=== PATIENT | female | born 1950 | race Hispanic/Latino ===

== ENCOUNTER 2021-05-16 17:54 | Inpatient (IN) | payer MEDICARE ==
--- NOTE | 2021-05-17 08:05 | History and Physical Report ---
GP History & Physical - History of Present Illness Date of admission: 05/16/21 Date of Examination: 05/17/21 Reason for Admission: Danger to self, Failure of Outpatient Treatment History of Present Illness: The patient is a 70 year old female with history of bipolar, anxiety, dementia, schizophrenia and schizoaffective disorder who was admitted from [facility] for aggressive behaviors. The patient was seen this morning. She presents with constricted affect and tangential thought process. She reports that she was went to the ED because she was coughing too much. The patient lacks insight and does not recall having any behavioral issues. Per note " the patient was brought to the ED for being aggressive and combative towards staff and residents at the halfway." The patient denies any current suicidal/homicidal ideation and denies hallucinations. PAST PSYCHIATRIC HISTORY: Diagnoses: Bipolar,Anxiety, Dementia, Schizophrenia, Schizoaffective Disorder Suicide attempts or Self-harm behavior: Yes Prior psychiatric hospitalizations: Yes Substance Abuse history: Denies Previous psychiatric medications tried: could not recall Outpatient treatment: yes PAST MEDICAL HISTORY: unknown Family Psychiatric History: None reported or documented SOCIAL HISTORY Marital Status: Living Arrangements: retirement Employment Status: Disabled Access to guns/weapons: Denies Education:College History of Abuse:Denies Legal History: Denies REVIEW OF SYSTEMS Constitutional: Negative for weight loss ENT: Negative for stridor Respiratory: Negative for cough or hemoptysis All other systems reviewed and are negative MENTAL STATUS EXAMINATION General Appearance and Behavior: Age appropriate, good hygiene, wearing appropriate clothes. calm, cooperative Cooperation: Cooperative Psychomotor Behavior: Psychomotor normal Mood: calm Affect and affective range: Constricted Thought Process: Tangential Thought Content: Speech: Normal tone and pace Suicidal Ideation: Denies Homicidal Ideation: Denies Hallucinations: Denies Delusions: Denies Impulse Control: Limited Insight and Judgment: Limited insight and fair judgment Memory: Limited Attention: distracted Orientation: a/o x 3 Assessment (1) Schizophrenia Current Visit: Yes Status: Acute Treatment Plan Patient admitted for inpatient psychiatric evaluation, medication adjustment a nd close monitoring The patient's behavior, mood, sleep and appetite will be closely monitored. Patient enrolled in individual and group therapeutic sessions and encouraged to attend. Patient provided with a safe and structured environment. Patient's physical health needs will be addressed by the Hospitalist. Hospitalist Consulted Labs including CBC, CMP, Lipid profile and Hemoglobin A1C levels ordered for baseline reference Social Assessment will be completed and the Mat Making Machine Tender will work with patient and family to ensure a suitable and safe disposition Medication adjustment will be made as clinically indicated Restart home medications Usual Wellness Anglican/Preservation: - Start Trazodone 50 mg po QHS & 50 mg po QHS PRN between 10 PM & 2 AM for in somnia - Start Melatonin 5 mg po QHS to promote circadian rhythm The patient agreed on the treatment plan, understood the risk, benefit, alternative treatment, potential consequence of no treatment, and gave informed consent. Estimated days: 7 Post hospital care: primary care provider, psychiatric provider Case staffed with Dr. White Legal Status: Voluntary Reaction to Hospitalization: Accepting Medications and Allergies Allergies Allergy/AdvReac Type Severity Reaction Status Date / Time haloperidol [From Haldol] Allergy Unknown Verified 05/16/21 22:07 Latex, Natural Rubber Allergy Unknown Verified 05/16/21 22:07 Home Medications Medication Instructions Recorded Confirmed Last Taken Type ARIPiprazole [Abilify] 10 mg PO DAILY 05/16/21 05/16/21 Unknown History Divalproex ER [DepaKOTE ER] 1,000 mg PO QHS 05/16/21 05/16/21 Unknown History Ipratropium/Albuterol Sulfate 0.5 - 2.5 mg INHALATION Q4HR PRN 05/16/21 05/16/21 Unknown History [DUONEB *Not for PRN Use*] Metformin HCl [metFORMIN] 1,000 mg PO BID 05/16/21 05/16/21 Unknown History amLODIPine [Norvasc] 5 mg PO DAILY 05/16/21 05/16/21 Unknown History diphenhydrAMINE [Benadryl CAP] 25 mg PO QHS PRN MDD For upto 10 05/16/21 05/16/21 Unknown History days donepeziL [Aricept] 5 mg PO QHS 05/16/21 05/16/21 Unknown History guaiFENesin/DEXTROMETHORPHAN 5 ml PO Q12HR 05/16/21 05/16/21 Unknown History [Guaifenesin-Dm 100-10 mg/5 ml] Results - Results Labs/Vitals: Last Vital Signs Temp 97.7 F 05/16/21 21:35 Pulse 91 H 05/16/21 21:35 Resp 17 05/16/21 21:35 BP 129/73 05/16/21 21:35 Pulse Ox 94 05/16/21 21:35 Physical Examination - Constitutional Vitals: Vital Signs Temp Pulse Resp BP Pulse Ox 97.7 F 91 H 17 129/73 94 05/16/21 21:35 05/16/21 21:35 05/16/21 21:35 05/16/21 21:35 05/16/21 21:35 Temperature -Last 24 Hours Temperature 97.7 F Mental Status Exam - Vital signs Last Vital Signs Temp 97.7 F 05/16/21 21:35 Pulse 91 H 05/16/21 21:35 Resp 17 05/16/21 21:35 BP 129/73 05/16/21 21:35 Pulse Ox 94 05/16/21 21:35 Physician Certification - Certification Statement Physician Certification Statement: This is an acknowledgement statement that AGGIE STEVEN is a 70 year old F who requires inpatient psychiatric admission for treatment which could reasonably be expected to improve the patient's condition for Estimated period of time patient will need to remain in the hospital: [ ] Plan for post-hospital care: [ ]
[2021-05-17] MEDS ORDERED: GUAIFENESIN PO SCH (10:00)
[2021-05-17] MEDS ORDERED: [UNRECOGNIZED DRUG - OTHER] PO SCH (10:00)
[2021-05-17] MEDS ORDERED: DEXTROMETHORPHAN PO SCH (10:00)
[2021-05-17] MEDS: amLODIPine 5 MG TAB PO SCH (10:12)
[2021-05-17] MEDS: ARIPiprazole 10 MG TAB PO SCH (10:12)
[2021-05-17] MEDS: metFORMIN 500 MG TAB PO SCH ×2 (10:17→17:23)
[2021-05-17] MEDS: guaiFENesin DM 200/20 MG ORAL LIQD 10 ML PO SCH ×2 (10:17→21:32)
--- NOTE | 2021-05-17 13:37 | Consultation ---
History of Present Illness - Reason for Consult Consult date: 05/17/21 medical mx - History of Present Illness The patient is a 70 year old female with history of bipolar, anxiety, dementia, schizophrenia and schizoaffective disorder who was admitted from [facility] for aggressive behaviors. Hospitalist Service consulted for medical management. Patient denies any complaint and has no acute issue PAST PSYCHIATRIC HISTORY: Bipolar,Anxiety, Dementia, Schizophrenia, Schizoaffective Disorder PAST MEDICAL HISTORY: DM Family Psychiatric History: H/o HTN, DM SOCIAL HISTORY: REVIEW OF SYSTEMS Constitutional: Negative for weight loss ENT: Negative for stridor Respiratory: Negative for cough or hemoptysis All other systems reviewed and are negative Physical exam: GENERAL: well-developed and well-nourished elderly female HEENT: Normocephalic. Atraumatic. No conjunctival congestion or icterus. Patient has moist mucous membranes. NECK: Supple. Trachea midline. CHEST/LUNGS: Clear to auscultated bilaterally, breathing nonlabored. No wheezes crackles or rhonchi. HEART/CARDIOVASCULAR: Regular in rate and rhythm. S1 and S2 positive. ABDOMEN: Abdomen is soft, nontender. Patient has normal bowel sounds. SKIN: There is no rash. Warm and dry. NEURO: No focal motor deficit. Follows command. MUSCULOSKELETAL: No joint effusion or tenderness. EXTRIMITY: No edema, no cyanosis or clubbing. PSYCH: Cooperative. Assessment Schizophrenia -- Mx per primary DM type 2 on metformin --patient appears to be medically stable with stable BG Medications and Allergies Allergies Allergy/AdvReac Type Severity Reaction Status Date / Time haloperidol [From Haldol] Allergy Unknown Verified 05/16/21 22:07 Latex, Natural Rubber Allergy Unknown Verified 05/16/21 22:07 Home Medications Medication Instructions Recorded Confirmed Last Taken Type ARIPiprazole [Abilify] 10 mg PO DAILY 05/16/21 05/16/21 Unknown History Divalproex ER [DepaKOTE ER] 1,000 mg PO QHS 05/16/21 05/16/21 Unknown History Ipratropium/Albuterol Sulfate 0.5 - 2.5 mg INHALATION Q4HR PRN 05/16/21 05/16/21 Unknown History [DUONEB *Not for PRN Use*] Metformin HCl [metFORMIN] 1,000 mg PO BID 05/16/21 05/16/21 Unknown History amLODIPine [Norvasc] 5 mg PO DAILY 05/16/21 05/16/21 Unknown History diphenhydrAMINE [Benadryl CAP] 25 mg PO QHS PRN MDD For upto 10 05/16/21 05/16/21 Unknown History days donepeziL [Aricept] 5 mg PO QHS 05/16/21 05/16/21 Unknown History guaiFENesin/DEXTROMETHORPHAN 5 ml PO Q12HR 05/16/21 05/16/21 Unknown History [Guaifenesin-Dm 100-10 mg/5 ml] Active Meds: Active Medications Albuterol/Ipratropium (Ipratropium/Albuterol Sulfate 3 Ml Ampul.Neb) 1 ampul IH Q6HRT [facility] Amlodipine Besylate (Amlodipine 5 Mg Tab) 5 mg PO DAILY [facility] Last Admin: 05/17/21 10:12 Dose: 5 mg Aripiprazole (Aripiprazole 10 Mg Tab) 10 mg PO DAILY [facility] Last Admin: 05/17/21 10:12 Dose: 10 mg Clonazepam (Clonazepam 0.5 Mg Tab) 0.5 mg PO BID [facility] Diphenhydramine HCl (Diphenhydramine 25 Mg Cap) 25 mg PO QHS PRN PRN Reason: Insomnia Divalproex Sodium (Divalproex Er 500 Mg Tab) 1,000 mg PO QHS [facility] Donepezil HCl (Donepezil 5 Mg Tab) 5 mg PO QHS [facility] Guaifenesin (Guaifenesin Dm 200/20 Mg Oral Liqd 10 Ml) 5 ml PO Q12H [facility] Last Admin: 05/17/21 10:17 Dose: 5 ml Metformin HCl (Metformin 500 Mg Tab) 1,000 mg PO BIDDIAB [facility] Last Admin: 05/17/21 10:17 Dose: 1,000 mg Ziprasidone (Ziprasidone Mesylate 20 Mg Vial) 20 mg IM Q4H PRN PRN Reason: Agitation Exam - Constitutional Vitals: Temp Pulse Resp BP Pulse Ox 99.0 F 87 16 118/74 95 05/17/21 07:44 05/17/21 10:12 05/17/21 07:44 05/17/21 10:12 05/17/21 07:44 Results - Labs CBC & Chem 7: 05/17/21 19:37 05/17/21 19:37 Labs: Abnormal lab results 05/17/21 Range/Units 11:14 POC Glucose 245 H (70-105) mg/dL
[2021-05-17] MEDS: clonazePAM 0.5 MG TAB PO SCH ×2 (13:46→21:34)
[2021-05-17] MEDS ORDERED: WATER FOR INJ Sterile (PF) 10 ML ONE (18:30)
[2021-05-17] MEDS: ZIPRASIDONE MESYLATE 20 MG VIAL IM PRN (18:32)
[2021-05-17 20:00] LABS: Basophils % (Auto) 1.1 % (0.0-1.8); Eosinophils # (Auto) 0.1 K/mm3 (0.0-0.4); Eosinophils % (Auto) 2.2 % (0.0-4.3); Hematocrit 31.4 % (30.3-42.9); Hemoglobin 10.1 gm/dl (10.1-14.3); Lymphocytes # (Auto) 1.1 K/mm3 (1.2-5.4); Lymphocytes % (Auto) 26.4 % (13.4-35.0); Mean Corpuscular HGB Conc 32 % (30-34); Mean Corpuscular Volume 90 fl (79-97); Monocytes # (Auto) 0.5 K/mm3 (0.0-0.8); Monocytes % (Auto) 12.9 % (0.0-7.3); Platelet Count 106 K/mm3 (140-440); Red Blood Count 3.48 M/mm3 (3.65-5.03); Red Cell Distribution Width 13.7 % (13.2-15.2)
[2021-05-17 20:19] LABS: Alanine Aminotransferase 23 units/L (7-56); Albumin 3.6 g/dL (3.9-5); BUN/Creatinine Ratio 20; Blood Urea Nitrogen 18 mg/dL (7-17); Calcium 8.9 mg/dL (8.4-10.2); Chol/HDL Ratio 1.93 %; HDL Cholesterol 59 mg/dL (40-59); Hemolysis Index 13; LDL Cholesterol,Direct 43 mg/dL (50-130)
[2021-05-17] MEDS: DIVALPROEX ER 500 MG TAB PO SCH (21:33)
[2021-05-17] MEDS: DONEPEZIL 5 MG TAB PO SCH (21:34)
[2021-05-18] MEDS: metFORMIN 500 MG TAB PO SCH ×2 (08:46→16:47)
--- NOTE | 2021-05-18 08:53 | Progress Note ---
Subjective Date of service: 05/18/21 Subjective Comment: 05/18/21: The patient was seen in the activity room. She reports feeling better. She states she spoke with her son last night. She continues to present with constricted affect and circumstantial. She denies any current suicidal/homicidal ideation and denies hallucinations. REVIEW OF SYSTEMS Constitutional: Negative for weight loss ENT: Negative for stridor Respiratory: Negative for cough or hemoptysis All other systems reviewed and are negative MENTAL STATUS EXAMINATION General Appearance and Behavior: Age appropriate, good hygiene, wearing appropriate clothes. calm, cooperative Cooperation: Cooperative Psychomotor Behavior: Psychomotor normal Mood: calm Affect and affective range: Constricted Thought Process: circumstantial Thought Content: Speech: Normal tone and pace Suicidal Ideation: Denies Homicidal Ideation: Denies Hallucinations: Denies Delusions: Denies Impulse Control: Limited Insight and Judgment: Limited insight and fair judgment Memory: Limited Attention: distracted Orientation: a/o x 3 Assessment (1) Schizophrenia Current Visit: Yes Status: Acute Treatment Plan Patient admitted for inpatient psychiatric evaluation, medication adjustment and close monitoring The patient's behavior, mood, sleep and appetite will be closely monitored. Patient enrolled in individual and group therapeutic sessions and encouraged to attend. Patient provided with a safe and structured environment. Patient's physical health needs will be addressed by the Hospitalist. Hospitalist Consulted Labs including CBC, CMP, Lipid profile and Hemoglobin A1C levels ordered for baseline reference Social Assessment will be completed and the Hepatologist will work with patient and family to ensure a suitable and safe disposition Medication adjustment will be made as clinically indicated Restart home medications Usual Wellness Yazidism/Preservation: - Start Trazodone 50 mg po QHS & 50 mg po QHS PRN between 10 PM & 2 AM for insomnia - Start Melatonin 5 mg po QHS to promote circadian rhythm The patient agreed on the treatment plan, understood the risk, benefit, alternative treatment, potential consequence of no treatment, and gave informed consent. Estimated days: 6 Post hospital care: primary care provider, psychiatric provider Case staffed with Dr. White Legal Status: Voluntary Reaction to Hospitalization: Accepting Medications and Allergies Medications and Allergies Allergies Allergy/AdvReac Type Severity Reaction Status Date / Time haloperidol [From Haldol] Allergy Unknown Verified 05/16/21 22:07 Latex, Natural Rubber Allergy Unknown Verified 05/16/21 22:07 Home Medications Medication Instructions Recorded Confirmed Last Taken Type ARIPiprazole [Abilify] 10 mg PO DAILY 05/16/21 05/16/21 Unknown History Divalproex ER [DepaKOTE ER] 1,000 mg PO QHS 05/16/21 05/16/21 Unknown History Ipratropium/Albuterol Sulfate 0.5 - 2.5 mg INHALATION Q4HR PRN 05/16/21 05/16/21 Unknown History [DUONEB *Not for PRN Use*] Metformin HCl [metFORMIN] 1,000 mg PO BID 05/16/21 05/16/21 Unknown History amLODIPine [Norvasc] 5 mg PO DAILY 05/16/21 05/16/21 Unknown History diphenhydrAMINE [Benadryl CAP] 25 mg PO QHS PRN MDD For upto 10 05/16/21 05/16/21 Unknown History days donepeziL [Aricept] 5 mg PO QHS 05/16/21 05/16/21 Unknown History guaiFENesin/DEXTROMETHORPHAN 5 ml PO Q12HR 05/16/21 05/16/21 Unknown History [Guaifenesin-Dm 100-10 mg/5 ml] Active Meds: Active Medications Albuterol/Ipratropium (Ipratropium/Albuterol Sulfate 3 Ml Ampul.Neb) 1 ampul IH Q6HRT [facility] Amlodipine Besylate (Amlodipine 5 Mg Tab) 5 mg PO DAILY [facility] Last Admin: 05/17/21 10:12 Dose: 5 mg Aripiprazole (Aripiprazole 10 Mg Tab) 10 mg PO DAILY [facility] Last Admin: 05/17/21 10:12 Dose: 10 mg Clonazepam (Clonazepam 0.5 Mg Tab) 0.5 mg PO BID [facility] Last Admin: 05/17/21 21:34 Dose: 0.5 mg Diphenhydramine HCl (Diphenhydramine 25 Mg Cap) 25 mg PO QHS PRN PRN Reason: Insomnia Divalproex Sodium (Divalproex Er 500 Mg Tab) 1,000 mg PO QHS [facility] Last Admin: 05/17/21 21:33 Dose: 1,000 mg Donepezil HCl (Donepezil 5 Mg Tab) 5 mg PO QHS [facility] Last Admin: 05/17/21 21:34 Dose: 5 mg Guaifenesin (Guaifenesin Dm 200/20 Mg Oral Liqd 10 Ml) 5 ml PO Q12H [facility] Last Admin: 05/17/21 21:32 Dose: 5 ml Metformin HCl (Metformin 500 Mg Tab) 1,000 mg PO BIDDIAB [facility] Last Admin: 05/18/21 08:46 Dose: 1,000 mg Ziprasidone (Ziprasidone Mesylate 20 Mg Vial) 20 mg IM Q4H PRN PRN Reason: Agitation Last Admin: 05/17/21 18:32 Dose: 20 mg Results - Results Labs/Vitals: Laboratory Last Values WBC 4.2 K/mm3 (4.5-11.0) L 05/17/21 19:37 RBC 3.48 M/mm3 (3.65-5.03) L 05/17/21 19:37 Hgb 10.1 gm/dl (10.1-14.3) 05/17/21 19:37 Hct 31.4 % (30.3-42.9) 05/17/21 19:37 MCV 90 fl (79-97) 05/17/21 19:37 MCH 29 pg (28-32) 05/17/21 19:37 MCHC 32 % (30-34) 05/17/21 19:37 RDW 13.7 % (13.2-15.2) 05/17/21 19:37 Plt Count 106 K/mm3 (140-440) L 05/17/21 19:37 Lymph % (Auto) 26.4 % (13.4-35.0) 05/17/21 19:37 [place] % (Auto) 12.9 % (0.0-7.3) H 05/17/21 19:37 Eos % (Auto) 2.2 % (0.0-4.3) 05/17/21 19:37 Baso % (Auto) 1.1 % (0.0-1.8) 05/17/21 19:37 Lymph # (Auto) 1.1 K/mm3 (1.2-5.4) L 05/17/21 19:37 [place] # (Auto) 0.5 K/mm3 (0.0-0.8) 05/17/21 19:37 Eos # (Auto) 0.1 K/mm3 (0.0-0.4) 05/17/21 19:37 Baso # (Auto) 0.0 K/mm3 (0.0-0.1) 05/17/21 19:37 Seg Neutrophils % 57.4 % (40.0-70.0) 05/17/21 19:37 Seg Neutrophils # 2.4 K/mm3 (1.8-7.7) 05/17/21 19:37 Sodium 134 mmol/L (137-145) L 05/17/21 19:37 Potassium 4.2 mmol/L (3.6-5.0) 05/17/21 19:37 Chloride 100.4 mmol/L (98-107) 05/17/21 19:37 Carbon Dioxide 20 mmol/L (22-30) L 05/17/21 19:37 Anion Gap 18 mmol/L 05/17/21 19:37 BUN 18 mg/dL (7-17) H 05/17/21 19:37 Creatinine 0.9 mg/dL (0.6-1.2) 05/17/21 19:37 Estimated GFR > 60 ml/min 05/17/21 19:37 BUN/Creatinine Ratio 20 % 05/17/21 19:37 Glucose 295 mg/dL (65-100) H 05/17/21 19:37 POC Glucose 167 mg/dL (70-105) H 05/18/21 06:47 Hemoglobin A1c 7.4 % (4-6) H 05/17/21 19:37 Calcium 8.9 mg/dL (8.4-10.2) 05/17/21 19:37 Total Bilirubin 0.30 mg/dL (0.1-1.2) 05/17/21 19:37 AST 28 units/L (5-40) 05/17/21 19:37 ALT 23 units/L (7-56) 05/17/21 19:37 Alkaline Phosphatase 92 units/L (35-129) 05/17/21 19:37 Total Protein 6.0 g/dL (6.3-8.2) L 05/17/21 19:37 Albumin 3.6 g/dL (3.9-5) L 05/17/21 19:37 Albumin/Globulin Ratio 1.5 % 05/17/21 19:37 Triglycerides 110 mg/dL (2-149) 05/17/21 19:37 Cholesterol 114 mg/dL (50-199) 05/17/21 19:37 LDL Cholesterol Direct 43 mg/dL (50-130) L 05/17/21 19:37 HDL Cholesterol 59 mg/dL (40-59) 05/17/21 19:37 Cholesterol/HDL Ratio 1.93 % 05/17/21 19:37 TSH 1.850 mlU/mL (0.270-4.200) 05/17/21 19:37 Last Vital Signs Temp 98.8 F 05/18/21 07:56 Pulse 87 05/18/21 07:56 Resp 16 05/18/21 07:56 BP 109/69 05/18/21 07:56 Pulse Ox 94 05/18/21 07:56
[2021-05-18] MEDS: amLODIPine 5 MG TAB PO SCH (09:01)
[2021-05-18] MEDS: clonazePAM 0.5 MG TAB PO SCH ×2 (09:02→21:35)
[2021-05-18] MEDS: guaiFENesin DM 200/20 MG ORAL LIQD 10 ML PO SCH ×2 (09:02→21:39)
[2021-05-18] MEDS: ARIPiprazole 10 MG TAB PO SCH (09:02)
[2021-05-18] MEDS ORDERED: DEXTROSE 50% IN WATER (25GM) 50 ML SYRINGE IV PRN (11:42)
[2021-05-18] MEDS ORDERED: DEXTROSE 10% *Hypoglycemia IV PRN (12:02)
[2021-05-18] MEDS: INSULIN LISPRO 100 UNIT/ML SUB-Q SCH ×2 (16:39→21:30)
--- NOTE | 2021-05-18 21:15 | Progress Note ---
Assessment and Plan - Patient Problems (1) Vascular dementia with behavioral disturbance Current Visit: Yes Status: Acute Plan to address problem: Verbal prompting, verbal redirection, benzodiazepine therapy as clinically indicated. (2) Cerebral atherosclerosis Current Visit: Yes Status: Acute Plan to address problem: Risk factor reduction, antiplatelet therapy as clinically indicated. (3) Obesity (BMI 30.0-34.9) Current Visit: Yes Status: Acute Plan to address problem: Balanced diet, increase physical activity at discharge. (4) Schizophrenia Current Visit: Yes Status: Acute Qualifiers: Schizophrenia type: unspecified Qualified Code(s): F20.9 - Schizophrenia, unspecified Plan to address problem: Continue medical management, supportive care, (5) Generalized anxiety disorder Current Visit: Yes Status: Acute Plan to address problem: Benzodiazepine therapy as clinic indicated, supportive care. (6) Advance care planning Current Visit: Yes Status: Acute Plan to address problem: Disease education conducted, care plan discussed, diagnosis discussed, prognosis discussed, patient is full code. +30 minutes. History Interval history: 70 YO Female with Bipolar DO, Vascular Dementia, Cerebral Atherosclerosis, Schizophrenia admitted to [facility] for psychiatric stabilization. Patient seen and evaluated in the recreation room. No reported nursing events. Patient denies pain. Hospitalist Physical - Constitutional Vitals: Temp Pulse Resp BP Pulse Ox 98.8 F 87 16 109/69 94 05/18/21 07:56 05/18/21 09:01 05/18/21 07:56 05/18/21 09:01 05/18/21 07:56 - EENT Eyes: Present: PERRL, EOM intact ENT: hearing decreased - Neck Neck: Present: supple - Respiratory Respiratory effort: normal Respiratory: bilateral: CTA - Cardiovascular Rhythm: regular Heart Sounds: Present: S1 & S2 - Extremities Extremities: no ischemia Peripheral Pulses: within normal limits - Abdominal General gastrointestinal: soft, non-tender, non-distended - Integumentary Integumentary: Present: clear, dry - Psychiatric Psychiatric: cooperative - Neurologic Neurologic: CNII-XII intact Results - Labs CBC & Chem 7: 05/17/21 19:37 05/17/21 19:37 Labs: Laboratory Last Values WBC 4.2 K/mm3 (4.5-11.0) L 05/17/21 19:37 RBC 3.48 M/mm3 (3.65-5.03) L 05/17/21 19:37 Hgb 10.1 gm/dl (10.1-14.3) 05/17/21 19:37 Hct 31.4 % (30.3-42.9) 05/17/21 19:37 MCV 90 fl (79-97) 05/17/21 19:37 MCH 29 pg (28-32) 05/17/21 19:37 MCHC 32 % (30-34) 05/17/21 19:37 RDW 13.7 % (13.2-15.2) 05/17/21 19:37 Plt Count 106 K/mm3 (140-440) L 05/17/21 19:37 Lymph % (Auto) 26.4 % (13.4-35.0) 05/17/21 19:37 [place] % (Auto) 12.9 % (0.0-7.3) H 05/17/21 19:37 Eos % (Auto) 2.2 % (0.0-4.3) 05/17/21 19:37 Baso % (Auto) 1.1 % (0.0-1.8) 05/17/21 19:37 Lymph # (Auto) 1.1 K/mm3 (1.2-5.4) L 05/17/21 19:37 [place] # (Auto) 0.5 K/mm3 (0.0-0.8) 05/17/21 19:37 Eos # (Auto) 0.1 K/mm3 (0.0-0.4) 05/17/21 19:37 Baso # (Auto) 0.0 K/mm3 (0.0-0.1) 05/17/21 19:37 Seg Neutrophils % 57.4 % (40.0-70.0) 05/17/21 19:37 Seg Neutrophils # 2.4 K/mm3 (1.8-7.7) 05/17/21 19:37 Sodium 134 mmol/L (137-145) L 05/17/21 19:37 Potassium 4.2 mmol/L (3.6-5.0) 05/17/21 19:37 Chloride 100.4 mmol/L (98-107) 05/17/21 19:37 Carbon Dioxide 20 mmol/L (22-30) L 05/17/21 19:37 Anion Gap 18 mmol/L 05/17/21 19:37 BUN 18 mg/dL (7-17) H 05/17/21 19:37 Creatinine 0.9 mg/dL (0.6-1.2) 05/17/21 19:37 Estimated GFR > 60 ml/min 05/17/21 19:37 BUN/Creatinine Ratio 20 % 05/17/21 19:37 Glucose 295 mg/dL (65-100) H 05/17/21 19:37 POC Glucose 191 mg/dL (70-105) H 05/18/21 19:40 Hemoglobin A1c 7.4 % (4-6) H 05/17/21 19:37 Calcium 8.9 mg/dL (8.4-10.2) 05/17/21 19:37 Total Bilirubin 0.30 mg/dL (0.1-1.2) 05/17/21 19:37 AST 28 units/L (5-40) 05/17/21 19:37 ALT 23 units/L (7-56) 05/17/21 19:37 Alkaline Phosphatase 92 units/L (35-129) 05/17/21 19:37 Total Protein 6.0 g/dL (6.3-8.2) L 05/17/21 19:37 Albumin 3.6 g/dL (3.9-5) L 05/17/21 19:37 Albumin/Globulin Ratio 1.5 % 05/17/21 19:37 Triglycerides 110 mg/dL (2-149) 05/17/21 19:37 Cholesterol 114 mg/dL (50-199) 05/17/21 19:37 LDL Cholesterol Direct 43 mg/dL (50-130) L 05/17/21 19:37 HDL Cholesterol 59 mg/dL (40-59) 05/17/21 19:37 Cholesterol/HDL Ratio 1.93 % 05/17/21 19:37 TSH 1.850 mlU/mL (0.270-4.200) 05/17/21 19:37 Du/IV: Voiding Method Toilet Active Medications - Current Medications Current Medications: Generic Name Dose Route Start Last Admin Trade Name Freq PRN Reason Stop Dose Admin Albuterol/Ipratropium 1 ampul 05/17/21 14:00 Ipratropium/Albuterol Sulfate 3 Ml Ampul.Neb IH Q6HRT [facility] Amlodipine Besylate 5 mg 05/17/21 10:00 05/18/21 09:01 Amlodipine 5 Mg Tab PO 5 mg DAILY [facility] Administration Aripiprazole 10 mg 05/17/21 10:00 05/18/21 09:02 Aripiprazole 10 Mg Tab PO 10 mg DAILY [facility] Administration Clonazepam 0.5 mg 05/17/21 14:00 05/18/21 09:02 Clonazepam 0.5 Mg Tab PO 0.5 mg BID [facility] Administration Dextrose 50 ml 05/18/21 11:42 Dextrose 50% In Water (25gm) 50 Ml Syringe IV Q30MIN PRN Hypoglycemia Protocol Dextrose 0 ml 05/18/21 12:02 Dextrose 10% *Hypoglycemia IV PRN PRN Hypoglycemia Diphenhydramine HCl 25 mg 05/17/21 08:05 Diphenhydramine 25 Mg Cap PO QHS PRN Insomnia Divalproex Sodium 1,000 mg 05/17/21 22:00 05/17/21 21:33 Divalproex Er 500 Mg Tab PO 1,000 mg QHS [facility] Administration Donepezil HCl 5 mg 05/17/21 22:00 05/17/21 21:34 Donepezil 5 Mg Tab PO 5 mg QHS [facility] Administration Guaifenesin 5 ml 05/17/21 10:00 05/18/21 09:02 Guaifenesin Dm 200/20 Mg Oral Liqd 10 Ml PO 5 ml Q12H [facility] Administration Hydrophilic Ointment 1 applic 05/18/21 09:18 Lip Therapy Vaseline TP DIRECT PRN Dry Lips Insulin Human Lispro 0 unit 05/18/21 16:30 05/18/21 16:39 Insulin Lispro 100 Unit/Ml SUB-Q 1 unit ACHS [facility] Administration Protocol Metformin HCl 1,000 mg 05/17/21 10:00 05/18/21 16:47 Metformin 500 Mg Tab PO 1,000 mg BIDDIAB [facility] Administration Ziprasidone 20 mg 05/17/21 12:51 05/17/21 18:32 Ziprasidone Mesylate 20 Mg Vial IM 20 mg Q4H PRN Administration Agitation
[2021-05-18] MEDS: DIVALPROEX ER 500 MG TAB PO SCH (21:35)
[2021-05-18] MEDS: DONEPEZIL 5 MG TAB PO SCH (21:35)
[2021-05-19] MEDS: ZIPRASIDONE MESYLATE 20 MG VIAL IM PRN (03:05)
[2021-05-19] MEDS: INSULIN LISPRO 100 UNIT/ML SUB-Q SCH ×4 (07:51→21:59)
[2021-05-19] MEDS: IPRATROPIUM/ALBUTEROL SULFATE 3 ML AMPUL.NEB IH SCH ×5 (08:00→15:53)
[2021-05-19] MEDS: metFORMIN 500 MG TAB PO SCH ×2 (08:08→16:49)
[2021-05-19] MEDS: amLODIPine 5 MG TAB PO SCH (09:22)
[2021-05-19] MEDS: ARIPiprazole 10 MG TAB PO SCH (09:22)
[2021-05-19] MEDS: clonazePAM 0.5 MG TAB PO SCH ×2 (09:22→21:31)
[2021-05-19] MEDS: guaiFENesin DM 200/20 MG ORAL LIQD 10 ML PO SCH ×2 (09:23→21:31)
[2021-05-19] MEDS: LIP THERAPY VASELINE TP PRN (09:26)
--- NOTE | 2021-05-19 09:29 | Progress Note ---
Subjective Date of service: 05/19/21 Subjective Comment: 05/18/21: The patient was seen in the activity room. She reports feeling better. She states she spoke with her son last night. She continues to present with constricted affect and circumstantial. She denies any current suicidal/homicidal ideation and denies hallucinations. 05/19/21: The patient was seen today. She reports doing better. She reports eats and sleep as good. She denies any current suicidal/homicidal ideation and denies hallucinations. No aggressive behaviors reported. REVIEW OF SYSTEMS Constitutional: Negative for weight loss ENT: Negative for stridor Respiratory: Negative for cough or hemoptysis All other systems reviewed and are negative MENTAL STATUS EXAMINATION General Appearance and Behavior: Age appropriate, good hygiene, wearing appropriate clothes. calm, cooperative Cooperation: Cooperative Psychomotor Behavior: Psychomotor normal Mood: calm Affect and affective range: Congruent to stated mood Thought Process: circumstantial Thought Content:None Speech: Normal tone and pace Suicidal Ideation: Denies Homicidal Ideation: Denies Hallucinations: Denies Delusions: Denies Impulse Control: Limited Insight and Judgment: Limited insight and fair judgment Memory: Limited Attention: distracted Orientation: a/o x 3 Assessment (1) Schizophrenia Current Visit: Yes Status: Acute Treatment Plan Patient admitted for inpatient psychiatric evaluation, medication adjustment and close monitoring The patient's behavior, mood, sleep and appetite will be closely monitored. Patient enrolled in individual and group therapeutic sessions and encouraged to attend. Patient provided with a safe and structured environment. Patient's physical health needs will be addressed by the Hospitalist. Hospitalist Consulted Labs including CBC, CMP, Lipid profile and Hemoglobin A1C levels ordered for baseline reference Social Assessment will be completed and the Label Designer will work with patient and family to ensure a suitable and safe disposition Medication adjustment will be made as clinically indicated Restart home medications Usual Wellness Religious/Preservation: - Start Trazodone 50 mg po QHS & 50 mg po QHS PRN between 10 PM & 2 AM for insomnia - Start Melatonin 5 mg po QHS to promote circadian rhythm The patient agreed on the treatment plan, understood the risk, benefit, alternative treatment, potential consequence of no treatment, and gave informed consent. Estimated days: 5 Post hospital care: primary care provider, psychiatric provider Case staffed with Dr. White Legal Status: Voluntary Reaction to Hospitalization: Accepting Medications and Allergies Medications and Allergies Allergies Allergy/AdvReac Type Severity Reaction Status Date / Time haloperidol [From Haldol] Allergy Unknown Verified 05/16/21 22:07 Latex, Natural Rubber Allergy Unknown Verified 05/16/21 22:07 Home Medications Medication Instructions Recorded Confirmed Last Taken Type ARIPiprazole [Abilify] 10 mg PO DAILY 05/16/21 05/16/21 Unknown History Divalproex ER [DepaKOTE ER] 1,000 mg PO QHS 05/16/21 05/16/21 Unknown History Ipratropium/Albuterol Sulfate 0.5 - 2.5 mg INHALATION Q4HR PRN 05/16/21 05/16/21 Unknown History [DUONEB *Not for PRN Use*] Metformin HCl [metFORMIN] 1,000 mg PO BID 05/16/21 05/16/21 Unknown History amLODIPine [Norvasc] 5 mg PO DAILY 05/16/21 05/16/21 Unknown History diphenhydrAMINE [Benadryl CAP] 25 mg PO QHS PRN MDD For upto 10 05/16/21 05/16/21 Unknown History days donepeziL [Aricept] 5 mg PO QHS 05/16/21 05/16/21 Unknown History guaiFENesin/DEXTROMETHORPHAN 5 ml PO Q12HR 05/16/21 05/16/21 Unknown History [Guaifenesin-Dm 100-10 mg/5 ml] Active Meds: Active Medications Albuterol/Ipratropium (Ipratropium/Albuterol Sulfate 3 Ml Ampul.Neb) 1 ampul IH Q6HRT [facility] Amlodipine Besylate (Amlodipine 5 Mg Tab) 5 mg PO DAILY [facility] Last Admin: 05/19/21 09:22 Dose: 5 mg Aripiprazole (Aripiprazole 10 Mg Tab) 10 mg PO DAILY [facility] Last Admin: 05/19/21 09:22 Dose: 10 mg Clonazepam (Clonazepam 0.5 Mg Tab) 0.5 mg PO BID [facility] Last Admin: 05/19/21 09:22 Dose: 0.5 mg Dextrose (Dextrose 50% In Water (25gm) 50 Ml Syringe) 50 ml IV Q30MIN PRN; Protocol PRN Reason: Hypoglycemia Dextrose (Dextrose 10% *Hypoglycemia) 0 ml IV PRN PRN PRN Reason: Hypoglycemia Diphenhydramine HCl (Diphenhydramine 25 Mg Cap) 25 mg PO QHS PRN PRN Reason: Insomnia Divalproex Sodium (Divalproex Er 500 Mg Tab) 1,000 mg PO QHS [facility] Last Admin: 05/18/21 21:35 Dose: 1,000 mg Donepezil HCl (Donepezil 5 Mg Tab) 5 mg PO QHS [facility] Last Admin: 05/18/21 21:35 Dose: 5 mg Guaifenesin (Guaifenesin Dm 200/20 Mg Oral Liqd 10 Ml) 5 ml PO Q12H [facility] Last Admin: 05/19/21 09:23 Dose: 5 ml Hydrophilic Ointment (Lip Therapy Vaseline) 1 applic TP DIRECT PRN PRN Reason: Dry Lips Insulin Human Lispro (Insulin Lispro 100 Unit/Ml) 0 unit SUB-Q ACHS [facility]; Protocol Last Admin: 05/19/21 07:51 Dose: Not Given Metformin HCl (Metformin 500 Mg Tab) 1,000 mg PO BIDDIAB [facility] Last Admin: 05/19/21 08:08 Dose: 1,000 mg Results - Results Labs/Vitals: Laboratory Last Values WBC 4.2 K/mm3 (4.5-11.0) L 05/17/21 19:37 RBC 3.48 M/mm3 (3.65-5.03) L 05/17/21 19:37 Hgb 10.1 gm/dl (10.1-14.3) 05/17/21 19:37 Hct 31.4 % (30.3-42.9) 05/17/21 19:37 MCV 90 fl (79-97) 05/17/21 19:37 MCH 29 pg (28-32) 05/17/21 19:37 MCHC 32 % (30-34) 05/17/21 19:37 RDW 13.7 % (13.2-15.2) 05/17/21 19:37 Plt Count 106 K/mm3 (140-440) L 05/17/21 19:37 Lymph % (Auto) 26.4 % (13.4-35.0) 05/17/21 19:37 [place] % (Auto) 12.9 % (0.0-7.3) H 05/17/21 19:37 Eos % (Auto) 2.2 % (0.0-4.3) 05/17/21 19:37 Baso % (Auto) 1.1 % (0.0-1.8) 05/17/21 19:37 Lymph # (Auto) 1.1 K/mm3 (1.2-5.4) L 05/17/21 19:37 [place] # (Auto) 0.5 K/mm3 (0.0-0.8) 05/17/21 19:37 Eos # (Auto) 0.1 K/mm3 (0.0-0.4) 05/17/21 19:37 Baso # (Auto) 0.0 K/mm3 (0.0-0.1) 05/17/21 19:37 Seg Neutrophils % 57.4 % (40.0-70.0) 05/17/21 19:37 Seg Neutrophils # 2.4 K/mm3 (1.8-7.7) 05/17/21 19:37 Sodium 134 mmol/L (137-145) L 05/17/21 19:37 Potassium 4.2 mmol/L (3.6-5.0) 05/17/21 19:37 Chloride 100.4 mmol/L (98-107) 05/17/21 19:37 Carbon Dioxide 20 mmol/L (22-30) L 05/17/21 19:37 Anion Gap 18 mmol/L 05/17/21 19:37 BUN 18 mg/dL (7-17) H 05/17/21 19:37 Creatinine 0.9 mg/dL (0.6-1.2) 05/17/21 19:37 Estimated GFR > 60 ml/min 05/17/21 19:37 BUN/Creatinine Ratio 20 % 05/17/21 19:37 Glucose 295 mg/dL (65-100) H 05/17/21 19:37 POC Glucose 136 mg/dL (70-105) H 05/19/21 07:42 Hemoglobin A1c 7.4 % (4-6) H 05/17/21 19:37 Calcium 8.9 mg/dL (8.4-10.2) 05/17/21 19:37 Total Bilirubin 0.30 mg/dL (0.1-1.2) 05/17/21 19:37 AST 28 units/L (5-40) 05/17/21 19:37 ALT 23 units/L (7-56) 05/17/21 19:37 Alkaline Phosphatase 92 units/L (35-129) 05/17/21 19:37 Total Protein 6.0 g/dL (6.3-8.2) L 05/17/21 19:37 Albumin 3.6 g/dL (3.9-5) L 05/17/21 19:37 Albumin/Globulin Ratio 1.5 % 05/17/21 19:37 Triglycerides 110 mg/dL (2-149) 05/17/21 19:37 Cholesterol 114 mg/dL (50-199) 05/17/21 19:37 LDL Cholesterol Direct 43 mg/dL (50-130) L 05/17/21 19:37 HDL Cholesterol 59 mg/dL (40-59) 05/17/21 19:37 Cholesterol/HDL Ratio 1.93 % 05/17/21 19:37 TSH 1.850 mlU/mL (0.270-4.200) 05/17/21 19:37 Last Vital Signs Temp 98.1 F 05/19/21 08:48 Pulse 86 05/19/21 09:22 Resp 18 05/19/21 08:48 BP 110/62 05/19/21 09:22 Pulse Ox 95 05/19/21 08:48
[2021-05-19] MEDS ORDERED: ARIPiprazole 15 MG TAB PO SCH (10:30)
[2021-05-19] MEDS ORDERED: ZIPRASIDONE MESYLATE 20 MG VIAL IM PRN (10:30)
[2021-05-19] MEDS: diphenhydrAMINE 25 MG CAP PO PRN (20:43)
[2021-05-19] MEDS: DONEPEZIL 5 MG TAB PO SCH (21:31)
[2021-05-19] MEDS: DIVALPROEX ER 500 MG TAB PO SCH (21:31)
--- NOTE | 2021-05-20 08:39 | Progress Note ---
Subjective Date of service: 05/20/21 Subjective Comment: 05/18/21: The patient was seen in the activity room. She reports feeling better. She states she spoke with her son last night. She continues to present with constricted affect and circumstantial. She denies any current suicidal/homicidal ideation and denies hallucinations. 05/19/21: The patient was seen today. She reports doing better. She reports eats and sleep as good. She denies any current suicidal/homicidal ideation and denies hallucinations. No aggressive behaviors reported. 05/20/21: The patient was seen today. She reports doing well. She continues to be circumstantial sometimes; talks to herself. She denies any current suicidal/homicidal ideation and denies hallucinations. No aggressive behaviors reported. REVIEW OF SYSTEMS Constitutional: Negative for weight loss ENT: Negative for stridor Respiratory: Negative for cough or hemoptysis All other systems reviewed and are negative MENTAL STATUS EXAMINATION General Appearance and Behavior: Age appropriate, good hygiene, wearing appropriate clothes. calm, cooperative Cooperation: Cooperative Psychomotor Behavior: Psychomotor normal Mood: calm Affect and affective range: Congruent to stated mood Thought Process: circumstantial Thought Content:None Speech: Normal tone and pace Suicidal Ideation: Denies Homicidal Ideation: Denies Hallucinations: Denies Delusions: Denies Impulse Control: Limited Insight and Judgment: Limited insight and fair judgment Memory: Limited Attention: distracted Orientation: a/o x 3 Assessment (1) Schizophrenia Current Visit: Yes Status: Acute Treatment Plan Patient admitted for inpatient psychiatric evaluation, medication adjustment and close monitoring The patient's behavior, mood, sleep and appetite will be closely monitored. Patient enrolled in individual and group therapeutic sessions and encouraged to attend. Patient provided with a safe and structured environment. Patient's physical health needs will be addressed by the Hospitalist. Hospitalist Consulted Labs including CBC, CMP, Lipid profile and Hemoglobin A1C levels ordered for baseline reference Social Assessment will be completed and the Recreational Resort Manager will work with patient and family to ensure a suitable and safe disposition Medication adjustment will be made as clinically indicated Restart home medications Usual Wellness Jewish/Preservation: - Start Trazodone 50 mg po QHS & 50 mg po QHS PRN between 10 PM & 2 AM for insomnia - Start Melatonin 5 mg po QHS to promote circadian rhythm The patient agreed on the treatment plan, understood the risk, benefit, alternative treatment, potential consequence of no treatment, and gave informed consent. Estimated days: 5 Post hospital care: primary care provider, psychiatric provider Case staffed with Dr. White Legal Status: Voluntary Reaction to Hospitalization: Accepting Medications and Allergies Medications and Allergies Allergies Allergy/AdvReac Type Severity Reaction Status Date / Time haloperidol [From Haldol] Allergy Unknown Verified 05/16/21 22:07 Latex, Natural Rubber Allergy Unknown Verified 05/16/21 22:07 Home Medications Medication Instructions Recorded Confirmed Last Taken Type ARIPiprazole [Abilify] 10 mg PO DAILY 05/16/21 05/16/21 Unknown History Divalproex ER [DepaKOTE ER] 1,000 mg PO QHS 05/16/21 05/16/21 Unknown History Ipratropium/Albuterol Sulfate 0.5 - 2.5 mg INHALATION Q4HR PRN 05/16/21 05/16/21 Unknown History [DUONEB *Not for PRN Use*] Metformin HCl [metFORMIN] 1,000 mg PO BID 05/16/21 05/16/21 Unknown History amLODIPine [Norvasc] 5 mg PO DAILY 05/16/21 05/16/21 Unknown History diphenhydrAMINE [Benadryl CAP] 25 mg PO QHS PRN MDD For upto 10 05/16/21 05/16/21 Unknown History days donepeziL [Aricept] 5 mg PO QHS 05/16/21 05/16/21 Unknown History guaiFENesin/DEXTROMETHORPHAN 5 ml PO Q12HR 05/16/21 05/16/21 Unknown History [Guaifenesin-Dm 100-10 mg/5 ml] Active Meds: Active Medications Albuterol/Ipratropium (Ipratropium/Albuterol Sulfate 3 Ml Ampul.Neb) 1 ampul IH Q6HRT [facility] Last Admin: 05/19/21 15:53 Dose: Not Given Amlodipine Besylate (Amlodipine 5 Mg Tab) 5 mg PO DAILY [facility] Last Admin: 05/19/21 09:22 Dose: 5 mg Aripiprazole (Aripiprazole 15 Mg Tab) 15 mg PO QDAY [facility] Clonazepam (Clonazepam 0.5 Mg Tab) 0.5 mg PO BID [facility] Last Admin: 05/19/21 21:31 Dose: 0.5 mg Dextrose (Dextrose 50% In Water (25gm) 50 Ml Syringe) 50 ml IV Q30MIN PRN; Protocol PRN Reason: Hypoglycemia Dextrose (Dextrose 10% *Hypoglycemia) 0 ml IV PRN PRN PRN Reason: Hypoglycemia Diphenhydramine HCl (Diphenhydramine 25 Mg Cap) 25 mg PO QHS PRN PRN Reason: Insomnia Last Admin: 05/19/21 20:43 Dose: 25 mg Divalproex Sodium (Divalproex Er 500 Mg Tab) 1,000 mg PO QHS [facility] Last Admin: 05/19/21 21:31 Dose: 1,000 mg Donepezil HCl (Donepezil 5 Mg Tab) 5 mg PO QHS [facility] Last Admin: 05/19/21 21:31 Dose: 5 mg Guaifenesin (Guaifenesin Dm 200/20 Mg Oral Liqd 10 Ml) 5 ml PO Q12H [facility] Last Admin: 05/19/21 21:31 Dose: 5 ml Hydrophilic Ointment (Lip Therapy Vaseline) 1 applic TP DIRECT PRN PRN Reason: Dry Lips Last Admin: 05/19/21 09:26 Dose: 1 applic Insulin Human Lispro (Insulin Lispro 100 Unit/Ml) 0 unit SUB-Q ACHS [facility]; Protocol Last Admin: 05/19/21 21:59 Dose: 1 unit Metformin HCl (Metformin 500 Mg Tab) 1,000 mg PO BIDDIAB [facility] Last Admin: 05/19/21 16:49 Dose: 1,000 mg Ziprasidone (Ziprasidone Mesylate 20 Mg Vial) 20 mg IM Q4H PRN PRN Reason: Agitation Results - Results Labs/Vitals: Laboratory Last Values WBC 4.2 K/mm3 (4.5-11.0) L 05/17/21 19:37 RBC 3.48 M/mm3 (3.65-5.03) L 05/17/21 19:37 Hgb 10.1 gm/dl (10.1-14.3) 05/17/21 19:37 Hct 31.4 % (30.3-42.9) 05/17/21 19:37 MCV 90 fl (79-97) 05/17/21 19:37 MCH 29 pg (28-32) 05/17/21 19:37 MCHC 32 % (30-34) 05/17/21 19:37 RDW 13.7 % (13.2-15.2) 05/17/21 19:37 Plt Count 106 K/mm3 (140-440) L 05/17/21 19:37 Lymph % (Auto) 26.4 % (13.4-35.0) 05/17/21 19:37 [place] % (Auto) 12.9 % (0.0-7.3) H 05/17/21 19:37 Eos % (Auto) 2.2 % (0.0-4.3) 05/17/21 19:37 Baso % (Auto) 1.1 % (0.0-1.8) 05/17/21 19:37 Lymph # (Auto) 1.1 K/mm3 (1.2-5.4) L 05/17/21 19:37 [place] # (Auto) 0.5 K/mm3 (0.0-0.8) 05/17/21 19:37 Eos # (Auto) 0.1 K/mm3 (0.0-0.4) 05/17/21 19:37 Baso # (Auto) 0.0 K/mm3 (0.0-0.1) 05/17/21 19:37 Seg Neutrophils % 57.4 % (40.0-70.0) 05/17/21 19:37 Seg Neutrophils # 2.4 K/mm3 (1.8-7.7) 05/17/21 19:37 Sodium 134 mmol/L (137-145) L 05/17/21 19:37 Potassium 4.2 mmol/L (3.6-5.0) 05/17/21 19:37 Chloride 100.4 mmol/L (98-107) 05/17/21 19:37 Carbon Dioxide 20 mmol/L (22-30) L 05/17/21 19:37 Anion Gap 18 mmol/L 05/17/21 19:37 BUN 18 mg/dL (7-17) H 05/17/21 19:37 Creatinine 0.9 mg/dL (0.6-1.2) 05/17/21 19:37 Estimated GFR > 60 ml/min 05/17/21 19:37 BUN/Creatinine Ratio 20 % 05/17/21 19:37 Glucose 295 mg/dL (65-100) H 05/17/21 19:37 POC Glucose 156 mg/dL (70-105) H 05/20/21 06:08 Hemoglobin A1c 7.4 % (4-6) H 05/17/21 19:37 Calcium 8.9 mg/dL (8.4-10.2) 05/17/21 19:37 Total Bilirubin 0.30 mg/dL (0.1-1.2) 05/17/21 19:37 AST 28 units/L (5-40) 05/17/21 19:37 ALT 23 units/L (7-56) 05/17/21 19:37 Alkaline Phosphatase 92 units/L (35-129) 05/17/21 19:37 Total Protein 6.0 g/dL (6.3-8.2) L 05/17/21 19:37 Albumin 3.6 g/dL (3.9-5) L 05/17/21 19:37 Albumin/Globulin Ratio 1.5 % 05/17/21 19:37 Triglycerides 110 mg/dL (2-149) 05/17/21 19:37 Cholesterol 114 mg/dL (50-199) 05/17/21 19:37 LDL Cholesterol Direct 43 mg/dL (50-130) L 05/17/21 19:37 HDL Cholesterol 59 mg/dL (40-59) 05/17/21 19:37 Cholesterol/HDL Ratio 1.93 % 05/17/21 19:37 TSH 1.850 mlU/mL (0.270-4.200) 05/17/21 19:37 Last Vital Signs Temp 98.6 F 05/19/21 19:41 Pulse 96 H 05/19/21 19:41 Resp 18 05/19/21 19:41 BP 120/75 05/19/21 19:41 Pulse Ox 96 05/19/21 19:41
[2021-05-20] MEDS: metFORMIN 500 MG TAB PO SCH ×2 (09:44→16:24)
[2021-05-20] MEDS: INSULIN LISPRO 100 UNIT/ML SUB-Q SCH ×4 (09:45→21:27)
[2021-05-20] MEDS: amLODIPine 5 MG TAB PO SCH (09:46)
[2021-05-20] MEDS: clonazePAM 0.5 MG TAB PO SCH ×2 (09:46→21:28)
[2021-05-20] MEDS: ARIPiprazole 15 MG TAB PO SCH (09:46)
[2021-05-20] MEDS: guaiFENesin DM 200/20 MG ORAL LIQD 10 ML PO SCH ×2 (13:13→21:25)
[2021-05-20] MEDS: IPRATROPIUM/ALBUTEROL SULFATE 3 ML AMPUL.NEB IH SCH ×3 (13:13→16:42)
--- NOTE | 2021-05-20 18:16 | Progress Note ---
Assessment and Plan Assessment and plan: -- Vascular dementia with behavioral disturbance Current Visit: Yes Status: Acute Verbal prompting, verbal redirection, benzodiazepine therapy as clinically indicated. -- Cerebral atherosclerosis Current Visit: Yes Status: Acute Risk factor reduction, antiplatelet therapy as clinically indicated. -- Obesity (BMI 30.0-34.9) Current Visit: Yes Status: Acute Balanced diet, increase physical activity at discharge. --Schizophrenia Current Visit: Yes Status: Acute Continue medical management, supportive care, -- Generalized anxiety disorder Current Visit: Yes Status: Acute Benzodiazepine therapy as clinic indicated, supportive care. -- Advance care planning Current Visit: Yes Status: Acute Disease education conducted, care plan discussed, diagnosis discussed, prognosis discussed, patient is full code. +30 minutes. Closely monitor patient and adjust management as needed We will follow the patient along with you History Interval history: I have seen and examined the patient in the day room Patient feels better, no new complaints Very talkative and pleasant Hospitalist Physical - Constitutional Vitals: Temp Pulse Resp BP Pulse Ox 98.6 F 76 18 114/67 96 05/19/21 19:41 05/20/21 09:46 05/19/21 19:41 05/20/21 09:46 05/19/21 19:41 General appearance: Present: no acute distress, well-nourished, obese - EENT Eyes: Present: PERRL, EOM intact - Neck Neck: Present: supple, normal ROM - Respiratory Respiratory effort: normal Respiratory: bilateral: diminished, negative: rales, rhonchi, wheezing - Cardiovascular Rhythm: regular Heart Sounds: Present: S1 & S2 - Extremities Extremities: no ischemia, No edema - Abdominal General gastrointestinal: soft, non-tender, non-distended, normal bowel sounds - Integumentary Integumentary: Present: clear, warm - Psychiatric Psychiatric: appropriate mood/affect, cooperative - Neurologic Neurologic: moves all extremities Results - Labs CBC & Chem 7: 05/17/21 19:37 05/17/21 19:37 Labs: Laboratory Last Values WBC 4.2 K/mm3 (4.5-11.0) L 05/17/21 19:37 RBC 3.48 M/mm3 (3.65-5.03) L 05/17/21 19:37 Hgb 10.1 gm/dl (10.1-14.3) 05/17/21 19:37 Hct 31.4 % (30.3-42.9) 05/17/21 19:37 MCV 90 fl (79-97) 05/17/21 19:37 MCH 29 pg (28-32) 05/17/21 19:37 MCHC 32 % (30-34) 05/17/21 19:37 RDW 13.7 % (13.2-15.2) 05/17/21 19:37 Plt Count 106 K/mm3 (140-440) L 05/17/21 19:37 Lymph % (Auto) 26.4 % (13.4-35.0) 05/17/21 19:37 [place] % (Auto) 12.9 % (0.0-7.3) H 05/17/21 19:37 Eos % (Auto) 2.2 % (0.0-4.3) 05/17/21 19:37 Baso % (Auto) 1.1 % (0.0-1.8) 05/17/21 19:37 Lymph # (Auto) 1.1 K/mm3 (1.2-5.4) L 05/17/21 19:37 [place] # (Auto) 0.5 K/mm3 (0.0-0.8) 05/17/21 19:37 Eos # (Auto) 0.1 K/mm3 (0.0-0.4) 05/17/21 19:37 Baso # (Auto) 0.0 K/mm3 (0.0-0.1) 05/17/21 19:37 Seg Neutrophils % 57.4 % (40.0-70.0) 05/17/21 19:37 Seg Neutrophils # 2.4 K/mm3 (1.8-7.7) 05/17/21 19:37 Sodium 134 mmol/L (137-145) L 05/17/21 19:37 Potassium 4.2 mmol/L (3.6-5.0) 05/17/21 19:37 Chloride 100.4 mmol/L (98-107) 05/17/21 19:37 Carbon Dioxide 20 mmol/L (22-30) L 05/17/21 19:37 Anion Gap 18 mmol/L 05/17/21 19:37 BUN 18 mg/dL (7-17) H 05/17/21 19:37 Creatinine 0.9 mg/dL (0.6-1.2) 05/17/21 19:37 Estimated GFR > 60 ml/min 05/17/21 19:37 BUN/Creatinine Ratio 20 % 05/17/21 19:37 Glucose 295 mg/dL (65-100) H 05/17/21 19:37 POC Glucose 201 mg/dL (70-105) H 05/20/21 16:29 Hemoglobin A1c 7.4 % (4-6) H 05/17/21 19:37 Calcium 8.9 mg/dL (8.4-10.2) 05/17/21 19:37 Total Bilirubin 0.30 mg/dL (0.1-1.2) 05/17/21 19:37 AST 28 units/L (5-40) 05/17/21 19:37 ALT 23 units/L (7-56) 05/17/21 19:37 Alkaline Phosphatase 92 units/L (35-129) 05/17/21 19:37 Total Protein 6.0 g/dL (6.3-8.2) L 05/17/21 19:37 Albumin 3.6 g/dL (3.9-5) L 05/17/21 19:37 Albumin/Globulin Ratio 1.5 % 05/17/21 19:37 Triglycerides 110 mg/dL (2-149) 05/17/21 19:37 Cholesterol 114 mg/dL (50-199) 05/17/21 19:37 LDL Cholesterol Direct 43 mg/dL (50-130) L 05/17/21 19:37 HDL Cholesterol 59 mg/dL (40-59) 05/17/21 19:37 Cholesterol/HDL Ratio 1.93 % 05/17/21 19:37 TSH 1.850 mlU/mL (0.270-4.200) 05/17/21 19:37 Du/IV: Voiding Method Toilet Active Medications - Current Medications Current Medications: Generic Name Dose Route Start Last Admin Trade Name Freq PRN Reason Stop Dose Admin Albuterol/Ipratropium 1 ampul 05/17/21 14:00 05/20/21 16:42 Ipratropium/Albuterol Sulfate 3 Ml Ampul.Neb IH Not Given Q6HRT [facility] Amlodipine Besylate 5 mg 05/17/21 10:00 05/20/21 09:46 Amlodipine 5 Mg Tab PO 5 mg DAILY [facility] Administration Aripiprazole 15 mg 05/20/21 10:00 05/20/21 09:46 Aripiprazole 15 Mg Tab PO 15 mg QDAY [facility] Administration Clonazepam 0.5 mg 05/17/21 14:00 05/20/21 09:46 Clonazepam 0.5 Mg Tab PO 0.5 mg BID [facility] Administration Dextrose 50 ml 05/18/21 11:42 Dextrose 50% In Water (25gm) 50 Ml Syringe IV Q30MIN PRN Hypoglycemia Protocol Dextrose 0 ml 05/18/21 12:02 Dextrose 10% *Hypoglycemia IV PRN PRN Hypoglycemia Diphenhydramine HCl 25 mg 05/17/21 08:05 05/19/21 20:43 Diphenhydramine 25 Mg Cap PO 25 mg QHS PRN Administration Insomnia Divalproex Sodium 1,000 mg 05/17/21 22:00 05/19/21 21:31 Divalproex Er 500 Mg Tab PO 1,000 mg QHS [facility] Administration Donepezil HCl 5 mg 05/17/21 22:00 05/19/21 21:31 Donepezil 5 Mg Tab PO 5 mg QHS [facility] Administration Guaifenesin 5 ml 05/17/21 10:00 05/20/21 13:13 Guaifenesin Dm 200/20 Mg Oral Liqd 10 Ml PO Not Given Q12H [facility] Hydrophilic Ointment 1 applic 05/18/21 09:18 05/19/21 09:26 Lip Therapy Vaseline TP 1 applic DIRECT PRN Administration Dry Lips Insulin Human Lispro 0 unit 05/18/21 16:30 05/20/21 16:51 Insulin Lispro 100 Unit/Ml SUB-Q 2 unit ACHS [facility] Administration Protocol Metformin HCl 1,000 mg 05/17/21 10:00 05/20/21 16:24 Metformin 500 Mg Tab PO 1,000 mg BIDDIAB [facility] Administration Ziprasidone 20 mg 05/19/21 10:30 Ziprasidone Mesylate 20 Mg Vial IM Q4H PRN Agitation
[2021-05-20] MEDS: DIVALPROEX ER 500 MG TAB PO SCH (21:25)
[2021-05-20] MEDS: DONEPEZIL 5 MG TAB PO SCH (21:25)
[2021-05-21] MEDS: IPRATROPIUM/ALBUTEROL SULFATE 3 ML AMPUL.NEB IH SCH ×6 (02:52→20:12)
[2021-05-21] MEDS: INSULIN LISPRO 100 UNIT/ML SUB-Q SCH ×4 (08:38→21:13)
[2021-05-21] MEDS: metFORMIN 500 MG TAB PO SCH ×2 (08:38→16:28)
[2021-05-21] MEDS: clonazePAM 0.5 MG TAB PO SCH ×2 (09:00→21:12)
[2021-05-21] MEDS: amLODIPine 5 MG TAB PO SCH (09:00)
[2021-05-21] MEDS: guaiFENesin DM 200/20 MG ORAL LIQD 10 ML PO SCH ×2 (09:00→21:13)
[2021-05-21] MEDS: ARIPiprazole 15 MG TAB PO SCH (09:00)
--- NOTE | 2021-05-21 10:11 | Progress Note ---
Subjective Date of service: 05/21/21 Subjective Comment: 05/18/21: The patient was seen in the activity room. She reports feeling better. She states she spoke with her son last night. She continues to present with constricted affect and circumstantial. She denies any current suicidal/homicidal ideation and denies hallucinations. 05/19/21: The patient was seen today. She reports doing better. She reports eats and sleep as good. She denies any current suicidal/homicidal ideation and denies hallucinations. No aggressive behaviors reported. 05/20/21: The patient was seen today. She reports doing well. She continues to be circumstantial sometimes; talks to herself. She denies any current suicidal/homicidal ideation and denies hallucinations. No aggressive behaviors reported. 05/21/21: The patient was seen this morning. She states she is doing well. She continues to be talkative. She denies any current suicidal/homicidal ideation and denies hallucinations. No aggressive behaviors reported. REVIEW OF SYSTEMS Constitutional: Negative for weight loss ENT: Negative for stridor Respiratory: Negative for cough or hemoptysis All other systems reviewed and are negative MENTAL STATUS EXAMINATION General Appearance and Behavior: Age appropriate, good hygiene, wearing appropriate clothes. calm, cooperative Cooperation: Cooperative Psychomotor Behavior: Psychomotor normal Mood: " ok" Affect and affective range: Congruent to stated mood Thought Process: circumstantial Thought Content:None Speech: Normal tone and pace Suicidal Ideation: Denies Homicidal Ideation: Denies Hallucinations: Denies Delusions: Denies Impulse Control: Limited Insight and Judgment: Limited insight and fair judgment Memory: Limited Attention: distracted Orientation: a/o x 3 Assessment (1) Schizophrenia Current Visit: Yes Status: Acute Treatment Plan Patient admitted for inpatient psychiatric evaluation, medication adjustment and close monitoring The patient's behavior, mood, sleep and appetite will be closely monitored. Patient enrolled in individual and group therapeutic sessions and encouraged to attend. Patient provided with a safe and structured environment. Patient's physical health needs will be addressed by the Hospitalist. Hospitalist Consulted Labs including CBC, CMP, Lipid profile and Hemoglobin A1C levels ordered for baseline reference Social Assessment will be completed and the Devulcanizer Loader will work with patient and family to ensure a suitable and safe disposition Medication adjustment will be made as clinically indicated Restart home medications Usual Wellness Nondenominational/Preservation: - Start Trazodone 50 mg po QHS & 50 mg po QHS PRN between 10 PM & 2 AM for insomnia - Start Melatonin 5 mg po QHS to promote circadian rhythm The patient agreed on the treatment plan, understood the risk, benefit, alternative treatment, potential consequence of no treatment, and gave informed consent. Estimated days: 2 Post hospital care: primary care provider, psychiatric provider Case staffed with Dr. White Legal Status: Voluntary Reaction to Hospitalization: Accepting Medications and Allergies Allergies Allergy/AdvReac Type Severity Reaction Status Date / Time haloperidol [From Haldol] Allergy Unknown Verified 05/16/21 22:07 Latex, Natural Rubber Allergy Unknown Verified 05/16/21 22:07 Home Medications Medication Instructions Recorded Confirmed Last Taken Type ARIPiprazole [Abilify] 10 mg PO DAILY 05/16/21 05/16/21 Unknown History Divalproex ER [DepaKOTE ER] 1,000 mg PO QHS 05/16/21 05/16/21 Unknown History Ipratropium/Albuterol Sulfate 0.5 - 2.5 mg INHALATION Q4HR PRN 05/16/21 05/16/21 Unknown History [DUONEB *Not for PRN Use*] Metformin HCl [metFORMIN] 1,000 mg PO BID 05/16/21 05/16/21 Unknown History amLODIPine [Norvasc] 5 mg PO DAILY 05/16/21 05/16/21 Unknown History diphenhydrAMINE [Benadryl CAP] 25 mg PO QHS PRN MDD For upto 10 05/16/21 05/16/21 Unknown History days donepeziL [Aricept] 5 mg PO QHS 05/16/21 05/16/21 Unknown History guaiFENesin/DEXTROMETHORPHAN 5 ml PO Q12HR 05/16/21 05/16/21 Unknown History [Guaifenesin-Dm 100-10 mg/5 ml] Active Meds: Active Medications Albuterol/Ipratropium (Ipratropium/Albuterol Sulfate 3 Ml Ampul.Neb) 1 ampul IH Q6HRT [facility] Last Admin: 05/20/21 16:42 Dose: Not Given Amlodipine Besylate (Amlodipine 5 Mg Tab) 5 mg PO DAILY [facility] Last Admin: 05/21/21 09:00 Dose: 5 mg Aripiprazole (Aripiprazole 15 Mg Tab) 15 mg PO QDAY [facility] Last Admin: 05/21/21 09:00 Dose: 15 mg Clonazepam (Clonazepam 0.5 Mg Tab) 0.5 mg PO BID [facility] Last Admin: 05/21/21 09:00 Dose: 0.5 mg Dextrose (Dextrose 50% In Water (25gm) 50 Ml Syringe) 50 ml IV Q30MIN PRN; Protocol PRN Reason: Hypoglycemia Dextrose (Dextrose 10% *Hypoglycemia) 0 ml IV PRN PRN PRN Reason: Hypoglycemia Diphenhydramine HCl (Diphenhydramine 25 Mg Cap) 25 mg PO QHS PRN PRN Reason: Insomnia Last Admin: 05/19/21 20:43 Dose: 25 mg Divalproex Sodium (Divalproex Er 500 Mg Tab) 1,000 mg PO QHS [facility] Last Admin: 05/20/21 21:25 Dose: 1,000 mg Donepezil HCl (Donepezil 5 Mg Tab) 5 mg PO QHS [facility] Last Admin: 05/20/21 21:25 Dose: 5 mg Guaifenesin (Guaifenesin Dm 200/20 Mg Oral Liqd 10 Ml) 5 ml PO Q12H [facility] Last Admin: 05/21/21 09:00 Dose: 5 ml Hydrophilic Ointment (Lip Therapy Vaseline) 1 applic TP DIRECT PRN PRN Reason: Dry Lips Last Admin: 05/19/21 09:26 Dose: 1 applic Insulin Human Lispro (Insulin Lispro 100 Unit/Ml) 0 unit SUB-Q ACHS [facility]; Protocol Last Admin: 05/21/21 08:38 Dose: Not Given Metformin HCl (Metformin 500 Mg Tab) 1,000 mg PO BIDDIAB [facility] Last Admin: 05/21/21 08:38 Dose: 1,000 mg Ziprasidone (Ziprasidone Mesylate 20 Mg Vial) 20 mg IM Q4H PRN PRN Reason: Agitation Results - Results Labs/Vitals: Laboratory Last Values WBC 4.2 K/mm3 (4.5-11.0) L 05/17/21 19:37 RBC 3.48 M/mm3 (3.65-5.03) L 05/17/21 19:37 Hgb 10.1 gm/dl (10.1-14.3) 05/17/21 19:37 Hct 31.4 % (30.3-42.9) 05/17/21 19:37 MCV 90 fl (79-97) 05/17/21 19:37 MCH 29 pg (28-32) 05/17/21 19:37 MCHC 32 % (30-34) 05/17/21 19:37 RDW 13.7 % (13.2-15.2) 05/17/21 19:37 Plt Count 106 K/mm3 (140-440) L 05/17/21 19:37 Lymph % (Auto) 26.4 % (13.4-35.0) 05/17/21 19:37 [place] % (Auto) 12.9 % (0.0-7.3) H 05/17/21 19:37 Eos % (Auto) 2.2 % (0.0-4.3) 05/17/21 19:37 Baso % (Auto) 1.1 % (0.0-1.8) 05/17/21 19:37 Lymph # (Auto) 1.1 K/mm3 (1.2-5.4) L 05/17/21 19:37 [place] # (Auto) 0.5 K/mm3 (0.0-0.8) 05/17/21 19:37 Eos # (Auto) 0.1 K/mm3 (0.0-0.4) 05/17/21 19:37 Baso # (Auto) 0.0 K/mm3 (0.0-0.1) 05/17/21 19:37 Seg Neutrophils % 57.4 % (40.0-70.0) 05/17/21 19:37 Seg Neutrophils # 2.4 K/mm3 (1.8-7.7) 05/17/21 19:37 Sodium 134 mmol/L (137-145) L 05/17/21 19:37 Potassium 4.2 mmol/L (3.6-5.0) 05/17/21 19:37 Chloride 100.4 mmol/L (98-107) 05/17/21 19:37 Carbon Dioxide 20 mmol/L (22-30) L 05/17/21 19:37 Anion Gap 18 mmol/L 05/17/21 19:37 BUN 18 mg/dL (7-17) H 05/17/21 19:37 Creatinine 0.9 mg/dL (0.6-1.2) 05/17/21 19:37 Estimated GFR > 60 ml/min 05/17/21 19:37 BUN/Creatinine Ratio 20 % 05/17/21 19:37 Glucose 295 mg/dL (65-100) H 05/17/21 19:37 POC Glucose 118 mg/dL (70-105) H 05/21/21 06:33 Hemoglobin A1c 7.4 % (4-6) H 05/17/21 19:37 Calcium 8.9 mg/dL (8.4-10.2) 05/17/21 19:37 Total Bilirubin 0.30 mg/dL (0.1-1.2) 05/17/21 19:37 AST 28 units/L (5-40) 05/17/21 19:37 ALT 23 units/L (7-56) 05/17/21 19:37 Alkaline Phosphatase 92 units/L (35-129) 05/17/21 19:37 Total Protein 6.0 g/dL (6.3-8.2) L 05/17/21 19:37 Albumin 3.6 g/dL (3.9-5) L 05/17/21 19:37 Albumin/Globulin Ratio 1.5 % 05/17/21 19:37 Triglycerides 110 mg/dL (2-149) 05/17/21 19:37 Cholesterol 114 mg/dL (50-199) 05/17/21 19:37 LDL Cholesterol Direct 43 mg/dL (50-130) L 05/17/21 19:37 HDL Cholesterol 59 mg/dL (40-59) 05/17/21 19:37 Cholesterol/HDL Ratio 1.93 % 05/17/21 19:37 TSH 1.850 mlU/mL (0.270-4.200) 05/17/21 19:37 Last Vital Signs Temp 98.4 F 05/21/21 06:33 Pulse 84 05/21/21 09:00 Resp 18 05/21/21 06:33 BP 114/67 05/21/21 09:00 Pulse Ox 96 05/21/21 06:33
[2021-05-21] MEDS: DIVALPROEX ER 500 MG TAB PO SCH (21:12)
[2021-05-21] MEDS: DONEPEZIL 5 MG TAB PO SCH (21:13)
[2021-05-21] MEDS: diphenhydrAMINE 25 MG CAP PO PRN (21:13)
[2021-05-22] MEDS: IPRATROPIUM/ALBUTEROL SULFATE 3 ML AMPUL.NEB IH SCH ×4 (02:52→21:35)
[2021-05-22] MEDS: INSULIN LISPRO 100 UNIT/ML SUB-Q SCH ×4 (08:26→21:40)
[2021-05-22] MEDS: clonazePAM 0.5 MG TAB PO SCH ×2 (09:20→21:11)
[2021-05-22] MEDS: metFORMIN 500 MG TAB PO SCH ×2 (09:20→16:32)
[2021-05-22] MEDS: amLODIPine 5 MG TAB PO SCH (09:21)
[2021-05-22] MEDS: guaiFENesin DM 200/20 MG ORAL LIQD 10 ML PO SCH ×2 (09:22→21:10)
[2021-05-22] MEDS: ARIPiprazole 15 MG TAB PO SCH (09:22)
--- NOTE | 2021-05-22 10:07 | Progress Note ---
Subjective Date of service: 05/22/21 Subjective Comment: 05/18/21: The patient was seen in the activity room. She reports feeling better. She states she spoke with her son last night. She continues to present with constricted affect and circumstantial. She denies any current suicidal/homicidal ideation and denies hallucinations. 05/19/21: The patient was seen today. She reports doing better. She reports eats and sleep as good. She denies any current suicidal/homicidal ideation and denies hallucinations. No aggressive behaviors reported. 05/20/21: The patient was seen today. She reports doing well. She continues to be circumstantial sometimes; talks to herself. She denies any current suicidal/homicidal ideation and denies hallucinations. No aggressive behaviors reported. 05/21/21: The patient was seen this morning. She states she is doing well. She continues to be talkative. She denies any current suicidal/homicidal ideation and denies hallucinations. No aggressive behaviors reported. 05/22/21:The patient was seen this morning. When asked how she was doing she states " the same old sh." She continues to be talkative. She denies any current suicidal/homicidal ideation and denies hallucinations. Per nurse, " pt is labile, last evening she yelled intermittently in her room, she was redirected, observed talking to herself; initially, she refused medication, but later took her medication after talking to her son on the phone, appetite is good; slept for approximately 8hrs, no distress noted. " REVIEW OF SYSTEMS Constitutional: Negative for weight loss ENT: Negative for stridor Respiratory: Negative for cough or hemoptysis All other systems reviewed and are negative MENTAL STATUS EXAMINATION General Appearance and Behavior: Age appropriate, good hygiene, wearing appropriate clothes. calm, cooperative Cooperation: Cooperative Psychomotor Behavior: Psychomotor normal Mood: " ok" Affect and affective range: Congruent to stated mood Thought Process: circumstantial Thought Content:None Speech: Normal tone and pace Suicidal Ideation: Denies Homicidal Ideation: Denies Hallucinations: Denies Delusions: Denies Impulse Control: Limited Insight and Judgment: Limited insight and fair judgment Memory: Limited Attention: distracted Orientation: a/o x 3 Assessment (1) Schizophrenia Current Visit: Yes Status: Acute Treatment Plan Patient admitted for inpatient psychiatric evaluation, medication adjustment and close monitoring The patient's behavior, mood, sleep and appetite will be closely monitored. Patient enrolled in individual and group therapeutic sessions and encouraged to attend. Patient provided with a safe and structured environment. Patient's physical health needs will be addressed by the Hospitalist. H ospitalist Consulted Labs including CBC, CMP, Lipid profile and Hemoglobin A1C levels ordered for baseline reference Social Assessment will be completed and the Service Attendant Cafeteria will work with patient and family to ensure a suitable and safe disposition Medication adjustment will be made as clinically indicated Restart home medications Usual Wellness Bahai/Preservation: - Start Trazodone 50 mg po QHS & 50 mg po QHS PRN between 10 PM & 2 AM for insomnia - Start Melatonin 5 mg po QHS to promote circadian rhythm The patient agreed on the treatment plan, understood the risk, benefit, alternative treatment, potential consequence of no treatment, and gave informed consent. Estimated days: 2 Post hospital care: primary care provider, psychiatric provider Case staffed with Dr. White Legal Status: Voluntary Reaction to Hospitalization: Accepting Medications and Allergies Medications and Allergies Allergies Allergy/AdvReac Type Severity Reaction Status Date / Time haloperidol [From Haldol] Allergy Unknown Verified 05/16/21 22:07 Latex, Natural Rubber Allergy Unknown Verified 05/16/21 22:07 Home Medications Medication Instructions Recorded Confirmed Last Taken Type ARIPiprazole [Abilify] 10 mg PO DAILY 05/16/21 05/16/21 Unknown History Divalproex ER [DepaKOTE ER] 1,000 mg PO QHS 05/16/21 05/16/21 Unknown History Ipratropium/Albuterol Sulfate 0.5 - 2.5 mg INHALATION Q4HR PRN 05/16/21 05/16/21 Unknown History [DUONEB *Not for PRN Use*] Metformin HCl [metFORMIN] 1,000 mg PO BID 05/16/21 05/16/21 Unknown History amLODIPine [Norvasc] 5 mg PO DAILY 05/16/21 05/16/21 Unknown History diphenhydrAMINE [Benadryl CAP] 25 mg PO QHS PRN MDD For upto 10 05/16/21 05/16/21 Unknown History days donepeziL [Aricept] 5 mg PO QHS 05/16/21 05/16/21 Unknown History guaiFENesin/DEXTROMETHORPHAN 5 ml PO Q12HR 05/16/21 05/16/21 Unknown History [Guaifenesin-Dm 100-10 mg/5 ml] Active Meds: Active Medications Albuterol/Ipratropium (Ipratropium/Albuterol Sulfate 3 Ml Ampul.Neb) 1 ampul IH Q6HRT [facility] Last Admin: 05/22/21 09:27 Dose: Not Given Amlodipine Besylate (Amlodipine 5 Mg Tab) 5 mg PO DAILY [facility] Last Admin: 05/22/21 09:21 Dose: 5 mg Aripiprazole (Aripiprazole 15 Mg Tab) 15 mg PO QDAY [facility] Last Admin: 05/22/21 09:22 Dose: 15 mg Clonazepam (Clonazepam 0.5 Mg Tab) 0.5 mg PO BID [facility] Last Admin: 05/22/21 09:20 Dose: 0.5 mg Dextrose (Dextrose 50% In Water (25gm) 50 Ml Syringe) 50 ml IV Q30MIN PRN; Protocol PRN Reason: Hypoglycemia Dextrose (Dextrose 10% *Hypoglycemia) 0 ml IV PRN PRN PRN Reason: Hypoglycemia Diphenhydramine HCl (Diphenhydramine 25 Mg Cap) 25 mg PO QHS PRN PRN Reason: Insomnia Last Admin: 05/21/21 21:13 Dose: 25 mg Divalproex Sodium (Divalproex Er 500 Mg Tab) 1,000 mg PO QHS [facility] Last Admin: 05/21/21 21:12 Dose: 1,000 mg Donepezil HCl (Donepezil 5 Mg Tab) 5 mg PO QHS [facility] Last Admin: 05/21/21 21:13 Dose: 5 mg Guaifenesin (Guaifenesin Dm 200/20 Mg Oral Liqd 10 Ml) 5 ml PO Q12H [facility] Last Admin: 05/22/21 09:22 Dose: 5 ml Hydrophilic Ointment (Lip Therapy Vaseline) 1 applic TP DIRECT PRN PRN Reason: Dry Lips Last Admin: 05/19/21 09:26 Dose: 1 applic Insulin Human Lispro (Insulin Lispro 100 Unit/Ml) 0 unit SUB-Q ACHS [facility]; Protocol Last Admin: 05/22/21 08:26 Dose: Not Given Metformin HCl (Metformin 500 Mg Tab) 1,000 mg PO BIDDIAB [facility] Last Admin: 05/22/21 09:20 Dose: 1,000 mg Ziprasidone (Ziprasidone Mesylate 20 Mg Vial) 20 mg IM Q4H PRN PRN Reason: Agitation Results - Results Labs/Vitals: Laboratory Last Values WBC 4.2 K/mm3 (4.5-11.0) L 05/17/21 19:37 RBC 3.48 M/mm3 (3.65-5.03) L 05/17/21 19:37 Hgb 10.1 gm/dl (10.1-14.3) 05/17/21 19:37 Hct 31.4 % (30.3-42.9) 05/17/21 19:37 MCV 90 fl (79-97) 05/17/21 19:37 MCH 29 pg (28-32) 05/17/21 19:37 MCHC 32 % (30-34) 05/17/21 19:37 RDW 13.7 % (13.2-15.2) 05/17/21 19:37 Plt Count 106 K/mm3 (140-440) L 05/17/21 19:37 Lymph % (Auto) 26.4 % (13.4-35.0) 05/17/21 19:37 [place] % (Auto) 12.9 % (0.0-7.3) H 05/17/21 19:37 Eos % (Auto) 2.2 % (0.0-4.3) 05/17/21 19:37 Baso % (Auto) 1.1 % (0.0-1.8) 05/17/21 19:37 Lymph # (Auto) 1.1 K/mm3 (1.2-5.4) L 05/17/21 19:37 [place] # (Auto) 0.5 K/mm3 (0.0-0.8) 05/17/21 19:37 Eos # (Auto) 0.1 K/mm3 (0.0-0.4) 05/17/21 19:37 Baso # (Auto) 0.0 K/mm3 (0.0-0.1) 05/17/21 19:37 Seg Neutrophils % 57.4 % (40.0-70.0) 05/17/21 19:37 Seg Neutrophils # 2.4 K/mm3 (1.8-7.7) 05/17/21 19:37 Sodium 134 mmol/L (137-145) L 05/17/21 19:37 Potassium 4.2 mmol/L (3.6-5.0) 05/17/21 19:37 Chloride 100.4 mmol/L (98-107) 05/17/21 19:37 Carbon Dioxide 20 mmol/L (22-30) L 05/17/21 19:37 Anion Gap 18 mmol/L 05/17/21 19:37 BUN 18 mg/dL (7-17) H 05/17/21 19:37 Creatinine 0.9 mg/dL (0.6-1.2) 05/17/21 19:37 Estimated GFR > 60 ml/min 05/17/21 19:37 BUN/Creatinine Ratio 20 % 05/17/21 19:37 Glucose 295 mg/dL (65-100) H 05/17/21 19:37 POC Glucose 122 mg/dL (70-105) H 05/22/21 06:05 Hemoglobin A1c 7.4 % (4-6) H 05/17/21 19:37 Calcium 8.9 mg/dL (8.4-10.2) 05/17/21 19:37 Total Bilirubin 0.30 mg/dL (0.1-1.2) 05/17/21 19:37 AST 28 units/L (5-40) 05/17/21 19:37 ALT 23 units/L (7-56) 05/17/21 19:37 Alkaline Phosphatase 92 units/L (35-129) 05/17/21 19:37 Total Protein 6.0 g/dL (6.3-8.2) L 05/17/21 19:37 Albumin 3.6 g/dL (3.9-5) L 05/17/21 19:37 Albumin/Globulin Ratio 1.5 % 05/17/21 19:37 Triglycerides 110 mg/dL (2-149) 05/17/21 19:37 Cholesterol 114 mg/dL (50-199) 05/17/21 19:37 LDL Cholesterol Direct 43 mg/dL (50-130) L 05/17/21 19:37 HDL Cholesterol 59 mg/dL (40-59) 05/17/21 19:37 Cholesterol/HDL Ratio 1.93 % 05/17/21 19:37 TSH 1.850 mlU/mL (0.270-4.200) 05/17/21 19:37 Last Vital Signs Temp 98.4 F 05/21/21 19:47 Pulse 95 H 05/21/21 19:47 Resp 17 05/21/21 19:47 BP 135/68 05/21/21 19:47 Pulse Ox 97 05/21/21 19:47
--- NOTE | 2021-05-22 18:46 | Progress Note ---
Assessment and Plan Assessment and plan: -- Vascular dementia with behavioral disturbance Current Visit: Yes Status: Acute Verbal prompting, verbal redirection, benzodiazepine therapy as clinically indicated. -- Cerebral atherosclerosis Current Visit: Yes Status: Acute Risk factor reduction, antiplatelet therapy as clinically indicated. -- Obesity (BMI 30.0-34.9) Current Visit: Yes Status: Acute Balanced diet, increase physical activity at discharge. --Schizophrenia Current Visit: Yes Status: Acute Continue medical management, supportive care, -- Generalized anxiety disorder Current Visit: Yes Status: Acute Benzodiazepine therapy as clinic indicated, supportive care. -- Advance care planning Current Visit: Yes Status: Acute Disease education conducted, care plan discussed, diagnosis discussed, prognosis discussed, patient is full code. +30 minutes. Continue current management We will follow the patient along with you Call us with questions History Interval history: I have seen and examined the patient in activities room this morning Patient's chart and medications reviewed Patient feels better no new complaints Anxious to go home No new events reported by the nursing staff Vital signs reviewed Hospitalist Physical - Constitutional Vitals: Temp Pulse Resp BP Pulse Ox 98.3 F 87 18 118/63 94 05/22/21 15:40 05/22/21 15:40 05/22/21 15:40 05/22/21 15:40 05/22/21 15:40 General appearance: Present: no acute distress, well-nourished, obese - EENT Eyes: Present: PERRL, EOM intact - Neck Neck: Present: supple, normal ROM - Respiratory Respiratory effort: normal Respiratory: bilateral: diminished, negative: rales, rhonchi, wheezing - Cardiovascular Rhythm: regular Heart Sounds: Present: S1 & S2 - Extremities Extremities: no ischemia, No edema - Abdominal General gastrointestinal: soft, non-tender, non-distended, normal bowel sounds - Integumentary Integumentary: Present: clear, warm - Psychiatric Psychiatric: appropriate mood/affect, cooperative - Neurologic Neurologic: CNII-XII intact, moves all extremities Results - Labs CBC & Chem 7: 05/17/21 19:37 05/17/21 19:37 Labs: Laboratory Last Values WBC 4.2 K/mm3 (4.5-11.0) L 05/17/21 19:37 RBC 3.48 M/mm3 (3.65-5.03) L 05/17/21 19:37 Hgb 10.1 gm/dl (10.1-14.3) 05/17/21 19:37 Hct 31.4 % (30.3-42.9) 05/17/21 19:37 MCV 90 fl (79-97) 05/17/21 19:37 MCH 29 pg (28-32) 05/17/21 19:37 MCHC 32 % (30-34) 05/17/21 19:37 RDW 13.7 % (13.2-15.2) 05/17/21 19:37 Plt Count 106 K/mm3 (140-440) L 05/17/21 19:37 Lymph % (Auto) 26.4 % (13.4-35.0) 05/17/21 19:37 [place] % (Auto) 12.9 % (0.0-7.3) H 05/17/21 19:37 Eos % (Auto) 2.2 % (0.0-4.3) 05/17/21 19:37 Baso % (Auto) 1.1 % (0.0-1.8) 05/17/21 19:37 Lymph # (Auto) 1.1 K/mm3 (1.2-5.4) L 05/17/21 19:37 [place] # (Auto) 0.5 K/mm3 (0.0-0.8) 05/17/21 19:37 Eos # (Auto) 0.1 K/mm3 (0.0-0.4) 05/17/21 19:37 Baso # (Auto) 0.0 K/mm3 (0.0-0.1) 05/17/21 19:37 Seg Neutrophils % 57.4 % (40.0-70.0) 05/17/21 19:37 Seg Neutrophils # 2.4 K/mm3 (1.8-7.7) 05/17/21 19:37 Sodium 134 mmol/L (137-145) L 05/17/21 19:37 Potassium 4.2 mmol/L (3.6-5.0) 05/17/21 19:37 Chloride 100.4 mmol/L (98-107) 05/17/21 19:37 Carbon Dioxide 20 mmol/L (22-30) L 05/17/21 19:37 Anion Gap 18 mmol/L 05/17/21 19:37 BUN 18 mg/dL (7-17) H 05/17/21 19:37 Creatinine 0.9 mg/dL (0.6-1.2) 05/17/21 19:37 Estimated GFR > 60 ml/min 05/17/21 19:37 BUN/Creatinine Ratio 20 % 05/17/21 19:37 Glucose 295 mg/dL (65-100) H 05/17/21 19:37 POC Glucose 145 mg/dL (70-105) H 05/22/21 16:03 Hemoglobin A1c 7.4 % (4-6) H 05/17/21 19:37 Calcium 8.9 mg/dL (8.4-10.2) 05/17/21 19:37 Total Bilirubin 0.30 mg/dL (0.1-1.2) 05/17/21 19:37 AST 28 units/L (5-40) 05/17/21 19:37 ALT 23 units/L (7-56) 05/17/21 19:37 Alkaline Phosphatase 92 units/L (35-129) 05/17/21 19:37 Total Protein 6.0 g/dL (6.3-8.2) L 05/17/21 19:37 Albumin 3.6 g/dL (3.9-5) L 05/17/21 19:37 Albumin/Globulin Ratio 1.5 % 05/17/21 19:37 Triglycerides 110 mg/dL (2-149) 05/17/21 19:37 Cholesterol 114 mg/dL (50-199) 05/17/21 19:37 LDL Cholesterol Direct 43 mg/dL (50-130) L 05/17/21 19:37 HDL Cholesterol 59 mg/dL (40-59) 05/17/21 19:37 Cholesterol/HDL Ratio 1.93 % 05/17/21 19:37 TSH 1.850 mlU/mL (0.270-4.200) 05/17/21 19:37 Du/IV: Voiding Method Toilet Active Medications - Current Medications Current Medications: Generic Name Dose Route Start Last Admin Trade Name Freq PRN Reason Stop Dose Admin Albuterol/Ipratropium 1 ampul 05/17/21 14:00 05/22/21 15:25 Ipratropium/Albuterol Sulfate 3 Ml Ampul.Neb IH Not Given Q6HRT [facility] Amlodipine Besylate 5 mg 05/17/21 10:00 05/22/21 09:21 Amlodipine 5 Mg Tab PO 5 mg DAILY JULIO Administration Aripiprazole 15 mg 05/20/21 10:00 05/22/21 09:22 Aripiprazole 15 Mg Tab PO 15 mg QDAY JULIO Administration Clonazepam 0.5 mg 05/17/21 14:00 05/22/21 09:20 Clonazepam 0.5 Mg Tab PO 0.5 mg BID JULIO Administration Dextrose 50 ml 05/18/21 11:42 Dextrose 50% In Water (25gm) 50 Ml Syringe IV Q30MIN PRN Hypoglycemia Protocol Dextrose 0 ml 05/18/21 12:02 Dextrose 10% *Hypoglycemia IV PRN PRN Hypoglycemia Diphenhydramine HCl 25 mg 05/17/21 08:05 05/21/21 21:13 Diphenhydramine 25 Mg Cap PO 25 mg QHS PRN Administration Insomnia Divalproex Sodium 1,000 mg 05/17/21 22:00 05/21/21 21:12 Divalproex Er 500 Mg Tab PO 1,000 mg QHS JULIO Administration Donepezil HCl 5 mg 05/17/21 22:00 05/21/21 21:13 Donepezil 5 Mg Tab PO 5 mg QHS JULIO Administration Guaifenesin 5 ml 05/17/21 10:00 05/22/21 09:22 Guaifenesin Dm 200/20 Mg Oral Liqd 10 Ml PO 5 ml Q12H JULIO Administration Hydrophilic Ointment 1 applic 05/18/21 09:18 05/19/21 09:26 Lip Therapy Vaseline TP 1 applic DIRECT PRN Administration Dry Lips Insulin Human Lispro 0 unit 05/18/21 16:30 05/22/21 16:34 Insulin Lispro 100 Unit/Ml SUB-Q Not Given ACHS [facility] Protocol Metformin HCl 1,000 mg 05/17/21 10:00 05/22/21 16:32 Metformin 500 Mg Tab PO 1,000 mg BIDDIAB JULIO Administration Ziprasidone 20 mg 05/19/21 10:30 Ziprasidone Mesylate 20 Mg Vial IM Q4H PRN Agitation
[2021-05-22] MEDS: DIVALPROEX ER 500 MG TAB PO SCH (21:10)
[2021-05-22] MEDS: DONEPEZIL 5 MG TAB PO SCH (21:10)
[2021-05-23] MEDS: IPRATROPIUM/ALBUTEROL SULFATE 3 ML AMPUL.NEB IH SCH ×4 (06:03→22:28)
[2021-05-23] MEDS: INSULIN LISPRO 100 UNIT/ML SUB-Q SCH ×4 (08:13→22:23)
--- NOTE | 2021-05-23 08:14 | Progress Note ---
Subjective Date of service: 05/23/21 Principal diagnosis: Schizoaffective Disorder Subjective Comment: The patient was seen today. She is pleasant. She says she feels better. She denies SI/HI or hallucinations of any kind. Nursing staff states the patient's affect is bizarre, and that last evening the patient presents with bizarre behavior. She spent most of her time in her room brushing her hair. She walked down the hallway and denies needs when asked. She states her name is someone else - not her name. Patient was reoriented but she just stares. She denies si/hi/ah/vh. Her appetite is REVIEW OF SYSTEMS Constitutional: Negative for weight loss ENT: Negative for stridor Respiratory: Negative for cough or hemoptysis All other systems reviewed and are negative MENTAL STATUS EXAMINATION General Appearance and Behavior: Age appropriate, good hygiene, wearing appropriate clothes. calm, cooperative Cooperation: Cooperative Psychomotor Behavior: Psychomotor normal Mood: "ok" Affect and affective range: Congruent to stated mood Thought Process: circumstantial Thought Content:None Speech: Normal tone and pace Suicidal Ideation: Denies Homicidal Ideation: Denies Hallucinations: Denies Delusions: Denies Impulse Control: Limited Insight and Judgment: Limited insight and fair judgment Memory: Limited Attention: distracted Orientation: a/o x 3 Assessment (1) Schizophrenia Current Visit: Yes Status: Acute Treatment Plan Patient admitted for inpatient psychiatric evaluation, medication adjustment and close monitoring The patient's behavior, mood, sleep and appetite will be closely monitored. Patient enrolled in individual and group therapeutic sessions and encouraged to attend. Patient provided with a safe and structured environment. Patient's physical health needs will be addressed by the Hospitalist. Hospitalist Consulted Labs including CBC, CMP, Lipid profile and Hemoglobin A1C levels ordered for baseline reference Social Assessment will be completed and the Driller [employer] will work with patient and family to ensure a suitable and safe disposition Medication adjustment will be made as clinically indicated Increase Abilify 20mg po daily Usual Wellness Gnosticist/Preservation: - Start Trazodone 50 mg po QHS & 50 mg po QHS PRN between 10 PM & 2 AM for insomnia - Start Melatonin 5 mg po QHS to promote circadian rhythm The patient agreed on the treatment plan, understood the risk, benefit, alternative treatment, potential consequence of no treatment, and gave informed consent. Estimated days: 2 Post hospital care: primary care provider, psychiatric provider Case staffed with Dr. White Medications and Allergies Allergies Allergy/AdvReac Type Severity Reaction Status Date / Time haloperidol [From Haldol] Allergy Unknown Verified 05/16/21 22:07 Latex, Natural Rubber Allergy Unknown Verified 05/16/21 22:07 Home Medications Medication Instructions Recorded Confirmed Last Taken Type ARIPiprazole [Abilify] 10 mg PO DAILY 05/16/21 05/16/21 Unknown History Divalproex ER [DepaKOTE ER] 1,000 mg PO QHS 05/16/21 05/16/21 Unknown History Ipratropium/Albuterol Sulfate 0.5 - 2.5 mg INHALATION Q4HR PRN 05/16/21 05/16/21 Unknown History [DUONEB *Not for PRN Use*] Metformin HCl [metFORMIN] 1,000 mg PO BID 05/16/21 05/16/21 Unknown History amLODIPine [Norvasc] 5 mg PO DAILY 05/16/21 05/16/21 Unknown History diphenhydrAMINE [Benadryl CAP] 25 mg PO QHS PRN MDD For upto 10 05/16/21 05/16/21 Unknown History days donepeziL [Aricept] 5 mg PO QHS 05/16/21 05/16/21 Unknown History guaiFENesin/DEXTROMETHORPHAN 5 ml PO Q12HR 05/16/21 05/16/21 Unknown History [Guaifenesin-Dm 100-10 mg/5 ml] Active Meds: Active Medications Albuterol/Ipratropium (Ipratropium/Albuterol Sulfate 3 Ml Ampul.Neb) 1 ampul IH Q6HRT [facility] Last Admin: 05/23/21 06:03 Dose: Not Given Amlodipine Besylate (Amlodipine 5 Mg Tab) 5 mg PO DAILY [facility] Last Admin: 05/22/21 09:21 Dose: 5 mg Aripiprazole (Aripiprazole 15 Mg Tab) 15 mg PO QDAY [facility] Last Admin: 05/22/21 09:22 Dose: 15 mg Clonazepam (Clonazepam 0.5 Mg Tab) 0.5 mg PO BID [facility] Last Admin: 05/22/21 21:11 Dose: 0.5 mg Dextrose (Dextrose 50% In Water (25gm) 50 Ml Syringe) 50 ml IV Q30MIN PRN; Protocol PRN Reason: Hypoglycemia Dextrose (Dextrose 10% *Hypoglycemia) 0 ml IV PRN PRN PRN Reason: Hypoglycemia Diphenhydramine HCl (Diphenhydramine 25 Mg Cap) 25 mg PO QHS PRN PRN Reason: Insomnia Last Admin: 05/21/21 21:13 Dose: 25 mg Divalproex Sodium (Divalproex Er 500 Mg Tab) 1,000 mg PO QHS [facility]UL[facility] Last Admin: 05/22/21 21:10 Dose: 1,000 mg Donepezil HCl (Donepezil 5 Mg Tab) 5 mg PO QHS [facility] Last Admin: 05/22/21 21:10 Dose: 5 mg Guaifenesin (Guaifenesin Dm 200/20 Mg Oral Liqd 10 Ml) 5 ml PO Q12H [facility] Last Admin: 05/22/21 21:10 Dose: 5 ml Hydrophilic Ointment (Lip Therapy Vaseline) 1 applic TP DIRECT PRN PRN Reason: Dry Lips Last Admin: 05/19/21 09:26 Dose: 1 applic Insulin Human Lispro (Insulin Lispro 100 Unit/Ml) 0 unit SUB-Q ACHS [facility]; Protocol Last Admin: 05/23/21 08:13 Dose: Not Given Metformin HCl (Metformin 500 Mg Tab) 1,000 mg PO BIDDIAB [facility] Last Admin: 05/22/21 16:32 Dose: 1,000 mg Ziprasidone (Ziprasidone Mesylate 20 Mg Vial) 20 mg IM Q4H PRN PRN Reason: Agitation Results - Results Labs/Vitals: Laboratory Last Values WBC 4.2 K/mm3 (4.5-11.0) L 05/17/21 19:37 RBC 3.48 M/mm3 (3.65-5.03) L 05/17/21 19:37 Hgb 10.1 gm/dl (10.1-14.3) 05/17/21 19:37 Hct 31.4 % (30.3-42.9) 05/17/21 19:37 MCV 90 fl (79-97) 05/17/21 19:37 MCH 29 pg (28-32) 05/17/21 19:37 MCHC 32 % (30-34) 05/17/21 19:37 RDW 13.7 % (13.2-15.2) 05/17/21 19:37 Plt Count 106 K/mm3 (140-440) L 05/17/21 19:37 Lymph % (Auto) 26.4 % (13.4-35.0) 05/17/21 19:37 [place] % (Auto) 12.9 % (0.0-7.3) H 05/17/21 19:37 Eos % (Auto) 2.2 % (0.0-4.3) 05/17/21 19:37 Baso % (Auto) 1.1 % (0.0-1.8) 05/17/21 19:37 Lymph # (Auto) 1.1 K/mm3 (1.2-5.4) L 05/17/21 19:37 [place] # (Auto) 0.5 K/mm3 (0.0-0.8) 05/17/21 19:37 Eos # (Auto) 0.1 K/mm3 (0.0-0.4) 05/17/21 19:37 Baso # (Auto) 0.0 K/mm3 (0.0-0.1) 05/17/21 19:37 Seg Neutrophils % 57.4 % (40.0-70.0) 05/17/21 19:37 Seg Neutrophils # 2.4 K/mm3 (1.8-7.7) 05/17/21 19:37 Sodium 134 mmol/L (137-145) L 05/17/21 19:37 Potassium 4.2 mmol/L (3.6-5.0) 05/17/21 19:37 Chloride 100.4 mmol/L (98-107) 05/17/21 19:37 Carbon Dioxide 20 mmol/L (22-30) L 05/17/21 19:37 Anion Gap 18 mmol/L 05/17/21 19:37 BUN 18 mg/dL (7-17) H 05/17/21 19:37 Creatinine 0.9 mg/dL (0.6-1.2) 05/17/21 19:37 Estimated GFR > 60 ml/min 05/17/21 19:37 BUN/Creatinine Ratio 20 % 05/17/21 19:37 Glucose 295 mg/dL (65-100) H 05/17/21 19:37 POC Glucose 135 mg/dL (70-105) H 05/23/21 06:40 Hemoglobin A1c 7.4 % (4-6) H 05/17/21 19:37 Calcium 8.9 mg/dL (8.4-10.2) 05/17/21 19:37 Total Bilirubin 0.30 mg/dL (0.1-1.2) 05/17/21 19:37 AST 28 units/L (5-40) 05/17/21 19:37 ALT 23 units/L (7-56) 05/17/21 19:37 Alkaline Phosphatase 92 units/L (35-129) 05/17/21 19:37 Total Protein 6.0 g/dL (6.3-8.2) L 05/17/21 19:37 Albumin 3.6 g/dL (3.9-5) L 05/17/21 19:37 Albumin/Globulin Ratio 1.5 % 05/17/21 19:37 Triglycerides 110 mg/dL (2-149) 05/17/21 19:37 Cholesterol 114 mg/dL (50-199) 05/17/21 19:37 LDL Cholesterol Direct 43 mg/dL (50-130) L 05/17/21 19:37 HDL Cholesterol 59 mg/dL (40-59) 05/17/21 19:37 Cholesterol/HDL Ratio 1.93 % 05/17/21 19:37 TSH 1.850 mlU/mL (0.270-4.200) 05/17/21 19:37 Last Vital Signs Temp 98.6 F 05/22/21 19:41 Pulse 80 05/22/21 21:37 Resp 16 05/22/21 21:37 BP 134/73 05/22/21 19:41 Pulse Ox 95 05/22/21 19:41
[2021-05-23] MEDS: ARIPiprazole 10 MG TAB PO SCH (10:17)
[2021-05-23] MEDS: clonazePAM 0.5 MG TAB PO SCH ×2 (10:17→22:20)
[2021-05-23] MEDS: amLODIPine 5 MG TAB PO SCH (10:17)
[2021-05-23] MEDS: metFORMIN 500 MG TAB PO SCH ×2 (10:17→17:01)
[2021-05-23] MEDS: guaiFENesin DM 200/20 MG ORAL LIQD 10 ML PO SCH ×2 (10:17→22:28)
--- NOTE | 2021-05-23 15:17 | Progress Note ---
Assessment and Plan Assessment and plan: -- Vascular dementia with behavioral disturbance Current Visit: Yes Status: Acute Verbal prompting, verbal redirection, benzodiazepine therapy as clinically indicated. -- Cerebral atherosclerosis Current Visit: Yes Status: Acute Risk factor reduction, antiplatelet therapy as clinically indicated. -- Obesity (BMI 30.0-34.9) Current Visit: Yes Status: Acute Balanced diet, increase physical activity at discharge. --Schizophrenia Current Visit: Yes Status: Acute Continue medical management, supportive care, -- Generalized anxiety disorder Current Visit: Yes Status: Acute Benzodiazepine therapy as clinic indicated, supportive care. -- Advance care planning Current Visit: Yes Status: Acute Disease education conducted, care plan discussed, diagnosis discussed, prognosis discussed, patient is full code. +30 minutes. Continue current management We will follow the patient along with you Call us with questions History Interval history: I have seen and examined the patient in activities room Patient has no new complaints wants to go home No new events reported by the nursing staff Vital signs stable Hospitalist Physical - Constitutional Vitals: Temp Pulse Resp BP Pulse Ox 97.5 F L 88 18 120/55 99 05/23/21 09:05 05/23/21 14:06 05/23/21 14:06 05/23/21 09:05 05/23/21 09:05 General appearance: Present: no acute distress, well-nourished, obese - EENT Eyes: Present: PERRL, EOM intact - Neck Neck: Present: supple, normal ROM - Respiratory Respiratory effort: normal Respiratory: bilateral: diminished, rhonchi, negative: rales, wheezing - Cardiovascular Rhythm: regular Heart Sounds: Present: S1 & S2 - Extremities Extremities: no ischemia, pulses intact - Abdominal General gastrointestinal: soft, non-tender, non-distended, normal bowel sounds - Psychiatric Psychiatric: appropriate mood/affect, cooperative - Neurologic Neurologic: moves all extremities Results - Labs CBC & Chem 7: 05/17/21 19:37 05/17/21 19:37 Labs: Laboratory Last Values WBC 4.2 K/mm3 (4.5-11.0) L 05/17/21 19:37 RBC 3.48 M/mm3 (3.65-5.03) L 05/17/21 19:37 Hgb 10.1 gm/dl (10.1-14.3) 05/17/21 19:37 Hct 31.4 % (30.3-42.9) 05/17/21 19:37 MCV 90 fl (79-97) 05/17/21 19:37 MCH 29 pg (28-32) 05/17/21 19:37 MCHC 32 % (30-34) 05/17/21 19:37 RDW 13.7 % (13.2-15.2) 05/17/21 19:37 Plt Count 106 K/mm3 (140-440) L 05/17/21 19:37 Lymph % (Auto) 26.4 % (13.4-35.0) 05/17/21 19:37 [place] % (Auto) 12.9 % (0.0-7.3) H 05/17/21 19:37 Eos % (Auto) 2.2 % (0.0-4.3) 05/17/21 19:37 Baso % (Auto) 1.1 % (0.0-1.8) 05/17/21 19:37 Lymph # (Auto) 1.1 K/mm3 (1.2-5.4) L 05/17/21 19:37 [place] # (Auto) 0.5 K/mm3 (0.0-0.8) 05/17/21 19:37 Eos # (Auto) 0.1 K/mm3 (0.0-0.4) 05/17/21 19:37 Baso # (Auto) 0.0 K/mm3 (0.0-0.1) 05/17/21 19:37 Seg Neutrophils % 57.4 % (40.0-70.0) 05/17/21 19:37 Seg Neutrophils # 2.4 K/mm3 (1.8-7.7) 05/17/21 19:37 Sodium 134 mmol/L (137-145) L 05/17/21 19:37 Potassium 4.2 mmol/L (3.6-5.0) 05/17/21 19:37 Chloride 100.4 mmol/L (98-107) 05/17/21 19:37 Carbon Dioxide 20 mmol/L (22-30) L 05/17/21 19:37 Anion Gap 18 mmol/L 05/17/21 19:37 BUN 18 mg/dL (7-17) H 05/17/21 19:37 Creatinine 0.9 mg/dL (0.6-1.2) 05/17/21 19:37 Estimated GFR > 60 ml/min 05/17/21 19:37 BUN/Creatinine Ratio 20 % 05/17/21 19:37 Glucose 295 mg/dL (65-100) H 05/17/21 19:37 POC Glucose 164 mg/dL (70-105) H 05/23/21 11:30 Hemoglobin A1c 7.4 % (4-6) H 05/17/21 19:37 Calcium 8.9 mg/dL (8.4-10.2) 05/17/21 19:37 Total Bilirubin 0.30 mg/dL (0.1-1.2) 05/17/21 19:37 AST 28 units/L (5-40) 05/17/21 19:37 ALT 23 units/L (7-56) 05/17/21 19:37 Alkaline Phosphatase 92 units/L (35-129) 05/17/21 19:37 Total Protein 6.0 g/dL (6.3-8.2) L 05/17/21 19:37 Albumin 3.6 g/dL (3.9-5) L 05/17/21 19:37 Albumin/Globulin Ratio 1.5 % 05/17/21 19:37 Triglycerides 110 mg/dL (2-149) 05/17/21 19:37 Cholesterol 114 mg/dL (50-199) 05/17/21 19:37 LDL Cholesterol Direct 43 mg/dL (50-130) L 05/17/21 19:37 HDL Cholesterol 59 mg/dL (40-59) 05/17/21 19:37 Cholesterol/HDL Ratio 1.93 % 05/17/21 19:37 TSH 1.850 mlU/mL (0.270-4.200) 05/17/21 19:37 Du/IV: Voiding Method Toilet Active Medications - Current Medications Current Medications: Generic Name Dose Route Start Last Admin Trade Name Freq PRN Reason Stop Dose Admin Albuterol/Ipratropium 1 ampul 05/17/21 14:00 05/23/21 14:06 Ipratropium/Albuterol Sulfate 3 Ml Ampul.Neb IH 1 ampul Q6HRT JULIO Administration Amlodipine Besylate 5 mg 05/17/21 10:00 05/23/21 10:17 Amlodipine 5 Mg Tab PO 5 mg DAILY [facility]ULIO Administration Aripiprazole 20 mg 05/23/21 10:00 05/23/21 10:17 Aripiprazole 10 Mg Tab PO 20 mg QDAY JULIO Administration Clonazepam 0.5 mg 05/17/21 14:00 05/23/21 10:17 Clonazepam 0.5 Mg Tab PO 0.5 mg BID JULIO Administration Dextrose 50 ml 05/18/21 11:42 Dextrose 50% In Water (25gm) 50 Ml Syringe IV Q30MIN PRN Hypoglycemia Protocol Dextrose 0 ml 05/18/21 12:02 Dextrose 10% *Hypoglycemia IV PRN PRN Hypoglycemia Diphenhydramine HCl 25 mg 05/17/21 08:05 05/21/21 21:13 Diphenhydramine 25 Mg Cap PO 25 mg QHS PRN Administration Insomnia Divalproex Sodium 1,000 mg 05/17/21 22:00 05/22/21 21:10 Divalproex Er 500 Mg Tab PO 1,000 mg QHS JULIO Administration Donepezil HCl 5 mg 05/17/21 22:00 05/22/21 21:10 Donepezil 5 Mg Tab PO 5 mg QHS [facility]UL[facility] Administration Guaifenesin 5 ml 05/17/21 10:00 05/23/21 10:17 Guaifenesin Dm 200/20 Mg Oral Liqd 10 Ml PO 5 ml Q12H [facility] Administration Hydrophilic Ointment 1 applic 05/18/21 09:18 05/19/21 09:26 Lip Therapy Vaseline TP 1 applic DIRECT PRN Administration Dry Lips Insulin Human Lispro 0 unit 05/18/21 16:30 05/23/21 13:14 Insulin Lispro 100 Unit/Ml SUB-Q Not Given ACHS [facility] Protocol Metformin HCl 1,000 mg 05/17/21 10:00 05/23/21 10:17 Metformin 500 Mg Tab PO 1,000 mg BIDDIAB JULIO Administration Ziprasidone 20 mg 05/19/21 10:30 Ziprasidone Mesylate 20 Mg Vial IM Q4H PRN Agitation Nutrition/Malnutrition Assess - Dietary Evaluation Nutrition/Malnutrition Findings: Nutrition Notes Start: 05/23/21 10:17 Freq: Status: Active Protocol: Document 05/23/21 10:17 PARISA (Rec: 05/23/21 10:18 NHALL [id number]) Nutrition Notes Need for Assessment generated from: LOS Initial or Follow up Brief Note Current Diet Cardiac/Consistent CHO Subjective/Other Information Pt screened for LOS. She has consumed 100% of meals since admission. Burn Absent Trauma Absent Minimum of two criteria No Nutrition Intervention Revisit per MD consult or patient Sign Off request:
--- NOTE | 2021-05-23 18:40 | XRay Report ---
CHEST 1 VIEW 05/23/2021 6:07 PM INDICATION / CLINICAL INFORMATION: r/o TB. COMPARISON: None available. FINDINGS: SUPPORT DEVICES: None. HEART / MEDIASTINUM: There is mild venous congestion. LUNGS / PLEURA: No significant pulmonary or pleural abnormality. No pneumothorax. ADDITIONAL FINDINGS: No significant additional findings. IMPRESSION: 1. There is mild venous congestion. No focal infiltrate is seen. No pulmonary nodules or masses are s een. There is no definitive radiographic evidence for tuberculosis. Signer Name: Christopher Rodriguez MD Signed: 05/23/2021 6:36 PM Workstation Name: [id number]
[2021-05-23] MEDS: DONEPEZIL 5 MG TAB PO SCH (22:20)
[2021-05-23] MEDS: DIVALPROEX ER 500 MG TAB PO SCH (22:20)
[2021-05-24] MEDS ORDERED: WATER FOR INJ Sterile (PF) 10 ML ONE (00:56)
[2021-05-24] MEDS: IPRATROPIUM/ALBUTEROL SULFATE 3 ML AMPUL.NEB IH SCH ×4 (02:29→21:00)
[2021-05-24] MEDS: INSULIN LISPRO 100 UNIT/ML SUB-Q SCH ×4 (08:43→21:44)
[2021-05-24] MEDS: metFORMIN 500 MG TAB PO SCH ×2 (08:44→17:14)
--- NOTE | 2021-05-24 08:57 | Progress Note ---
Subjective Date of service: 05/24/21 Principal diagnosis: Schizoaffective Disorder Subjective Comment: The patient was seen today. She is doing much better, she says. She says she slept well. She denies SI/HI or hallucinations of any kind. Nursing staff states the patient was banging on door, yelling and attempting to exit last night. Spoke with the patient's son and gave him update on the patient's progress, med management and discharge plan. REVIEW OF SYSTEMS Constitutional: Negative for weight loss ENT: Negative for stridor Respiratory: Negative for cough or hemoptysis All other systems reviewed and are negative MENTAL STATUS EXAMINATION General Appearance and Behavior: Age appropriate, good hygiene, wearing appropriate clothes. calm, cooperative Cooperation: Cooperative Psychomotor Behavior: Psychomotor normal Mood: "ok" Affect and affective range: Congruent to stated mood Thought Process: circumstantial Thought Content:None Speech: Normal tone and pace Suicidal Ideation: Denies Homicidal Ideation: Denies Hallucinations: Denies Delusions: Denies Impulse Control: Limited Insight and Judgment: Limited insight and fair judgment Memory: Limited Attention: distracted Orientation: a/o x 3 Assessment (1) Schizophrenia Current Visit: Yes Status: Acute Treatment Plan Patient admitted for inpatient psychiatric evaluation, medication adjustment and close monitoring The patient's behavior, mood, sleep and appetite will be closely monitored. Patient enrolled in individual and group therapeutic sessions and encouraged to attend. Patient provided with a safe and structured environment. Patient's physical health needs will be addressed by the Hospitalist. Hospitalist Consulted Labs including CBC, CMP, Lipid profile and Hemoglobin A1C levels ordered for baseline reference Social Assessment will be completed and the Housing Development Specialist will work with patient and family to ensure a suitable and safe disposition Medication adjustment will be made as clinically indicated Increase Abilify 20mg po daily yesterday Increase klonopin 1mg po BID Usual Wellness Hoahaoism/Preservation: - Start Trazodone 50 mg po QHS & 50 mg po QHS PRN between 10 PM & 2 AM for insomnia - Start Melatonin 5 mg po QHS to promote circadian rhythm The patient agreed on the treatment plan, understood the risk, benefit, alternative treatment, potential consequence of no treatment, and gave informed consent. Estimated days: 2 Post hospital care: primary care provider, psychiatric provider Case staffed with Dr. White Medications and Allergies Allergies Allergy/AdvReac Type Severity Reaction Status Date / Time haloperidol [From Haldol] Allergy Unknown Verified 05/16/21 22:07 Latex, Natural Rubber Allergy Unknown Verified 05/16/21 22:07 Home Medications Medication Instructions Recorded Confirmed Last Taken Type ARIPiprazole [Abilify] 10 mg PO DAILY 05/16/21 05/16/21 Unknown History Divalproex ER [DepaKOTE ER] 1,000 mg PO QHS 05/16/21 05/16/21 Unknown History Ipratropium/Albuterol Sulfate 0.5 - 2.5 mg INHALATION Q4HR PRN 05/16/21 05/16/21 Unknown History [DUONEB *Not for PRN Use*] Metformin HCl [metFORMIN] 1,000 mg PO BID 05/16/21 05/16/21 Unknown History amLODIPine [Norvasc] 5 mg PO DAILY 05/16/21 05/16/21 Unknown History diphenhydrAMINE [Benadryl CAP] 25 mg PO QHS PRN MDD For upto 10 05/16/21 05/16/21 Unknown History days donepeziL [Aricept] 5 mg PO QHS 05/16/21 05/16/21 Unknown History guaiFENesin/DEXTROMETHORPHAN 5 ml PO Q12HR 05/16/21 05/16/21 Unknown History [Guaifenesin-Dm 100-10 mg/5 ml] Active Meds: Active Medications Albuterol/Ipratropium (Ipratropium/Albuterol Sulfate 3 Ml Ampul.Neb) 1 ampul IH Q6HRT [facility] Last Admin: 05/24/21 08:44 Dose: Not Given Amlodipine Besylate (Amlodipine 5 Mg Tab) 5 mg PO DAILY [facility] Last Admin: 05/23/21 10:17 Dose: 5 mg Aripiprazole (Aripiprazole 10 Mg Tab) 20 mg PO QDAY [facility] Last Admin: 05/23/21 10:17 Dose: 20 mg Clonazepam (Clonazepam 0.5 Mg Tab) 0.5 mg PO BID [facility] Last Admin: 05/23/21 22:20 Dose: 0.5 mg Dextrose (Dextrose 50% In Water (25gm) 50 Ml Syringe) 50 ml IV Q30MIN PRN; Protocol PRN Reason: Hypoglycemia Dextrose (Dextrose 10% *Hypoglycemia) 0 ml IV PRN PRN PRN Reason: Hypoglycemia Diphenhydramine HCl (Diphenhydramine 25 Mg Cap) 25 mg PO QHS PRN PRN Reason: Insomnia Last Admin: 05/21/21 21:13 Dose: 25 mg Divalproex Sodium (Divalproex Er 500 Mg Tab) 1,000 mg PO QHS [facility] Last Admin: 05/23/21 22:20 Dose: 1,000 mg Donepezil HCl (Donepezil 5 Mg Tab) 5 mg PO QHS [facility] Last Admin: 05/23/21 22:20 Dose: 5 mg Guaifenesin (Guaifenesin Dm 200/20 Mg Oral Liqd 10 Ml) 5 ml PO Q12H [facility] Last Admin: 05/23/21 22:28 Dose: 5 ml Hydrophilic Ointment (Lip Therapy Vaseline) 1 applic TP DIRECT PRN PRN Reason: Dry Lips Last Admin: 05/19/21 09:26 Dose: 1 applic Insulin Human Lispro (Insulin Lispro 100 Unit/Ml) 0 unit SUB-Q ACHS [facility]; Protocol Last Admin: 05/24/21 08:43 Dose: Not Given Metformin HCl (Metformin 500 Mg Tab) 1,000 mg PO BIDDIAB [facility] Last Admin: 05/24/21 08:44 Dose: 1,000 mg Ziprasidone (Ziprasidone Mesylate 20 Mg Vial) 20 mg IM Q4H PRN PRN Reason: Agitation Last Admin: 05/24/21 01:06 Dose: 20 mg Results - Results Labs/Vitals: Laboratory Last Values WBC 4.2 K/mm3 (4.5-11.0) L 05/17/21 19:37 RBC 3.48 M/mm3 (3.65-5.03) L 05/17/21 19:37 Hgb 10.1 gm/dl (10.1-14.3) 05/17/21 19:37 Hct 31.4 % (30.3-42.9) 05/17/21 19:37 MCV 90 fl (79-97) 05/17/21 19:37 MCH 29 pg (28-32) 05/17/21 19:37 MCHC 32 % (30-34) 05/17/21 19:37 RDW 13.7 % (13.2-15.2) 05/17/21 19:37 Plt Count 106 K/mm3 (140-440) L 05/17/21 19:37 Lymph % (Auto) 26.4 % (13.4-35.0) 05/17/21 19:37 [place] % (Auto) 12.9 % (0.0-7.3) H 05/17/21 19:37 Eos % (Auto) 2.2 % (0.0-4.3) 05/17/21 19:37 Baso % (Auto) 1.1 % (0.0-1.8) 05/17/21 19:37 Lymph # (Auto) 1.1 K/mm3 (1.2-5.4) L 05/17/21 19:37 [place] # (Auto) 0.5 K/mm3 (0.0-0.8) 05/17/21 19:37 Eos # (Auto) 0.1 K/mm3 (0.0-0.4) 05/17/21 19:37 Baso # (Auto) 0.0 K/mm3 (0.0-0.1) 05/17/21 19:37 Seg Neutrophils % 57.4 % (40.0-70.0) 05/17/21 19:37 Seg Neutrophils # 2.4 K/mm3 (1.8-7.7) 05/17/21 19:37 Sodium 134 mmol/L (137-145) L 05/17/21 19:37 Potassium 4.2 mmol/L (3.6-5.0) 05/17/21 19:37 Chloride 100.4 mmol/L (98-107) 05/17/21 19:37 Carbon Dioxide 20 mmol/L (22-30) L 05/17/21 19:37 Anion Gap 18 mmol/L 05/17/21 19:37 BUN 18 mg/dL (7-17) H 05/17/21 19:37 Creatinine 0.9 mg/dL (0.6-1.2) 05/17/21 19:37 Estimated GFR > 60 ml/min 05/17/21 19:37 BUN/Creatinine Ratio 20 % 05/17/21 19:37 Glucose 295 mg/dL (65-100) H 05/17/21 19:37 POC Glucose 126 mg/dL (70-105) H 05/24/21 07:59 Hemoglobin A1c 7.4 % (4-6) H 05/17/21 19:37 Calcium 8.9 mg/dL (8.4-10.2) 05/17/21 19:37 Total Bilirubin 0.30 mg/dL (0.1-1.2) 05/17/21 19:37 AST 28 units/L (5-40) 05/17/21 19:37 ALT 23 units/L (7-56) 05/17/21 19:37 Alkaline Phosphatase 92 units/L (35-129) 05/17/21 19:37 Total Protein 6.0 g/dL (6.3-8.2) L 05/17/21 19:37 Albumin 3.6 g/dL (3.9-5) L 05/17/21 19:37 Albumin/Globulin Ratio 1.5 % 05/17/21 19:37 Triglycerides 110 mg/dL (2-149) 05/17/21 19:37 Cholesterol 114 mg/dL (50-199) 05/17/21 19:37 LDL Cholesterol Direct 43 mg/dL (50-130) L 05/17/21 19:37 HDL Cholesterol 59 mg/dL (40-59) 05/17/21 19:37 Cholesterol/HDL Ratio 1.93 % 05/17/21 19:37 TSH 1.850 mlU/mL (0.270-4.200) 05/17/21 19:37 Last Vital Signs Temp 97.8 F 05/23/21 19:59 Pulse 82 05/23/21 21:00 Resp 18 05/23/21 21:00 BP 126/67 05/23/21 19:59 Pulse Ox 96 05/23/21 19:59
[2021-05-24] MEDS: amLODIPine 5 MG TAB PO SCH (09:28)
[2021-05-24] MEDS: clonazePAM 0.5 MG TAB PO SCH ×2 (09:29→21:43)
[2021-05-24] MEDS: guaiFENesin DM 200/20 MG ORAL LIQD 10 ML PO SCH ×2 (09:29→21:44)
[2021-05-24] MEDS: ARIPiprazole 10 MG TAB PO SCH (09:29)
[2021-05-24] MEDS: LIP THERAPY VASELINE TP PRN (20:37)
[2021-05-24] MEDS: diphenhydrAMINE 25 MG CAP PO PRN (20:40)
[2021-05-24] MEDS: DONEPEZIL 5 MG TAB PO SCH (21:43)
[2021-05-24] MEDS: DIVALPROEX ER 500 MG TAB PO SCH (21:43)
[2021-05-24] MEDS ORDERED: ALBUTEROL 2.5 MG/3 ML NEBU IH PRN (22:35)
--- NOTE | 2021-05-25 08:53 | Progress Note ---
Subjective Date of service: 05/25/21 Principal diagnosis: Schizoaffective Disorder Subjective Comment: The patient was seen today. She says "same ole same ole" when asking her how she was feeling. She appears irritable. She says she hasn't been given any salt because of her blood pressure. She denies any SI/HI or hallucinations. She says she slept well. Staff says the patient has been laughing and talking to herself. REVIEW OF SYSTEMS Constitutional: Negative for weight loss ENT: Negative for stridor Respiratory: Negative for cough or hemoptysis All other systems reviewed and are negative MENTAL STATUS EXAMINATION General Appearance and Behavior: Age appropriate, good hygiene, wearing appropriate clothes. calm, cooperative Cooperation: Cooperative Psychomotor Behavior: Psychomotor normal Mood: "ok" Affect and affective range: Congruent to stated mood Thought Process: circumstantial Thought Content:None Speech: Normal tone and pace Suicidal Ideation: Denies Homicidal Ideation: Denies Hallucinations: Denies Delusions: Denies Impulse Control: Limited Insight and Judgment: Limited insight and fair judgment Memory: Limited Attention: distracted Orientation: a/o x 3 Assessment (1) Schizophrenia Current Visit: Yes Status: Acute Treatment Plan Patient admitted for inpatient psychiatric evaluation, medication adjustment and close monitoring The patient's behavior, mood, sleep and appetite will be closely monitored. Patient enrolled in individual and group therapeutic sessions and encouraged to attend. Patient provided with a safe and structured environment. Patient's physical health needs will be addressed by the Hospitalist. Hospitalist Consulted Labs including CBC, CMP, Lipid profile and Hemoglobin A1C levels ordered for baseline reference Social Assessment will be completed and the Car Repairer Helper will work with patient and family to ensure a suitable and safe disposition Medication adjustment will be made as clinically indicated Increase Abilify 25mg po daily Increase klonopin 1mg po BID yesterday Usual Wellness Taoism/Preservation: - Start Trazodone 50 mg po QHS & 50 mg po QHS PRN between 10 PM & 2 AM for insomnia - Start Melatonin 5 mg po QHS to promote circadian rhythm The patient agreed on the treatment plan, understood the risk, benefit, alternative treatment, potential consequence of no treatment, and gave informed consent. Estimated days: 2 Post hospital care: primary care provider, psychiatric provider Case staffed with Dr. White Medications and Allergies Allergies Allergy/AdvReac Type Severity Reaction Status Date / Time haloperidol [From Haldol] Allergy Unknown Verified 05/16/21 22:07 Latex, Natural Rubber Allergy Unknown Verified 05/16/21 22:07 Home Medications Medication Instructions Recorded Confirmed Last Taken Type ARIPiprazole [Abilify] 10 mg PO DAILY 05/16/21 05/16/21 Unknown History Divalproex ER [DepaKOTE ER] 1,000 mg PO QHS 05/16/21 05/16/21 Unknown History Ipratropium/Albuterol Sulfate 0.5 - 2.5 mg INHALATION Q4HR PRN 05/16/21 05/16/21 Unknown History [DUONEB *Not for PRN Use*] Metformin HCl [metFORMIN] 1,000 mg PO BID 05/16/21 05/16/21 Unknown History amLODIPine [Norvasc] 5 mg PO DAILY 05/16/21 05/16/21 Unknown History diphenhydrAMINE [Benadryl CAP] 25 mg PO QHS PRN MDD For upto 10 05/16/21 05/16/21 Unknown History days donepeziL [Aricept] 5 mg PO QHS 05/16/21 05/16/21 Unknown History guaiFENesin/DEXTROMETHORPHAN 5 ml PO Q12HR 05/16/21 05/16/21 Unknown History [Guaifenesin-Dm 100-10 mg/5 ml] Active Meds: Active Medications Albuterol (Albuterol 2.5 Mg/3 Ml Nebu) 2.5 mg IH Q4HRT PRN PRN Reason: Shortness Of Breath Amlodipine Besylate (Amlodipine 5 Mg Tab) 5 mg PO DAILY [facility] Last Admin: 05/24/21 09:28 Dose: 5 mg Aripiprazole (Aripiprazole 10 Mg Tab) 20 mg PO QDAY [facility] Last Admin: 05/24/21 09:29 Dose: 20 mg Clonazepam (Clonazepam 0.5 Mg Tab) 1 mg PO BID [facility] Last Admin: 05/24/21 21:43 Dose: 1 mg Dextrose (Dextrose 50% In Water (25gm) 50 Ml Syringe) 50 ml IV Q30MIN PRN; Protocol PRN Reason: Hypoglycemia Dextrose (Dextrose 10% *Hypoglycemia) 0 ml IV PRN PRN PRN Reason: Hypoglycemia Diphenhydramine HCl (Diphenhydramine 25 Mg Cap) 25 mg PO QHS PRN PRN Reason: Insomnia Last Admin: 05/24/21 20:40 Dose: 25 mg Divalproex Sodium (Divalproex Er 500 Mg Tab) 1,000 mg PO QHS [facility] Last Admin: 05/24/21 21:43 Dose: 1,000 mg Donepezil HCl (Donepezil 5 Mg Tab) 5 mg PO QHS [facility] Last Admin: 05/24/21 21:43 Dose: 5 mg Guaifenesin (Guaifenesin Dm 200/20 Mg Oral Liqd 10 Ml) 5 ml PO Q12H [facility] Last Admin: 05/24/21 21:44 Dose: 5 ml Hydrophilic Ointment (Lip Therapy Vaseline) 1 applic TP DIRECT PRN PRN Reason: Dry Lips Last Admin: 05/24/21 20:37 Dose: 1 applic Insulin Human Lispro (Insulin Lispro 100 Unit/Ml) 0 unit SUB-Q ACHS [facility]; Protocol Last Admin: 05/24/21 21:44 Dose: 1 unit Metformin HCl (Metformin 500 Mg Tab) 1,000 mg PO BIDDIAB [facility] Last Admin: 05/24/21 17:14 Dose: 1,000 mg Ziprasidone (Ziprasidone Mesylate 20 Mg Vial) 20 mg IM Q4H PRN PRN Reason: Agitation Last Admin: 05/24/21 01:06 Dose: 20 mg Results - Results Labs/Vitals: Laboratory Last Values WBC 4.2 K/mm3 (4.5-11.0) L 05/17/21 19:37 RBC 3.48 M/mm3 (3.65-5.03) L 05/17/21 19:37 Hgb 10.1 gm/dl (10.1-14.3) 05/17/21 19:37 Hct 31.4 % (30.3-42.9) 05/17/21 19:37 MCV 90 fl (79-97) 05/17/21 19:37 MCH 29 pg (28-32) 05/17/21 19:37 MCHC 32 % (30-34) 05/17/21 19:37 RDW 13.7 % (13.2-15.2) 05/17/21 19:37 Plt Count 106 K/mm3 (140-440) L 05/17/21 19:37 Lymph % (Auto) 26.4 % (13.4-35.0) 05/17/21 19:37 [place] % (Auto) 12.9 % (0.0-7.3) H 05/17/21 19:37 Eos % (Auto) 2.2 % (0.0-4.3) 05/17/21 19:37 Baso % (Auto) 1.1 % (0.0-1.8) 05/17/21 19:37 Lymph # (Auto) 1.1 K/mm3 (1.2-5.4) L 05/17/21 19:37 [place] # (Auto) 0.5 K/mm3 (0.0-0.8) 05/17/21 19:37 Eos # (Auto) 0.1 K/mm3 (0.0-0.4) 05/17/21 19:37 Baso # (Auto) 0.0 K/mm3 (0.0-0.1) 05/17/21 19:37 Seg Neutrophils % 57.4 % (40.0-70.0) 05/17/21 19:37 Seg Neutrophils # 2.4 K/mm3 (1.8-7.7) 05/17/21 19:37 Sodium 134 mmol/L (137-145) L 05/17/21 19:37 Potassium 4.2 mmol/L (3.6-5.0) 05/17/21 19:37 Chloride 100.4 mmol/L (98-107) 05/17/21 19:37 Carbon Dioxide 20 mmol/L (22-30) L 05/17/21 19:37 Anion Gap 18 mmol/L 05/17/21 19:37 BUN 18 mg/dL (7-17) H 05/17/21 19:37 Creatinine 0.9 mg/dL (0.6-1.2) 05/17/21 19:37 Estimated GFR > 60 ml/min 05/17/21 19:37 BUN/Creatinine Ratio 20 % 05/17/21 19:37 Glucose 295 mg/dL (65-100) H 05/17/21 19:37 POC Glucose 173 mg/dL (70-105) H 05/25/21 08:26 Hemoglobin A1c 7.4 % (4-6) H 05/17/21 19:37 Calcium 8.9 mg/dL (8.4-10.2) 05/17/21 19:37 Total Bilirubin 0.30 mg/dL (0.1-1.2) 05/17/21 19:37 AST 28 units/L (5-40) 05/17/21 19:37 ALT 23 units/L (7-56) 05/17/21 19:37 Alkaline Phosphatase 92 units/L (35-129) 05/17/21 19:37 Total Protein 6.0 g/dL (6.3-8.2) L 05/17/21 19:37 Albumin 3.6 g/dL (3.9-5) L 05/17/21 19:37 Albumin/Globulin Ratio 1.5 % 05/17/21 19:37 Triglycerides 110 mg/dL (2-149) 05/17/21 19:37 Cholesterol 114 mg/dL (50-199) 05/17/21 19:37 LDL Cholesterol Direct 43 mg/dL (50-130) L 05/17/21 19:37 HDL Cholesterol 59 mg/dL (40-59) 05/17/21 19:37 Cholesterol/HDL Ratio 1.93 % 05/17/21 19:37 TSH 1.850 mlU/mL (0.270-4.200) 05/17/21 19:37 Syphilis IgG Antibody Nonreactive (NonReactive) 05/24/21 07:44 Coronavirus (PCR) Negative (Negative) 05/24/21 Unknown Last Vital Signs Temp 97.9 F 05/24/21 19:24 Pulse 86 05/24/21 21:05 Resp 18 05/24/21 21:05 BP 135/69 05/24/21 19:24 Pulse Ox 96 05/24/21 22:32
[2021-05-25] MEDS: INSULIN LISPRO 100 UNIT/ML SUB-Q SCH ×4 (09:55→21:55)
[2021-05-25] MEDS: metFORMIN 500 MG TAB PO SCH ×2 (09:56→18:24)
[2021-05-25] MEDS: clonazePAM 0.5 MG TAB PO SCH ×2 (09:56→21:00)
[2021-05-25] MEDS: DIVALPROEX ER 250 MG TAB PO SCH (09:57)
[2021-05-25] MEDS: guaiFENesin DM 200/20 MG ORAL LIQD 10 ML PO SCH ×2 (10:03→21:00)
[2021-05-25] MEDS: amLODIPine 5 MG TAB PO SCH (10:04)
[2021-05-25] MEDS: ARIPiprazole 10 MG TAB PO SCH (10:08)
[2021-05-25] MEDS: diphenhydrAMINE 25 MG CAP PO PRN (20:55)
[2021-05-25] MEDS: DONEPEZIL 5 MG TAB PO SCH (20:59)
[2021-05-25] MEDS: DIVALPROEX ER 500 MG TAB PO SCH (20:59)
--- NOTE | 2021-05-25 21:05 | Progress Note ---
Assessment and Plan Assessment and plan: -- Vascular dementia with behavioral disturbance Current Visit: Yes Status: Acute Verbal prompting, verbal redirection, benzodiazepine therapy as clinically indicated. -- Cerebral atherosclerosis Current Visit: Yes Status: Acute Risk factor reduction, antiplatelet therapy as clinically indicated. -- Obesity (BMI 30.0-34.9) Current Visit: Yes Status: Acute Balanced diet, increase physical activity at discharge. --Schizophrenia Current Visit: Yes Status: Acute Continue medical management, supportive care, -- Generalized anxiety disorder Current Visit: Yes Status: Acute Benzodiazepine therapy as clinic indicated, supportive care. -- Advance care planning Current Visit: Yes Status: Acute Disease education conducted, care plan discussed, diagnosis discussed, prognosis discussed, patient is full code. +30 minutes. Continue current management We will follow the patient along with you Call us with questions History Interval history: I have seen and examined the patient in activity room this morning patient has no new complaints Hospitalist Physical - Constitutional Vitals: Temp Pulse Resp BP Pulse Ox 97.8 F 90 17 138/66 93 05/25/21 08:33 05/25/21 10:04 05/25/21 08:33 05/25/21 10:04 05/25/21 08:33 General appearance: Present: no acute distress, well-nourished, obese - EENT Eyes: Present: PERRL, EOM intact - Neck Neck: Present: supple, normal ROM - Respiratory Respiratory effort: normal Respiratory: bilateral: diminished, negative: rales, rhonchi, wheezing - Cardiovascular Rhythm: regular Heart Sounds: Present: S1 & S2 - Extremities Extremities: No edema, Full ROM - Abdominal General gastrointestinal: soft, non-tender, non-distended - Integumentary Integumentary: Present: clear, warm - Psychiatric Psychiatric: appropriate mood/affect, cooperative - Neurologic Neurologic: moves all extremities Results - Labs CBC & Chem 7: 05/17/21 19:37 05/17/21 19:37 Labs: Laboratory Last Values WBC 4.2 K/mm3 (4.5-11.0) L 05/17/21 19:37 RBC 3.48 M/mm3 (3.65-5.03) L 05/17/21 19:37 Hgb 10.1 gm/dl (10.1-14.3) 05/17/21 19:37 Hct 31.4 % (30.3-42.9) 05/17/21 19:37 MCV 90 fl (79-97) 05/17/21 19:37 MCH 29 pg (28-32) 05/17/21 19:37 MCHC 32 % (30-34) 05/17/21 19:37 RDW 13.7 % (13.2-15.2) 05/17/21 19:37 Plt Count 106 K/mm3 (140-440) L 05/17/21 19:37 Lymph % (Auto) 26.4 % (13.4-35.0) 05/17/21 19:37 [place] % (Auto) 12.9 % (0.0-7.3) H 05/17/21 19:37 Eos % (Auto) 2.2 % (0.0-4.3) 05/17/21 19:37 Baso % (Auto) 1.1 % (0.0-1.8) 05/17/21 19:37 Lymph # (Auto) 1.1 K/mm3 (1.2-5.4) L 05/17/21 19:37 [place] # (Auto) 0.5 K/mm3 (0.0-0.8) 05/17/21 19:37 Eos # (Auto) 0.1 K/mm3 (0.0-0.4) 05/17/21 19:37 Baso # (Auto) 0.0 K/mm3 (0.0-0.1) 05/17/21 19:37 Seg Neutrophils % 57.4 % (40.0-70.0) 05/17/21 19:37 Seg Neutrophils # 2.4 K/mm3 (1.8-7.7) 05/17/21 19:37 Sodium 134 mmol/L (137-145) L 05/17/21 19:37 Potassium 4.2 mmol/L (3.6-5.0) 05/17/21 19:37 Chloride 100.4 mmol/L (98-107) 05/17/21 19:37 Carbon Dioxide 20 mmol/L (22-30) L 05/17/21 19:37 Anion Gap 18 mmol/L 05/17/21 19:37 BUN 18 mg/dL (7-17) H 05/17/21 19:37 Creatinine 0.9 mg/dL (0.6-1.2) 05/17/21 19:37 Estimated GFR > 60 ml/min 05/17/21 19:37 BUN/Creatinine Ratio 20 % 05/17/21 19:37 Glucose 295 mg/dL (65-100) H 05/17/21 19:37 POC Glucose 155 mg/dL (70-105) H 05/25/21 20:04 Hemoglobin A1c 7.4 % (4-6) H 05/17/21 19:37 Calcium 8.9 mg/dL (8.4-10.2) 05/17/21 19:37 Total Bilirubin 0.30 mg/dL (0.1-1.2) 05/17/21 19:37 AST 28 units/L (5-40) 05/17/21 19:37 ALT 23 units/L (7-56) 05/17/21 19:37 Alkaline Phosphatase 92 units/L (35-129) 05/17/21 19:37 Total Protein 6.0 g/dL (6.3-8.2) L 05/17/21 19:37 Albumin 3.6 g/dL (3.9-5) L 05/17/21 19:37 Albumin/Globulin Ratio 1.5 % 05/17/21 19:37 Triglycerides 110 mg/dL (2-149) 05/17/21 19:37 Cholesterol 114 mg/dL (50-199) 05/17/21 19:37 LDL Cholesterol Direct 43 mg/dL (50-130) L 05/17/21 19:37 HDL Cholesterol 59 mg/dL (40-59) 05/17/21 19:37 Cholesterol/HDL Ratio 1.93 % 05/17/21 19:37 TSH 1.850 mlU/mL (0.270-4.200) 05/17/21 19:37 Syphilis IgG Antibody Nonreactive (NonReactive) 05/24/21 07:44 Coronavirus (PCR) Negative (Negative) 05/24/21 Unknown Du/IV: Voiding Method Toilet Active Medications - Current Medications Current Medications: Generic Name Dose Route Start Last Admin Trade Name Freq PRN Reason Stop Dose Admin Albuterol 2.5 mg 05/24/21 22:35 Albuterol 2.5 Mg/3 Ml Nebu IH Q4HRT PRN Shortness Of Breath Amlodipine Besylate 5 mg 05/17/21 10:00 05/25/21 10:04 Amlodipine 5 Mg Tab PO 5 mg DAILY JULIO Administration Aripiprazole 25 mg 05/25/21 08:54 05/25/21 10:08 Aripiprazole 10 Mg Tab PO 25 mg QDAY JULIO Administration Clonazepam 1 mg 05/24/21 10:00 05/25/21 21:00 Clonazepam 0.5 Mg Tab PO 1 mg BID JULIO Administration Dextrose 50 ml 05/18/21 11:42 Dextrose 50% In Water (25gm) 50 Ml Syringe IV Q30MIN PRN Hypoglycemia Protocol Dextrose 0 ml 05/18/21 12:02 Dextrose 10% *Hypoglycemia IV PRN PRN Hypoglycemia Diphenhydramine HCl 25 mg 05/17/21 08:05 05/25/21 20:55 Diphenhydramine 25 Mg Cap PO 25 mg QHS PRN Administration Insomnia Divalproex Sodium 1,000 mg 05/17/21 22:00 05/25/21 20:59 Divalproex Er 500 Mg Tab PO 1,000 mg QHS JULIO Administration Divalproex Sodium 250 mg 05/25/21 10:00 05/25/21 09:57 Divalproex Er 250 Mg Tab PO 250 mg QAM JULIO Administration Donepezil HCl 5 mg 05/17/21 22:00 05/25/21 20:59 Donepezil 5 Mg Tab PO 5 mg QHS JULIO Administration Guaifenesin 5 ml 05/17/21 10:00 05/25/21 21:00 Guaifenesin Dm 200/20 Mg Oral Liqd 10 Ml PO 5 ml Q12H JULIO Administration Hydrophilic Ointment 1 applic 05/18/21 09:18 05/24/21 20:37 Lip Therapy Vaseline TP 1 applic DIRECT PRN Administration Dry Lips Insulin Human Lispro 0 unit 05/18/21 16:30 05/25/21 20:37 Insulin Lispro 100 Unit/Ml SUB-Q Not Given ACHS [facility] Protocol Metformin HCl 1,000 mg 05/17/21 10:00 05/25/21 18:24 Metformin 500 Mg Tab PO 1,000 mg BIDDIAB JULIO Administration Ziprasidone 20 mg 05/19/21 10:30 05/24/21 01:06 Ziprasidone Mesylate 20 Mg Vial IM 20 mg Q4H PRN Administration Agitation Nutrition/Malnutrition Assess - Dietary Evaluation Nutrition/Malnutrition Findings: Nutrition Notes Start: 05/23/21 10:17 Freq: Status: Active Protocol: Document 05/23/21 10:17 PARISA (Rec: 05/23/21 10:18 PARISA [id number]) Nutrition Notes Need for Assessment generated from: LOS Initial or Follow up Brief Note Current Diet Cardiac/Consistent CHO Subjective/Other Information Pt screened for LOS. She has consumed 100% of meals since admission. Burn Absent Trauma Absent Minimum of two criteria No Nutrition Intervention Revisit per MD consult or patient Sign Off request:
[2021-05-26] MEDS: INSULIN LISPRO 100 UNIT/ML SUB-Q SCH ×4 (07:59→21:02)
[2021-05-26] MEDS: metFORMIN 500 MG TAB PO SCH ×2 (08:12→16:56)
[2021-05-26] MEDS: clonazePAM 0.5 MG TAB PO SCH ×2 (09:32→21:34)
[2021-05-26] MEDS: guaiFENesin DM 200/20 MG ORAL LIQD 10 ML PO SCH ×2 (09:32→21:34)
[2021-05-26] MEDS: DIVALPROEX ER 250 MG TAB PO SCH (09:32)
[2021-05-26] MEDS: amLODIPine 5 MG TAB PO SCH (09:32)
[2021-05-26] MEDS: ARIPiprazole 10 MG TAB PO SCH (09:32)
--- NOTE | 2021-05-26 10:51 | Progress Note ---
Subjective Date of service: 05/26/21 Principal diagnosis: Schizoaffective Disorder Subjective Comment: The patient was seen today. She says she's doing very well. She denies hallucinations of any kind. She also denies SI/HI. Although the patient denies hallucinations, she is often observed by staff talking to herself. REVIEW OF SYSTEMS Constitutional: Negative for weight loss ENT: Negative for stridor Respiratory: Negative for cough or hemoptysis All other systems reviewed and are negative MENTAL STATUS EXAMINATION General Appearance and Behavior: Age appropriate, good hygiene, wearing appropriate clothes. calm, cooperative Cooperation: Cooperative Psychomotor Behavior: Psychomotor normal Mood: very well Affect and affective range: Congruent to stated mood Thought Process: circumstantial Thought Content:None Speech: Normal tone and pace Suicidal Ideation: Denies Homicidal Ideation: Denies Hallucinations: Denies Delusions: Denies Impulse Control: Limited Insight and Judgment: Limited insight and fair judgment Memory: Limited Attention: distracted Orientation: a/o x 3 Assessment (1) Schizophrenia Current Visit: Yes Status: Acute Treatment Plan Patient admitted for inpatient psychiatric evaluation, medication adjustment and close monitoring The patient's behavior, mood, sleep and appetite will be closely monitored. Patient enrolled in individual and group therapeutic sessions and encouraged to attend. Patient provided with a safe and structured environment. Patient's physical health needs will be addressed by the Hospitalist. Hospitalist Consulted Labs including CBC, CMP, Lipid profile and Hemoglobin A1C levels ordered for baseline reference Social Assessment will be completed and the House Builder will work with patient and family to ensure a suitable and safe disposition Medication adjustment will be made as clinically indicated Increase Abilify 25mg po daily yesterday No changes made today Usual Wellness Sikh/Preservation: - Start Trazodone 50 mg po QHS & 50 mg po QHS PRN between 10 PM & 2 AM for insomnia - Start Melatonin 5 mg po QHS to promote circadian rhythm The patient agreed on the treatment plan, understood the risk, benefit, alternative treatment, potential consequence of no treatment, and gave informed consent. Estimated days: 2 Post hospital care: primary care provider, psychiatric provider Case staffed with Dr. White Medications and Allergies Allergies Allergy/AdvReac Type Severity Reaction Status Date / Time haloperidol [From Haldol] Allergy Unknown Verified 05/16/21 22:07 Latex, Natural Rubber Allergy Unknown Verified 05/16/21 22:07 Home Medications Medication Instructions Recorded Confirmed Last Taken Type ARIPiprazole [Abilify] 10 mg PO DAILY 05/16/21 05/16/21 Unknown History Divalproex ER [DepaKOTE ER] 1,000 mg PO QHS 05/16/21 05/16/21 Unknown History Ipratropium/Albuterol Sulfate 0.5 - 2.5 mg INHALATION Q4HR PRN 05/16/21 05/16/21 Unknown History [DUONEB *Not for PRN Use*] Metformin HCl [metFORMIN] 1,000 mg PO BID 05/16/21 05/16/21 Unknown History amLODIPine [Norvasc] 5 mg PO DAILY 05/16/21 05/16/21 Unknown History diphenhydrAMINE [Benadryl CAP] 25 mg PO QHS PRN MDD For upto 10 05/16/21 05/16/21 Unknown History days donepeziL [Aricept] 5 mg PO QHS 05/16/21 05/16/21 Unknown History guaiFENesin/DEXTROMETHORPHAN 5 ml PO Q12HR 05/16/21 05/16/21 Unknown History [Guaifenesin-Dm 100-10 mg/5 ml] Active Meds: Active Medications Albuterol (Albuterol 2.5 Mg/3 Ml Nebu) 2.5 mg IH Q4HRT PRN PRN Reason: Shortness Of Breath Amlodipine Besylate (Amlodipine 5 Mg Tab) 5 mg PO DAILY [facility] Last Admin: 05/26/21 09:32 Dose: 5 mg Aripiprazole (Aripiprazole 10 Mg Tab) 25 mg PO QDAY [facility] Last Admin: 05/26/21 09:32 Dose: 25 mg Clonazepam (Clonazepam 0.5 Mg Tab) 1 mg PO BID [facility] Last Admin: 05/26/21 09:32 Dose: 1 mg Dextrose (Dextrose 50% In Water (25gm) 50 Ml Syringe) 50 ml IV Q30MIN PRN; Protocol PRN Reason: Hypoglycemia Dextrose (Dextrose 10% *Hypoglycemia) 0 ml IV PRN PRN PRN Reason: Hypoglycemia Diphenhydramine HCl (Diphenhydramine 25 Mg Cap) 25 mg PO QHS PRN PRN Reason: Insomnia Last Admin: 05/25/21 20:55 Dose: 25 mg Divalproex Sodium (Divalproex Er 500 Mg Tab) 1,000 mg PO QHS [facility] Last Admin: 05/25/21 20:59 Dose: 1,000 mg Divalproex Sodium (Divalproex Er 250 Mg Tab) 250 mg PO QAM [facility] Last Admin: 05/26/21 09:32 Dose: 250 mg Donepezil HCl (Donepezil 5 Mg Tab) 5 mg PO QHS [facility] Last Admin: 05/25/21 20:59 Dose: 5 mg Guaifenesin (Guaifenesin Dm 200/20 Mg Oral Liqd 10 Ml) 5 ml PO Q12H [facility] Last Admin: 05/26/21 09:32 Dose: 5 ml Hydrophilic Ointment (Lip Therapy Vaseline) 1 applic TP DIRECT PRN PRN Reason: Dry Lips Last Admin: 05/24/21 20:37 Dose: 1 applic Insulin Human Lispro (Insulin Lispro 100 Unit/Ml) 0 unit SUB-Q ACHS [facility]; Protocol Last Admin: 05/26/21 07:59 Dose: Not Given Metformin HCl (Metformin 500 Mg Tab) 1,000 mg PO BIDDIAB [facility] Last Admin: 05/26/21 08:12 Dose: 1,000 mg Ziprasidone (Ziprasidone Mesylate 20 Mg Vial) 20 mg IM Q4H PRN PRN Reason: Agitation Last Admin: 05/24/21 01:06 Dose: 20 mg Results - Results Labs/Vitals: Laboratory Last Values WBC 4.2 K/mm3 (4.5-11.0) L 05/17/21 19:37 RBC 3.48 M/mm3 (3.65-5.03) L 05/17/21 19:37 Hgb 10.1 gm/dl (10.1-14.3) 05/17/21 19:37 Hct 31.4 % (30.3-42.9) 05/17/21 19:37 MCV 90 fl (79-97) 05/17/21 19:37 MCH 29 pg (28-32) 05/17/21 19:37 MCHC 32 % (30-34) 05/17/21 19:37 RDW 13.7 % (13.2-15.2) 05/17/21 19:37 Plt Count 106 K/mm3 (140-440) L 05/17/21 19:37 Lymph % (Auto) 26.4 % (13.4-35.0) 05/17/21 19:37 [place] % (Auto) 12.9 % (0.0-7.3) H 05/17/21 19:37 Eos % (Auto) 2.2 % (0.0-4.3) 05/17/21 19:37 Baso % (Auto) 1.1 % (0.0-1.8) 05/17/21 19:37 Lymph # (Auto) 1.1 K/mm3 (1.2-5.4) L 05/17/21 19:37 [place] # (Auto) 0.5 K/mm3 (0.0-0.8) 05/17/21 19:37 Eos # (Auto) 0.1 K/mm3 (0.0-0.4) 05/17/21 19:37 Baso # (Auto) 0.0 K/mm3 (0.0-0.1) 05/17/21 19:37 Seg Neutrophils % 57.4 % (40.0-70.0) 05/17/21 19:37 Seg Neutrophils # 2.4 K/mm3 (1.8-7.7) 05/17/21 19:37 Sodium 134 mmol/L (137-145) L 05/17/21 19:37 Potassium 4.2 mmol/L (3.6-5.0) 05/17/21 19:37 Chloride 100.4 mmol/L (98-107) 05/17/21 19:37 Carbon Dioxide 20 mmol/L (22-30) L 05/17/21 19:37 Anion Gap 18 mmol/L 05/17/21 19:37 BUN 18 mg/dL (7-17) H 05/17/21 19:37 Creatinine 0.9 mg/dL (0.6-1.2) 05/17/21 19:37 Estimated GFR > 60 ml/min 05/17/21 19:37 BUN/Creatinine Ratio 20 % 05/17/21 19:37 Glucose 295 mg/dL (65-100) H 05/17/21 19:37 POC Glucose 122 mg/dL (70-105) H 05/26/21 06:16 Hemoglobin A1c 7.4 % (4-6) H 05/17/21 19:37 Calcium 8.9 mg/dL (8.4-10.2) 05/17/21 19:37 Total Bilirubin 0.30 mg/dL (0.1-1.2) 05/17/21 19:37 AST 28 units/L (5-40) 05/17/21 19:37 ALT 23 units/L (7-56) 05/17/21 19:37 Alkaline Phosphatase 92 units/L (35-129) 05/17/21 19:37 Total Protein 6.0 g/dL (6.3-8.2) L 05/17/21 19:37 Albumin 3.6 g/dL (3.9-5) L 05/17/21 19:37 Albumin/Globulin Ratio 1.5 % 05/17/21 19:37 Triglycerides 110 mg/dL (2-149) 05/17/21 19:37 Cholesterol 114 mg/dL (50-199) 05/17/21 19:37 LDL Cholesterol Direct 43 mg/dL (50-130) L 05/17/21 19:37 HDL Cholesterol 59 mg/dL (40-59) 05/17/21 19:37 Cholesterol/HDL Ratio 1.93 % 05/17/21 19:37 TSH 1.850 mlU/mL (0.270-4.200) 05/17/21 19:37 Syphilis IgG Antibody Nonreactive (NonReactive) 05/24/21 07:44 Coronavirus (PCR) Negative (Negative) 05/24/21 Unknown Last Vital Signs Temp 97.9 F 05/26/21 09:14 Pulse 88 05/26/21 09:14 Resp 18 05/26/21 09:14 BP 124/53 05/26/21 09:14 Pulse Ox 96 05/26/21 09:14
--- NOTE | 2021-05-26 20:53 | Progress Note ---
Assessment and Plan - Patient Problems (1) Vascular dementia with behavioral disturbance Current Visit: Yes Status: Acute Plan to address problem: Verbal prompting, verbal redirection, benzodiazepine therapy as clinically indicated. (2) Cerebral atherosclerosis Current Visit: Yes Status: Acute Plan to address problem: Risk factor reduction, antiplatelet therapy as clinically indicated. (3) Obesity (BMI 30.0-34.9) Current Visit: Yes Status: Acute Plan to address problem: Balanced diet, increase physical activity at discharge. (4) Schizophrenia Current Visit: Yes Status: Acute Qualifiers: Schizophrenia type: unspecified Qualified Code(s): F20.9 - Schizophrenia, unspecified Plan to address problem: Continue medical management, supportive care, (5) Generalized anxiety disorder Current Visit: Yes Status: Acute Plan to address problem: Benzodiazepine therapy as clinic indicated, supportive care. (6) Advance care planning Current Visit: Yes Status: Acute Plan to address problem: Disease education conducted, care plan discussed, diagnosis discussed, prognosis discussed, patient is full code. +30 minutes. History Interval history: 70 YO Female with Bipolar DO, Vascular Dementia, Cerebral Atherosclerosis, Schizophrenia admitted to [facility] for psychiatric stabilization. Patient seen and evaluated in the recreation room. No reported nursing events. Patient denies pain. Hospitalist Physical - Constitutional Vitals: Temp Pulse Resp BP Pulse Ox 97.9 F 88 18 124/53 96 05/26/21 09:14 05/26/21 09:14 05/26/21 09:14 05/26/21 09:14 05/26/21 09:14 General appearance: Present: no acute distress, well-nourished, obese - EENT Eyes: Present: PERRL ENT: hearing decreased - Neck Neck: Present: supple - Respiratory Respiratory effort: normal Respiratory: bilateral: CTA - Cardiovascular Rhythm: regular Heart Sounds: Present: S1 & S2 - Extremities Extremities: no ischemia Peripheral Pulses: within normal limits - Abdominal General gastrointestinal: soft, non-tender, non-distended - Integumentary Integumentary: Present: clear, dry - Psychiatric Psychiatric: cooperative - Neurologic Neurologic: CNII-XII intact Results - Labs CBC & Chem 7: 05/17/21 19:37 05/17/21 19:37 Labs: Laboratory Last Values WBC 4.2 K/mm3 (4.5-11.0) L 05/17/21 19:37 RBC 3.48 M/mm3 (3.65-5.03) L 05/17/21 19:37 Hgb 10.1 gm/dl (10.1-14.3) 05/17/21 19:37 Hct 31.4 % (30.3-42.9) 05/17/21 19:37 MCV 90 fl (79-97) 05/17/21 19:37 MCH 29 pg (28-32) 05/17/21 19:37 MCHC 32 % (30-34) 05/17/21 19:37 RDW 13.7 % (13.2-15.2) 05/17/21 19:37 Plt Count 106 K/mm3 (140-440) L 05/17/21 19:37 Lymph % (Auto) 26.4 % (13.4-35.0) 05/17/21 19:37 Carroll % (Auto) 12.9 % (0.0-7.3) H 05/17/21 19:37 Eos % (Auto) 2.2 % (0.0-4.3) 05/17/21 19:37 Baso % (Auto) 1.1 % (0.0-1.8) 05/17/21 19:37 Lymph # (Auto) 1.1 K/mm3 (1.2-5.4) L 05/17/21 19:37 Carroll # (Auto) 0.5 K/mm3 (0.0-0.8) 05/17/21 19:37 Eos # (Auto) 0.1 K/mm3 (0.0-0.4) 05/17/21 19:37 Baso # (Auto) 0.0 K/mm3 (0.0-0.1) 05/17/21 19:37 Seg Neutrophils % 57.4 % (40.0-70.0) 05/17/21 19:37 Seg Neutrophils # 2.4 K/mm3 (1.8-7.7) 05/17/21 19:37 Sodium 134 mmol/L (137-145) L 05/17/21 19:37 Potassium 4.2 mmol/L (3.6-5.0) 05/17/21 19:37 Chloride 100.4 mmol/L (98-107) 05/17/21 19:37 Carbon Dioxide 20 mmol/L (22-30) L 05/17/21 19:37 Anion Gap 18 mmol/L 05/17/21 19:37 BUN 18 mg/dL (7-17) H 05/17/21 19:37 Creatinine 0.9 mg/dL (0.6-1.2) 05/17/21 19:37 Estimated GFR > 60 ml/min 05/17/21 19:37 BUN/Creatinine Ratio 20 % 05/17/21 19:37 Glucose 295 mg/dL (65-100) H 05/17/21 19:37 POC Glucose 154 mg/dL (70-105) H 05/26/21 19:46 Hemoglobin A1c 7.4 % (4-6) H 05/17/21 19:37 Calcium 8.9 mg/dL (8.4-10.2) 05/17/21 19:37 Total Bilirubin 0.30 mg/dL (0.1-1.2) 05/17/21 19:37 AST 28 units/L (5-40) 05/17/21 19:37 ALT 23 units/L (7-56) 05/17/21 19:37 Alkaline Phosphatase 92 units/L (35-129) 05/17/21 19:37 Total Protein 6.0 g/dL (6.3-8.2) L 05/17/21 19:37 Albumin 3.6 g/dL (3.9-5) L 05/17/21 19:37 Albumin/Globulin Ratio 1.5 % 05/17/21 19:37 Triglycerides 110 mg/dL (2-149) 05/17/21 19:37 Cholesterol 114 mg/dL (50-199) 05/17/21 19:37 LDL Cholesterol Direct 43 mg/dL (50-130) L 05/17/21 19:37 HDL Cholesterol 59 mg/dL (40-59) 05/17/21 19:37 Cholesterol/HDL Ratio 1.93 % 05/17/21 19:37 TSH 1.850 mlU/mL (0.270-4.200) 05/17/21 19:37 Syphilis IgG Antibody Nonreactive (NonReactive) 05/24/21 07:44 Coronavirus (PCR) Negative (Negative) 05/24/21 Unknown Du/IV: Voiding Method Toilet Active Medications - Current Medications Current Medications: Generic Name Dose Route Start Last Admin Trade Name Freq PRN Reason Stop Dose Admin Albuterol 2.5 mg 05/24/21 22:35 Albuterol 2.5 Mg/3 Ml Nebu IH Q4HRT PRN Shortness Of Breath Amlodipine Besylate 5 mg 05/17/21 10:00 05/26/21 09:32 Amlodipine 5 Mg Tab PO 5 mg DAILY JULIO Administration Aripiprazole 25 mg 05/25/21 08:54 05/26/21 09:32 Aripiprazole 10 Mg Tab PO 25 mg QDAY JULIO Administration Clonazepam 1 mg 05/24/21 10:00 05/26/21 09:32 Clonazepam 0.5 Mg Tab PO 1 mg BID JULIO Administration Dextrose 50 ml 05/18/21 11:42 Dextrose 50% In Water (25gm) 50 Ml Syringe IV Q30MIN PRN Hypoglycemia Protocol Dextrose 0 ml 05/18/21 12:02 Dextrose 10% *Hypoglycemia IV PRN PRN Hypoglycemia Diphenhydramine HCl 25 mg 05/17/21 08:05 05/25/21 20:55 Diphenhydramine 25 Mg Cap PO 25 mg QHS PRN Administration Insomnia Divalproex Sodium 1,000 mg 05/17/21 22:00 05/25/21 20:59 Divalproex Er 500 Mg Tab PO 1,000 mg QHS JULIO Administration Divalproex Sodium 250 mg 05/25/21 10:00 05/26/21 09:32 Divalproex Er 250 Mg Tab PO 250 mg QAM JULIO Administration Donepezil HCl 5 mg 05/17/21 22:00 05/25/21 20:59 Donepezil 5 Mg Tab PO 5 mg QHS JULIO Administration Guaifenesin 5 ml 05/17/21 10:00 05/26/21 09:32 Guaifenesin Dm 200/20 Mg Oral Liqd 10 Ml PO 5 ml Q12H JULIO Administration Hydrophilic Ointment 1 applic 05/18/21 09:18 05/24/21 20:37 Lip Therapy Vaseline TP 1 applic DIRECT PRN Administration Dry Lips Insulin Human Lispro 0 unit 05/18/21 16:30 05/26/21 16:57 Insulin Lispro 100 Unit/Ml SUB-Q Not Given ACHS JULIO Protocol Metformin HCl 1,000 mg 05/17/21 10:00 05/26/21 16:56 Metformin 500 Mg Tab PO 1,000 mg BIDDIAB JULIO Administration Ziprasidone 20 mg 05/19/21 10:30 05/24/21 01:06 Ziprasidone Mesylate 20 Mg Vial IM 20 mg Q4H PRN Administration Agitation Nutrition/Malnutrition Assess - Dietary Evaluation Nutrition/Malnutrition Findings: Nutrition Notes Start: 05/23/21 10:17 Freq: Status: Active Protocol: Document 05/23/21 10:17 PARISA (Rec: 05/23/21 10:18 PARISA [id number]) Nutrition Notes Need for Assessment generated from: LOS Initial or Follow up Brief Note Current Diet Cardiac/Consistent CHO Subjective/Other Information Pt screened for LOS. She has consumed 100% of meals since admission. Burn Absent Trauma Absent Minimum of two criteria No Nutrition Intervention Revisit per MD consult or patient Sign Off request:
[2021-05-26] MEDS: DONEPEZIL 5 MG TAB PO SCH (21:34)
[2021-05-26] MEDS: DIVALPROEX ER 500 MG TAB PO SCH (21:34)
[2021-05-27] MEDS: INSULIN LISPRO 100 UNIT/ML SUB-Q SCH ×4 (07:47→21:14)
[2021-05-27] MEDS: metFORMIN 500 MG TAB PO SCH ×2 (07:47→17:17)
--- NOTE | 2021-05-27 09:06 | Progress Note ---
Subjective Date of service: 05/27/21 Principal diagnosis: Schizoaffective Disorder Subjective Comment: The patient was seen today. She says she is much better. She says her appetite is good. The patient also says she slept well, but the nurse today says the patient only slept about three hours. The patient denies SI/HI, or hallucinations. She says she's been compliant with her meds. REVIEW OF SYSTEMS Constitutional: Negative for weight loss ENT: Negative for stridor Respiratory: Negative for cough or hemoptysis All other systems reviewed and are negative MENTAL STATUS EXAMINATION General Appearance and Behavior: Age appropriate, good hygiene, wearing appropriate clothes. calm, cooperative Cooperation: Cooperative Psychomotor Behavior: Psychomotor normal Mood: very well Affect and affective range: Congruent to stated mood Thought Process: circumstantial Thought Content:None Speech: Normal tone and pace Suicidal Ideation: Denies Homicidal Ideation: Denies Hallucinations: Denies Delusions: Denies Impulse Control: Limited Insight and Judgment: Limited insight and fair judgment Memory: Limited Attention: distracted Orientation: a/o x 3 Assessment (1) Schizophrenia Current Visit: Yes Status: Acute Treatment Plan Patient admitted for inpatient psychiatric evaluation, medication adjustment an d close monitoring The patient's behavior, mood, sleep and appetite will be closely monitored. Patient enrolled in individual and group therapeutic sessions and encouraged to attend. Patient provided with a safe and structured environment. Patient's physical health needs will be addressed by the Hospitalist. Hospitalist Consulted Labs including CBC, CMP, Lipid profile and Hemoglobin A1C levels ordered for baseline reference Social Assessment will be completed and the Government Affairs Specialist will work with patient and family to ensure a suitable and safe disposition Medication adjustment will be made as clinically indicated Continue Abilify 25mg po daily Usual Wellness Gnosticist/Preservation: - Start Trazodone 50 mg po QHS & 50 mg po QHS PRN between 10 PM & 2 AM for insomnia - Start Melatonin 5 mg po QHS to promote circadian rhythm The patient agreed on the treatment plan, understood the risk, benefit, alternative treatment, potential consequence of no treatment, and gave informed consent. Estimated days: 2 Post hospital care: primary care provider, psychiatric provider Case staffed with Dr. White Medications and Allergies Allergies Allergy/AdvReac Type Severity Reaction Status Date / Time haloperidol [From Haldol] Allergy Unknown Verified 05/16/21 22:07 Latex, Natural Rubber Allergy Unknown Verified 05/16/21 22:07 Home Medications Medication Instructions Recorded Confirmed Last Taken Type ARIPiprazole [Abilify] 10 mg PO DAILY 05/16/21 05/16/21 Unknown History Divalproex ER [DepaKOTE ER] 1,000 mg PO QHS 05/16/21 05/16/21 Unknown History Ipratropium/Albuterol Sulfate 0.5 - 2.5 mg INHALATION Q4HR PRN 05/16/21 05/16/21 Unknown History [DUONEB *Not for PRN Use*] Metformin HCl [metFORMIN] 1,000 mg PO BID 05/16/21 05/16/21 Unknown History amLODIPine [Norvasc] 5 mg PO DAILY 05/16/21 05/16/21 Unknown History diphenhydrAMINE [Benadryl CAP] 25 mg PO QHS PRN MDD For upto 10 05/16/21 05/16/21 Unknown History days donepeziL [Aricept] 5 mg PO QHS 05/16/21 05/16/21 Unknown History guaiFENesin/DEXTROMETHORPHAN 5 ml PO Q12HR 05/16/21 05/16/21 Unknown History [Guaifenesin-Dm 100-10 mg/5 ml] Active Meds: Active Medications Albuterol (Albuterol 2.5 Mg/3 Ml Nebu) 2.5 mg IH Q4HRT PRN PRN Reason: Shortness Of Breath Amlodipine Besylate (Amlodipine 5 Mg Tab) 5 mg PO DAILY [facility] Last Admin: 05/26/21 09:32 Dose: 5 mg Aripiprazole (Aripiprazole 10 Mg Tab) 25 mg PO QDAY [facility] Last Admin: 05/26/21 09:32 Dose: 25 mg Clonazepam (Clonazepam 0.5 Mg Tab) 1 mg PO BID [facility] Last Admin: 05/26/21 21:34 Dose: 1 mg Dextrose (Dextrose 50% In Water (25gm) 50 Ml Syringe) 50 ml IV Q30MIN PRN; Protocol PRN Reason: Hypoglycemia Dextrose (Dextrose 10% *Hypoglycemia) 0 ml IV PRN PRN PRN Reason: Hypoglycemia Diphenhydramine HCl (Diphenhydramine 25 Mg Cap) 25 mg PO QHS PRN PRN Reason: Insomnia Last Admin: 05/25/21 20:55 Dose: 25 mg Divalproex Sodium (Divalproex Er 500 Mg Tab) 1,000 mg PO QHS [facility] Last Admin: 05/26/21 21:34 Dose: 1,000 mg Divalproex Sodium (Divalproex Er 250 Mg Tab) 250 mg PO QAM [facility] Last Admin: 05/26/21 09:32 Dose: 250 mg Donepezil HCl (Donepezil 5 Mg Tab) 5 mg PO QHS [facility] Last Admin: 05/26/21 21:34 Dose: 5 mg Guaifenesin (Guaifenesin Dm 200/20 Mg Oral Liqd 10 Ml) 5 ml PO Q12H [facility] Last Admin: 05/26/21 21:34 Dose: 5 ml Hydrophilic Ointment (Lip Therapy Vaseline) 1 applic TP DIRECT PRN PRN Reason: Dry Lips Last Admin: 05/24/21 20:37 Dose: 1 applic Insulin Human Lispro (Insulin Lispro 100 Unit/Ml) 0 unit SUB-Q ACHS [facility]; Protocol Last Admin: 05/27/21 07:47 Dose: Not Given Metformin HCl (Metformin 500 Mg Tab) 1,000 mg PO BIDDIAB [facility] Last Admin: 05/27/21 07:47 Dose: 1,000 mg Ziprasidone (Ziprasidone Mesylate 20 Mg Vial) 20 mg IM Q4H PRN PRN Reason: Agitation Last Admin: 05/24/21 01:06 Dose: 20 mg Results - Results Labs/Vitals: Laboratory Last Values WBC 4.2 K/mm3 (4.5-11.0) L 05/17/21 19:37 RBC 3.48 M/mm3 (3.65-5.03) L 05/17/21 19:37 Hgb 10.1 gm/dl (10.1-14.3) 05/17/21 19:37 Hct 31.4 % (30.3-42.9) 05/17/21 19:37 MCV 90 fl (79-97) 05/17/21 19:37 MCH 29 pg (28-32) 05/17/21 19:37 MCHC 32 % (30-34) 05/17/21 19:37 RDW 13.7 % (13.2-15.2) 05/17/21 19:37 Plt Count 106 K/mm3 (140-440) L 05/17/21 19:37 Lymph % (Auto) 26.4 % (13.4-35.0) 05/17/21 19:37 Waldo % (Auto) 12.9 % (0.0-7.3) H 05/17/21 19:37 Eos % (Auto) 2.2 % (0.0-4.3) 05/17/21 19:37 Baso % (Auto) 1.1 % (0.0-1.8) 05/17/21 19:37 Lymph # (Auto) 1.1 K/mm3 (1.2-5.4) L 05/17/21 19:37 [place]do # (Auto) 0.5 K/mm3 (0.0-0.8) 05/17/21 19:37 Eos # (Auto) 0.1 K/mm3 (0.0-0.4) 05/17/21 19:37 Baso # (Auto) 0.0 K/mm3 (0.0-0.1) 05/17/21 19:37 Seg Neutrophils % 57.4 % (40.0-70.0) 05/17/21 19:37 Seg Neutrophils # 2.4 K/mm3 (1.8-7.7) 05/17/21 19:37 Sodium 134 mmol/L (137-145) L 05/17/21 19:37 Potassium 4.2 mmol/L (3.6-5.0) 05/17/21 19:37 Chloride 100.4 mmol/L (98-107) 05/17/21 19:37 Carbon Dioxide 20 mmol/L (22-30) L 05/17/21 19:37 Anion Gap 18 mmol/L 05/17/21 19:37 BUN 18 mg/dL (7-17) H 05/17/21 19:37 Creatinine 0.9 mg/dL (0.6-1.2) 05/17/21 19:37 Estimated GFR > 60 ml/min 05/17/21 19:37 BUN/Creatinine Ratio 20 % 05/17/21 19:37 Glucose 295 mg/dL (65-100) H 05/17/21 19:37 POC Glucose 142 mg/dL (70-105) H 05/27/21 07:41 Hemoglobin A1c 7.4 % (4-6) H 05/17/21 19:37 Calcium 8.9 mg/dL (8.4-10.2) 05/17/21 19:37 Total Bilirubin 0.30 mg/dL (0.1-1.2) 05/17/21 19:37 AST 28 units/L (5-40) 05/17/21 19:37 ALT 23 units/L (7-56) 05/17/21 19:37 Alkaline Phosphatase 92 units/L (35-129) 05/17/21 19:37 Total Protein 6.0 g/dL (6.3-8.2) L 05/17/21 19:37 Albumin 3.6 g/dL (3.9-5) L 05/17/21 19:37 Albumin/Globulin Ratio 1.5 % 05/17/21 19:37 Triglycerides 110 mg/dL (2-149) 05/17/21 19:37 Cholesterol 114 mg/dL (50-199) 05/17/21 19:37 LDL Cholesterol Direct 43 mg/dL (50-130) L 05/17/21 19:37 HDL Cholesterol 59 mg/dL (40-59) 05/17/21 19:37 Cholesterol/HDL Ratio 1.93 % 05/17/21 19:37 TSH 1.850 mlU/mL (0.270-4.200) 05/17/21 19:37 Syphilis IgG Antibody Nonreactive (NonReactive) 05/24/21 07:44 Coronavirus (PCR) Negative (Negative) 05/24/21 Unknown Last Vital Signs Temp 97.5 F L 05/27/21 08:39 Pulse 83 05/27/21 08:39 Resp 18 05/27/21 08:39 BP 122/65 05/27/21 08:39 Pulse Ox 98 05/27/21 08:39
[2021-05-27] MEDS: guaiFENesin DM 200/20 MG ORAL LIQD 10 ML PO SCH ×2 (09:16→21:13)
[2021-05-27] MEDS: ARIPiprazole 10 MG TAB PO SCH (09:16)
[2021-05-27] MEDS: DIVALPROEX ER 250 MG TAB PO SCH (09:17)
[2021-05-27] MEDS: clonazePAM 0.5 MG TAB PO SCH ×2 (09:17→21:12)
[2021-05-27] MEDS: amLODIPine 5 MG TAB PO SCH (09:17)
[2021-05-27] MEDS: DONEPEZIL 5 MG TAB PO SCH (21:12)
[2021-05-27] MEDS: DIVALPROEX ER 500 MG TAB PO SCH (21:12)
[2021-05-28] MEDS: metFORMIN 500 MG TAB PO SCH ×2 (09:01→16:25)
[2021-05-28] MEDS: INSULIN LISPRO 100 UNIT/ML SUB-Q SCH ×4 (09:01→21:04)
[2021-05-28] MEDS: ARIPiprazole 10 MG TAB PO SCH (09:02)
[2021-05-28] MEDS: clonazePAM 0.5 MG TAB PO SCH ×2 (09:03→21:03)
[2021-05-28] MEDS: DIVALPROEX ER 250 MG TAB PO SCH (09:03)
[2021-05-28] MEDS: amLODIPine 5 MG TAB PO SCH (09:03)
[2021-05-28] MEDS: guaiFENesin DM 200/20 MG ORAL LIQD 10 ML PO SCH ×2 (09:40→21:02)
--- NOTE | 2021-05-28 10:17 | Progress Note ---
Subjective Date of service: 05/28/21 Principal diagnosis: Schizoaffective Disorder Subjective Comment: The patient was seen today. The patient says she's eating well. She also says she's sleeping well. She denies SI/HI or hallucinations of any kind. The patient is awaiting placement to ensue her safety and continuity of mental wellness. REVIEW OF SYSTEMS Constitutional: Negative for weight loss ENT: Negative for stridor Respiratory: Negative for cough or hemoptysis All other systems reviewed and are negative MENTAL STATUS EXAMINATION General Appearance and Behavior: Age appropriate, good hygiene, wearing appropriate clothes. calm, cooperative Cooperation: Cooperative Psychomotor Behavior: Psychomotor normal Mood: very well Affect and affective range: Congruent to stated mood Thought Process: circumstantial Thought Content:None Speech: Normal tone and pace Suicidal Ideation: Denies Homicidal Ideation: Denies Hallucinations: Denies Delusions: Denies Impulse Control: Limited Insight and Judgment: Limited insight and fair judgment Memory: Limited Attention: distracted Orientation: a/o x 3 Assessment (1) Schizophrenia Current Visit: Yes Status: Acute Treatment Plan Patient admitted for inpatient psychiatric evaluation, medication adjustment and close monitoring The patient's behavior, mood, sleep and appetite will be closely monitored. Patient enrolled in individual and group therapeutic sessions and encouraged to attend. Patient provided with a safe and structured environment. Patient's physical health needs will be addressed by the Hospitalist. Hospitalist Consulted Labs including CBC, CMP, Lipid profile and Hemoglobin A1C levels ordered for baseline reference Social Assessment will be completed and the Day Care Provider will work with patient and family to ensure a suitable and safe disposition Medication adjustment will be made as clinically indicated Continue Abilify 25mg po daily Usual Wellness Presybeterian/Preservation: - Start Trazodone 50 mg po QHS & 50 mg po QHS PRN between 10 PM & 2 AM for insomnia - Start Melatonin 5 mg po QHS to promote circadian rhythm The patient agreed on the treatment plan, understood the risk, benefit, alternative treatment, potential consequence of no treatment, and gave informed consent. Estimated days: 2 Post hospital care: primary care provider, psychiatric provider Case staffed with Dr. White Medications and Allergies Allergies Allergy/AdvReac Type Severity Reaction Status Date / Time haloperidol [From Haldol] Allergy Unknown Verified 05/16/21 22:07 Latex, Natural Rubber Allergy Unknown Verified 05/16/21 22:07 Home Medications Medication Instructions Recorded Confirmed Last Taken Type ARIPiprazole [Abilify] 10 mg PO DAILY 05/16/21 05/16/21 Unknown History Divalproex ER [DepaKOTE ER] 1,000 mg PO QHS 05/16/21 05/16/21 Unknown History Ipratropium/Albuterol Sulfate 0.5 - 2.5 mg INHALATION Q4HR PRN 05/16/21 05/16/21 Unknown History [DUONEB *Not for PRN Use*] Metformin HCl [metFORMIN] 1,000 mg PO BID 05/16/21 05/16/21 Unknown History amLODIPine [Norvasc] 5 mg PO DAILY 05/16/21 05/16/21 Unknown History diphenhydrAMINE [Benadryl CAP] 25 mg PO QHS PRN MDD For upto 10 05/16/21 Unknown History days donepeziL [Aricept] 5 mg PO QHS 05/16/21 05/16/21 Unknown History guaiFENesin/DEXTROMETHORPHAN 5 ml PO Q12HR 05/16/21 05/16/21 Unknown History [Guaifenesin-Dm 100-10 mg/5 ml] Active Meds: Active Medications Albuterol (Albuterol 2.5 Mg/3 Ml Nebu) 2.5 mg IH Q4HRT PRN PRN Reason: Shortness Of Breath Amlodipine Besylate (Amlodipine 5 Mg Tab) 5 mg PO DAILY [facility] Last Admin: 05/28/21 09:03 Dose: 5 mg Aripiprazole (Aripiprazole 10 Mg Tab) 25 mg PO QDAY [facility] Last Admin: 05/28/21 09:02 Dose: 25 mg Clonazepam (Clonazepam 0.5 Mg Tab) 1 mg PO BID [facility] Last Admin: 05/28/21 09:03 Dose: 1 mg Dextrose (Dextrose 50% In Water (25gm) 50 Ml Syringe) 50 ml IV Q30MIN PRN; Protocol PRN Reason: Hypoglycemia Dextrose (Dextrose 10% *Hypoglycemia) 0 ml IV PRN PRN PRN Reason: Hypoglycemia Diphenhydramine HCl (Diphenhydramine 25 Mg Cap) 25 mg PO QHS PRN PRN Reason: Insomnia Last Admin: 05/25/21 20:55 Dose: 25 mg Divalproex Sodium (Divalproex Er 500 Mg Tab) 1,000 mg PO QHS [facility] Last Admin: 05/27/21 21:12 Dose: 1,000 mg Divalproex Sodium (Divalproex Er 250 Mg Tab) 250 mg PO QAM [facility] Last Admin: 05/28/21 09:03 Dose: 250 mg Donepezil HCl (Donepezil 5 Mg Tab) 5 mg PO QHS [facility] Last Admin: 05/27/21 21:12 Dose: 5 mg Guaifenesin (Guaifenesin Dm 200/20 Mg Oral Liqd 10 Ml) 5 ml PO Q12H [facility] Last Admin: 05/28/21 09:40 Dose: 5 ml Hydrophilic Ointment (Lip Therapy Vaseline) 1 applic TP DIRECT PRN PRN Reason: Dry Lips Last Admin: 05/24/21 20:37 Dose: 1 applic Insulin Human Lispro (Insulin Lispro 100 Unit/Ml) 0 unit SUB-Q [facility]; Protocol Last Admin: 05/28/21 09:01 Dose: Not Given Metformin HCl (Metformin 500 Mg Tab) 1,000 mg PO BIDDIAB [facility] Last Admin: 05/28/21 09:01 Dose: 1,000 mg Ziprasidone (Ziprasidone Mesylate 20 Mg Vial) 20 mg IM Q4H PRN PRN Reason: Agitation Last Admin: 05/24/21 01:06 Dose: 20 mg Results - Results Labs/Vitals: Laboratory Last Values WBC 4.2 K/mm3 (4.5-11.0) L 05/17/21 19:37 RBC 3.48 M/mm3 (3.65-5.03) L 05/17/21 19:37 Hgb 10.1 gm/dl (10.1-14.3) 05/17/21 19:37 Hct 31.4 % (30.3-42.9) 05/17/21 19:37 MCV 90 fl (79-97) 05/17/21 19:37 MCH 29 pg (28-32) 05/17/21 19:37 MCHC 32 % (30-34) 05/17/21 19:37 RDW 13.7 % (13.2-15.2) 05/17/21 19:37 Plt Count 106 K/mm3 (140-440) L 05/17/21 19:37 Lymph % (Auto) 26.4 % (13.4-35.0) 05/17/21 19:37 Ross % (Auto) 12.9 % (0.0-7.3) H 05/17/21 19:37 Eos % (Auto) 2.2 % (0.0-4.3) 05/17/21 19:37 Baso % (Auto) 1.1 % (0.0-1.8) 05/17/21 19:37 Lymph # (Auto) 1.1 K/mm3 (1.2-5.4) L 05/17/21 19:37 Ross # (Auto) 0.5 K/mm3 (0.0-0.8) 05/17/21 19:37 Eos # (Auto) 0.1 K/mm3 (0.0-0.4) 05/17/21 19:37 Baso # (Auto) 0.0 K/mm3 (0.0-0.1) 05/17/21 19:37 Seg Neutrophils % 57.4 % (40.0-70.0) 05/17/21 19:37 Seg Neutrophils # 2.4 K/mm3 (1.8-7.7) 05/17/21 19:37 Sodium 134 mmol/L (137-145) L 05/17/21 19:37 Potassium 4.2 mmol/L (3.6-5.0) 05/17/21 19:37 Chloride 100.4 mmol/L (98-107) 05/17/21 19:37 Carbon Dioxide 20 mmol/L (22-30) L 05/17/21 19:37 Anion Gap 18 mmol/L 05/17/21 19:37 BUN 18 mg/dL (7-17) H 05/17/21 19:37 Creatinine 0.9 mg/dL (0.6-1.2) 05/17/21 19:37 Estimated GFR > 60 ml/min 05/17/21 19:37 BUN/Creatinine Ratio 20 % 05/17/21 19:37 Glucose 295 mg/dL (65-100) H 05/17/21 19:37 POC Glucose 121 mg/dL (70-105) H 05/28/21 07:26 Hemoglobin A1c 7.4 % (4-6) H 05/17/21 19:37 Calcium 8.9 mg/dL (8.4-10.2) 05/17/21 19:37 Total Bilirubin 0.30 mg/dL (0.1-1.2) 05/17/21 19:37 AST 28 units/L (5-40) 05/17/21 19:37 ALT 23 units/L (7-56) 05/17/21 19:37 Alkaline Phosphatase 92 units/L (35-129) 05/17/21 19:37 Total Protein 6.0 g/dL (6.3-8.2) L 05/17/21 19:37 Albumin 3.6 g/dL (3.9-5) L 05/17/21 19:37 Albumin/Globulin Ratio 1.5 % 05/17/21 19:37 Triglycerides 110 mg/dL (2-149) 05/17/21 19:37 Cholesterol 114 mg/dL (50-199) 05/17/21 19:37 LDL Cholesterol Direct 43 mg/dL (50-130) L 05/17/21 19:37 HDL Cholesterol 59 mg/dL (40-59) 05/17/21 19:37 Cholesterol/HDL Ratio 1.93 % 05/17/21 19:37 TSH 1.850 mlU/mL (0.270-4.200) 05/17/21 19:37 Syphilis IgG Antibody Nonreactive (NonReactive) 05/24/21 07:44 Coronavirus (PCR) Negative (Negative) 05/24/21 Unknown Last Vital Signs Temp 98.3 F 05/27/21 19:29 Pulse 85 05/28/21 09:03 Resp 16 05/27/21 19:29 BP 121/69 05/28/21 09:03 Pulse Ox 93 05/27/21 19:29
[2021-05-28] MEDS: DIVALPROEX ER 500 MG TAB PO SCH (21:03)
[2021-05-28] MEDS: DONEPEZIL 5 MG TAB PO SCH (21:03)
[2021-05-29] MEDS: diphenhydrAMINE 25 MG CAP PO PRN ×2 (02:47→21:12)
[2021-05-29] MEDS: INSULIN LISPRO 100 UNIT/ML SUB-Q SCH ×4 (07:30→21:55)
[2021-05-29] MEDS: metFORMIN 500 MG TAB PO SCH ×2 (09:00→17:00)
[2021-05-29] MEDS: guaiFENesin DM 200/20 MG ORAL LIQD 10 ML PO SCH ×2 (09:00→21:13)
[2021-05-29] MEDS: ARIPiprazole 10 MG TAB PO SCH (09:00)
[2021-05-29] MEDS: DIVALPROEX ER 250 MG TAB PO SCH (09:00)
[2021-05-29] MEDS: clonazePAM 0.5 MG TAB PO SCH ×2 (09:00→21:12)
[2021-05-29] MEDS: amLODIPine 5 MG TAB PO SCH (09:02)
[2021-05-29] MEDS: LIP THERAPY VASELINE TP PRN ×2 (09:03→21:11)
--- NOTE | 2021-05-29 09:04 | Progress Note ---
Subjective Date of service: 05/29/21 Principal diagnosis: Schizoaffective Disorder Subjective Comment: The patient was seen today. She is resting with her eyes closed in the dayroom. She says she's fine and doing much better. She denies SI/HI or hallucinations of any kind. The patient is awaiting placement and will discharge as soon as a safe place is secured in order to maintain continuity of mental health. REVIEW OF SYSTEMS Constitutional: Negative for weight loss ENT: Negative for stridor Respiratory: Negative for cough or hemoptysis All other systems reviewed and are negative MENTAL STATUS EXAMINATION General Appearance and Behavior: Age appropriate, good hygiene, wearing appropriate clothes. calm, cooperative Cooperation: Cooperative Psychomotor Behavior: Psychomotor normal Mood: very well Affect and affective range: Congruent to stated mood Thought Process: circumstantial Thought Content:None Speech: Normal tone and pace Suicidal Ideation: Denies Homicidal Ideation: Denies Hallucinations: Denies Delusions: Denies Impulse Control: Limited Insight and Judgment: Limited insight and fair judgment Memory: Limited Attention: distracted Orientation: a/o x 3 Assessment (1) Schizophrenia Current Visit: Yes Status: Acute Treatment Plan Patient admitted for inpatient psychiatric evaluation, medication adjustment and close monitoring The patient's behavior, mood, sleep and appetite will be closely monitored. Patient enrolled in individual and group therapeutic sessions and encouraged to attend. Patient provided with a safe and structured environment. Patient's physical health needs will be addressed by the Hospitalist. Hospitalist Consulted Labs including CBC, CMP, Lipid profile and Hemoglobin A1C levels ordered for baseline reference Social Assessment will be completed and the Refrigerator Glazier will work with patient and family to ensure a suitable and safe disposition Medication adjustment will be made as clinically indicated Continue Abilify 25mg po daily Usual Wellness [employer]/Preservation: - Start Trazodone 50 mg po QHS & 50 mg po QHS PRN between 10 PM & 2 AM for insomnia - Start Melatonin 5 mg po QHS to promote circadian rhythm The patient agreed on the treatment plan, understood the risk, benefit, alternative treatment, potential consequence of no treatment, and gave informed consent. Estimated days: 2 Post hospital care: primary care provider, psychiatric provider Case staffed with Dr. White Medications and Allergies Allergies Allergy/AdvReac Type Severity Reaction Status Date / Time haloperidol [From Haldol] Allergy Unknown Verified 05/16/21 22:07 Latex, Natural Rubber Allergy Unknown Verified 05/16/21 22:07 Home Medications Medication Instructions Recorded Confirmed Last Taken Type ARIPiprazole [Abilify] 10 mg PO DAILY 05/16/21 05/16/21 Unknown History Divalproex ER [DepaKOTE ER] 1,000 mg PO QHS 05/16/21 05/16/21 Unknown History Ipratropium/Albuterol Sulfate 0.5 - 2.5 mg INHALATION Q4HR PRN 05/16/21 05/16/21 Unknown History [DUONEB *Not for PRN Use*] Metformin HCl [metFORMIN] 1,000 mg PO BID 05/16/21 05/16/21 Unknown History amLODIPine [Norvasc] 5 mg PO DAILY 05/16/21 05/16/21 Unknown History diphenhydrAMINE [Benadryl CAP] 25 mg PO QHS PRN MDD For upto 10 05/16/21 05/16/21 Unknown History days donepeziL [Aricept] 5 mg PO QHS 05/16/21 05/16/21 Unknown History guaiFENesin/DEXTROMETHORPHAN 5 ml PO Q12HR 05/16/21 05/16/21 Unknown History [Guaifenesin-Dm 100-10 mg/5 ml] Active Meds: Active Medications Albuterol (Albuterol 2.5 Mg/3 Ml Nebu) 2.5 mg IH Q4HRT PRN PRN Reason: Shortness Of Breath Amlodipine Besylate (Amlodipine 5 Mg Tab) 5 mg PO DAILY [facility] Last Admin: 05/28/21 09:03 Dose: 5 mg Aripiprazole (Aripiprazole 10 Mg Tab) 25 mg PO QDAY [facility] Last Admin: 05/28/21 09:02 Dose: 25 mg Clonazepam (Clonazepam 0.5 Mg Tab) 1 mg PO BID [facility] Last Admin: 05/28/21 21:03 Dose: 1 mg Dextrose (Dextrose 50% In Water (25gm) 50 Ml Syringe) 50 ml IV Q30MIN PRN; Protocol PRN Reason: Hypoglycemia Dextrose (Dextrose 10% *Hypoglycemia) 0 ml IV PRN PRN PRN Reason: Hypoglycemia Diphenhydramine HCl (Diphenhydramine 25 Mg Cap) 25 mg PO QHS PRN PRN Reason: Insomnia Last Admin: 05/29/21 02:47 Dose: 25 mg Divalproex Sodium (Divalproex Er 500 Mg Tab) 1,000 mg PO QHS [facility] Last Admin: 05/28/21 21:03 Dose: 1,000 mg Divalproex Sodium (Divalproex Er 250 Mg Tab) 250 mg PO QAM [facility] Last Admin: 05/28/21 09:03 Dose: 250 mg Donepezil HCl (Donepezil 5 Mg Tab) 5 mg PO QHS [facility] Last Admin: 05/28/21 21:03 Dose: 5 mg Guaifenesin (Guaifenesin Dm 200/20 Mg Oral Liqd 10 Ml) 5 ml PO Q12H [facility] Last Admin: 05/28/21 21:02 Dose: 5 ml Hydrophilic Ointment (Lip Therapy Vaseline) 1 applic TP DIRECT PRN PRN Reason: Dry Lips Last Admin: 05/24/21 20:37 Dose: 1 applic Insulin Human Lispro (Insulin Lispro 100 Unit/Ml) 0 unit SUB-Q ACHS [facility]; Protocol Last Admin: 05/28/21 21:04 Dose: Not Given Metformin HCl (Metformin 500 Mg Tab) 1,000 mg PO BIDDIAB [facility] Last Admin: 05/28/21 16:25 Dose: 1,000 mg Ziprasidone (Ziprasidone Mesylate 20 Mg Vial) 20 mg IM Q4H PRN PRN Reason: Agitation Last Admin: 05/24/21 01:06 Dose: 20 mg Results - Results Labs/Vitals: Laboratory Last Values WBC 4.2 K/mm3 (4.5-11.0) L 05/17/21 19:37 RBC 3.48 M/mm3 (3.65-5.03) L 05/17/21 19:37 Hgb 10.1 gm/dl (10.1-14.3) 05/17/21 19:37 Hct 31.4 % (30.3-42.9) 05/17/21 19:37 MCV 90 fl (79-97) 05/17/21 19:37 MCH 29 pg (28-32) 05/17/21 19:37 MCHC 32 % (30-34) 05/17/21 19:37 RDW 13.7 % (13.2-15.2) 05/17/21 19:37 Plt Count 106 K/mm3 (140-440) L 05/17/21 19:37 Lymph % (Auto) 26.4 % (13.4-35.0) 05/17/21 19:37 [place] % (Auto) 12.9 % (0.0-7.3) H 05/17/21 19:37 Eos % (Auto) 2.2 % (0.0-4.3) 05/17/21 19:37 Baso % (Auto) 1.1 % (0.0-1.8) 05/17/21 19:37 Lymph # (Auto) 1.1 K/mm3 (1.2-5.4) L 05/17/21 19:37 [place] # (Auto) 0.5 K/mm3 (0.0-0.8) 05/17/21 19:37 Eos # (Auto) 0.1 K/mm3 (0.0-0.4) 05/17/21 19:37 Baso # (Auto) 0.0 K/mm3 (0.0-0.1) 05/17/21 19:37 Seg Neutrophils % 57.4 % (40.0-70.0) 05/17/21 19:37 Seg Neutrophils # 2.4 K/mm3 (1.8-7.7) 05/17/21 19:37 Sodium 134 mmol/L (137-145) L 05/17/21 19:37 Potassium 4.2 mmol/L (3.6-5.0) 05/17/21 19:37 Chloride 100.4 mmol/L (98-107) 05/17/21 19:37 Carbon Dioxide 20 mmol/L (22-30) L 05/17/21 19:37 Anion Gap 18 mmol/L 05/17/21 19:37 BUN 18 mg/dL (7-17) H 05/17/21 19:37 Creatinine 0.9 mg/dL (0.6-1.2) 05/17/21 19:37 Estimated GFR > 60 ml/min 05/17/21 19:37 BUN/Creatinine Ratio 20 % 05/17/21 19:37 Glucose 295 mg/dL (65-100) H 05/17/21 19:37 POC Glucose 117 mg/dL (70-105) H 05/29/21 06:15 Hemoglobin A1c 7.4 % (4-6) H 05/17/21 19:37 Calcium 8.9 mg/dL (8.4-10.2) 05/17/21 19:37 Total Bilirubin 0.30 mg/dL (0.1-1.2) 05/17/21 19:37 AST 28 units/L (5-40) 05/17/21 19:37 ALT 23 units/L (7-56) 05/17/21 19:37 Alkaline Phosphatase 92 units/L (35-129) 05/17/21 19:37 Total Protein 6.0 g/dL (6.3-8.2) L 05/17/21 19:37 Albumin 3.6 g/dL (3.9-5) L 05/17/21 19:37 Albumin/Globulin Ratio 1.5 % 05/17/21 19:37 Triglycerides 110 mg/dL (2-149) 05/17/21 19:37 Cholesterol 114 mg/dL (50-199) 05/17/21 19:37 LDL Cholesterol Direct 43 mg/dL (50-130) L 05/17/21 19:37 HDL Cholesterol 59 mg/dL (40-59) 05/17/21 19:37 Cholesterol/HDL Ratio 1.93 % 05/17/21 19:37 TSH 1.850 mlU/mL (0.270-4.200) 05/17/21 19:37 Syphilis IgG Antibody Nonreactive (NonReactive) 05/24/21 07:44 Coronavirus (PCR) Negative (Negative) 05/24/21 Unknown Last Vital Signs Temp 98.9 F 05/28/21 21:35 Pulse 81 05/28/21 21:35 Resp 18 05/28/21 21:35 BP 111/59 05/28/21 21:35 Pulse Ox 95 05/28/21 21:35
--- NOTE | 2021-05-29 10:33 | Progress Note ---
Assessment and Plan - Patient Problems (1) Vascular dementia with behavioral disturbance Current Visit: Yes Status: Acute Plan to address problem: Verbal prompting, verbal redirection, benzodiazepine therapy as clinically indicated. (2) Cerebral atherosclerosis Current Visit: Yes Status: Acute Plan to address problem: Risk factor reduction, antiplatelet therapy as clinically indicated. (3) Obesity (BMI 30.0-34.9) Current Visit: Yes Status: Acute Plan to address problem: Balanced diet, increase physical activity at discharge. (4) Schizophrenia Current Visit: Yes Status: Acute Qualifiers: Schizophrenia type: unspecified Qualified Code(s): F20.9 - Schizophrenia, unspecified Plan to address problem: Continue medical management, supportive care, (5) Generalized anxiety disorder Current Visit: Yes Status: Acute Plan to address problem: Benzodiazepine therapy as clinic indicated, supportive care. (6) Advance care planning Current Visit: Yes Status: Acute Plan to address problem: Disease education conducted, care plan discussed, diagnosis discussed, prognosis discussed, patient is full code. +30 minutes. History Interval history: 70 YO Female with Bipolar DO, Vascular Dementia, Cerebral Atherosclerosis, Schizophrenia admitted to [facility] for psychiatric stabilization. Patient seen and evaluated in the recreation room. No reported nursing events. Patient denies pain. Hospitalist Physical - Constitutional Vitals: Temp Pulse Resp BP Pulse Ox 98.9 F 83 18 122/59 95 05/28/21 21:35 05/29/21 09:02 05/28/21 21:35 05/29/21 09:02 05/28/21 21:35 General appearance: Present: no acute distress, well-nourished, obese - EENT Eyes: Present: PERRL ENT: hearing decreased - Neck Neck: Present: supple - Respiratory Respiratory effort: normal Respiratory: bilateral: diminished - Cardiovascular Rhythm: regular Heart Sounds: Present: S1 & S2 - Extremities Extremities: no ischemia Peripheral Pulses: within normal limits - Abdominal General gastrointestinal: soft, non-tender, non-distended - Integumentary Integumentary: Present: clear, dry - Psychiatric Psychiatric: cooperative - Neurologic Neurologic: CNII-XII intact Results - Labs CBC & Chem 7: 05/17/21 19:37 05/17/21 19:37 Labs: Laboratory Last Values WBC 4.2 K/mm3 (4.5-11.0) L 05/17/21 19:37 RBC 3.48 M/mm3 (3.65-5.03) L 05/17/21 19:37 Hgb 10.1 gm/dl (10.1-14.3) 05/17/21 19:37 Hct 31.4 % (30.3-42.9) 05/17/21 19:37 MCV 90 fl (79-97) 05/17/21 19:37 MCH 29 pg (28-32) 05/17/21 19:37 MCHC 32 % (30-34) 05/17/21 19:37 RDW 13.7 % (13.2-15.2) 05/17/21 19:37 Plt Count 106 K/mm3 (140-440) L 05/17/21 19:37 Lymph % (Auto) 26.4 % (13.4-35.0) 05/17/21 19:37 [place] % (Auto) 12.9 % (0.0-7.3) H 05/17/21 19:37 Eos % (Auto) 2.2 % (0.0-4.3) 05/17/21 19:37 Baso % (Auto) 1.1 % (0.0-1.8) 05/17/21 19:37 Lymph # (Auto) 1.1 K/mm3 (1.2-5.4) L 05/17/21 19:37 [place] # (Auto) 0.5 K/mm3 (0.0-0.8) 05/17/21 19:37 Eos # (Auto) 0.1 K/mm3 (0.0-0.4) 05/17/21 19:37 Baso # (Auto) 0.0 K/mm3 (0.0-0.1) 05/17/21 19:37 Seg Neutrophils % 57.4 % (40.0-70.0) 05/17/21 19:37 Seg Neutrophils # 2.4 K/mm3 (1.8-7.7) 05/17/21 19:37 Sodium 134 mmol/L (137-145) L 05/17/21 19:37 Potassium 4.2 mmol/L (3.6-5.0) 05/17/21 19:37 Chloride 100.4 mmol/L (98-107) 05/17/21 19:37 Carbon Dioxide 20 mmol/L (22-30) L 05/17/21 19:37 Anion Gap 18 mmol/L 05/17/21 19:37 BUN 18 mg/dL (7-17) H 05/17/21 19:37 Creatinine 0.9 mg/dL (0.6-1.2) 05/17/21 19:37 Estimated GFR > 60 ml/min 05/17/21 19:37 BUN/Creatinine Ratio 20 % 05/17/21 19:37 Glucose 295 mg/dL (65-100) H 05/17/21 19:37 POC Glucose 117 mg/dL (70-105) H 05/29/21 06:15 Hemoglobin A1c 7.4 % (4-6) H 05/17/21 19:37 Calcium 8.9 mg/dL (8.4-10.2) 05/17/21 19:37 Total Bilirubin 0.30 mg/dL (0.1-1.2) 05/17/21 19:37 AST 28 units/L (5-40) 05/17/21 19:37 ALT 23 units/L (7-56) 05/17/21 19:37 Alkaline Phosphatase 92 units/L (35-129) 05/17/21 19:37 Total Protein 6.0 g/dL (6.3-8.2) L 05/17/21 19:37 Albumin 3.6 g/dL (3.9-5) L 05/17/21 19:37 Albumin/Globulin Ratio 1.5 % 05/17/21 19:37 Triglycerides 110 mg/dL (2-149) 05/17/21 19:37 Cholesterol 114 mg/dL (50-199) 05/17/21 19:37 LDL Cholesterol Direct 43 mg/dL (50-130) L 05/17/21 19:37 HDL Cholesterol 59 mg/dL (40-59) 05/17/21 19:37 Cholesterol/HDL Ratio 1.93 % 05/17/21 19:37 TSH 1.850 mlU/mL (0.270-4.200) 05/17/21 19:37 Syphilis IgG Antibody Nonreactive (NonReactive) 05/24/21 07:44 Coronavirus (PCR) Negative (Negative) 05/24/21 Unknown Du/IV: Voiding Method Toilet Active Medications - Current Medications Current Medications: Generic Name Dose Route Start Last Admin Trade Name Freq PRN Reason Stop Dose Admin Albuterol 2.5 mg 05/24/21 22:35 Albuterol 2.5 Mg/3 Ml Nebu IH Q4HRT PRN Shortness Of Breath Amlodipine Besylate 5 mg 05/17/21 10:00 05/29/21 09:02 Amlodipine 5 Mg Tab PO Not Given DAILY JULIO Aripiprazole 25 mg 05/25/21 08:54 05/29/21 09:00 Aripiprazole 10 Mg Tab PO 25 mg QDAY JULIO Administration Clonazepam 1 mg 05/24/21 10:00 05/29/21 09:00 Clonazepam 0.5 Mg Tab PO 1 mg BID JULIO Administration Dextrose 50 ml 05/18/21 11:42 Dextrose 50% In Water (25gm) 50 Ml Syringe IV Q30MIN PRN Hypoglycemia Protocol Dextrose 0 ml 05/18/21 12:02 Dextrose 10% *Hypoglycemia IV PRN PRN Hypoglycemia Diphenhydramine HCl 25 mg 05/17/21 08:05 05/29/21 02:47 Diphenhydramine 25 Mg Cap PO 25 mg QHS PRN Administration Insomnia Divalproex Sodium 1,000 mg 05/17/21 22:00 05/28/21 21:03 Divalproex Er 500 Mg Tab PO 1,000 mg QHS JULIO Administration Divalproex Sodium 250 mg 05/25/21 10:00 05/29/21 09:00 Divalproex Er 250 Mg Tab PO 250 mg QAM J[facility]IO Administration Donepezil HCl 5 mg 05/17/21 22:00 05/28/21 21:03 Donepezil 5 Mg Tab PO 5 mg QHS JULIO Administration Guaifenesin 5 ml 05/17/21 10:00 05/28/21 21:02 Guaifenesin Dm 200/20 Mg Oral Liqd 10 Ml PO 5 ml Q12H [facility] Administration Hydrophilic Ointment 1 applic 05/18/21 09:18 05/29/21 09:03 Lip Therapy Vaseline TP 1 applic DIRECT PRN Administration Dry Lips Insulin Human Lispro 0 unit 05/18/21 16:30 05/29/21 07:30 Insulin Lispro 100 Unit/Ml SUB-Q Not Given ACHS JULIO Protocol Metformin HCl 1,000 mg 05/17/21 10:00 05/29/21 09:00 Metformin 500 Mg Tab PO 1,000 mg BIDDIAB J[facility]IO Administration Ziprasidone 20 mg 05/19/21 10:30 05/24/21 01:06 Ziprasidone Mesylate 20 Mg Vial IM 20 mg Q4H PRN Administration Agitation Nutrition/Malnutrition Assess - Dietary Evaluation Nutrition/Malnutrition Findings: Nutrition Notes Start: 05/23/21 10:17 Freq: Status: Active Protocol: Document 05/23/21 10:17 PARISA (Rec: 05/23/21 10:18 PARISA [id number]) Nutrition Notes Need for Assessment generated from: LOS Initial or Follow up Brief Note Current Diet Cardiac/Consistent CHO Subjective/Other Information Pt screened for LOS. She has consumed 100% of meals since admission. Burn Absent Trauma Absent Minimum of two criteria No Nutrition Intervention Revisit per MD consult or patient Sign Off request:
[2021-05-29] MEDS: DIVALPROEX ER 500 MG TAB PO SCH (21:12)
[2021-05-29] MEDS: DONEPEZIL 5 MG TAB PO SCH (21:12)
[2021-05-30] MEDS: INSULIN LISPRO 100 UNIT/ML SUB-Q SCH ×4 (08:00→22:28)
[2021-05-30] MEDS: LIP THERAPY VASELINE TP PRN (09:23)
[2021-05-30] MEDS: amLODIPine 5 MG TAB PO SCH (09:24)
[2021-05-30] MEDS: ARIPiprazole 10 MG TAB PO SCH (09:26)
[2021-05-30] MEDS: guaiFENesin DM 200/20 MG ORAL LIQD 10 ML PO SCH ×2 (09:26→21:12)
[2021-05-30] MEDS: clonazePAM 0.5 MG TAB PO SCH ×2 (09:26→21:13)
[2021-05-30] MEDS: DIVALPROEX ER 250 MG TAB PO SCH (09:26)
[2021-05-30] MEDS: metFORMIN 500 MG TAB PO SCH ×2 (09:28→17:05)
--- NOTE | 2021-05-30 10:25 | Progress Note ---
Subjective Date of service: 05/30/21 Principal diagnosis: Schizoaffective Disorder Subjective Comment: 05/30/21: The patient was seen today. She reports doing well. The patient states that she spoke with her son yesterday and he will sending her clothings. She denies SI/HI or hallucinations. The patient is awaiting placement and will discharge as soon as a safe place is secured in order to maintain continuity of mental health. REVIEW OF SYSTEMS Constitutional: Negative for weight loss ENT: Negative for stridor Respiratory: Negative for cough or hemoptysis All other systems reviewed and are negative MENTAL STATUS EXAMINATION General Appearance and Behavior: Age appropriate, good hygiene, wearing appropriate clothes. calm, cooperative Cooperation: Cooperative Psychomotor Behavior: Psychomotor normal Mood: Good Affect and affective range: Congruent to stated mood Thought Process: circumstantial Thought Content:reality oriented Speech: Normal tone and pace Suicidal Ideation: Denies Homicidal Ideation: Denies Hallucinations: Denies Delusions: Denies Impulse Control: Limited Insight and Judgment: Limited insight and fair judgment Memory: Limited Attention: distracted Orientation: a/o x 3 Assessment (1) Schizophrenia Current Visit: Yes Status: Acute Treatment Plan Patient admitted for inpatient psychiatric evaluation, medication adjustment and close monitoring The patient's behavior, mood, sleep and appetite will be closely monitored. Patient enrolled in individual and group therapeutic sessions and encouraged to attend. Patient provided with a safe and structured environment. Patient's physical health needs will be addressed by the Hospitalist. Hospital ist Consulted Labs including CBC, CMP, Lipid profile and Hemoglobin A1C levels ordered for baseline reference Social Assessment will be completed and the Dry Yard Worker will work with patient and family to ensure a suitable and safe disposition Medication adjustment will be made as clinically indicated Continue Abilify 25mg po daily Usual Wellness Syn[employer]/Preservation: - Start Trazodone 50 mg po QHS & 50 mg po QHS PRN between 10 PM & 2 AM for insomnia - Start Melatonin 5 mg po QHS to promote circadian rhythm The patient agreed on the treatment plan, understood the risk, benefit, alternative treatment, potential consequence of no treatment, and gave informed consent. Estimated days: 2 Post hospital care: primary care provider, psychiatric provider Case staffed with Dr. White Medications and Allergies Allergies Allergy/AdvReac Type Severity Reaction Status Date / Time haloperidol [From Haldol] Allergy Unknown Verified 05/16/21 22:07 Latex, Natural Rubber Allergy Unknown Verified 05/16/21 22:07 Home Medications Medication Instructions Recorded Confirmed Last Taken Type ARIPiprazole [Abilify] 10 mg PO DAILY 05/16/21 05/16/21 Unknown History Divalproex ER [DepaKOTE ER] 1,000 mg PO QHS 05/16/21 05/16/21 Unknown History Ipratropium/Albuterol Sulfate 0.5 - 2.5 mg INHALATION Q4HR PRN 05/16/21 05/16/21 Unknown History [DUONEB *Not for PRN Use*] Metformin HCl [metFORMIN] 1,000 mg PO BID 05/16/21 05/16/21 Unknown History amLODIPine [Norvasc] 5 mg PO DAILY 05/16/21 05/16/21 Unknown History diphenhydrAMINE [Benadryl CAP] 25 mg PO QHS PRN MDD For upto 10 05/16/21 05/16/21 Unknown History days donepeziL [Aricept] 5 mg PO QHS 05/16/21 05/16/21 Unknown History guaiFENesin/DEXTROMETHORPHAN 5 ml PO Q12HR 05/16/21 05/16/21 Unknown History [Guaifenesin-Dm 100-10 mg/5 ml] Active Meds: Active Medications Albuterol (Albuterol 2.5 Mg/3 Ml Nebu) 2.5 mg IH Q4HRT PRN PRN Reason: Shortness Of Breath Amlodipine Besylate (Amlodipine 5 Mg Tab) 5 mg PO DAILY [facility] Last Admin: 05/30/21 09:24 Dose: 5 mg Aripiprazole (Aripiprazole 10 Mg Tab) 25 mg PO QDAY [facility] Last Admin: 05/30/21 09:26 Dose: 25 mg Clonazepam (Clonazepam 0.5 Mg Tab) 1 mg PO BID [facility] Last Admin: 05/30/21 09:26 Dose: 1 mg Dextrose (Dextrose 50% In Water (25gm) 50 Ml Syringe) 50 ml IV Q30MIN PRN; Protocol PRN Reason: Hypoglycemia Dextrose (Dextrose 10% *Hypoglycemia) 0 ml IV PRN PRN PRN Reason: Hypoglycemia Diphenhydramine HCl (Diphenhydramine 25 Mg Cap) 25 mg PO QHS PRN PRN Reason: Insomnia Last Admin: 05/29/21 21:12 Dose: 25 mg Divalproex Sodium (Divalproex Er 500 Mg Tab) 1,000 mg PO QHS [facility] Last Admin: 05/29/21 21:12 Dose: 1,000 mg Divalproex Sodium (Divalproex Er 250 Mg Tab) 250 mg PO QAM [facility] Last Admin: 05/30/21 09:26 Dose: 250 mg Donepezil HCl (Donepezil 5 Mg Tab) 5 mg PO QHS [facility] Last Admin: 05/29/21 21:12 Dose: 5 mg Guaifenesin (Guaifenesin Dm 200/20 Mg Oral Liqd 10 Ml) 5 ml PO Q12H [facility] Last Admin: 05/30/21 09:26 Dose: 5 ml Hydrophilic Ointment (Lip Therapy Vaseline) 1 applic TP DIRECT PRN PRN Reason: Dry Lips Last Admin: 05/30/21 09:23 Dose: 1 applic Insulin Human Lispro (Insulin Lispro 100 Unit/Ml) 0 unit SUB-Q ACHS [facility]; Protocol Last Admin: 05/29/21 21:55 Dose: Not Given Metformin HCl (Metformin 500 Mg Tab) 1,000 mg PO BIDDIAB [facility] Last Admin: 05/30/21 09:28 Dose: 1,000 mg Ziprasidone (Ziprasidone Mesylate 20 Mg Vial) 20 mg IM Q4H PRN PRN Reason: Agitation Last Admin: 05/24/21 01:06 Dose: 20 mg Results - Results Labs/Vitals: Laboratory Last Values WBC 4.2 K/mm3 (4.5-11.0) L 05/17/21 19:37 RBC 3.48 M/mm3 (3.65-5.03) L 05/17/21 19:37 Hgb 10.1 gm/dl (10.1-14.3) 05/17/21 19:37 Hct 31.4 % (30.3-42.9) 05/17/21 19:37 MCV 90 fl (79-97) 05/17/21 19:37 MCH 29 pg (28-32) 05/17/21 19:37 MCHC 32 % (30-34) 05/17/21 19:37 RDW 13.7 % (13.2-15.2) 05/17/21 19:37 Plt Count 106 K/mm3 (140-440) L 05/17/21 19:37 Lymph % (Auto) 26.4 % (13.4-35.0) 05/17/21 19:37 [place] % (Auto) 12.9 % (0.0-7.3) H 05/17/21 19:37 Eos % (Auto) 2.2 % (0.0-4.3) 05/17/21 19:37 Baso % (Auto) 1.1 % (0.0-1.8) 05/17/21 19:37 Lymph # (Auto) 1.1 K/mm3 (1.2-5.4) L 05/17/21 19:37 [place] # (Auto) 0.5 K/mm3 (0.0-0.8) 05/17/21 19:37 Eos # (Auto) 0.1 K/mm3 (0.0-0.4) 05/17/21 19:37 Baso # (Auto) 0.0 K/mm3 (0.0-0.1) 05/17/21 19:37 Seg Neutrophils % 57.4 % (40.0-70.0) 05/17/21 19:37 Seg Neutrophils # 2.4 K/mm3 (1.8-7.7) 05/17/21 19:37 Sodium 134 mmol/L (137-145) L 05/17/21 19:37 Potassium 4.2 mmol/L (3.6-5.0) 05/17/21 19:37 Chloride 100.4 mmol/L (98-107) 05/17/21 19:37 Carbon Dioxide 20 mmol/L (22-30) L 05/17/21 19:37 Anion Gap 18 mmol/L 05/17/21 19:37 BUN 18 mg/dL (7-17) H 05/17/21 19:37 Creatinine 0.9 mg/dL (0.6-1.2) 05/17/21 19:37 Estimated GFR > 60 ml/min 05/17/21 19:37 BUN/Creatinine Ratio 20 % 05/17/21 19:37 Glucose 295 mg/dL (65-100) H 05/17/21 19:37 POC Glucose 132 mg/dL (70-105) H 05/30/21 08:09 Hemoglobin A1c 7.4 % (4-6) H 05/17/21 19:37 Calcium 8.9 mg/dL (8.4-10.2) 05/17/21 19:37 Total Bilirubin 0.30 mg/dL (0.1-1.2) 05/17/21 19:37 AST 28 units/L (5-40) 05/17/21 19:37 ALT 23 units/L (7-56) 05/17/21 19:37 Alkaline Phosphatase 92 units/L (35-129) 05/17/21 19:37 Total Protein 6.0 g/dL (6.3-8.2) L 05/17/21 19:37 Albumin 3.6 g/dL (3.9-5) L 05/17/21 19:37 Albumin/Globulin Ratio 1.5 % 05/17/21 19:37 Triglycerides 110 mg/dL (2-149) 05/17/21 19:37 Cholesterol 114 mg/dL (50-199) 05/17/21 19:37 LDL Cholesterol Direct 43 mg/dL (50-130) L 05/17/21 19:37 HDL Cholesterol 59 mg/dL (40-59) 05/17/21 19:37 Cholesterol/HDL Ratio 1.93 % 05/17/21 19:37 TSH 1.850 mlU/mL (0.270-4.200) 05/17/21 19:37 Syphilis IgG Antibody Nonreactive (NonReactive) 05/24/21 07:44 Coronavirus (PCR) Negative (Negative) 05/24/21 Unknown Last Vital Signs Temp 97.9 F 05/30/21 09:11 Pulse 79 05/30/21 09:24 Resp 18 05/30/21 09:11 BP 109/61 05/30/21 09:24 Pulse Ox 96 05/30/21 09:11
--- NOTE | 2021-05-30 20:35 | Progress Note ---
Assessment and Plan - Patient Problems (1) Vascular dementia with behavioral disturbance Current Visit: Yes Status: Acute Plan to address problem: Verbal prompting, verbal redirection, benzodiazepine therapy as clinically indicated. (2) Cerebral atherosclerosis Current Visit: Yes Status: Acute Plan to address problem: Risk factor reduction, antiplatelet therapy as clinically indicated. (3) Obesity (BMI 30.0-34.9) Current Visit: Yes Status: Acute Plan to address problem: Balanced diet, increase physical activity at discharge. (4) Schizophrenia Current Visit: Yes Status: Acute Qualifiers: Schizophrenia type: unspecified Qualified Code(s): F20.9 - Schizophrenia, unspecified Plan to address problem: Continue medical management, supportive care, (5) Generalized anxiety disorder Current Visit: Yes Status: Acute Plan to address problem: Benzodiazepine therapy as clinic indicated, supportive care. (6) Advance care planning Current Visit: Yes Status: Acute Plan to address problem: Disease education conducted, care plan discussed, diagnosis discussed, prognosis discussed, patient is full code. +30 minutes. History Interval history: 70 YO Female with Bipolar DO, Vascular Dementia, Cerebral Atherosclerosis, Schizophrenia admitted to [facility] for psychiatric stabilization. Patient seen and evaluated in the recreation room. No reported nursing events. Patient denies pain. Hospitalist Physical - Constitutional Vitals: Temp Pulse Resp BP Pulse Ox 97.9 F 79 18 109/61 96 05/30/21 09:11 05/30/21 09:24 05/30/21 09:11 05/30/21 09:24 05/30/21 09:11 General appearance: Present: no acute distress, well-nourished, obese - EENT Eyes: Present: PERRL ENT: hearing decreased - Neck Neck: Present: supple - Respiratory Respiratory effort: normal Respiratory: bilateral: CTA - Cardiovascular Rhythm: regular Heart Sounds: Present: S1 & S2 - Extremities Extremities: no ischemia Peripheral Pulses: within normal limits - Abdominal General gastrointestinal: soft, non-tender, non-distended - Integumentary Integumentary: Present: clear, dry - Psychiatric Psychiatric: cooperative - Neurologic Neurologic: CNII-XII intact Results - Labs CBC & Chem 7: 05/17/21 19:37 05/17/21 19:37 Labs: Laboratory Last Values WBC 4.2 K/mm3 (4.5-11.0) L 05/17/21 19:37 RBC 3.48 M/mm3 (3.65-5.03) L 05/17/21 19:37 Hgb 10.1 gm/dl (10.1-14.3) 05/17/21 19:37 Hct 31.4 % (30.3-42.9) 05/17/21 19:37 MCV 90 fl (79-97) 05/17/21 19:37 MCH 29 pg (28-32) 05/17/21 19:37 MCHC 32 % (30-34) 05/17/21 19:37 RDW 13.7 % (13.2-15.2) 05/17/21 19:37 Plt Count 106 K/mm3 (140-440) L 05/17/21 19:37 Lymph % (Auto) 26.4 % (13.4-35.0) 05/17/21 19:37 [place] % (Auto) 12.9 % (0.0-7.3) H 05/17/21 19:37 Eos % (Auto) 2.2 % (0.0-4.3) 05/17/21 19:37 Baso % (Auto) 1.1 % (0.0-1.8) 05/17/21 19:37 Lymph # (Auto) 1.1 K/mm3 (1.2-5.4) L 05/17/21 19:37 [place] # (Auto) 0.5 K/mm3 (0.0-0.8) 05/17/21 19:37 Eos # (Auto) 0.1 K/mm3 (0.0-0.4) 05/17/21 19:37 Baso # (Auto) 0.0 K/mm3 (0.0-0.1) 05/17/21 19:37 Seg Neutrophils % 57.4 % (40.0-70.0) 05/17/21 19:37 Seg Neutrophils # 2.4 K/mm3 (1.8-7.7) 05/17/21 19:37 Sodium 134 mmol/L (137-145) L 05/17/21 19:37 Potassium 4.2 mmol/L (3.6-5.0) 05/17/21 19:37 Chloride 100.4 mmol/L (98-107) 05/17/21 19:37 Carbon Dioxide 20 mmol/L (22-30) L 05/17/21 19:37 Anion Gap 18 mmol/L 05/17/21 19:37 BUN 18 mg/dL (7-17) H 05/17/21 19:37 Creatinine 0.9 mg/dL (0.6-1.2) 05/17/21 19:37 Estimated GFR > 60 ml/min 05/17/21 19:37 BUN/Creatinine Ratio 20 % 05/17/21 19:37 Glucose 295 mg/dL (65-100) H 05/17/21 19:37 POC Glucose 180 mg/dL (70-105) H 05/30/21 19:47 Hemoglobin A1c 7.4 % (4-6) H 05/17/21 19:37 Calcium 8.9 mg/dL (8.4-10.2) 05/17/21 19:37 Total Bilirubin 0.30 mg/dL (0.1-1.2) 05/17/21 19:37 AST 28 units/L (5-40) 05/17/21 19:37 ALT 23 units/L (7-56) 05/17/21 19:37 Alkaline Phosphatase 92 units/L (35-129) 05/17/21 19:37 Total Protein 6.0 g/dL (6.3-8.2) L 05/17/21 19:37 Albumin 3.6 g/dL (3.9-5) L 05/17/21 19:37 Albumin/Globulin Ratio 1.5 % 05/17/21 19:37 Triglycerides 110 mg/dL (2-149) 05/17/21 19:37 Cholesterol 114 mg/dL (50-199) 05/17/21 19:37 LDL Cholesterol Direct 43 mg/dL (50-130) L 05/17/21 19:37 HDL Cholesterol 59 mg/dL (40-59) 05/17/21 19:37 Cholesterol/HDL Ratio 1.93 % 05/17/21 19:37 TSH 1.850 mlU/mL (0.270-4.200) 05/17/21 19:37 Syphilis IgG Antibody Nonreactive (NonReactive) 05/24/21 07:44 Coronavirus (PCR) Negative (Negative) 05/24/21 Unknown Du/IV: Voiding Method Toilet Active Medications - Current Medications Current Medications: Generic Name Dose Route Start Last Admin Trade Name Freq PRN Reason Stop Dose Admin Albuterol 2.5 mg 05/24/21 22:35 Albuterol 2.5 Mg/3 Ml Nebu IH Q4HRT PRN Shortness Of Breath Amlodipine Besylate 5 mg 05/17/21 10:00 05/30/21 09:24 Amlodipine 5 Mg Tab PO 5 mg DAILY JULIO Administration Aripiprazole 25 mg 05/25/21 08:54 05/30/21 09:26 Aripiprazole 10 Mg Tab PO 25 mg QDAY JULIO Administration Clonazepam 1 mg 05/24/21 10:00 05/30/21 09:26 Clonazepam 0.5 Mg Tab PO 1 mg BID JULIO Administration Dextrose 50 ml 05/18/21 11:42 Dextrose 50% In Water (25gm) 50 Ml Syringe IV Q30MIN PRN Hypoglycemia Protocol Dextrose 0 ml 05/18/21 12:02 Dextrose 10% *Hypoglycemia IV PRN PRN Hypoglycemia Diphenhydramine HCl 25 mg 05/17/21 08:05 05/29/21 21:12 Diphenhydramine 25 Mg Cap PO 25 mg QHS PRN Administration Insomnia Divalproex Sodium 1,000 mg 05/17/21 22:00 05/29/21 21:12 Divalproex Er 500 Mg Tab PO 1,000 mg QHS JULIO Administration Divalproex Sodium 250 mg 05/25/21 10:00 05/30/21 09:26 Divalproex Er 250 Mg Tab PO 250 mg QAM JULIO Administration Donepezil HCl 5 mg 05/17/21 22:00 05/29/21 21:12 Donepezil 5 Mg Tab PO 5 mg QHS JULOI Administration Guaifenesin 5 ml 05/17/21 10:00 05/30/21 09:26 Guaifenesin Dm 200/20 Mg Oral Liqd 10 Ml PO 5 ml Q12H JULIO Administration Hydrophilic Ointment 1 applic 05/18/21 09:18 05/30/21 09:23 Lip Therapy Vaseline TP 1 applic DIRECT PRN Administration Dry Lips Insulin Human Lispro 0 unit 05/18/21 16:30 05/30/21 17:06 Insulin Lispro 100 Unit/Ml SUB-Q Not Given ACHS JULIO Protocol Metformin HCl 1,000 mg 05/17/21 10:00 05/30/21 17:05 Metformin 500 Mg Tab PO 1,000 mg BIDDIAB JULIO Administration Ziprasidone 20 mg 05/19/21 10:30 05/24/21 01:06 Ziprasidone Mesylate 20 Mg Vial IM 20 mg Q4H PRN Administration Agitation Nutrition/Malnutrition Assess - Dietary Evaluation Nutrition/Malnutrition Findings: Nutrition Notes Start: 05/23/21 10:17 Freq: Status: Active Protocol: Document 05/23/21 10:17 PARISA (Rec: 05/23/21 10:18 PARISA [id number]) Nutrition Notes Need for Assessment generated from: LOS Initial or Follow up Brief Note Current Diet Cardiac/Consistent CHO Subjective/Other Information Pt screened for LOS. She has consumed 100% of meals since admission. Burn Absent Trauma Absent Minimum of two criteria No Nutrition Intervention Revisit per MD consult or patient Sign Off request:
[2021-05-30] MEDS: DIVALPROEX ER 500 MG TAB PO SCH (21:12)
[2021-05-30] MEDS: DONEPEZIL 5 MG TAB PO SCH (21:13)
[2021-05-31] MEDS: INSULIN LISPRO 100 UNIT/ML SUB-Q SCH ×3 (07:33→16:32)
--- NOTE | 2021-05-31 08:28 | Discharge Summary ---
Providers - Providers Date of Admission: 05/16/21 22:51 Date of discharge: 05/31/21 Attending physician: NEYMAR ARANGO MD 05/16/21 21:24 Consult to Physician [CONS] Routine Comment: Consulting Provider: DAVE SANCHEZ Physician Instructions: Reason For Exam: H & P Primary care physician: BISCUIT PACKER Hospitalization Condition: Stable Hospital course: The patient was provided inpatient psychiatric treatment with safe and supportive environment, group/individual therapy, psychiatric medication, medication adjustment, adverse effect monitor, medical evaluation, medical treatment, social service assessment, social support meeting, placement assessment and psycho-education. The patients mood, cognition, behavior, motivation, compliance to treatment and appreciation on family/social support are improved and stabilized. At the time of discharge, the patient had no suicidal ideas, no homicidal ideas, no aggressive thoughts, no endangering behavior and no debilitating adverse effects. The patient agreed on the treatment plan, understood the risk, benefit, alternative treatment, potential consequence of no treatment, and gave informed consent. Progress Note: 05/18/21: The patient was seen in the activity room. She reports feeling better. She states she spoke with her son last night. She continues to present with constricted affect and circumstantial. She denies any current suicidal/homicidal ideation and denies hallucinations. 05/19/21: The patient was seen today. She reports doing better. She reports eats and sleep as good. She denies any current suicidal/homicidal ideation and denies hallucinations. No aggressive behaviors reported. 05/20/21: The patient was seen today. She reports doing well. She continues to be circumstantial sometimes; talks to herself. She denies any current suicidal/homicidal ideation and denies hallucinations. No aggressive behaviors reported. 05/21/21: The patient was seen this morning. She states she is doing well. She continues to be talkative. She denies any current suicidal/homicidal ideation and denies hallucinations. No aggressive behaviors reported. 05/22/21:The patient was seen this morning. When asked how she was doing she states " the same old sh." She continues to be talkative. She denies any current suicidal/homicidal ideation and denies hallucinations. Per nurse, " pt is labile, last evening she yelled intermittently in her room, she was redirected, observed talking to herself; initially, she refused medication, but later took her medication after talking to her son on the phone, appetite is good; slept for approximately 8hrs, no distress noted. " 05/23/21:The patient was seen today. She is pleasant. She says she feels better. She denies SI/HI or hallucinations of any kind. Nursing staff states the patient's affect is bizarre, and that last evening the patient presents with bizarre behavior. She spent most of her time in her room brushing her hair. She walked down the hallway and denies needs when asked. She states her name is someone else - not her name. Patient was reoriented but she just stares. She denies si/hi/ah/vh. 05/24/21: The patient was seen today. She is doing much better, she says. She says she slept well. She denies SI/HI or hallucinations of any kind. Nursing staff states the patient was banging on door, yelling and attempting to exit last night. Spoke with the patient's son and gave him update on the patient's progress, med management and discharge plan. 05/25/21:The patient was seen today. She says "same ole same ole" when asking her how she was feeling. She appears irritable. She says she hasn't been given any salt because of her blood pressure. She denies any SI/HI or hallucinations. She says she slept well. Staff says the patient has been laughing and talking to herself. 05/26/21:The patient was seen today. She says she's doing very well. She denies hallucinations of any kind. She also denies SI/HI. Although the patient denies hallucinations, she is often observed by staff talking to herself. 05/27/21:The patient was seen today. She says she is much better. She says her appetite is good. The patient also says she slept well, but the nurse today says the patient only slept about three hours. The patient denies SI/HI, or hallucinations. She says she's been compliant with her meds. 05/28/21:The patient was seen today. The patient says she's eating well. She a lso says she's sleeping well. She denies SI/HI or hallucinations of any kind. The patient is awaiting placement to ensue her safety and continuity of mental wellness. 05/29/21:The patient was seen today. She is resting with her eyes closed in the dayroom. She says she's fine and doing much better. She denies SI/HI or hallucinations of any kind. The patient is awaiting placement and will discharge as soon as a safe place is secured in order to maintain continuity of mental health. 05/30/21:The patient was seen today. She reports doing well. The patient states that she spoke with her son yesterday and he will sending her clothings. She denies SI/HI or hallucinations. The patient is awaiting placement and will discharge as soon as a safe place is secured in order to maintain continuity of mental health. Disposition: 30 STILL A PATIENT Allergies/Adverse Reactions: Allergies haloperidol [From Haldol] Allergy (Verified 05/16/21 22:07) Unknown Latex, Natural Rubber Allergy (Verified 05/16/21 22:07) Unknown Vital Signs: Last Vital Signs Temp 98.3 F 05/30/21 19:13 Pulse 83 05/30/21 19:13 Resp 17 05/30/21 19:13 BP 117/64 05/30/21 19:13 Pulse Ox 96 05/30/21 19:13 Last Lab: Laboratory Last Values WBC 4.2 K/mm3 (4.5-11.0) L 05/17/21 19:37 RBC 3.48 M/mm3 (3.65-5.03) L 05/17/21 19:37 Hgb 10.1 gm/dl (10.1-14.3) 05/17/21 19:37 Hct 31.4 % (30.3-42.9) 05/17/21 19:37 MCV 90 fl (79-97) 05/17/21 19:37 MCH 29 pg (28-32) 05/17/21 19:37 MCHC 32 % (30-34) 05/17/21 19:37 RDW 13.7 % (13.2-15.2) 05/17/21 19:37 Plt Count 106 K/mm3 (140-440) L 05/17/21 19:37 Lymph % (Auto) 26.4 % (13.4-35.0) 05/17/21 19:37 [place] % (Auto) 12.9 % (0.0-7.3) H 05/17/21 19:37 Eos % (Auto) 2.2 % (0.0-4.3) 05/17/21 19:37 Baso % (Auto) 1.1 % (0.0-1.8) 05/17/21 19:37 Lymph # (Auto) 1.1 K/mm3 (1.2-5.4) L 05/17/21 19:37 [place] # (Auto) 0.5 K/mm3 (0.0-0.8) 05/17/21 19:37 Eos # (Auto) 0.1 K/mm3 (0.0-0.4) 05/17/21 19:37 Baso # (Auto) 0.0 K/mm3 (0.0-0.1) 05/17/21 19:37 Seg Neutrophils % 57.4 % (40.0-70.0) 05/17/21 19:37 Seg Neutrophils # 2.4 K/mm3 (1.8-7.7) 05/17/21 19:37 Sodium 134 mmol/L (137-145) L 05/17/21 19:37 Potassium 4.2 mmol/L (3.6-5.0) 05/17/21 19:37 Chloride 100.4 mmol/L (98-107) 05/17/21 19:37 Carbon Dioxide 20 mmol/L (22-30) L 05/17/21 19:37 Anion Gap 18 mmol/L 05/17/21 19:37 BUN 18 mg/dL (7-17) H 05/17/21 19:37 Creatinine 0.9 mg/dL (0.6-1.2) 05/17/21 19:37 Estimated GFR > 60 ml/min 05/17/21 19:37 BUN/Creatinine Ratio 20 % 05/17/21 19:37 Glucose 295 mg/dL (65-100) H 05/17/21 19:37 POC Glucose 140 mg/dL (70-105) H 05/31/21 07:13 Hemoglobin A1c 7.4 % (4-6) H 05/17/21 19:37 Calcium 8.9 mg/dL (8.4-10.2) 05/17/21 19:37 Total Bilirubin 0.30 mg/dL (0.1-1.2) 05/17/21 19:37 AST 28 units/L (5-40) 05/17/21 19:37 ALT 23 units/L (7-56) 05/17/21 19:37 Alkaline Phosphatase 92 units/L (35-129) 05/17/21 19:37 Total Protein 6.0 g/dL (6.3-8.2) L 05/17/21 19:37 Albumin 3.6 g/dL (3.9-5) L 05/17/21 19:37 Albumin/Globulin Ratio 1.5 % 05/17/21 19:37 Triglycerides 110 mg/dL (2-149) 05/17/21 19:37 Cholesterol 114 mg/dL (50-199) 05/17/21 19:37 LDL Cholesterol Direct 43 mg/dL (50-130) L 05/17/21 19:37 HDL Cholesterol 59 mg/dL (40-59) 05/17/21 19:37 Cholesterol/HDL Ratio 1.93 % 05/17/21 19:37 TSH 1.850 mlU/mL (0.270-4.200) 05/17/21 19:37 Syphilis IgG Antibody Nonreactive (NonReactive) 05/24/21 07:44 Coronavirus (PCR) Negative (Negative) 05/24/21 Unknown Core Measure Documentation - Palliative Care Palliative Care/ Comfort Measures: Not Applicable - Core Measures Any of the following diagnoses?: none - VTE Discharge Requirements Deep Vein Thrombosis/Pulmonary Embolism Present on Admission: No Exam - Constitutional Vitals: Temp Pulse Resp BP Pulse Ox 98.3 F 83 17 117/64 96 05/30/21 19:13 05/30/21 19:13 05/30/21 19:13 05/30/21 19:13 05/30/21 19:13 Plan Activity: advance as tolerated Weight Bearing Status: Weight Bear as Tolerated Diet: regular Care Plan Goals: Maintain good and stable mental health. Plan of Treatment: The patient should be compliant with medications, not to use drugs and not to drink alcohol.The patient understands that if suicidal ideas, homicidal ideas, or any endangering thoughts/behavior arise, they should immediately seek for emergent assistance including but not limited to crisis hot line and emergency room. Follow up with outpatient Psychiatrist and PCP within 7 - 14 days of discharge. Follow up with: PRIMARY CARE,MD [Primary Care Provider] - 7 Days Prescriptions: Divalproex ER [Depakote ER] 1,000 mg PO QHS 30 Days #30 tablet ARIPiprazole [Abilify TAB] 25 mg PO QDAY 30 Days #30 tablet Divalproex ER [Depakote ER] 250 mg PO QAM 30 Days #30 tablet clonazePAM [KlonoPIN] 1 mg PO BID 30 Days #30 tablet
[2021-05-31] MEDS: metFORMIN 500 MG TAB PO SCH ×2 (09:24→16:38)
[2021-05-31] MEDS: ARIPiprazole 10 MG TAB PO SCH (09:24)
[2021-05-31] MEDS: clonazePAM 0.5 MG TAB PO SCH (09:24)
[2021-05-31] MEDS: amLODIPine 5 MG TAB PO SCH (09:24)
[2021-05-31] MEDS: DIVALPROEX ER 250 MG TAB PO SCH (09:24)
[2021-05-31] MEDS: guaiFENesin DM 200/20 MG ORAL LIQD 10 ML PO SCH (09:25)
[2021-05-31 09:28] VITALS: BP 128/59
== END 2021-05-31 16:45 | disposition home or self-care (01) | DRG 885 ==
LOC: UNDOADMIN 17:54 → 3A 17:54 → 5A 22:51
PROVIDERS: ADMIT Psychiatry & Neurology Psychiatry; ATTEND Psychiatry & Neurology Psychiatry
DX: F20.9 Schizophrenia, unspecified (principal); F01.51 Vascular dementia, unspecified severity, with behavioral disturbance; I67.2 Cerebral atherosclerosis; F41.1 Generalized anxiety disorder; Z20.822 Contact with and (suspected) exposure to COVID-19; E66.9 Obesity, unspecified; Z68.34 Body mass index [BMI] 34.0-34.9, adult
CPT/HCPCS: 36415; 71045; 80053; 80061; 82962; 83036; 84443; 85025; 86592; 94640; G0378; Q9967; J1815; J3486; U0003

== ENCOUNTER 2021-07-07 18:58 | Emergency (ER) | payer MEDICARE ==
[2021-07-07] MEDS ORDERED: SODIUM CHLORIDE 0.9% 1000 ML 1,000 ML ONE (19:43)
[2021-07-07] MEDS ORDERED: SODIUM CHLORIDE 0.9% 1000 ML 1,000 ML IV ONE ×2 (19:46→19:47)
[2021-07-07 20:56] LABS: Bilirubin,Urine NEG (Negative); Blood,Urine NEG (Negative); Color,Urine Colorless (Yellow); Protein,Urine <15 mg/dL mg/dL (Negative); Urobilinogen,Urine < 2.0 mg/dL (<2.0); WBC,Urine < 1.0 /HPF (0.0-6.0)
--- NOTE | 2021-07-07 20:58 | Emergency Department Report ---
ED General Adult HPI - General Chief complaint: Hyperglycemia Stated complaint: HIGH BLOOD SUGAR/MED REFILL Time Seen by Provider: 07/07/21 19:45 Source: patient, EMS Mode of arrival: Stretcher Limitations: No Limitations - History of Present Illness Initial comments: 70 year old female with history of bipolar, anxiety, dementia, schizophrenia, schizoaffective disorder, and diabetes presents to the hospital with symptoms of hyperglycemia. Patient was admitted to [facility] and subsequently discharged to her current assisted living facility on May 31. She states since being discharged she has not been taking any medication for diabetes and has not been checking her sugar. As per medical record it is listed that patient is supposed to be on Metformin 1000 twice daily (April 2021) and Humalog was prescribed at time of May discharge as per medical record. Patient states she did not receive any Metformin or insulin for her diabetes. For the last 3 days she has had increased thirst, increased urination, intermittent headaches, and sleeping a lot. Patient's glucose was in the high 400s upon ED arrival. She also reports symptoms of a yeast infection and has been using Monistat. Patient also reports that she took her last Depakote 2 days ago and is having problems with outpatient follow-up secondary to insurance Severity scale (0 -10): 8 - Related Data Home Medications Medication Instructions Recorded Confirmed Last Taken ARIPiprazole [Abilify] 10 mg PO DAILY 05/16/21 05/16/21 Unknown Ipratropium/Albuterol Sulfate 0.5 - 2.5 mg INHALATION Q4HR PRN 05/16/21 05/16/21 Unknown [DUONEB *Not for PRN Use*] amLODIPine 5 mg PO DAILY 05/16/21 05/16/21 Unknown diphenhydrAMINE [Benadryl CAP] 25 mg PO QHS PRN MDD For upto 10 05/16/21 05/16/21 Unknown days donepeziL [Aricept] 5 mg PO QHS 05/16/21 05/16/21 Unknown guaiFENesin/DEXTROMETHORPHAN 5 ml PO Q12HR 05/16/21 05/16/21 Unknown [Guaifenesin-Dm 100-10 mg/5 ml] Previous Rx's Medication Instructions Recorded Last Taken Type ALBUTEROL NEB's [Proventil 0.083% 2.5 mg IH Q4HRT PRN nebu 05/31/21 Unknown Rx NEBS] ARIPiprazole [Abilify TAB] 25 mg PO QDAY 30 Days #30 tablet 05/31/21 Unknown Rx Lispro Insulin [HumaLOG] 0 unit SUB-Q ACHS units 05/31/21 Unknown Rx clonazePAM [KlonoPIN] 1 mg PO BID 30 Days #30 tablet 05/31/21 Unknown Rx guaiFENesin DM [Guaifenesin Dm 5 ml PO Q12H oral.liqd 05/31/21 Unknown Rx Syrup] Divalproex ER [Depakote ER] 1,000 mg PO QHS 30 Days #30 tablet 07/08/21 Unknown Rx Divalproex ER [Depakote ER] 250 mg PO QAM 30 Days #30 tablet 07/08/21 Unknown Rx Fluconazole [Diflucan TAB] 150 mg PO ONCE #1 dose 07/08/21 Unknown Rx Metformin HCl [metFORMIN] 1,000 mg PO BID #60 07/08/21 Unknown Rx Allergies Allergy/AdvReac Type Severity Reaction Status Date / Time haloperidol [From Haldol] Allergy Unknown Verified 05/16/21 22:07 Latex, Natural Rubber Allergy Unknown Verified 05/16/21 22:07 ED Review of Systems ROS: Stated complaint: HIGH BLOOD SUGAR/MED REFILL Other details as noted in HPI Comment: All other systems reviewed and negative ED Past Medical Hx - Medications Home Medications: Home Medications Medication Instructions Recorded Confirmed Last Taken Type ARIPiprazole [Abilify] 10 mg PO DAILY 05/16/21 05/16/21 Unknown History Ipratropium/Albuterol Sulfate 0.5 - 2.5 mg INHALATION Q4HR PRN 05/16/21 05/16/21 Unknown History [DUONEB *Not for PRN Use*] amLODIPine 5 mg PO DAILY 05/16/21 05/16/21 Unknown History diphenhydrAMINE [Benadryl CAP] 25 mg PO QHS PRN MDD For upto 10 05/16/21 05/16/21 Unknown History days donepeziL [Aricept] 5 mg PO QHS 05/16/21 05/16/21 Unknown History guaiFENesin/DEXTROMETHORPHAN 5 ml PO Q12HR 05/16/21 05/16/21 Unknown History [Guaifenesin-Dm 100-10 mg/5 ml] ALBUTEROL NEB's [Proventil 0.083% 2.5 mg IH Q4HRT PRN nebu 05/31/21 Unknown Rx NEBS] ARIPiprazole [Abilify TAB] 25 mg PO QDAY 30 Days #30 tablet 05/31/21 Unknown Rx Lispro Insulin [HumaLOG] 0 unit SUB-Q ACHS units 05/31/21 Unknown Rx clonazePAM [KlonoPIN] 1 mg PO BID 30 Days #30 tablet 05/31/21 Unknown Rx guaiFENesin DM [Guaifenesin Dm 5 ml PO Q12H oral.liqd 05/31/21 Unknown Rx Syrup] Divalproex ER [Depakote ER] 1,000 mg PO QHS 30 Days #30 tablet 07/08/21 Unknown Rx Divalproex ER [Depakote ER] 250 mg PO QAM 30 Days #30 tablet 07/08/21 Unknown Rx Fluconazole [Diflucan TAB] 150 mg PO ONCE #1 dose 07/08/21 Unknown Rx Metformin HCl [metFORMIN] 1,000 mg PO BID #60 07/08/21 Unknown Rx ED Physical Exam - General Limitations: No Limitations - Other Other exam information: General: No acute distress Head: Atraumatic Eyes: normal appearance ENT: Dry mucous member Neck: Normal appearance, no midline tenderness Chest: Clear to auscultation bilaterally CV: Regular rate and rhythm Abdomen: Soft, normal bowel sounds, nontender, nondistended, no rebound or guarding Back: Normal inspection Extremity: Normal inspection, full range of motion Neuro: Alert O x 3, no facial asymmetry, speech clear, no gross motor sensory deficit Psych: Appropriate behavior Skin: No rash ED Course Vital Signs 07/07/21 07/07/21 19:27 23:03 Temperature 97.7 F Pulse Rate 89 77 Respiratory 16 16 Rate Blood Pressure 131/68 129/95 [Left] O2 Sat by Pulse 98 99 Oximetry ED Medical Decision Making - Lab Data Result diagrams: 07/07/21 20:52 07/07/21 20:52 Lab Results 07/07/21 07/07/21 07/07/21 Range/Units 19:48 20:37 20:52 WBC 4.5 (4.5-11.0) K/mm3 RBC 3.77 (3.65-5.03) M/mm3 Hgb 11.6 (10.1-14.3) gm/dl Hct 33.5 (30.3-42.9) % MCV 89 (79-97) fl MCH 31 (28-32) pg MCHC 35 H (30-34) % RDW 13.8 (13.2-15.2) % Plt Count 101 L (140-440) K/mm3 Lymph % (Auto) 28.3 (13.4-35.0) % Parmer % (Auto) 7.1 (0.0-7.3) % Eos % (Auto) 0.9 (0.0-4.3) % Baso % (Auto) 0.8 (0.0-1.8) % Lymph # (Auto) 1.3 (1.2-5.4) K/mm3 Parmer # (Auto) 0.3 (0.0-0.8) K/mm3 Eos # (Auto) 0.0 (0.0-0.4) K/mm3 Baso # (Auto) 0.0 (0.0-0.1) K/mm3 Seg Neutrophils % 62.9 (40.0-70.0) % Seg Neutrophils # 2.8 (1.8-7.7) K/mm3 VBG pH (7.320-7.420) Sodium (137-145) mmol/L Potassium (3.6-5.0) mmol/L Chloride (98-107) mmol/L Carbon Dioxide (22-30) mmol/L Anion Gap mmol/L BUN (7-17) mg/dL Creatinine (0.6-1.2) mg/dL Estimated GFR ml/min BUN/Creatinine Ratio % Glucose (65-100) mg/dL POC Glucose 484 H (70-105) mg/dL Calcium (8.4-10.2) mg/dL Urine Color Colorless (Yellow) Urine Turbidity Clear (Clear) Urine pH 6.0 (5.0-7.0) Ur Specific Marble 1.025 (1.003-1.030) Urine Protein <15 mg/dl (Negative) mg/dL Urine Glucose (UA) >=500 (Negative) mg/dL Urine Ketones Neg (Negative) mg/dL Urine Blood Neg (Negative) Urine Nitrite Neg (Negative) Urine Bilirubin Neg (Negative) Urine Urobilinogen < 2.0 (<2.0) mg/dL Ur Leukocyte Esterase Neg (Negative) Urine WBC (Auto) < 1.0 (0.0-6.0) /HPF Urine RBC (Auto) 2.0 (0.0-6.0) /HPF U Epithel Cells (Auto) < 1.0 (0-13.0) /HPF 07/07/21 07/07/21 07/07/21 Range/Units 20:52 20:52 22:36 WBC (4.5-11.0) K/mm3 RBC (3.65-5.03) M/mm3 Hgb (10.1-14.3) gm/dl Hct (30.3-42.9) % MCV (79-97) fl MCH (28-32) pg MCHC (30-34) % RDW (13.2-15.2) % Plt Count (140-440) K/mm3 Lymph % (Auto) (13.4-35.0) % Parmer % (Auto) (0.0-7.3) % Eos % (Auto) (0.0-4.3) % Baso % (Auto) (0.0-1.8) % Lymph # (Auto) (1.2-5.4) K/mm3 Parmer # (Auto) (0.0-0.8) K/mm3 Eos # (Auto) (0.0-0.4) K/mm3 Baso # (Auto) (0.0-0.1) K/mm3 Seg Neutrophils % (40.0-70.0) % Seg Neutrophils # (1.8-7.7) K/mm3 VBG pH 7.333 (7.320-7.420) Sodium 138 (137-145) mmol/L Potassium 4.6 (3.6-5.0) mmol/L Chloride 105.4 (98-107) mmol/L Carbon Dioxide 22 (22-30) mmol/L Anion Gap 15 mmol/L BUN 15 (7-17) mg/dL Creatinine 0.8 (0.6-1.2) mg/dL Estimated GFR > 60 ml/min BUN/Creatinine Ratio 19 % Glucose 476 H (65-100) mg/dL POC Glucose 386 H (70-105) mg/dL Calcium 8.2 L (8.4-10.2) mg/dL Urine Color (Yellow) Urine Turbidity (Clear) Urine pH (5.0-7.0) Ur Specific Marble (1.003-1.030) Urine Protein (Negative) mg/dL Urine Glucose (UA) (Negative) mg/dL Urine Ketones (Negative) mg/dL Urine Blood (Negative) Urine Nitrite (Negative) Urine Bilirubin (Negative) Urine Urobilinogen (<2.0) mg/dL Ur Leukocyte Esterase (Negative) Urine WBC (Auto) (0.0-6.0) /HPF Urine RBC (Auto) (0.0-6.0) /HPF U Epithel Cells (Auto) (0-13.0) /HPF 07/07/21 Range/Units 23:33 WBC (4.5-11.0) K/mm3 RBC (3.65-5.03) M/mm3 Hgb (10.1-14.3) gm/dl Hct (30.3-42.9) % MCV (79-97) fl MCH (28-32) pg MCHC (30-34) % RDW (13.2-15.2) % Plt Count (140-440) K/mm3 Lymph % (Auto) (13.4-35.0) % Parmer % (Auto) (0.0-7.3) % Eos % (Auto) (0.0-4.3) % Baso % (Auto) (0.0-1.8) % Lymph # (Auto) (1.2-5.4) K/mm3 Parmer # (Auto) (0.0-0.8) K/mm3 Eos # (Auto) (0.0-0.4) K/mm3 Baso # (Auto) (0.0-0.1) K/mm3 Seg Neutrophils % (40.0-70.0) % Seg Neutrophils # (1.8-7.7) K/mm3 VBG pH (7.320-7.420) Sodium (137-145) mmol/L Potassium (3.6-5.0) mmol/L Chloride (98-107) mmol/L Carbon Dioxide (22-30) mmol/L Anion Gap mmol/L BUN (7-17) mg/dL Creatinine (0.6-1.2) mg/dL Estimated GFR ml/min BUN/Creatinine Ratio % Glucose (65-100) mg/dL POC Glucose 212 H (70-105) mg/dL Calcium (8.4-10.2) mg/dL Urine Color (Yellow) Urine Turbidity (Clear) Urine pH (5.0-7.0) Ur Specific Marble (1.003-1.030) Urine Protein (Negative) mg/dL Urine Glucose (UA) (Negative) mg/dL Urine Ketones (Negative) mg/dL Urine Blood (Negative) Urine Nitrite (Negative) Urine Bilirubin (Negative) Urine Urobilinogen (<2.0) mg/dL Ur Leukocyte Esterase (Negative) Urine WBC (Auto) (0.0-6.0) /HPF Urine RBC (Auto) (0.0-6.0) /HPF U Epithel Cells (Auto) (0-13.0) /HPF - Medical Decision Making Patient presents to the hospital with hyperglycemia without signs of DKA secondary to medication noncompliance. Improved with ED treatment IV fluid hydration and insulin. Patient reports a yeast infection will be provided Diflucan. No signs of UTI. Patient will be provided snacks at discharge to take if case sugar continues to trend downward after discharge Critical Care Time: No Critical care attestation.: If time is entered above; I have spent that time in minutes in the direct care of this critically ill patient, excluding procedure time. ED Disposition Clinical Impression: Hyperglycemia due to diabetes mellitus, Yeast vaginitis, Noncompliance with medication regimen, Medication refill Disposition: 01 HOME / SELF CARE / HOMELESS Is pt being admited?: No Does the pt Need Aspirin: No Condition: Stable Instructions: Vaginitis, [id number], Hyperglycemia, Diabetes Mellitus Type 2 in Adults (ED) Additional Instructions: Take the medication as prescribed. Follow-up with your doctor or doctor/clinic provided. Return if symptoms worsen as indicated by your discharge instructions. Prescriptions: Divalproex ER [Depakote ER] 250 mg PO QAM 30 Days #30 tablet Divalproex ER [Depakote ER] 1,000 mg PO QHS 30 Days #30 tablet Fluconazole [Diflucan TAB] 150 mg PO ONCE #1 dose Metformin HCl [metFORMIN] 1,000 mg PO BID #60 Referrals: SANTOS VARELA MD [Other] - 3-5 Days [facility] [Provider Group] - 3-5 Days Time of Disposition: 00:59
[2021-07-07 21:18] LABS: Basophils % (Auto) 0.8 % (0.0-1.8); Eosinophils % (Auto) 0.9 % (0.0-4.3); Hematocrit 33.5 % (30.3-42.9); Hemoglobin 11.6 gm/dl (10.1-14.3); Lymphocytes # (Auto) 1.3 K/mm3 (1.2-5.4); Lymphocytes % (Auto) 28.3 % (13.4-35.0); Mean Corpuscular HGB Conc 35 % (30-34); Mean Corpuscular Volume 89 fl (79-97); Monocytes # (Auto) 0.3 K/mm3 (0.0-0.8); Monocytes % (Auto) 7.1 % (0.0-7.3); Platelet Count 101 K/mm3 (140-440); Red Blood Count 3.77 M/mm3 (3.65-5.03); Red Cell Distribution Width 13.8 % (13.2-15.2)
[2021-07-07 21:32] LABS: BUN/Creatinine Ratio 19; Blood Urea Nitrogen 15 mg/dL (7-17); Calcium 8.2 mg/dL (8.4-10.2); Hemolysis Index 16
[2021-07-07] MEDS ORDERED: INSULIN REGULAR, HUMAN 100 UNITS/1 ML IV ONE (21:44)
[2021-07-08 04:22] VITALS: BP 136/85
== END 2021-07-08 08:30 | disposition home or self-care (01) ==
LOC: ED 18:58
DX: E11.65 Type 2 diabetes mellitus with hyperglycemia (principal); B37.3 Candidiasis of vulva and vagina; Z91.14 Patient's other noncompliance with medication regimen; Z76.0 Encounter for issue of repeat prescription; Z91.040 Latex allergy status
CPT/HCPCS: 36415; 80048; 81001; 82805; 82962; 85025; 96374; 99284; J7030; Q0162; Q9967; J1815

== ENCOUNTER 2021-07-14 18:03 | Emergency (ER) | payer MEDICARE ==
[2021-07-14 18:22] VITALS: BP 155/85
[2021-07-14 23:29] LABS: Basophils % (Auto) 0.8 % (0.0-1.8); Eosinophils # (Auto) 0.1 K/mm3 (0.0-0.4); Eosinophils % (Auto) 1.7 % (0.0-4.3); Hematocrit 37.9 % (30.3-42.9); Hemoglobin 12.6 gm/dl (10.1-14.3); Lymphocytes # (Auto) 1.8 K/mm3 (1.2-5.4); Lymphocytes % (Auto) 34.7 % (13.4-35.0); Mean Corpuscular HGB Conc 33 % (30-34); Mean Corpuscular Volume 89 fl (79-97); Monocytes # (Auto) 0.4 K/mm3 (0.0-0.8); Monocytes % (Auto) 8.4 % (0.0-7.3); Platelet Count 128 K/mm3 (140-440); Red Blood Count 4.25 M/mm3 (3.65-5.03); Red Cell Distribution Width 13.9 % (13.2-15.2)
--- NOTE | 2021-07-14 23:29 | XRay Report ---
CHEST 2 VIEWS INDICATION / CLINICAL INFORMATION: Weakness. COMPARISON: 05/23/21. FINDINGS: SUPPORT DEVICES: None. HEART / MEDIASTINUM: The heart size and pulmonary vasculature are normal. LUNGS / PLEURA: No significant pulmonary or pleural abnormality. No pneumothorax. ADDITIONAL FINDINGS: No significant additional findings. IMPRESSION: No acute findings. Signer Name: Jesús Oconnor MD Signed: 07/14/2021 11:25 PM Workstation Name: [id number]
[2021-07-14 23:49] LABS: Alanine Aminotransferase 19 units/L (7-56); Albumin 4.1 g/dL (3.9-5); Blood Urea Nitrogen 12 mg/dL (7-17); Calcium 9.2 mg/dL (8.4-10.2); Hemolysis Index 11
--- NOTE | 2021-07-15 | Emergency Department Report ---
ED General Adult HPI - General Chief complaint: Weakness Stated complaint: UTI/SUGAR/BRUISE OVER RT SIDE Time Seen by Provider: 07/14/21 22:56 Source: patient Mode of arrival: Ambulatory Limitations: No Limitations - History of Present Illness Initial comments: Patient 70-year-old female who presents for generalized malaise UTI symptoms. States treated for UTI on 07/08/2021. She had 1 dose of antibiotics in the ED however not taking antibiotics at this time. Patient denies fevers or chills. Patient does endorse urinary frequency and urgency. With left flank pain. Pain is rated at 4/10. Patient states mild bruise to left hip denies fall injury or trauma. Does have history of diabetes, hypertension, seizures UTI. Patient denies nausea or vomiting. There has been no fevers or chills. - Related Data Home Medications Medication Instructions Recorded Confirmed Last Taken ARIPiprazole [Abilify] 10 mg PO DAILY 05/16/21 05/16/21 Unknown Ipratropium/Albuterol Sulfate 0.5 - 2.5 mg INHALATION Q4HR PRN 05/16/21 05/16/21 Unknown [DUONEB *Not for PRN Use*] amLODIPine 5 mg PO DAILY 05/16/21 05/16/21 Unknown diphenhydrAMINE [Benadryl CAP] 25 mg PO QHS PRN MDD For upto 10 05/16/21 05/16/21 Unknown days donepeziL [Aricept] 5 mg PO QHS 05/16/21 05/16/21 Unknown guaiFENesin/DEXTROMETHORPHAN 5 ml PO Q12HR 05/16/21 05/16/21 Unknown [Guaifenesin-Dm 100-10 mg/5 ml] Previous Rx's Medication Instructions Recorded Last Taken Type ALBUTEROL NEB's [Proventil 0.083% 2.5 mg IH Q4HRT PRN nebu 05/31/21 Unknown Rx NEBS] ARIPiprazole [Abilify TAB] 25 mg PO QDAY 30 Days #30 tablet 05/31/21 Unknown Rx Lispro Insulin [HumaLOG] 0 unit SUB-Q ACHS units 05/31/21 Unknown Rx clonazePAM [KlonoPIN] 1 mg PO BID 30 Days #30 tablet 05/31/21 Unknown Rx guaiFENesin DM [Guaifenesin Dm 5 ml PO Q12H oral.liqd 05/31/21 Unknown Rx Syrup] Divalproex ER [Depakote ER] 1,000 mg PO QHS 30 Days #30 tablet 07/08/21 Unknown Rx Divalproex ER [Depakote ER] 250 mg PO QAM 30 Days #30 tablet 07/08/21 Unknown Rx Fluconazole [Diflucan TAB] 150 mg PO ONCE #1 dose 07/08/21 Unknown Rx Metformin HCl [metFORMIN] 1,000 mg PO BID #60 07/08/21 Unknown Rx Allergies Allergy/AdvReac Type Severity Reaction Status Date / Time haloperidol [From Haldol] Allergy Unknown Verified 05/16/21 22:07 Latex, Natural Rubber Allergy Unknown Verified 05/16/21 22:07 ED Review of Systems ROS: Stated complaint: UTI/SUGAR/BRUISE OVER RT SIDE Other details as noted in HPI Constitutional: malaise. denies: chills, fever Eyes: denies: eye pain, eye discharge, vision change ENT: denies: ear pain, throat pain Respiratory: denies: cough, shortness of breath, wheezing Cardiovascular: denies: chest pain, palpitations Endocrine: no symptoms reported Gastrointestinal: as per HPI. denies: abdominal pain, nausea, vomiting Genitourinary: urgency, dysuria, frequency. denies: hematuria, discharge Musculoskeletal: back pain (Left flank). denies: joint swelling, arthralgia Skin: denies: rash, lesions Neurological: denies: headache, weakness, paresthesias Psychiatric: denies: anxiety, depression Hematological/Lymphatic: denies: easy bleeding, easy bruising ED Past Medical Hx - Medications Home Medications: Home Medications Medication Instructions Recorded Confirmed Last Taken Type ARIPiprazole [Abilify] 10 mg PO DAILY 05/16/21 05/16/21 Unknown History Ipratropium/Albuterol Sulfate 0.5 - 2.5 mg INHALATION Q4HR PRN 05/16/21 05/16/21 Unknown History [DUONEB *Not for PRN Use*] amLODIPine 5 mg PO DAILY 05/16/21 05/16/21 Unknown History diphenhydrAMINE [Benadryl CAP] 25 mg PO QHS PRN MDD For upto 10 05/16/21 05/16/21 Unknown History days donepeziL [Aricept] 5 mg PO QHS 05/16/21 05/16/21 Unknown History guaiFENesin/DEXTROMETHORPHAN 5 ml PO Q12HR 05/16/21 05/16/21 Unknown History [Guaifenesin-Dm 100-10 mg/5 ml] ALBUTEROL NEB's [Proventil 0.083% 2.5 mg IH Q4HRT PRN nebu 05/31/21 Unknown Rx NEBS] ARIPiprazole [Abilify TAB] 25 mg PO QDAY 30 Days #30 tablet 05/31/21 Unknown Rx Lispro Insulin [HumaLOG] 0 unit SUB-Q ACHS units 05/31/21 Unknown Rx clonazePAM [KlonoPIN] 1 mg PO BID 30 Days #30 tablet 05/31/21 Unknown Rx guaiFENesin DM [Guaifenesin Dm 5 ml PO Q12H oral.liqd 05/31/21 Unknown Rx Syrup] Divalproex ER [Depakote ER] 1,000 mg PO QHS 30 Days #30 tablet 07/08/21 Unknown Rx Divalproex ER [Depakote ER] 250 mg PO QAM 30 Days #30 tablet 07/08/21 Unknown Rx Fluconazole [Diflucan TAB] 150 mg PO ONCE #1 dose 07/08/21 Unknown Rx Metformin HCl [metFORMIN] 1,000 mg PO BID #60 07/08/21 Unknown Rx ED Physical Exam - General Limitations: No Limitations General appearance: alert, in no apparent distress - Head Head exam: Present: normocephalic, normal inspection - Eye Eye exam: Present: normal appearance, PERRL, EOMI Pupils: Present: normal accommodation - ENT ENT exam: Present: mucous membranes moist - Neck Neck exam: Present: normal inspection, full ROM. Absent: lymphadenopathy - Respiratory Respiratory exam: Present: normal lung sounds bilaterally. Absent: respiratory distress, wheezes, stridor - Cardiovascular Cardiovascular Exam: Present: regular rate, normal rhythm, normal heart sounds. Absent: systolic murmur, diastolic murmur, rubs, gallop - GI/Abdominal GI/Abdominal exam: Present: soft, normal bowel sounds. Absent: distended, tenderness, guarding, rebound, rigid, bruit, hernia - Rectal Rectal exam: Present: deferred - Extremities Exam Extremities exam: Present: normal inspection, full ROM, normal capillary refill - Back Exam Back exam: Present: normal inspection, full ROM. Absent: CVA tenderness (R), CVA tenderness (L) - Neurological Exam Neurological exam: Present: alert, oriented X3, CN II-XII intact, normal gait - Psychiatric Psychiatric exam: Present: normal affect, normal mood - Skin Skin exam: Present: warm, dry, intact, normal color. Absent: rash ED Course Vital Signs 07/14/21 18:20 Temperature 97.7 F Pulse Rate 91 H Respiratory 18 Rate Blood Pressure 155/85 O2 Sat by Pulse 98 Oximetry ED Medical Decision Making - Lab Data Result diagrams: 07/14/21 23:12 07/14/21 23:12 Labs 07/14/21 07/14/21 23:12 23:12 WBC 5.1 RBC 4.25 Hgb 12.6 Hct 37.9 MCV 89 MCH 30 MCHC 33 RDW 13.9 Plt Count 128 L Lymph % (Auto) 34.7 Clinch % (Auto) 8.4 H Eos % (Auto) 1.7 Baso % (Auto) 0.8 Lymph # (Auto) 1.8 Clinch # (Auto) 0.4 Eos # (Auto) 0.1 Baso # (Auto) 0.0 Seg Neutrophils % 54.4 Seg Neutrophils # 2.8 Sodium 139 Potassium 4.2 Chloride 103.1 Carbon Dioxide 24 Anion Gap 16 BUN 12 Creatinine 0.6 Estimated GFR > 60 BUN/Creatinine Ratio 20 Glucose 200 H Calcium 9.2 Total Bilirubin 0.40 AST 18 ALT 19 Alkaline Phosphatase 93 Troponin T < 0.010 Total Protein 6.8 Albumin 4.1 Albumin/Globulin Ratio 1.5 Labs 07/14/21 07/14/21 07/15/21 23:12 23:12 02:54 WBC 5.1 RBC 4.25 Hgb 12.6 Hct 37.9 MCV 89 MCH 30 MCHC 33 RDW 13.9 Plt Count 128 L Lymph % (Auto) 34.7 Clinch % (Auto) 8.4 H Eos % (Auto) 1.7 Baso % (Auto) 0.8 Lymph # (Auto) 1.8 Clinch # (Auto) 0.4 Eos # (Auto) 0.1 Baso # (Auto) 0.0 Seg Neutrophils % 54.4 Seg Neutrophils # 2.8 Sodium 139 Potassium 4.2 Chloride 103.1 Carbon Dioxide 24 Anion Gap 16 BUN 12 Creatinine 0.6 Estimated GFR > 60 BUN/Creatinine Ratio 20 Glucose 200 H Calcium 9.2 Total Bilirubin 0.40 AST 18 ALT 19 Alkaline Phosphatase 93 Troponin T < 0.010 < 0.010 Total Protein 6.8 Albumin 4.1 Albumin/Globulin Ratio 1.5 - EKG Data EKG shows normal: sinus rhythm, axis, intervals, QRS complexes, ST-T waves Rate: normal - EKG Data When compared to previous EKG there are: previous EKG unavailable Interpretation: normal EKG (NSR NSTEMI interp by ed attending, ) - Radiology Data Radiology results: report reviewed, image reviewed CHEST 2 VIEWS INDICATION / CLINICAL INFORMATION: Weakness. COMPARISON: 05/23/21. FINDINGS: SUPPORT DEVICES: None. HEART / MEDIASTINUM: The heart size and pulmonary vasculature are normal. LUNGS / PLEURA: No significant pulmonary or pleural abnormality. No pneumothorax. ADDITIONAL FINDINGS: No significant additional findings. IMPRESSION: No acute findings. Signer Name: Jesús Oconnor MD Signed: 07/14/2021 11:25 PM Workstation Name: [id number] Transcribed By: RT Dictated By: Jesús Oconnor MD Electronically Authenticated By: Jesús Oconnor MD Signed Date/Time: 07/14/212324 DD/ 23 TD/TT: - Medical Decision Making This x-ray is normal no infiltrates no opacities, UA noted, labs are noted no rmal. EKG normal sinus rhythm no ST elevated CO borderline ST segments, is no fevers no chills no nausea no vomiting no diarrhea. Patient advises symptoms are resolved at this time. There is no fevers no chills no CVA tenderness on exam. This time no abdominal pain. Initial troponin is less than 0.010. Will repeat same, if negative DC to home, and follow-up primary care doctor tomorrow. Patient verbalized agreement understanding with discharge plan patient will be DC'd to home after follow-up troponin. Patient is currently resting quietly with no acute distress. pt decline urine at this ,states her symptoms are relieved , and she is ready to go home. Critical care attestation.: If time is entered above; I have spent that time in minutes in the direct care of this critically ill patient, excluding procedure time. ED Disposition Clinical Impression: Flank pain Disposition: HOME / SELF CARE / HOMELESS Is pt being admited?: No Does the pt Need Aspirin: No Condition: Stable Instructions: Flank Pain, Adult, [id number] Additional Instructions: Follow-up with your doctor in 2 to 3 days. Return to emergency department should symptoms worsen. Referrals: INDY DREW MD [Primary Care Provider] - 3-5 Days Time of Disposition: 03:55
[2021-07-15 00:03] LABS: BUN/Creatinine Ratio 20
--- NOTE | 2021-07-15 10:56 | Electrocardiograph Report ---
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
== END 2021-07-15 04:21 | disposition home or self-care (01) ==
LOC: ED 18:03
DX: R10.9 Unspecified abdominal pain (principal); Z91.040 Latex allergy status
CPT/HCPCS: 36415; 71046; 80053; 84484; 85025; 93005; 99283

== ENCOUNTER 2021-09-23 08:40 | Emergency (ER) | payer MEDICARE ==
[2021-09-23 10:54] LABS: Basophils % (Auto) 0.7 % (0.0-1.8); Eosinophils # (Auto) 0.1 K/mm3 (0.0-0.4); Eosinophils % (Auto) 2.3 % (0.0-4.3); Hematocrit 35.7 % (30.3-42.9); Lymphocytes # (Auto) 1.3 K/mm3 (1.2-5.4); Lymphocytes % (Auto) 29.1 % (13.4-35.0); Mean Corpuscular HGB Conc 34 % (30-34); Mean Corpuscular Volume 88 fl (79-97); Monocytes # (Auto) 0.5 K/mm3 (0.0-0.8); Platelet Count 119 K/mm3 (140-440); Red Blood Count 4.06 M/mm3 (3.65-5.03); Red Cell Distribution Width 14.8 % (13.2-15.2)
[2021-09-23 11:24] LABS: BUN/Creatinine Ratio 8; Blood Urea Nitrogen 7 mg/dL (7-17); Calcium 9.4 mg/dL (8.4-10.2); Hemolysis Index 7
--- NOTE | 2021-09-23 13:01 | Emergency Department Report ---
ED General Adult HPI - General Chief complaint: Psych Stated complaint: PSYCH EVAL PUI?: No Time Seen by Provider: 09/23/21 09:21 Source: patient, EMS Mode of arrival: Ambulatory Limitations: Altered Mental Status - History of Present Illness Initial comments: Is 70-year-old female with a history of documented diabetes type 2, vascular dementia, sent in for evaluation after patient was found wandering in the streets, having left her living facility. Patient states "I ran out because they would not let me use the phone and I had to make a phone call!" She denies any chest pain shortness of breath difficulty breathing or palpitations. No nausea vomiting fevers or chills. Pain 0 out of 10. MD Complaint: Found Wandering -: unknown Severity scale (0 -10): 0 Associated Symptoms: other (unknown) Treatments Prior to Arrival: other (unknown) - Related Data Home Medications Medication Instructions Recorded Confirmed Last Taken ARIPiprazole [Abilify] 10 mg PO DAILY 05/16/21 05/16/21 Unknown Ipratropium/Albuterol Sulfate 0.5 - 2.5 mg INHALATION Q4HR PRN 05/16/21 05/16/21 Unknown [DUONEB *Not for PRN Use*] amLODIPine 5 mg PO DAILY 05/16/21 05/16/21 Unknown diphenhydrAMINE [Benadryl CAP] 25 mg PO QHS PRN MDD For upto 10 05/16/21 05/16/21 Unknown days donepeziL [Aricept] 5 mg PO QHS 05/16/21 05/16/21 Unknown guaiFENesin/DEXTROMETHORPHAN 5 ml PO Q12HR 05/16/21 05/16/21 Unknown [Guaifenesin-Dm 100-10 mg/5 ml] Previous Rx's Medication Instructions Recorded Last Taken Type ALBUTEROL NEB's [Proventil 0.083% 2.5 mg IH Q4HRT PRN nebu 05/31/21 Unknown Rx NEBS] ARIPiprazole [Abilify TAB] 25 mg PO QDAY 30 Days #30 tablet 05/31/21 Unknown Rx Lispro Insulin [HumaLOG] 0 unit SUB-Q ACHS units 05/31/21 Unknown Rx clonazePAM [KlonoPIN] 1 mg PO BID 30 Days #30 tablet 05/31/21 Unknown Rx guaiFENesin DM [Guaifenesin Dm 5 ml PO Q12H oral.liqd 05/31/21 Unknown Rx Syrup] Divalproex ER [Depakote ER] 1,000 mg PO QHS 30 Days #30 tablet 07/08/21 Unknown Rx Divalproex ER [Depakote ER] 250 mg PO QAM 30 Days #30 tablet 07/08/21 Unknown Rx Fluconazole [Diflucan TAB] 150 mg PO ONCE #1 dose 07/08/21 Unknown Rx Metformin HCl [metFORMIN] 1,000 mg PO BID #60 07/08/21 Unknown Rx Allergies Allergy/AdvReac Type Severity Reaction Status Date / Time haloperidol [From Haldol] Allergy Unknown Verified 05/16/21 22:07 Latex, Natural Rubber Allergy Unknown Verified 05/16/21 22:07 ED Review of Systems ROS: Stated complaint: PSYCH EVAL Other details as noted in HPI Comment: Unobtainable due to pts medical conditions ED Past Medical Hx - Past Medical History Hx Diabetes: Yes Additional medical history: vascular dementia - Medications Home Medications: Home Medications Medication Instructions Recorded Confirmed Last Taken Type ARIPiprazole [Abilify] 10 mg PO DAILY 05/16/21 05/16/21 Unknown History Ipratropium/Albuterol Sulfate 0.5 - 2.5 mg INHALATION Q4HR PRN 05/16/21 05/16/21 Unknown History [DUONEB *Not for PRN Use*] amLODIPine 5 mg PO DAILY 05/16/21 05/16/21 Unknown History diphenhydrAMINE [Benadryl CAP] 25 mg PO QHS PRN MDD For upto 10 05/16/21 05/16/21 Unknown History days donepeziL [Aricept] 5 mg PO QHS 05/16/21 05/16/21 Unknown History guaiFENesin/DEXTROMETHORPHAN 5 ml PO Q12HR 05/16/21 05/16/21 Unknown History [Guaifenesin-Dm 100-10 mg/5 ml] ALBUTEROL NEB's [Proventil 0.083% 2.5 mg IH Q4HRT PRN nebu 05/31/21 Unknown Rx NEBS] ARIPiprazole [Abilify TAB] 25 mg PO QDAY 30 Days #30 tablet 05/31/21 Unknown Rx Lispro Insulin [HumaLOG] 0 unit SUB-Q ACHS units 05/31/21 Unknown Rx clonazePAM [KlonoPIN] 1 mg PO BID 30 Days #30 tablet 05/31/21 Unknown Rx guaiFENesin DM [Guaifenesin Dm 5 ml PO Q12H oral.liqd 05/31/21 Unknown Rx Syrup] Divalproex ER [Depakote ER] 1,000 mg PO QHS 30 Days #30 tablet 07/08/21 Unknown Rx Divalproex ER [Depakote ER] 250 mg PO QAM 30 Days #30 tablet 07/08/21 Unknown Rx Fluconazole [Diflucan TAB] 150 mg PO ONCE #1 dose 07/08/21 Unknown Rx Metformin HCl [metFORMIN] 1,000 mg PO BID #60 07/08/21 Unknown Rx ED Physical Exam - General Limitations: Altered Mental Status General appearance: alert, other (loquacious) - Head Head exam: Present: atraumatic, normal inspection - Eye Eye exam: Present: normal appearance, PERRL, EOMI Pupils: Present: normal accommodation - ENT ENT exam: Present: normal exam, normal orophraynx, mucous membranes moist - Neck Neck exam: Present: normal inspection, full ROM. Absent: tenderness, meningismus, lymphadenopathy, thyromegaly - Respiratory Respiratory exam: Present: normal lung sounds bilaterally - Cardiovascular Cardiovascular Exam: Present: regular rate, normal rhythm - GI/Abdominal GI/Abdominal exam: Present: soft, normal bowel sounds. Absent: distended, tenderness, guarding, rebound, hyperactive bowel sounds, hypoactive bowel sounds, organomegaly, mass, bruit - Extremities Exam Extremities exam: Present: normal inspection, full ROM, normal capillary refill. Absent: tenderness, pedal edema, joint swelling, calf tenderness - Back Exam Back exam: Absent: normal inspection, full ROM, tenderness - Neurological Exam Neurological exam: Present: oriented X3, CN II-XII intact, normal gait, reflexes normal - Psychiatric Psychiatric exam: Present: normal affect, normal mood. Absent: depressed, agitated, anxious, flat affect, manic - Skin Skin exam: Present: warm, dry, intact, normal color ED Course Vital Signs 09/23/21 08:41 Temperature 98.5 F Pulse Rate 103 H Respiratory 18 Rate Blood Pressure 156/76 [Left] O2 Sat by Pulse 98 Oximetry - Reevaluation(s) Reevaluation #1: 09/23/21 14:06 pt calm, cooperative ; no acute distress ED Medical Decision Making - Lab Data Result diagrams: 09/23/21 10:00 09/23/21 10:00 - Medical Decision Making 70yo obese F w/hx of DMII, vascular dementia, brought in after the pt was found wandering from her living facility. VSS. Pt medically cleared by me. 1013 signed. Pt's care transferred to Dr. Perez due to change in provider shift time @ 15:00 Critical care attestation.: If time is entered above; I have spent that time in minutes in the direct care of this critically ill patient, excluding procedure time. ED Disposition Clinical Impression: Vascular dementia Disposition: [address] [place] [address] Is pt being admited?: No Condition: Stable Referrals: PRIMARY CARE, [Primary Care Provider] - 3-5 Days
--- NOTE | 2021-09-23 14:03 | Consultation ---
History of Present Illness - Reason for Consult Consult date: 09/23/21 Reason for consult: mental health evaluation - History of Present Psychiatric Illness ED Note: Is 70-year-old female with a history of documented diabetes type 2, vascular dementia, sent in for evaluation after patient was found wandering in the streets, having left her living facility. Patient states "I ran out because they would not let me use the phone and I had to make a phone call!" She denies any chest pain shortness of breath difficulty breathing or palpitations. The patient is a 69 year old female with history of bipolar,anxiety, dementia, and Schizophrenia. The patient was seen today. She was seen yelling with pressured speech, hyperverbal and disorganized thoughts. PAST PSYCHIATRIC HISTORY: PAST MEDICAL HISTORY: unknown Family Psychiatric History: None reported or documented SOCIAL HISTORY REVIEW OF SYSTEMS MENTAL STATUS EXAMINATION Assessment (1) Bipolar Current Visit: Yes Status: Acute Treatment Plan 1013 Continue home meds Zyprexa 2.5mg po BID Depakote 250mg po BD Trazodone 50mg po QHS PSYCHOTHERAPY: Supportive psychotherapy provided MEDICAL: Per primary team DELIRIUM PRECAUTIONS: Please re-orient patient frequently, keep lights on during the day, and minimize benzodiazepines and opiates as these medications could worsen patient's confusion. 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 Will follow. Thank you for the consult. Case staffed with Dr. White Medications and Allergies Allergies Allergy/AdvReac Type Severity Reaction Status Date / Time haloperidol [From Haldol] Allergy Unknown Verified 05/16/21 22:07 Latex, Natural Rubber Allergy Unknown Verified 05/16/21 22:07 Home Medications Medication Instructions Recorded Confirmed Last Taken Type ARIPiprazole [Abilify] 10 mg PO DAILY 05/16/21 05/16/21 Unknown History Ipratropium/Albuterol Sulfate 0.5 - 2.5 mg INHALATION Q4HR PRN 05/16/21 05/16/21 Unknown History [DUONEB *Not for PRN Use*] amLODIPine 5 mg PO DAILY 05/16/21 05/16/21 Unknown History diphenhydrAMINE [Benadryl CAP] 25 mg PO QHS PRN MDD For upto 10 05/16/21 05/16/21 Unknown History days donepeziL [Aricept] 5 mg PO QHS 05/16/21 05/16/21 Unknown History guaiFENesin/DEXTROMETHORPHAN 5 ml PO Q12HR 05/16/21 05/16/21 Unknown History [Guaifenesin-Dm 100-10 mg/5 ml] ALBUTEROL NEB's [Proventil 0.083% 2.5 mg IH Q4HRT PRN nebu 05/31/21 Unknown Rx NEBS] ARIPiprazole [Abilify TAB] 25 mg PO QDAY 30 Days #30 tablet 05/31/21 Unknown Rx Lispro Insulin [HumaLOG] 0 unit SUB-Q ACHS units 05/31/21 Unknown Rx clonazePAM [KlonoPIN] 1 mg PO BID 30 Days #30 tablet 05/31/21 Unknown Rx guaiFENesin DM [Guaifenesin Dm 5 ml PO Q12H oral.liqd 05/31/21 Unknown Rx Syrup] Divalproex ER [Depakote ER] 1,000 mg PO QHS 30 Days #30 tablet 07/08/21 Unknown Rx Divalproex ER [Depakote ER] 250 mg PO QAM 30 Days #30 tablet 07/08/21 Unknown Rx Fluconazole [Diflucan TAB] 150 mg PO ONCE #1 dose 07/08/21 Unknown Rx Metformin HCl [metFORMIN] 1,000 mg PO BID #60 07/08/21 Unknown Rx Mental Status Exam - Vital signs Last Vital Signs Temp 98.5 F 09/23/21 08:41 Pulse 103 H 09/23/21 08:41 Resp 18 09/23/21 08:41 BP 156/76 09/23/21 08:41 Pulse Ox 98 09/23/21 08:41 Results Result Diagrams: 09/23/21 10:00 09/23/21 10:00 Abnormal lab results 09/23/21 09/23/21 09/23/21 Range/Units 10:00 10:00 10:00 Plt Count 119 L (140-440) K/mm3 [place] % (Auto) 11.0 H (0.0-7.3) % Glucose 224 H (65-100) mg/dL Salicylates < 0.3 L (2.8-20.0) mg/dL Acetaminophen (10.0-30.0) ug/mL Valproic Acid 38.7 L (50-100) ug/mL 09/23/21 Range/Units 10:00 Plt Count (140-440) K/mm3 [place] % (Auto) (0.0-7.3) % Glucose (65-100) mg/dL Salicylates (2.8-20.0) mg/dL Acetaminophen 5.0 L (10.0-30.0) ug/mL Valproic Acid (50-100) ug/mL All other labs normal.
[2021-09-23] MEDS ORDERED: metFORMIN 500 MG TAB PO ONE ×2 (15:15→18:00)
[2021-09-23] MEDS: DIVALPROEX DR 250 MG TAB PO SCH ×2 (17:47→22:07)
[2021-09-23 21:31] LABS: Bilirubin,Urine NEG (Negative); Blood,Urine SM (Negative); Color,Urine Straw (Yellow); Protein,Urine <15 mg/dL mg/dL (Negative); RBC,Urine < 1.0 /HPF (0.0-6.0); Urobilinogen,Urine < 2.0 mg/dL (<2.0)
[2021-09-23] MEDS ORDERED: traZODone 50 MG TAB PO SCH (22:00)
[2021-09-23 22:24] LABS: Amphetamine Screen,Urine PRESUMPTIVE NEGATIVE; Benzodiazepines Screen,Urine PRESUMPTIVE NEGATIVE; Cannabinoid Screen,Urine PRESUMPTIVE NEGATIVE; Cocaine Screen,Urine PRESUMPTIVE NEGATIVE; Methadone Screen,Urine PRESUMPTIVE NEGATIVE; Opiate Screen,Urine PRESUMPTIVE NEGATIVE
[2021-09-24] MEDS: DIVALPROEX DR 250 MG TAB PO SCH (10:10)
--- NOTE | 2021-09-24 11:10 | Progress Note ---
Subjective - Reason for Consult Consult date: 09/24/21 - Chief Complaint Chief complaint: The patient was seen this morning. She continues to present with pressured, hypervebal and disorganized speech. PAST PSYCHIATRIC HISTORY: PAST MEDICAL HISTORY: unknown Family Psychiatric History: None reported or documented SOCIAL HISTORY REVIEW OF SYSTEMS MENTAL STATUS EXAMINATION Assessment (1) Bipolar Current Visit: Yes Status: Acute Treatment Plan 1013 Continue home meds Zyprexa 5mg po BID Depakote 250mg po BD Trazodone 50mg po QHS PSYCHOTHERAPY: Supportive psychotherapy provided MEDICAL: Per primary team DELIRIUM PRECAUTIONS: Please re-orient patient frequently, keep lights on during the day, and minimize benzodiazepines and opiates as these medications could worsen patient's confusion. 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 Will follow. Thank you for the consult. Case staffed with Dr. White Mental Status Exam - Vital signs Last Vital Signs Temp 97.6 F 09/24/21 10:45 Pulse 95 H 09/24/21 10:45 Resp 17 09/24/21 10:45 BP 131/74 09/24/21 10:45 Pulse Ox 97 09/24/21 10:45
--- NOTE | 2021-09-24 12:12 | Event Note ---
Chart and nursing notes reviewed. Patient remains on a 1013 and awaiting psychiatric placement. Patient is a diabetic, medications during previous visits reviewed. Patient will be started on metformin 1000 mg.
[2021-09-24] MEDS ORDERED: metFORMIN 500 MG TAB PO SCH (17:00)
[2021-09-24] MEDS ORDERED: DEXTROSE 50% IN WATER (25GM) 50 ML SYRINGE IV PRN ×2 (17:06→17:29)
[2021-09-24] MEDS ORDERED: INSULIN REGULAR, HUMAN 100 UNITS/1 ML ONE (17:24)
[2021-09-24] MEDS ORDERED: INSULIN REGULAR, HUMAN 100 UNITS/1 ML SUB-Q SCH (17:29)
[2021-09-24 18:42] VITALS: BP 130/72
== END 2021-09-24 18:40 ==
LOC: ED 08:40
DX: F01.50 Vascular dementia, unspecified severity, without behavioral disturbance, psychotic disturbance, mood disturbance, and anxiety (principal); E11.9 Type 2 diabetes mellitus without complications; Z20.822 Contact with and (suspected) exposure to COVID-19; Z88.8 Allergy status to other drugs, medicaments and biological substances; Z91.040 Latex allergy status
CPT/HCPCS: 36415; 80048; 80164; 80307; 80320; 81001; 82962; 84443; 85025; Q9967; G0480; J1815; U0003

== ENCOUNTER 2021-09-24 13:40 | Inpatient (IN) | payer MEDICARE ==
[2021-09-24] MEDS ORDERED: ALBUTEROL 2.5 MG/3 ML NEBU IH PRN (16:00)
[2021-09-24] MEDS: INSULIN LISPRO 100 UNIT/ML SUB-Q SCH ×2 (21:41→21:44)
[2021-09-24] MEDS: DONEPEZIL 5 MG TAB PO SCH (21:43)
[2021-09-25 05:47] LABS: Hepatitis B Surface Antigen Non-Reactive (Negative); Hepatitis C Virus Antibody Non-Reactive (NonReactive)
[2021-09-25 05:53] LABS: Chol/HDL Ratio 2.01 %
[2021-09-25] MEDS: INSULIN LISPRO 100 UNIT/ML SUB-Q SCH ×4 (07:30→21:27)
--- NOTE | 2021-09-25 08:19 | Consultation ---
History of Present Illness - Reason for Consult med management Requesting physician: NEYMAR ARANGO - History of Present Illness 70-year-old female with past medical history of hypertension, bipolar disorder, type 2 diabetes, obesity presenting to our facility as she was found wandering down the street. There was some concern for her living situation patient was admitted to our facility to the geriatric psychiatry floor. Internal medicine service consulted for medical management. Patient had no acute complaints on my encounter. Review of systems was negative for headache, nausea, vomiting, diarrhea chest pain, palpitations, shortness of breath, abdominal pain, periphe ral nerve pain, change in appetite, change in urinary/bowel habits. PMHx: Hypertension, bipolar disorder, type 2 diabetes, obesity PSHx: D&C in 1969 FHx: Reviewed noncontributory SHx: Tobacco use-denies ETOH Use-denies Recreational Drug Use-denies Lives in [facility] home Medications and Allergies Allergies Allergy/AdvReac Type Severity Reaction Status Date / Time haloperidol [From Haldol] Allergy Unknown Verified 05/16/21 22:07 Latex, Natural Rubber Allergy Unknown Verified 05/16/21 22:07 Home Medications Medication Instructions Recorded Confirmed Last Taken Type ARIPiprazole [Abilify] 10 mg PO DAILY 05/16/21 09/25/21 Unknown History Ipratropium/Albuterol Sulfate 0.5 - 2.5 mg INHALATION Q4HR PRN 05/16/21 09/25/21 Unknown History [DUONEB *Not for PRN Use*] amLODIPine 5 mg PO DAILY 05/16/21 09/25/21 Unknown History diphenhydrAMINE [Benadryl CAP] 25 mg PO QHS PRN MDD For upto 10 05/16/21 09/25/21 Unknown History days donepeziL [Aricept] 5 mg PO QHS 05/16/21 09/25/21 Unknown History guaiFENesin/DEXTROMETHORPHAN 5 ml PO Q12HR 05/16/21 09/25/21 Unknown History [Guaifenesin-Dm 100-10 mg/5 ml] ALBUTEROL NEB's [Proventil 0.083% 2.5 mg IH Q4HRT PRN nebu 05/31/21 09/25/21 Unknown Rx NEBS] ARIPiprazole [Abilify TAB] 25 mg PO QDAY 30 Days #30 tablet 05/31/21 09/25/21 Unknown Rx Lispro Insulin [HumaLOG] 0 unit SUB-Q ACHS units 05/31/21 09/25/21 Unknown Rx clonazePAM [KlonoPIN] 1 mg PO BID 30 Days #30 tablet 05/31/21 09/25/21 Unknown Rx guaiFENesin DM [Guaifenesin Dm 5 ml PO Q12H oral.liqd 05/31/21 09/25/21 Unknown Rx Syrup] Divalproex ER [Depakote ER] 1,000 mg PO QHS 30 Days #30 tablet 07/08/21 09/25/21 Unknown Rx Divalproex ER [Depakote ER] 250 mg PO QAM 30 Days #30 tablet 07/08/21 09/25/21 Unknown Rx Fluconazole [Diflucan TAB] 150 mg PO ONCE #1 dose 07/08/21 09/25/21 Unknown Rx Metformin HCl [metFORMIN] 1,000 mg PO BID #60 07/08/21 09/25/21 Unknown Rx Active Meds: Active Medications Albuterol (Albuterol 2.5 Mg/3 Ml Nebu) 2.5 mg IH Q4HRT PRN PRN Reason: Shortness Of Breath Amlodipine Besylate (Amlodipine 5 Mg Tab) 5 mg PO DAILY JULIO Aripiprazole (Aripiprazole 10 Mg Tab) 10 mg PO DAILY JULIO Divalproex Sodium (Divalproex Er 250 Mg Tab) 250 mg PO QAM JULIO Donepezil HCl (Donepezil 5 Mg Tab) 5 mg PO QHS [facility] Last Admin: 09/24/21 21:43 Dose: 5 mg Insulin Human Lispro (Insulin Lispro 100 Unit/Ml) 0 unit SUB-Q ACHS JULIO; Protocol Last Admin: 09/24/21 21:44 Dose: Not Given Review of Systems All systems: negative (For stated in HPI) Exam - Physical Exam Narrative exam: Physical Exam: VITAL SIGNS: Reviewed. GENERAL: The patient appears normally developed, Vital signs as documented. Obese HEAD: No signs of head trauma. EYES: Pupils are equal. Extraocular motions intact. EARS: Hearing grossly intact. MOUTH: Oropharynx is normal. NECK: No adenopathy, no JVD. CHEST: Chest with clear breath sounds bilaterally. No wheezes, rales, or rhonchi. CARDIAC: Regular rate and rhythm. S1 and S2, without murmurs, gallops, or rubs. VASCULAR: No Edema. Peripheral pulses normal and equal in all extremities. ABDOMEN: Soft, non tender and non distended. No rebound or guarding, and no masses palpated. Bowel Sounds normal. MUSCULOSKELETAL: Good range of motion of all major joints. Extremities without clubbing, cyanosis or edema. NEUROLOGIC EXAM: Alert and oriented x 2. no focal sensory or strength deficits. PSYCHIATRIC: Verbose, dementia SKIN: detail exam as documented in skin assessment - Constitutional Vitals: Temp Pulse Resp BP Pulse Ox 98.4 F 79 17 108/65 94 09/24/21 22:00 09/24/21 22:00 09/24/21 22:00 09/24/21 22:00 09/24/21 22:00 Results - Labs Labs: Abnormal lab results 09/25/21 09/25/21 09/25/21 Range/Units 05:02 05:02 06:12 POC Glucose 179 H (70-105) mg/dL Hemoglobin A1c 9.9 H (4-6) % LDL Cholesterol Direct 48 L (50-130) mg/dL HDL Cholesterol 62 H (40-59) mg/dL Assessment and Plan #Bipolar disorder #Hypertension #Type 2 diabetes on insulin #Vascular dementia #Morbid Obesity - BMI 37.4 - Counseled patient on the importance of weight loss, incorporating exercise, and dietary changes (lean meats, fresh fruits and vegetables, and water intake). Patient expresses understanding. - Time: +15 min #Advance care planning Disease education conducted, care plan discussed, diagnoses discussed, prognosis discussed, patient is full code, patient acknowledges understanding and agree with care plan, +30 minutes. Plan -Psychiatric medication management per inpatient psych service -Monitor blood pressure daily, currently normotensive. VSS otherwise -Accu-Cheks ACHS -Resume amlodipine 5 mg po daily for BP control -Sliding scale coverage, may need additional coverage if control inadequate. goal bg 140-180. - will follow lab work already ordered. -Monitor QTC Thank you for this consultation. IM service will continue to follow while patient is in the hospital.
--- NOTE | 2021-09-25 08:58 | Progress Note ---
Subjective Date of service: 09/25/21 Medications and Allergies Allergies Allergy/AdvReac Type Severity Reaction Status Date / Time haloperidol [From Haldol] Allergy Unknown Verified 05/16/21 22:07 Latex, Natural Rubber Allergy Unknown Verified 05/16/21 22:07 Home Medications Medication Instructions Recorded Confirmed Last Taken Type ARIPiprazole [Abilify] 10 mg PO DAILY 05/16/21 09/25/21 Unknown History Ipratropium/Albuterol Sulfate 0.5 - 2.5 mg INHALATION Q4HR PRN 05/16/21 09/25/21 Unknown History [DUONEB *Not for PRN Use*] amLODIPine 5 mg PO DAILY 05/16/21 09/25/21 Unknown History diphenhydrAMINE [Benadryl CAP] 25 mg PO QHS PRN MDD For upto 10 05/16/21 09/25/21 Unknown History days donepeziL [Aricept] 5 mg PO QHS 05/16/21 09/25/21 Unknown History guaiFENesin/DEXTROMETHORPHAN 5 ml PO Q12HR 05/16/21 09/25/21 Unknown History [Guaifenesin-Dm 100-10 mg/5 ml] ALBUTEROL NEB's [Proventil 0.083% 2.5 mg IH Q4HRT PRN nebu 05/31/21 09/25/21 Unknown Rx NEBS] ARIPiprazole [Abilify TAB] 25 mg PO QDAY 30 Days #30 tablet 05/31/21 09/25/21 Unknown Rx Lispro Insulin [HumaLOG] 0 unit SUB-Q ACHS units 05/31/21 09/25/21 Unknown Rx clonazePAM [KlonoPIN] 1 mg PO BID 30 Days #30 tablet 05/31/21 09/25/21 Unknown Rx guaiFENesin DM [Guaifenesin Dm 5 ml PO Q12H oral.liqd 05/31/21 09/25/21 Unknown Rx Syrup] Divalproex ER [Depakote ER] 1,000 mg PO QHS 30 Days #30 tablet 07/08/21 09/25/21 Unknown Rx Divalproex ER [Depakote ER] 250 mg PO QAM 30 Days #30 tablet 07/08/21 09/25/21 Unknown Rx Fluconazole [Diflucan TAB] 150 mg PO ONCE #1 dose 07/08/21 09/25/21 Unknown Rx Metformin HCl [metFORMIN] 1,000 mg PO BID #60 07/08/21 09/25/21 Unknown Rx Active Meds: Active Medications Albuterol (Albuterol 2.5 Mg/3 Ml Nebu) 2.5 mg IH Q4HRT PRN PRN Reason: Shortness Of Breath Amlodipine Besylate (Amlodipine 5 Mg Tab) 5 mg PO DAILY JULIO Aripiprazole (Aripiprazole 10 Mg Tab) 10 mg PO DAILY JULIO Divalproex Sodium (Divalproex Er 250 Mg Tab) 250 mg PO QAM JULIO Donepezil HCl (Donepezil 5 Mg Tab) 5 mg PO QHS [facility] Last Admin: 09/24/21 21:43 Dose: 5 mg Insulin Human Lispro (Insulin Lispro 100 Unit/Ml) 0 unit SUB-Q ACHS [facility]; Protocol Last Admin: 09/24/21 21:44 Dose: Not Given Results - Results Labs/Vitals: Laboratory Last Values POC Glucose 179 mg/dL (70-105) H 09/25/21 06:12 Hemoglobin A1c 9.9 % (4-6) H 09/25/21 05:02 Triglycerides 81 mg/dL (2-149) 09/25/21 05:02 Cholesterol 125 mg/dL (50-199) 09/25/21 05:02 LDL Cholesterol Direct 48 mg/dL (50-130) L 09/25/21 05:02 HDL Cholesterol 62 mg/dL (40-59) H 09/25/21 05:02 Cholesterol/HDL Ratio 2.01 % 09/25/21 05:02 TSH 1.240 mlU/mL (0.270-4.200) 09/25/21 05:02 Hepatitis A IgM Ab Non-reactive (NonReactive) 09/25/21 05:02 Hep Bs Antigen Non-reactive (Negative) 09/25/21 05:02 Hep B Core IgM Ab Non-reactive (NonReactive) 09/25/21 05:02 Hepatitis C Antibody Non-reactive (NonReactive) 09/25/21 05:02 Last Vital Signs Temp 98.4 F 09/24/21 22:00 Pulse 79 09/24/21 22:00 Resp 17 09/24/21 22:00 BP 108/65 09/24/21 22:00 Pulse Ox 94 09/24/21 22:00
[2021-09-25] MEDS: amLODIPine 5 MG TAB PO SCH (09:01)
[2021-09-25] MEDS: DIVALPROEX ER 250 MG TAB PO SCH (09:02)
[2021-09-25] MEDS: ARIPiprazole 10 MG TAB PO SCH (09:02)
--- NOTE | 2021-09-25 09:05 | History and Physical Report ---
GP History & Physical - History of Present Illness Date of admission: 09/24/21 Date of Examination: 09/25/21 Reason for Admission: Danger to self, Danger to others, Failure of Outpatient Treatment Chief Complaint: Manic History of Present Illness: The patient is a 70 year old female with history of Bipolar,Anxiety, Dementia, and Schizophrenia who was initially seen in the ED. The patient was seen today. Continues to presents with hypervebal speech and flight of ideas. Difficult to understand. PAST PSYCHIATRIC HISTORY: PAST MEDICAL HISTORY: unknown Family Psychiatric History: None reported or documented SOCIAL HISTORY REVIEW OF SYSTEMS MENTAL STATUS EXAMINATION Assessment (1) Bipolar Current Visit: Yes Status: Acute Treatment Plan Patient admitted for inpatient psychiatric evaluation, medication adjustment and close monitoring The patient's behavior, mood, sleep and appetite will be closely monitored. Patient enrolled in individual and group therapeutic sessions and encouraged to attend. Patient provided with a safe and structured environment. Patient's physical health needs will be addressed by the Hospitalist. Hospitalist Consulted Labs including CBC, CMP, Lipid profile and Hemoglobin A1C levels ordered for baseline reference Social Assessment will be completed and the Mixed Crop Farmer will work with patient and family to ensure a suitable and safe disposition Medication adjustment will be made as clinically indicated Restart home medications Usual Wellness Religion/Preservation: - Start Trazodone 50 mg po QHS & 50 mg po QHS PRN between 10 PM & 2 AM for insomnia - Start Melatonin 5 mg po QHS to promote circadian rhythm The patient agreed on the treatment plan, understood the risk, benefit, alternative treatment, potential consequence of no treatment, and gave informed consent. Estimated days: 7 Post hospital care: primary care provider, psychiatric provider Case staffed with Dr. White Legal Status: Voluntary Reaction to Hospitalization: Accepting Medications and Allergies Allergies Allergy/AdvReac Type Severity Reaction Status Date / Time haloperidol [From Haldol] Allergy Unknown Verified 05/16/21 22:07 Latex, Natural Rubber Allergy Unknown Verified 05/16/21 22:07 Home Medications Medication Instructions Recorded Confirmed Last Taken Type ARIPiprazole [Abilify] 10 mg PO DAILY 05/16/21 09/25/21 Unknown History Ipratropium/Albuterol Sulfate 0.5 - 2.5 mg INHALATION Q4HR PRN 05/16/21 09/25/21 Unknown History [DUONEB *Not for PRN Use*] amLODIPine 5 mg PO DAILY 05/16/21 09/25/21 Unknown History diphenhydrAMINE [Benadryl CAP] 25 mg PO QHS PRN MDD For upto 10 05/16/21 09/25/21 Unknown History days donepeziL [Aricept] 5 mg PO QHS 05/16/21 09/25/21 Unknown History guaiFENesin/DEXTROMETHORPHAN 5 ml PO Q12HR 05/16/21 09/25/21 Unknown History [Guaifenesin-Dm 100-10 mg/5 ml] ALBUTEROL NEB's [Proventil 0.083% 2.5 mg IH Q4HRT PRN nebu 05/31/21 09/25/21 Unknown Rx NEBS] ARIPiprazole [Abilify TAB] 25 mg PO QDAY 30 Days #30 tablet 05/31/21 09/25/21 Unknown Rx Lispro Insulin [HumaLOG] 0 unit SUB-Q ACHS units 05/31/21 09/25/21 Unknown Rx clonazePAM [KlonoPIN] 1 mg PO BID 30 Days #30 tablet 05/31/21 09/25/21 Unknown Rx guaiFENesin DM [Guaifenesin Dm 5 ml PO Q12H oral.liqd 05/31/21 09/25/21 Unknown Rx Syrup] Divalproex ER [Depakote ER] 1,000 mg PO QHS 30 Days #30 tablet 07/08/21 09/25/21 Unknown Rx Divalproex ER [Depakote ER] 250 mg PO QAM 30 Days #30 tablet 07/08/21 09/25/21 Unknown Rx Fluconazole [Diflucan TAB] 150 mg PO ONCE #1 dose 07/08/21 09/25/21 Unknown Rx Metformin HCl [metFORMIN] 1,000 mg PO BID #60 07/08/21 09/25/21 Unknown Rx Active Meds: Active Medications Albuterol (Albuterol 2.5 Mg/3 Ml Nebu) 2.5 mg IH Q4HRT PRN PRN Reason: Shortness Of Breath Amlodipine Besylate (Amlodipine 5 Mg Tab) 5 mg PO DAILY JULIO Aripiprazole (Aripiprazole 10 Mg Tab) 10 mg PO DAILY JULIO Divalproex Sodium (Divalproex Er 250 Mg Tab) 250 mg PO QAM JULIO Donepezil HCl (Donepezil 5 Mg Tab) 5 mg PO QHS JULIO Last Admin: 09/24/21 21:43 Dose: 5 mg Insulin Human Lispro (Insulin Lispro 100 Unit/Ml) 0 unit SUB-Q ACHS [facility]; Protocol Last Admin: 09/24/21 21:44 Dose: Not Given Results - Results Labs/Vitals: Laboratory Last Values POC Glucose 179 mg/dL (70-105) H 09/25/21 06:12 Hemoglobin A1c 9.9 % (4-6) H 09/25/21 05:02 Triglycerides 81 mg/dL (2-149) 09/25/21 05:02 Cholesterol 125 mg/dL (50-199) 09/25/21 05:02 LDL Cholesterol Direct 48 mg/dL (50-130) L 09/25/21 05:02 HDL Cholesterol 62 mg/dL (40-59) H 09/25/21 05:02 Cholesterol/HDL Ratio 2.01 % 09/25/21 05:02 TSH 1.240 mlU/mL (0.270-4.200) 09/25/21 05:02 Hepatitis A IgM Ab Non-reactive (NonReactive) 09/25/21 05:02 Hep Bs Antigen Non-reactive (Negative) 09/25/21 05:02 Hep B Core IgM Ab Non-reactive (NonReactive) 09/25/21 05:02 Hepatitis C Antibody Non-reactive (NonReactive) 09/25/21 05:02 Last Vital Signs Temp 98.4 F 09/24/21 22:00 Pulse 79 09/24/21 22:00 Resp 17 09/24/21 22:00 BP 108/65 09/24/21 22:00 Pulse Ox 94 09/24/21 22:00 Physical Examination - Constitutional Vitals: Vital Signs Temp Pulse Resp BP Pulse Ox 98.4 F 79 17 108/65 94 09/24/21 22:00 09/24/21 22:00 09/24/21 22:00 09/24/21 22:00 09/24/21 22:00 Temperature -Last 24 Hours Temperature 98.4 F Mental Status Exam - Vital signs Last Vital Signs Temp 98.4 F 09/24/21 22:00 Pulse 79 09/24/21 22:00 Resp 17 09/24/21 22:00 BP 108/65 09/24/21 22:00 Pulse Ox 94 09/24/21 22:00 Physician Certification - Certification Statement Physician Certification Statement: This is an acknowledgement statement that AGGIE STEVEN is a 70 year old F who requires inpatient psychiatric admission for treatment which could reasonably be expected to improve the patient's condition for Estimated period of time patient will need to remain in the hospital: [ ] Plan for post-hospital care: [ ]
[2021-09-25] MEDS: DONEPEZIL 5 MG TAB PO SCH (21:10)
[2021-09-25] MEDS ORDERED: ZIPRASIDONE MESYLATE 20 MG VIAL IM ONE (23:38)
[2021-09-25] MEDS ORDERED: WATER FOR INJ Sterile (PF) 10 ML ONE (23:49)
[2021-09-26] MEDS: INSULIN LISPRO 100 UNIT/ML SUB-Q SCH ×4 (07:21→21:16)
--- NOTE | 2021-09-26 07:55 | Progress Note ---
Assessment and Plan Assessment and plan: #Bipolar disorder #Hypertension #Type 2 diabetes on insulin #Vascular dementia #Morbid Obesity - BMI 37.4 - Counseled patient on the importance of weight loss, incorporating exercise, and dietary changes (lean meats, fresh fruits and vegetables, and water intake). Patient expresses understanding. - Time: +15 min #Advance care planning Disease education conducted, care plan discussed, diagnoses discussed, prognosis discussed, patient is full code, patient acknowledges understanding and agree with care plan, +30 minutes. Plan -Psychiatric medication management per inpatient psych service -Monitor blood pressure daily, currently normotensive. VSS otherwise -Accu-Cheks ACHS -low blood pressures noted in last 24hrs. dc amlodipine 5 mg po daily for BP control -Sliding scale coverage, may need additional coverage if control inadequate. goal bg 140-180. - will follow lab work already ordered. -Monitor QTC Thank you for this consultation. IM service will continue to follow while patient is in the hospital. History Interval history: No acute complaints. Hospitalist Physical - Physical exam Narrative exam: Physical Exam: VITAL SIGNS: Reviewed. GENERAL: The patient appears normally developed, Vital signs as documented. Obese HEAD: No signs of head trauma. EYES: Pupils are equal. Extraocular motions intact. EARS: Hearing grossly intact. MOUTH: Oropharynx is normal. NECK: No adenopathy, no JVD. CHEST: Chest with clear breath sounds bilaterally. No wheezes, rales, or rhonchi. CARDIAC: Regular rate and rhythm. S1 and S2, without murmurs, gallops, or rubs. VASCULAR: No Edema. Peripheral pulses normal and equal in all extremities. ABDOMEN: Soft, non tender and non distended. No rebound or guarding, and no masses palpated. Bowel Sounds normal. MUSCULOSKELETAL: Good range of motion of all major joints. Extremities without clubbing, cyanosis or edema. NEUROLOGIC EXAM: Alert and oriented x 2. no focal sensory or strength deficits. PSYCHIATRIC: Verbose, dementia SKIN: detail exam as documented in skin assessment - Constitutional Vitals: Temp Pulse Resp BP Pulse Ox 97.5 F L 74 16 110/61 95 09/25/21 19:49 09/25/21 21:40 09/25/21 19:49 09/25/21 19:49 09/25/21 21:40 Results - Labs Labs: Laboratory Last Values POC Glucose 188 mg/dL (70-105) H 09/26/21 06:26 Hemoglobin A1c 9.9 % (4-6) H 09/25/21 05:02 Triglycerides 81 mg/dL (2-149) 09/25/21 05:02 Cholesterol 125 mg/dL (50-199) 09/25/21 05:02 LDL Cholesterol Direct 48 mg/dL (50-130) L 09/25/21 05:02 HDL Cholesterol 62 mg/dL (40-59) H 09/25/21 05:02 Cholesterol/HDL Ratio 2.01 % 09/25/21 05:02 TSH 1.240 mlU/mL (0.270-4.200) 09/25/21 05:02 Hepatitis A IgM Ab Non-reactive (NonReactive) 09/25/21 05:02 Hep Bs Antigen Non-reactive (Negative) 09/25/21 05:02 Hep B Core IgM Ab Non-reactive (NonReactive) 09/25/21 05:02 Hepatitis C Antibody Non-reactive (NonReactive) 09/25/21 05:02 Du/IV: Voiding Method Toilet Active Medications - Current Medications Current Medications: Generic Name Dose Route Start Last Admin Trade Name Freq PRN Reason Stop Dose Admin Albuterol 2.5 mg 09/24/21 16:00 Albuterol 2.5 Mg/3 Ml Nebu IH Q4HRT PRN Shortness Of Breath Amlodipine Besylate 5 mg 09/25/21 10:00 09/25/21 09:01 Amlodipine 5 Mg Tab PO Not Given DAILY JULIO Aripiprazole 10 mg 09/25/21 10:00 09/25/21 09:02 Aripiprazole 10 Mg Tab PO 10 mg DAILY JULIO Administration Divalproex Sodium 250 mg 09/25/21 10:00 09/25/21 09:02 Divalproex Er 250 Mg Tab PO 250 mg QAM JULIO Administration Donepezil HCl 5 mg 09/24/21 22:00 09/25/21 21:10 Donepezil 5 Mg Tab PO 5 mg QHS JULIO Administration Insulin Human Lispro 0 unit 09/24/21 16:30 09/26/21 07:21 Insulin Lispro 100 Unit/Ml SUB-Q 1 unit ACHS JULIO Administration Protocol Nutrition/Malnutrition Assess - Dietary Evaluation Nutrition/Malnutrition Findings: Nutrition Notes Start: 06/02/22 16:08 Freq: Status: Active Protocol: Document 09/25/21 16:08 NICHOLAS (Rec: 09/25/21 16:23 NICHOLAS [id number]) Nutrition Notes Need for Assessment generated from: MD Order,Education Initial or Follow up Brief Note Other Pertinent Diagnosis Bipolar Disorder, Anxiety, Dementia, Schizophrenia. Current Diet Cardiac/Consistent Carbohydrates Diet (since D ). Labs/Tests 09/25: HbA1c 9.9%. Pertinent Medications 09/25: Humalog 1U, others nutritionally unremarkable. 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 Weight Status Morbidly Obese Subjective/Other Information RD consult for nutrition education assessment. Pt's PO intake of meals has been Good (100%), according to ADL notes. Pt is on Room Air, O2 saturation @ 94%, according to Vital Signs. Pt needs total assistance with ADL activities, not a candidate for Nutrition Education. Percent of energy/protein needs met: Prescribed Cardiac/Consistent Carbohydrates Diet provides for energy/protein needs (1, 977 Kcal/86 g) during LOS. Burn Absent Trauma Absent GI Symptoms None Food Allergy No Skin Integrity/Comment Assessment WNL. Current % PO Good (75-100%) Minimum of two criteria No #1 Nutrition Diagnosis No nutrition diagnosis at this time Is patient on ventilator? No Is Patient Ambulatory and/or Out of Bed Yes [facility] [ 2009.294 NUTR.MSJOOB] Kcal/Kg value to use for calculation 15 Approximate Energy Requirements Using 1531 kcal/Kg Calculation Used for Recommendations Kcal/kg Additional Notes Protein: 1-1.2 g/Kg AdjBW; 70- 84 g/day. Fluids: 1 ml/Kcal, or as per MD. Nutrition Intervention Change Diet Order: Continue Cardiac/Consistent Carbohydrates Diet. Revisit per MD consult or patient Sign Off request: Additional Comments Continue monitoring food tolerance, %PO intake of meals , and BM.
[2021-09-26] MEDS: ARIPiprazole 10 MG TAB PO SCH (09:07)
[2021-09-26] MEDS: amLODIPine 5 MG TAB PO SCH (09:07)
[2021-09-26] MEDS: DIVALPROEX ER 250 MG TAB PO SCH ×2 (09:07→21:16)
--- NOTE | 2021-09-26 10:20 | Progress Note ---
Subjective Date of service: 09/26/21 Subjective Comment: 09/26: The patient was seen today. She continues to be manic, disruptive and aggressive. She requires PRN Geodon for agitation. Per nurse note the patient exhibited aggressive behavior the night before. Plan: Depakote increased to 500mg bid - History of Present Illness Date of admission: 09/24/21 Date of Examination: 09/25/21 Reason for Admission: Danger to self, Danger to others, Failure of Outpatient Treatment Chief Complaint: Manic History of Present Illness: The patient is a 70 year old female with history of Bipolar,Anxiety, Dementia, and Schizophrenia who was initially seen in the ED. The patient was seen today. Continues to presents with hypervebal speech and flight of ideas. Difficult to understand. PAST MEDICAL HISTORY: unknown Family Psychiatric History: None reported or documented Assessment (1) Bipolar Current Visit: Yes Status: Acute Treatment Plan Estimated days: 6 Post hospital care: primary care provider, psychiatric provider Legal Status: Voluntary Reaction to Hospitalization: Accepting Medications and Allergies Allergies Allergy/AdvReac Type Severity Reaction Status Date / Time haloperidol [From Haldol] Allergy Unknown Verified 05/16/21 22:07 Latex, Natural Rubber Allergy Unknown Verified 05/16/21 22:07 Home Medications Medication Instructions Recorded Confirmed Last Taken Type ARIPiprazole [Abilify] 10 mg PO DAILY 05/16/21 09/25/21 Unknown History Ipratropium/Albuterol Sulfate 0.5 - 2.5 mg INHALATION Q4HR PRN 05/16/21 09/25/21 Unknown History [DUONEB *Not for PRN Use*] amLODIPine 5 mg PO DAILY 05/16/21 09/25/21 Unknown History diphenhydrAMINE [Benadryl CAP] 25 mg PO QHS PRN MDD For upto 10 05/16/21 09/25/21 Unknown History days donepeziL [Aricept] 5 mg PO QHS 05/16/21 09/25/21 Unknown History guaiFENesin/DEXTROMETHORPHAN 5 ml PO Q12HR 05/16/21 09/25/21 Unknown History [Guaifenesin-Dm 100-10 mg/5 ml] ALBUTEROL NEB's [Proventil 0.083% 2.5 mg IH Q4HRT PRN nebu 05/31/21 09/25/21 Unknown Rx NEBS] ARIPiprazole [Abilify TAB] 25 mg PO QDAY 30 Days #30 tablet 05/31/21 09/25/21 Unknown Rx Lispro Insulin [HumaLOG] 0 unit SUB-Q ACHS units 05/31/21 09/25/21 Unknown Rx clonazePAM [KlonoPIN] 1 mg PO BID 30 Days #30 tablet 05/31/21 09/25/21 Unknown Rx guaiFENesin DM [Guaifenesin Dm 5 ml PO Q12H oral.liqd 05/31/21 09/25/21 Unknown Rx Syrup] Divalproex ER [Depakote ER] 1,000 mg PO QHS 30 Days #30 tablet 07/08/21 09/25/21 Unknown Rx Divalproex ER [Depakote ER] 250 mg PO QAM 30 Days #30 tablet 07/08/21 09/25/21 Unknown Rx Fluconazole [Diflucan TAB] 150 mg PO ONCE #1 dose 07/08/21 09/25/21 Unknown Rx Metformin HCl [metFORMIN] 1,000 mg PO BID #60 07/08/21 09/25/21 Unknown Rx Active Meds: Active Medications Albuterol (Albuterol 2.5 Mg/3 Ml Nebu) 2.5 mg IH Q4HRT PRN PRN Reason: Shortness Of Breath Amlodipine Besylate (Amlodipine 5 Mg Tab) 5 mg PO DAILY [facility] Last Admin: 09/26/21 09:07 Dose: Not Given Aripiprazole (Aripiprazole 10 Mg Tab) 10 mg PO DAILY [facility] Last Admin: 09/26/21 09:07 Dose: 10 mg Divalproex Sodium (Divalproex Er 250 Mg Tab) 250 mg PO QAM [facility] Last Admin: 09/26/21 09:07 Dose: 250 mg Donepezil HCl (Donepezil 5 Mg Tab) 5 mg PO QHS [facility] Last Admin: 09/25/21 21:10 Dose: 5 mg Insulin Human Lispro (Insulin Lispro 100 Unit/Ml) 0 unit SUB-Q ACHS [facility]; Protocol Last Admin: 09/26/21 07:21 Dose: 1 unit Results - Results Labs/Vitals: Laboratory Last Values POC Glucose 188 mg/dL (70-105) H 09/26/21 06:26 Hemoglobin A1c 9.9 % (4-6) H 09/25/21 05:02 Triglycerides 81 mg/dL (2-149) 09/25/21 05:02 Cholesterol 125 mg/dL (50-199) 09/25/21 05:02 LDL Cholesterol Direct 48 mg/dL (50-130) L 09/25/21 05:02 HDL Cholesterol 62 mg/dL (40-59) H 09/25/21 05:02 Cholesterol/HDL Ratio 2.01 % 09/25/21 05:02 TSH 1.240 mlU/mL (0.270-4.200) 09/25/21 05:02 Hepatitis A IgM Ab Non-reactive (NonReactive) 09/25/21 05:02 Hep Bs Antigen Non-reactive (Negative) 09/25/21 05:02 Hep B Core IgM Ab Non-reactive (NonReactive) 09/25/21 05:02 Hepatitis C Antibody Non-reactive (NonReactive) 09/25/21 05:02 Last Vital Signs Temp 98.2 F 09/26/21 09:03 Pulse 92 H 09/26/21 09:07 Resp 20 09/26/21 09:03 BP 94/62 09/26/21 09:07 Pulse Ox 96 09/26/21 09:03
[2021-09-26] MEDS ORDERED: ZIPRASIDONE MESYLATE 20 MG VIAL IM PRN (12:00)
[2021-09-26] MEDS: DONEPEZIL 5 MG TAB PO SCH (21:16)
[2021-09-27] MEDS ORDERED: ACETAMINOPHEN 325 MG TAB PO PRN (02:28)
[2021-09-27] MEDS: INSULIN LISPRO 100 UNIT/ML SUB-Q SCH ×4 (08:30→23:29)
[2021-09-27] MEDS: metFORMIN 500 MG TAB PO SCH ×2 (08:31→17:31)
[2021-09-27] MEDS: glipiZIDE 5 MG TAB PO SCH ×2 (08:31→17:31)
--- NOTE | 2021-09-27 09:13 | Progress Note ---
Assessment and Plan Assessment and plan: #Bipolar disorder #Hypertension #Type 2 diabetes on insulin #Vascular dementia #Morbid Obesity - BMI 37.4 - Counseled patient on the importance of weight loss, incorporating exercise, and dietary changes (lean meats, fresh fruits and vegetables, and water intake). Patient expresses understanding. - Time: +15 min #Advance care planning Disease education conducted, care plan discussed, diagnoses discussed, prognosis discussed, patient is full code, patient acknowledges understanding and agree with care plan, +30 minutes. Plan -Psychiatric medication management per inpatient psych service -Monitor blood pressure daily, currently normotensive. VSS otherwise -Accu-Cheks ACHS -hold anti-HTN medications at this time due to low blood pressures -Sliding scale coverage, may need additional coverage if control inadequate. goal bg 140-180. - will follow lab work already ordered. -Monitor QTC Thank you for this consultation. IM service will continue to follow while patient is in the hospital. History Interval history: Pleasant on bedside encounter. no acute complaints. Hospitalist Physical - Physical exam Narrative exam: Physical Exam: VITAL SIGNS: Reviewed. GENERAL: The patient appears normally developed, Vital signs as documented. Obese HEAD: No signs of head trauma. EYES: Pupils are equal. Extraocular motions intact. EARS: Hearing grossly intact. MOUTH: Oropharynx is normal. NECK: No adenopathy, no JVD. CHEST: Chest with clear breath sounds bilaterally. No wheezes, rales, or rhonchi. CARDIAC: Regular rate and rhythm. S1 and S2, without murmurs, gallops, or rubs. VASCULAR: No Edema. Peripheral pulses normal and equal in all extremities. ABDOMEN: Soft, non tender and non distended. No rebound or guarding, and no masses palpated. Bowel Sounds normal. MUSCULOSKELETAL: Good range of motion of all major joints. Extremities without clubbing, cyanosis or edema. NEUROLOGIC EXAM: Alert and oriented x 2. no focal sensory or strength deficits. PSYCHIATRIC: Verbose, dementia SKIN: detail exam as documented in skin assessment - Constitutional Vitals: Temp Pulse Resp BP Pulse Ox 97.3 F L 74 16 125/72 95 09/26/21 20:13 09/26/21 20:13 09/26/21 20:13 09/26/21 20:13 09/26/21 20:13 Results - Labs Labs: Laboratory Last Values POC Glucose 175 mg/dL (70-105) H 09/27/21 06:10 Hemoglobin A1c 9.9 % (4-6) H 09/25/21 05:02 Triglycerides 81 mg/dL (2-149) 09/25/21 05:02 Cholesterol 125 mg/dL (50-199) 09/25/21 05:02 LDL Cholesterol Direct 48 mg/dL (50-130) L 09/25/21 05:02 HDL Cholesterol 62 mg/dL (40-59) H 09/25/21 05:02 Cholesterol/HDL Ratio 2.01 % 09/25/21 05:02 TSH 1.240 mlU/mL (0.270-4.200) 09/25/21 05:02 Hepatitis A IgM Ab Non-reactive (NonReactive) 09/25/21 05:02 Hep Bs Antigen Non-reactive (Negative) 09/25/21 05:02 Hep B Core IgM Ab Non-reactive (NonReactive) 09/25/21 05:02 Hepatitis C Antibody Non-reactive (NonReactive) 09/25/21 05:02 Du/IV: Voiding Method Toilet Active Medications - Current Medications Current Medications: Generic Name Dose Route Start Last Admin Trade Name Freq PRN Reason Stop Dose Admin Acetaminophen 650 mg 09/27/21 02:28 Acetaminophen 325 Mg Tab PO Q6H PRN Pain, Mild (1-3) Albuterol 2.5 mg 09/24/21 16:00 Albuterol 2.5 Mg/3 Ml Nebu IH Q4HRT PRN Shortness Of Breath Aripiprazole 10 mg 09/25/21 10:00 09/26/21 09:07 Aripiprazole 10 Mg Tab PO 10 mg DAILY JULIO Administration Divalproex Sodium 500 mg 09/26/21 22:00 09/26/21 21:16 Divalproex Er 250 Mg Tab PO 500 mg BID JULIO Administration Donepezil HCl 5 mg 09/24/21 22:00 09/26/21 21:16 Donepezil 5 Mg Tab PO 5 mg QHS JULIO Administration Glipizide 5 mg 09/27/21 08:00 09/27/21 08:31 Glipizide 5 Mg Tab PO 5 mg BIDDIAB JULIO Administration Insulin Human Lispro 0 unit 09/24/21 16:30 09/27/21 08:30 Insulin Lispro 100 Unit/Ml SUB-Q 1 unit ACHS JULIO Administration Protocol Melatonin 5 mg 09/27/21 02:19 Melatonin 5 Mg Tab PO QHS PRN Sleep Metformin HCl 1,000 mg 09/27/21 08:00 09/27/21 08:31 Metformin 500 Mg Tab PO 1,000 mg BIDDIAB JULIO Administration Ziprasidone 20 mg 09/26/21 12:00 Ziprasidone Mesylate 20 Mg Vial IM Q4H PRN Agitation Nutrition/Malnutrition Assess - Dietary Evaluation Nutrition/Malnutrition Findings: Nutrition Notes Start: 09/25/21 16:08 Freq: Status: Active Protocol: Document 09/25/21 16:08 NICHOLAS (Rec: 09/25/21 16:23 NICHOLAS [id number]) Nutrition Notes Need for Assessment generated from: MD Order,Education Initial or Follow up Brief Note Other Pertinent Diagnosis Bipolar Disorder, Anxiety, Dementia, Schizophrenia. Current Diet Cardiac/Consistent Carbohydrates Diet (since D ). Labs/Tests 09/25: HbA1c 9.9%. Pertinent Medications 09/25: Humalog 1U, others nutritionally unremarkable. Height 5 ft 5 in Weight 102.05 kg [place] Body Weight (kg) 56.81 BMI 37.4 Intake Prior to Admission Good Weight change and time frame Pt denies having loss body weight [facility]. Weight Status Morbidly Obese Subjective/Other Information RD consult for nutrition education assessment. Pt's PO intake of meals has been Good (100%), according to ADL notes. Pt is on Room Air, O2 saturation @ 94%, according to Vital Signs. Pt needs total assistance with ADL activities, not a candidate for Nutrition Education. Percent of energy/protein needs met: Prescribed Cardiac/Consistent Carbohydrates Diet provides for energy/protein needs (1, 977 Kcal/86 g) during LOS. Burn Absent Trauma Absent GI Symptoms None Food Allergy No Skin Integrity/Comment Assessment WNL. Current % PO Good (75-100%) Minimum of two criteria No #1 Nutrition Diagnosis No nutrition diagnosis at this time Is patient on ventilator? No Is Patient Ambulatory and/or Out of Bed Yes REE-([facility]-ambulatory/OOB) [ 2010.294 NUTR.MSJOOB] Kcal/Kg value to use for calculation 15 Approximate Energy Requirements Using 1531 kcal/Kg Calculation Used for Recommendations Kcal/kg Additional Notes Protein: 1-1.2 g/Kg AdjBW; 70- 84 g/day. Fluids: 1 ml/Kcal, or as per MD. Nutrition Intervention Change Diet Order: Continue Cardiac/Consistent Carbohydrates Diet. Revisit per MD consult or patient Sign Off request: Additional Comments Continue monitoring food tolerance, %PO intake of meals , and BM.
[2021-09-27] MEDS: DIVALPROEX ER 250 MG TAB PO SCH ×2 (09:51→21:22)
[2021-09-27] MEDS: ARIPiprazole 10 MG TAB PO SCH (09:52)
--- NOTE | 2021-09-27 15:06 | Progress Note ---
Subjective Date of service: 09/27/21 Subjective Comment: Date of admission: 09/24/21 Reason for Admission: Danger to self, Danger to others, Failure of Outpatient Treatment Progress: 09/27: The patient was seen today. She continues to be manic, but less disruptive and not aggressive. Depakote was increased to 500mg bid yesterday which she has been to tolerate. Plan: Will need to check Valproic Acid level on 10/03/2109/26: The patient was seen today. She continues to be manic, disruptive and aggressive. She requires PRN Geodon for agitation. Per nurse note the patient exhibited aggressive behavior the night before. Plan: Depakote increased to 500mg bid Review of Symptoms: Constitutional: Negative for weight loss ENT: Negative for stridor Respiratory: Negative for cough or hemoptysis All other systems reviewed and are negative MSE Appearance: Wearing appropriate clothing. Good hygiene Behavior: Pleasant and cooperative. Mood: "Good" Affect: Elated Thought Process: Goal directed Speech: Increased rate. Thought Content Harmfulness Denies SI/HI Hallucinations: patient denies Delusions: none elicited Consciousness: alert. Cognition/Memory: normal. Insight/Judgment: Limited. Treatment Plan Due to the psychiatric conditions and treatment listed in the Assessment and Plan - the patient requires continued hospitalization. Will continue inpatient treatment to allow for medication adjustment and monitoring. Will continue q15 min safety checks. Will encourage the use of environmental modifications and non-pharmacologic approaches for the management of behavioral and psychological symptoms. Will continue current psych medications Monitor for medication side effects. The patient will continue on medications for physical illnesses, and Hospitalist will closely monitor these Continue intensive physical and occupational therapies. Monitor patient's mood, sleep, appetite, and behavior closely. Encourage patient to participate in individual and group therapeutic sessions on the [place]. Will provide a safe and therapeutic environment for patient. Assessment (1) Bipolar Current Visit: Yes Status: Acute Treatment Plan Estimated days: 7 Post hospital care: primary care provider, psychiatric provider Legal Status: Voluntary Reaction to Hospitalization: Accepting Medications and Allergies Allergies Allergy/AdvReac Type Severity Reaction Status Date / Time haloperidol [From Haldol] Allergy Unknown Verified 05/16/21 22:07 Latex, Natural Rubber Allergy Unknown Verified 05/16/21 22:07 Home Medications Medication Instructions Recorded Confirmed Last Taken Type ARIPiprazole [Abilify] 10 mg PO DAILY 05/16/21 09/25/21 Unknown History Ipratropium/Albuterol Sulfate 0.5 - 2.5 mg INHALATION Q4HR PRN 05/16/21 09/25/21 Unknown History [DUONEB *Not for PRN Use*] amLODIPine 5 mg PO DAILY 05/16/21 09/25/21 Unknown History diphenhydrAMINE [Benadryl CAP] 25 mg PO QHS PRN MDD For upto 10 05/16/21 09/25/21 Unknown History days donepeziL [Aricept] 5 mg PO QHS 05/16/21 09/25/21 Unknown History guaiFENesin/DEXTROMETHORPHAN 5 ml PO Q12HR 05/16/21 09/25/21 Unknown History [Guaifenesin-Dm 100-10 mg/5 ml] ALBUTEROL NEB's [Proventil 0.083% 2.5 mg IH Q4HRT PRN nebu 05/31/21 09/25/21 Unknown Rx NEBS] ARIPiprazole [Abilify TAB] 25 mg PO QDAY 30 Days #30 tablet 05/31/21 09/25/21 Unknown Rx Lispro Insulin [HumaLOG] 0 unit SUB-Q ACHS units 05/31/21 09/25/21 Unknown Rx clonazePAM [KlonoPIN] 1 mg PO BID 30 Days #30 tablet 05/31/21 09/25/21 Unknown Rx guaiFENesin DM [Guaifenesin Dm 5 ml PO Q12H oral.liqd 05/31/21 09/25/21 Unknown Rx Syrup] Divalproex ER [Depakote ER] 1,000 mg PO QHS 30 Days #30 tablet 07/08/21 09/25/21 Unknown Rx Divalproex ER [Depakote ER] 250 mg PO QAM 30 Days #30 tablet 07/08/21 09/25/21 Unknown Rx Fluconazole [Diflucan TAB] 150 mg PO ONCE #1 dose 07/08/21 09/25/21 Unknown Rx Metformin HCl [metFORMIN] 1,000 mg PO BID #60 07/08/21 09/25/21 Unknown Rx glipiZIDE [Glucotrol] 5 mg PO BID 09/27/21 09/27/21 Unknown History Active Meds: Active Medications Acetaminophen (Acetaminophen 325 Mg Tab) 650 mg PO Q6H PRN PRN Reason: Pain, Mild (1-3) Albuterol (Albuterol 2.5 Mg/3 Ml Nebu) 2.5 mg IH Q4HRT PRN PRN Reason: Shortness Of Breath Aripiprazole (Aripiprazole 10 Mg Tab) 10 mg PO DAILY [facility] Last Admin: 09/27/21 09:52 Dose: 10 mg Divalproex Sodium (Divalproex Er 250 Mg Tab) 500 mg PO BID [facility] Last Admin: 09/27/21 09:51 Dose: 500 mg Donepezil HCl (Donepezil 5 Mg Tab) 5 mg PO QHS [facility] Last Admin: 09/26/21 21:16 Dose: 5 mg Glipizide (Glipizide 5 Mg Tab) 5 mg PO BIDDIAB [facility] Last Admin: 09/27/21 08:31 Dose: 5 mg Insulin Human Lispro (Insulin Lispro 100 Unit/Ml) 0 unit SUB-Q ACHS [facility]; Protocol Last Admin: 09/27/21 08:30 Dose: 1 unit Melatonin (Melatonin 5 Mg Tab) 5 mg PO QHS PRN PRN Reason: Sleep Metformin HCl (Metformin 500 Mg Tab) 1,000 mg PO BIDDIAB [facility] Last Admin: 09/27/21 08:31 Dose: 1,000 mg Ziprasidone (Ziprasidone Mesylate 20 Mg Vial) 20 mg IM Q4H PRN PRN Reason: Agitation Results - Results Labs/Vitals: Laboratory Last Values POC Glucose 90 mg/dL (70-105) 09/27/21 11:39 Hemoglobin A1c 9.9 % (4-6) H 09/25/21 05:02 Triglycerides 81 mg/dL (2-149) 09/25/21 05:02 Cholesterol 125 mg/dL (50-199) 09/25/21 05:02 LDL Cholesterol Direct 48 mg/dL (50-130) L 09/25/21 05:02 HDL Cholesterol 62 mg/dL (40-59) H 09/25/21 05:02 Cholesterol/HDL Ratio 2.01 % 09/25/21 05:02 TSH 1.240 mlU/mL (0.270-4.200) 09/25/21 05:02 Hepatitis A IgM Ab Non-reactive (NonReactive) 09/25/21 05:02 Hep Bs Antigen Non-reactive (Negative) 09/25/21 05:02 Hep B Core IgM Ab Non-reactive (NonReactive) 09/25/21 05:02 Hepatitis C Antibody Non-reactive (NonReactive) 09/25/21 05:02 Last Vital Signs Temp 98.4 F 09/27/21 09:13 Pulse 81 09/27/21 09:13 Resp 18 09/27/21 09:13 BP 136/61 09/27/21 09:13 Pulse Ox 96 09/27/21 09:13
[2021-09-27] MEDS: MELATONIN 5 MG TAB PO PRN (20:46)
[2021-09-27] MEDS: DONEPEZIL 5 MG TAB PO SCH (21:22)
--- NOTE | 2021-09-28 08:11 | Progress Note ---
Subjective Date of service: 09/28/21 Subjective Comment: Date of admission: 09/24/21 Reason for Admission: Danger to self, Danger to others, Failure of Outpatient Treatment Progress: 09/28: The patient was seen today. She continues to be manic, hyperactive, talkative and intrusive. She did not sleep well last night despite receiving Melatonin per Nursing Staff. Depakote was increased to 500mg bid on 09/26 which she has been to tolerate. Plan: Will add Trazodone 50mg qhs for sleep. Will need to check Valproic Acid level on 10/03/2109/27: The patient was seen today. She continues to be manic, but less disruptive and not aggressive. Depakote was increased to 500mg bid yesterday which she has been to tolerate. Plan: Will need to check Valproic Acid level on 10/03/2109/26: The patient was seen today. She continues to be manic, disruptive and aggressive. She requires PRN Geodon for agitation. Per nurse note the patient exhibited aggressive behavior the night before. Plan: Depakote increased to 500mg bid Review of Symptoms: Constitutional: Negative for weight loss ENT: Negative for stridor Respiratory: Negative for cough or hemoptysis All other systems reviewed and are negative MSE Appearance: Wearing appropriate clothing. Good hygiene Behavior: Pleasant and cooperative. Mood: "Good" Affect: Elated Thought Process: Goal directed Speech: Increased rate. Thought Content Harmfulness Denies SI/HI Hallucinations: patient denies Delusions: none elicited Consciousness: alert. Cognition/Memory: normal. Insight/Judgment: Limited. Treatment Plan Due to the psychiatric conditions and treatment listed in the Assessment and Plan - the patient requires continued hospitalization. Will continue inpatient treatment to allow for medication adjustment and monitoring. Will continue q15 min safety checks. Will encourage the use of environmental modifications and non-pharmacologic approaches for the management of behavioral and psychological symptoms. Will continue current psych medications Monitor for medication side effects. The patient will continue on medications for physical illnesses, and Hospitalist will closely monitor these Continue intensive physical and occupational therapies. Monitor patient's mood, sleep, appetite, and behavior closely. Encourage patient to participate in individual and group therapeutic sessions on the [place]. Will provide a safe and therapeutic environment for patient. Assessment (1) Bipolar Current Visit: Yes Status: Acute Treatment Plan Estimated days: 6 Post hospital care: primary care provider, psychiatric provider Legal Status: Voluntary Reaction to Hospitalization: Accepting Medications and Allergies Allergies Allergy/AdvReac Type Severity Reaction Status Date / Time haloperidol [From Haldol] Allergy Unknown Verified 05/16/21 22:07 Latex, Natural Rubber Allergy Unknown Verified 05/16/21 22:07 Home Medications Medication Instructions Recorded Confirmed Last Taken Type ARIPiprazole [Abilify] 10 mg PO DAILY 05/16/21 09/25/21 Unknown History Ipratropium/Albuterol Sulfate 0.5 - 2.5 mg INHALATION Q4HR PRN 05/16/21 09/25/21 Unknown History [DUONEB *Not for PRN Use*] amLODIPine 5 mg PO DAILY 05/16/21 09/25/21 Unknown History diphenhydrAMINE [Benadryl CAP] 25 mg PO QHS PRN MDD For upto 10 05/16/21 09/25/21 Unknown History days donepeziL [Aricept] 5 mg PO QHS 05/16/21 09/25/21 Unknown History guaiFENesin/DEXTROMETHORPHAN 5 ml PO Q12HR 05/16/21 09/25/21 Unknown History [Guaifenesin-Dm 100-10 mg/5 ml] ALBUTEROL NEB's [Proventil 0.083% 2.5 mg IH Q4HRT PRN nebu 05/31/21 09/25/21 Unknown Rx NEBS] ARIPiprazole [Abilify TAB] 25 mg PO QDAY 30 Days #30 tablet 05/31/21 09/25/21 Unknown Rx Lispro Insulin [HumaLOG] 0 unit SUB-Q ACHS units 05/31/21 09/25/21 Unknown Rx clonazePAM [KlonoPIN] 1 mg PO BID 30 Days #30 tablet 05/31/21 09/25/21 Unknown Rx guaiFENesin DM [Guaifenesin Dm 5 ml PO Q12H oral.liqd 05/31/21 09/25/21 Unknown Rx Syrup] Divalproex ER [Depakote ER] 1,000 mg PO QHS 30 Days #30 tablet 07/08/21 09/25/21 Unknown Rx Divalproex ER [Depakote ER] 250 mg PO QAM 30 Days #30 tablet 07/08/21 09/25/21 Unknown Rx Fluconazole [Diflucan TAB] 150 mg PO ONCE #1 dose 07/08/21 09/25/21 Unknown Rx Metformin HCl [metFORMIN] 1,000 mg PO BID #60 07/08/21 09/25/21 Unknown Rx glipiZIDE [Glucotrol] 5 mg PO BID 09/27/21 09/27/21 Unknown History Active Meds: Active Medications Acetaminophen (Acetaminophen 325 Mg Tab) 650 mg PO Q6H PRN PRN Reason: Pain, Mild (1-3) Albuterol (Albuterol 2.5 Mg/3 Ml Nebu) 2.5 mg IH Q4HRT PRN PRN Reason: Shortness Of Breath Aripiprazole (Aripiprazole 10 Mg Tab) 10 mg PO DAILY [facility] Last Admin: 09/27/21 09:52 Dose: 10 mg Divalproex Sodium (Divalproex Er 250 Mg Tab) 500 mg PO BID [facility] Last Admin: 09/27/21 21:22 Dose: 500 mg Donepezil HCl (Donepezil 5 Mg Tab) 5 mg PO QHS [facility] Last Admin: 09/27/21 21:22 Dose: 5 mg Glipizide (Glipizide 5 Mg Tab) 5 mg PO BIDDIAB [facility] Last Admin: 09/27/21 17:31 Dose: 5 mg Insulin Human Lispro (Insulin Lispro 100 Unit/Ml) 0 unit SUB-Q [facility]; Protocol Last Admin: 09/27/21 23:29 Dose: 1 unit Melatonin (Melatonin 5 Mg Tab) 5 mg PO QHS PRN PRN Reason: Sleep Last Admin: 09/27/21 20:46 Dose: 5 mg Metformin HCl (Metformin 500 Mg Tab) 1,000 mg PO BIDDIAB [facility] Last Admin: 09/27/21 17:31 Dose: 1,000 mg Ziprasidone (Ziprasidone Mesylate 20 Mg Vial) 20 mg IM Q4H PRN PRN Reason: Agitation Results - Results Labs/Vitals: Laboratory Last Values POC Glucose 153 mg/dL (70-105) H 09/28/21 06:18 Hemoglobin A1c 9.9 % (4-6) H 09/25/21 05:02 Triglycerides 81 mg/dL (2-149) 09/25/21 05:02 Cholesterol 125 mg/dL (50-199) 09/25/21 05:02 LDL Cholesterol Direct 48 mg/dL (50-130) L 09/25/21 05:02 HDL Cholesterol 62 mg/dL (40-59) H 09/25/21 05:02 Cholesterol/HDL Ratio 2.01 % 09/25/21 05:02 TSH 1.240 mlU/mL (0.270-4.200) 09/25/21 05:02 Hepatitis A IgM Ab Non-reactive (NonReactive) 09/25/21 05:02 Hep Bs Antigen Non-reactive (Negative) 09/25/21 05:02 Hep B Core IgM Ab Non-reactive (NonReactive) 09/25/21 05:02 Hepatitis C Antibody Non-reactive (NonReactive) 09/25/21 05:02 Last Vital Signs Temp 97.4 F L 09/27/21 20:37 Pulse 83 09/27/21 20:37 Resp 17 09/27/21 20:37 BP 125/69 09/27/21 20:37 Pulse Ox 96 09/27/21 09:13
[2021-09-28] MEDS: glipiZIDE 5 MG TAB PO SCH ×2 (08:12→16:13)
[2021-09-28] MEDS: metFORMIN 500 MG TAB PO SCH ×2 (08:12→16:13)
[2021-09-28] MEDS: INSULIN LISPRO 100 UNIT/ML SUB-Q SCH ×4 (08:23→21:56)
[2021-09-28] MEDS: DIVALPROEX ER 250 MG TAB PO SCH (09:05)
[2021-09-28] MEDS: ARIPiprazole 10 MG TAB PO SCH (09:05)
--- NOTE | 2021-09-28 10:11 | Progress Note ---
Assessment and Plan - Patient Problems (1) Vascular dementia with behavioral disturbance Current Visit: No Status: Acute Plan to address problem: Verbal prompting, verbal redirection, benzodiazepine therapy as clinically indicated. (2) Cerebral atherosclerosis Current Visit: No Status: Acute Plan to address problem: Risk factor reduction, antiplatelet therapy as clinically indicated. (3) Bipolar disorder Current Visit: Yes Status: Acute Plan to address problem: Continue medical management, behavior change counseling. (4) Obesity hypoventilation syndrome Current Visit: Yes Status: Acute Plan to address problem: Patient counseled regarding balanced diet, increase physical activity at discharge, outpatient pulmonary follow-up for sleep study. (5) Advance care planning Current Visit: No Status: Acute Plan to address problem: Disease education conducted, care plan discussed, diagnoses discussed, prognosis discussed, patient is full code, +30 minutes. (6) Preventative health care Current Visit: Yes Status: Acute Plan to address problem: Patient counseled regarding meal planning, weight reduction, balanced diet, outpatient pulmonary follow-up for sleep study. Patient counseled to follow-up with primary care physician as outpatient for all age and risk factor appropriate screening test. +30 minutes. History Interval history: 70 YO Female with Vascular Dementia with Behavioral Disturbance, Cerebral Atherosclerosis, Bipolar Disorder. Pt is admitted to [facility] for psychiatric stabilization. Consult placed by Dr. Higgins for medical management. Patient seen and evaluated in her room. Patient remains comfortable. Patient remains at baseline level of cognition and function. No reported nursing events. Hospitalist Physical - Constitutional Vitals: Temp Pulse Resp BP Pulse Ox 97.6 F 82 17 152/68 96 09/28/21 09:48 09/28/21 09:48 09/28/21 09:48 09/28/21 09:48 09/28/21 09:48 General appearance: Present: no acute distress - EENT Eyes: Present: PERRL ENT: hearing intact - Neck Neck: Present: supple - Respiratory Respiratory effort: normal Respiratory: bilateral: CTA - Cardiovascular Rhythm: regular Heart Sounds: Present: S1 & S2 - Extremities Extremities: no ischemia - Abdominal General gastrointestinal: soft, non-tender, non-distended - Integumentary Integumentary: Present: clear, dry - Psychiatric Psychiatric: cooperative - Neurologic Neurologic: CNII-XII intact Results - Labs Labs: Laboratory Last Values POC Glucose 153 mg/dL (70-105) H 09/28/21 06:18 Hemoglobin A1c 9.9 % (4-6) H 09/25/21 05:02 Triglycerides 81 mg/dL (2-149) 09/25/21 05:02 Cholesterol 125 mg/dL (50-199) 09/25/21 05:02 LDL Cholesterol Direct 48 mg/dL (50-130) L 09/25/21 05:02 HDL Cholesterol 62 mg/dL (40-59) H 09/25/21 05:02 Cholesterol/HDL Ratio 2.01 % 09/25/21 05:02 TSH 1.240 mlU/mL (0.270-4.200) 09/25/21 05:02 Hepatitis A IgM Ab Non-reactive (NonReactive) 09/25/21 05:02 Hep Bs Antigen Non-reactive (Negative) 09/25/21 05:02 Hep B Core IgM Ab Non-reactive (NonReactive) 09/25/21 05:02 Hepatitis C Antibody Non-reactive (NonReactive) 09/25/21 05:02 Du/IV: Voiding Method Toilet Active Medications - Current Medications Current Medications: Generic Name Dose Route Start Last Admin Trade Name Freq PRN Reason Stop Dose Admin Acetaminophen 650 mg 09/27/21 02:28 Acetaminophen 325 Mg Tab PO Q6H PRN Pain, Mild (1-3) Albuterol 2.5 mg 09/24/21 16:00 Albuterol 2.5 Mg/3 Ml Nebu IH Q4HRT PRN Shortness Of Breath Aripiprazole 10 mg 09/25/21 10:00 09/28/21 09:05 Aripiprazole 10 Mg Tab PO 10 mg DAILY JULIO Administration Divalproex Sodium 500 mg 09/26/21 22:00 09/28/21 09:05 Divalproex Er 250 Mg Tab PO 500 mg BID [facility] Administration Donepezil HCl 5 mg 09/24/21 22:00 09/27/21 21:22 Donepezil 5 Mg Tab PO 5 mg QHS J[facility] Administration Glipizide 5 mg 09/27/21 08:00 09/28/21 08:12 Glipizide 5 Mg Tab PO 5 mg BIDDIAB J[facility]IO Administration Insulin Human Lispro 0 unit 09/24/21 16:30 09/28/21 08:23 Insulin Lispro 100 Unit/Ml SUB-Q 1 unit ACHS J[facility] Administration Protocol Melatonin 5 mg 09/27/21 02:19 09/27/21 20:46 Melatonin 5 Mg Tab PO 5 mg QHS PRN Administration Sleep Metformin HCl 1,000 mg 09/27/21 08:00 09/28/21 08:12 Metformin 500 Mg Tab PO 1,000 mg BIDDIAB JULIO Administration Trazodone HCl 50 mg 09/28/21 22:00 Trazodone 50 Mg Tab PO QHS JULIO Ziprasidone 20 mg 09/26/21 12:00 Ziprasidone Mesylate 20 Mg Vial IM Q4H PRN Agitation Nutrition/Malnutrition Assess - Dietary Evaluation Nutrition/Malnutrition Findings: Nutrition Notes Start: 09/25/21 16:08 Freq: Status: Active Protocol: Document 09/25/21 16:08 NICHOLAS (Rec: 09/25/21 16:23 NICHOLAS [email or web address]) Nutrition Notes Need for Assessment generated from: MD Order,Education Initial or Follow up Brief Note Other Pertinent Diagnosis Bipolar Disorder, Anxiety, Dementia, Schizophrenia. Current Diet Cardiac/Consistent Carbohydrates Diet (since D ). Labs/Tests 09/25: HbA1c 9.9%. Pertinent Medications 09/25: Humalog 1U, others nutritionally unremarkable. Height 5 ft 5 in Weight 102.05 kg [place] Body Weight (kg) 56.81 BMI 37.4 Intake Prior to Admission Good Weight change and time frame Pt denies having loss body weight [employer]. Weight Status Morbidly Obese Subjective/Other Information RD consult for nutrition education assessment. Pt's PO intake of meals has been Good (100%), according to ADL notes. Pt is on Room Air, O2 saturation @ 94%, according to Vital Signs. Pt needs total assistance with ADL activities, not a candidate for Nutrition Education. Percent of energy/protein needs met: Prescribed Cardiac/Consistent Carbohydrates Diet provides for energy/protein needs (1, 977 Kcal/86 g) during LOS. Burn Absent Trauma Absent GI Symptoms None Food Allergy No Skin Integrity/Comment Assessment WNL. Current % PO Good (75-100%) Minimum of two criteria No #1 Nutrition Diagnosis No nutrition diagnosis at this time Is patient on ventilator? No Is Patient Ambulatory and/or Out of Bed Yes REE-([place]-St. Jeor-ambulatory/OOB) [ 2010.294 [id number]] Kcal/Kg value to use for calculation 15 Approximate Energy Requirements Using 1531 kcal/Kg Calculation Used for Recommendations Kcal/kg Additional Notes Protein: 1-1.2 g/Kg AdjBW; 70- 84 g/day. Fluids: 1 ml/Kcal, or as per MD. Nutrition Intervention Change Diet Order: Continue Cardiac/Consistent Carbohydrates Diet. Revisit per MD consult or patient Sign Off request: Additional Comments Continue monitoring food tolerance, %PO intake of meals , and BM.
[2021-09-28] MEDS ORDERED: IPRATROPIUM/ALBUTEROL SULFATE 3 ML AMPUL.NEB IH PRN (10:12)
[2021-09-28] MEDS: guaiFENesin DM 200/20 MG ORAL LIQD 10 ML PO SCH ×2 (11:57→21:53)
[2021-09-28] MEDS: traZODone 50 MG TAB PO SCH (21:54)
[2021-09-28] MEDS: DIVALPROEX ER 500 MG TAB PO SCH (21:54)
[2021-09-28] MEDS: DONEPEZIL 5 MG TAB PO SCH (21:55)
[2021-09-28] MEDS ORDERED: glipiZIDE 5 MG TAB PO SCH (22:00)
[2021-09-29] MEDS: INSULIN LISPRO 100 UNIT/ML SUB-Q SCH ×4 (09:15→21:21)
[2021-09-29] MEDS: guaiFENesin DM 200/20 MG ORAL LIQD 10 ML PO SCH ×2 (09:16→21:20)
[2021-09-29] MEDS: glipiZIDE 5 MG TAB PO SCH ×2 (09:16→16:49)
[2021-09-29] MEDS: ARIPiprazole 10 MG TAB PO SCH (09:16)
[2021-09-29] MEDS: metFORMIN 500 MG TAB PO SCH ×2 (09:16→16:49)
--- NOTE | 2021-09-29 10:26 | Progress Note ---
Subjective Date of service: 09/29/21 Subjective Comment: Date of admission: 09/24/21 Reason for Admission: Danger to self, Danger to others, Failure of Outpatient Treatment Progress: 09/29: The patient was seen today. She is alert, pleasant and fully oriented. She, denies paranoia, hallucinations, SI or HI. She is compliant with medications and denies side effects. Nursing Staff reports that she was paranoid, psychotic, agitated and disruptive last night, required PRN medications and Security Staffs assistance Plan: Will give Clonazepam 1mg bid X 4 doses Will need to check Valproic Acid level on 10/03/2109/28: The patient was seen today. She continues to be manic, hyperactive, talkative and intrusive. She did not sleep well last night despite receiving Melatonin per Nursing Staff. Depakote was increased to 500mg bid on 09/26 which she has been to tolerate. Plan: Will add Trazodone 50mg qhs for sleep. Will need to check Valproic Acid level on 10/03/2109/27: The patient was seen today. She continues to be manic, but less disruptive and not aggressive. Depakote was increased to 500mg bid yesterday which she has been to tolerate. Plan: Will need to check Valproic Acid level on 10/03/2109/26: The patient was seen today. She continues to be manic, disruptive and aggressive. She requires PRN Geodon for agitation. Per nurse note the patient exhibited aggressive behavior the night before. Plan: Depakote increased to 500mg bid Review of Symptoms: Constitutional: Negative for weight loss ENT: Negative for stridor Respiratory: Negative for cough or hemoptysis All other systems reviewed and are negative MSE Appearance: Wearing appropriate clothing. Good hygiene Behavior: Pleasant and cooperative. Mood: "Good" Affect: Elated Thought Process: Goal directed Speech: Increased rate. Thought Content Harmfulness Denies SI/HI Hallucinations: patient denies Delusions: none elicited Consciousness: alert. Cognition/Memory: normal. Insight/Judgment: Limited. Treatment Plan Due to the psychiatric conditions and treatment listed in the Assessment and Pl an - the patient requires continued hospitalization. Will continue inpatient treatment to allow for medication adjustment and monitoring. Will continue q15 min safety checks. Will encourage the use of environmental modifications and non-pharmacologic approaches for the management of behavioral and psychological symptoms. Monitor for medication side effects. The patient will continue on medications for physical illnesses, and Hospitalist will closely monitor these Continue intensive physical and occupational therapies. Monitor patient's mood, sleep, appetite, and behavior closely. Encourage patient to participate in individual and group therapeutic sessions on the [place]. Will provide a safe and therapeutic environment for patient. Assessment (1) Bipolar Current Visit: Yes Status: Acute Treatment Plan Estimated days: 5 Post hospital care: primary care provider, psychiatric provider Legal Status: Voluntary Reaction to Hospitalization: Accepting Medications and Allergies Allergies Allergy/AdvReac Type Severity Reaction Status Date / Time haloperidol [From Haldol] Allergy Unknown Verified 05/16/21 22:07 Latex, Natural Rubber Allergy Unknown Verified 05/16/21 22:07 Home Medications Medication Instructions Recorded Confirmed Last Taken Type ARIPiprazole [Abilify] 10 mg PO DAILY 05/16/21 09/25/21 Unknown History Ipratropium/Albuterol Sulfate 0.5 - 2.5 mg INHALATION Q4HR PRN 05/16/21 09/25/21 Unknown History [DUONEB *Not for PRN Use*] amLODIPine 5 mg PO DAILY 05/16/21 09/25/21 Unknown History diphenhydrAMINE [Benadryl CAP] 25 mg PO QHS PRN MDD For upto 10 05/16/21 09/25/21 Unknown History days donepeziL [Aricept] 5 mg PO QHS 05/16/21 09/25/21 Unknown History guaiFENesin/DEXTROMETHORPHAN 5 ml PO Q12HR 05/16/21 09/25/21 Unknown History [Guaifenesin-Dm 100-10 mg/5 ml] ALBUTEROL NEB's [Proventil 0.083% 2.5 mg IH Q4HRT PRN nebu 05/31/21 09/25/21 Unknown Rx NEBS] ARIPiprazole [Abilify TAB] 25 mg PO QDAY 30 Days #30 tablet 05/31/21 09/25/21 Unknown Rx Lispro Insulin [HumaLOG] 0 unit SUB-Q ACHS units 05/31/21 09/25/21 Unknown Rx clonazePAM [KlonoPIN] 1 mg PO BID 30 Days #30 tablet 05/31/21 09/25/21 Unknown Rx guaiFENesin DM [Guaifenesin Dm 5 ml PO Q12H oral.liqd 05/31/21 09/25/21 Unknown Rx Syrup] Divalproex ER [Depakote ER] 1,000 mg PO QHS 30 Days #30 tablet 07/08/21 09/25/21 Unknown Rx Divalproex ER [Depakote ER] 250 mg PO QAM 30 Days #30 tablet 07/08/21 09/25/21 Unknown Rx Fluconazole [Diflucan TAB] 150 mg PO ONCE #1 dose 07/08/21 09/25/21 Unknown Rx Metformin HCl [metFORMIN] 1,000 mg PO BID #60 07/08/21 09/25/21 Unknown Rx glipiZIDE [Glucotrol] 5 mg PO BID 09/27/21 09/27/21 Unknown History Active Meds: Active Medications Acetaminophen (Acetaminophen 325 Mg Tab) 650 mg PO Q6H PRN PRN Reason: Pain, Mild (1-3) Albuterol (Albuterol 2.5 Mg/3 Ml Nebu) 2.5 mg IH Q4HRT PRN PRN Reason: Shortness Of Breath Aripiprazole (Aripiprazole 10 Mg Tab) 10 mg PO DAILY [facility] Last Admin: 09/29/21 09:16 Dose: 10 mg Diphenhydramine HCl (Diphenhydramine 25 Mg Cap) 25 mg PO QHS PRN PRN Reason: Insomnia Divalproex Sodium (Divalproex Er 500 Mg Tab) 1,000 mg PO QHS [facility] Last Admin: 09/28/21 21:54 Dose: 1,000 mg Donepezil HCl (Donepezil 5 Mg Tab) 5 mg PO QHS [facility] Last Admin: 09/28/21 21:55 Dose: 5 mg Glipizide (Glipizide 5 Mg Tab) 5 mg PO BIDDIAB [facility] Last Admin: 09/29/21 09:16 Dose: 5 mg Guaifenesin (Guaifenesin Dm 200/20 Mg Oral Liqd 10 Ml) 5 ml PO Q12HR [facility] Last Admin: 09/29/21 09:16 Dose: 5 ml Insulin Human Lispro (Insulin Lispro 100 Unit/Ml) 0 unit SUB-Q ACHS [facility]; Protocol Last Admin: 09/29/21 09:15 Dose: Not Given Melatonin (Melatonin 5 Mg Tab) 5 mg PO QHS PRN PRN Reason: Sleep Last Admin: 09/27/21 20:46 Dose: 5 mg Metformin HCl (Metformin 500 Mg Tab) 1,000 mg PO BIDDIAB [facility] Last Admin: 09/29/21 09:16 Dose: 1,000 mg Trazodone HCl (Trazodone 50 Mg Tab) 50 mg PO QHS [facility] Last Admin: 09/28/21 21:54 Dose: 50 mg Ziprasidone (Ziprasidone Mesylate 20 Mg Vial) 20 mg IM Q4H PRN PRN Reason: Agitation Last Admin: 09/29/21 00:47 Dose: 20 mg Results - Results Labs/Vitals: Laboratory Last Values POC Glucose 149 mg/dL (70-105) H 09/29/21 07:30 Hemoglobin A1c 9.9 % (4-6) H 09/25/21 05:02 Triglycerides 81 mg/dL (2-149) 09/25/21 05:02 Cholesterol 125 mg/dL (50-199) 09/25/21 05:02 LDL Cholesterol Direct 48 mg/dL (50-130) L 09/25/21 05:02 HDL Cholesterol 62 mg/dL (40-59) H 09/25/21 05:02 Cholesterol/HDL Ratio 2.01 % 09/25/21 05:02 TSH 1.240 mlU/mL (0.270-4.200) 09/25/21 05:02 Hepatitis A IgM Ab Non-reactive (NonReactive) 09/25/21 05:02 Hep Bs Antigen Non-reactive (Negative) 09/25/21 05:02 Hep B Core IgM Ab Non-reactive (NonReactive) 09/25/21 05:02 Hepatitis C Antibody Non-reactive (NonReactive) 09/25/21 05:02 Last Vital Signs Temp 98.4 F 09/29/21 08:40 Pulse 90 09/29/21 08:40 Resp 20 09/29/21 08:40 BP 135/74 09/29/21 08:40 Pulse Ox 94 09/29/21 08:40
[2021-09-29] MEDS: clonazePAM 0.5 MG TAB PO SCH ×2 (10:43→21:20)
[2021-09-29] MEDS: DONEPEZIL 5 MG TAB PO SCH (21:20)
[2021-09-29] MEDS: DIVALPROEX ER 500 MG TAB PO SCH (21:20)
[2021-09-29] MEDS: traZODone 50 MG TAB PO SCH (21:20)
[2021-09-30] MEDS: INSULIN LISPRO 100 UNIT/ML SUB-Q SCH ×4 (07:07→22:08)
[2021-09-30] MEDS: metFORMIN 500 MG TAB PO SCH ×2 (09:17→16:53)
[2021-09-30] MEDS: guaiFENesin DM 200/20 MG ORAL LIQD 10 ML PO SCH ×2 (09:17→22:07)
[2021-09-30] MEDS: clonazePAM 0.5 MG TAB PO SCH ×2 (09:18→22:00)
[2021-09-30] MEDS: glipiZIDE 5 MG TAB PO SCH ×2 (09:18→16:52)
[2021-09-30] MEDS: ARIPiprazole 10 MG TAB PO SCH (09:18)
--- NOTE | 2021-09-30 17:27 | Progress Note ---
Subjective Date of service: 09/30/21 Subjective Comment: 09/30 The patient was seen today. She is calm, cooperative and pleasant. She seems a little delusional. She is talking about a "Mr. 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 She says "he's my boss." She denies SI/HI or hallucinations. 09/29: The patient was seen today. She is alert, pleasant and fully oriented. She, denies paranoia, hallucinations, SI or HI. She is compliant with medications and denies side effects. Nursing Staff reports that she was paranoid, psychotic, agitated and disruptive last night, required PRN medications and Security Staffs assistance Plan: Will give Clonazepam 1mg bid X 4 doses Will need to check Valproic Acid level on 10/03/2109/28: The patient was seen today. She continues to be manic, hyperactive, talkative and intrusive. She did not sleep well last night despite receiving Melatonin per Nursing Staff. Depakote was increased to 500mg bid on 09/26 which she has been to tolerate. Plan: Will add Trazodone 50mg qhs for sleep. Will need to check Valproic Acid level on 10/03/2109/27: The patient was seen today. She continues to be manic, but less disruptive and not aggressive. Depakote was increased to 500mg bid yesterday which she has been to tolerate. Plan: Will need to check Valproic Acid level on 10/03/2109/26: The patient was seen today. She continues to be manic, disruptive and aggressive. She requires PRN Geodon for agitation. Per nurse note the patient exhibited aggressive behavior the night before. Plan: Depakote increased to 500mg bid Review of Symptoms: Constitutional: Negative for weight loss ENT: Negative for stridor Respiratory: Negative for cough or hemoptysis All other systems reviewed and are negative MSE Appearance: Wearing appropriate clothing. Good hygiene Behavior: Pleasant and cooperative. Mood: "Good" Affect: Euthymic Thought Process: Goal directed Speech: Increased rate. Thought Content Harmfulness Denies SI/HI Hallucinations: patient denies Delusions: none elicited Consciousness: alert. Cognition/Memory: normal. Insight/Judgment: Limited. Assessment (1) Bipolar Current Visit: Yes Status: Acute Treatment Plan Due to the psychiatric conditions and treatment listed in the Assessment and Plan - the patient requires continued hospitalization. Will continue inpatient treatment to allow for medication adjustment and monitoring. Will continue q15 min safety checks. Will encourage the use of environmental modifications and non-pharmacologic approaches for the management of behavioral and psychological symptoms. Monitor for medication side effects. The patient will continue on medications for physical illnesses, and Hospitalist will closely monitor these Continue meds Continue intensive physical and occupational therapies. Monitor patient's mood, sleep, appetite, and behavior closely. Encourage patient to participate in individual and group therapeutic sessions on the [place]. Will provide a safe and therapeutic environment for patient. Estimated days: 5 Post hospital care: primary care provider, psychiatric provider Medications and Allergies Allergies Allergy/AdvReac Type Severity Reaction Status Date / Time haloperidol [From Haldol] Allergy Unknown Verified 05/16/21 22:07 Latex, Natural Rubber Allergy Unknown Verified 05/16/21 22:07 Home Medications Medication Instructions Recorded Confirmed Last Taken Type ARIPiprazole [Abilify] 10 mg PO DAILY 05/16/21 09/25/21 Unknown History Ipratropium/Albuterol Sulfate 0.5 - 2.5 mg INHALATION Q4HR PRN 05/16/21 09/25/21 Unknown History [DUONEB *Not for PRN Use*] amLODIPine 5 mg PO DAILY 05/16/21 09/25/21 Unknown History diphenhydrAMINE [Benadryl CAP] 25 mg PO QHS PRN MDD For upto 10 05/16/21 09/25/21 Unknown History days donepeziL [Aricept] 5 mg PO QHS 05/16/21 09/25/21 Unknown History guaiFENesin/DEXTROMETHORPHAN 5 ml PO Q12HR 05/16/21 09/25/21 Unknown History [Guaifenesin-Dm 100-10 mg/5 ml] ALBUTEROL NEB's [Proventil 0.083% 2.5 mg IH Q4HRT PRN nebu 05/31/21 09/25/21 Unknown Rx NEBS] ARIPiprazole [Abilify TAB] 25 mg PO QDAY 30 Days #30 tablet 05/31/21 09/25/21 Unknown Rx Lispro Insulin [HumaLOG] 0 unit SUB-Q ACHS units 05/31/21 09/25/21 Unknown Rx clonazePAM [KlonoPIN] 1 mg PO BID 30 Days #30 tablet 05/31/21 09/25/21 Unknown Rx guaiFENesin DM [Guaifenesin Dm 5 ml PO Q12H oral.liqd 05/31/21 09/25/21 Unknown Rx Syrup] Divalproex ER [Depakote ER] 1,000 mg PO QHS 30 Days #30 tablet 07/08/21 09/25/21 Unknown Rx Divalproex ER [Depakote ER] 250 mg PO QAM 30 Days #30 tablet 07/08/21 09/25/21 Unknown Rx Fluconazole [Diflucan TAB] 150 mg PO ONCE #1 dose 07/08/21 09/25/21 Unknown Rx Metformin HCl [metFORMIN] 1,000 mg PO BID #60 07/08/21 09/25/21 Unknown Rx glipiZIDE [Glucotrol] 5 mg PO BID 09/27/21 09/27/21 Unknown History Active Meds: Active Medications Acetaminophen (Acetaminophen 325 Mg Tab) 650 mg PO Q6H PRN PRN Reason: Pain, Mild (1-3) Albuterol (Albuterol 2.5 Mg/3 Ml Nebu) 2.5 mg IH Q4HRT PRN PRN Reason: Shortness Of Breath Aripiprazole (Aripiprazole 10 Mg Tab) 10 mg PO DAILY [facility] Last Admin: 09/30/21 09:18 Dose: 10 mg Clonazepam (Clonazepam 0.5 Mg Tab) 1 mg PO BID [facility] Stop: 09/30/21 22:01 Last Admin: 09/30/21 09:18 Dose: 1 mg Diphenhydramine HCl (Diphenhydramine 25 Mg Cap) 25 mg PO QHS PRN PRN Reason: Insomnia Divalproex Sodium (Divalproex Er 500 Mg Tab) 1,000 mg PO QHS [facility] Last Admin: 09/29/21 21:20 Dose: 1,000 mg Donepezil HCl (Donepezil 5 Mg Tab) 5 mg PO QHS [facility] Last Admin: 09/29/21 21:20 Dose: 5 mg Glipizide (Glipizide 5 Mg Tab) 5 mg PO BIDDIAB [facility] Last Admin: 09/30/21 16:52 Dose: 5 mg Guaifenesin (Guaifenesin Dm 200/20 Mg Oral Liqd 10 Ml) 5 ml PO Q12HR [facility] Last Admin: 09/30/21 09:17 Dose: 5 ml Insulin Human Lispro (Insulin Lispro 100 Unit/Ml) 0 unit SUB-Q ACHS [facility]; Protocol Last Admin: 09/30/21 16:42 Dose: Not Given Melatonin (Melatonin 5 Mg Tab) 5 mg PO QHS PRN PRN Reason: Sleep Last Admin: 09/27/21 20:46 Dose: 5 mg Metformin HCl (Metformin 500 Mg Tab) 1,000 mg PO BIDDIAB [facility] Last Admin: 09/30/21 16:53 Dose: 1,000 mg Trazodone HCl (Trazodone 50 Mg Tab) 50 mg PO QHS [facility] Last Admin: 09/29/21 21:20 Dose: 50 mg Ziprasidone (Ziprasidone Mesylate 20 Mg Vial) 20 mg IM Q4H PRN PRN Reason: Agitation Last Admin: 09/29/21 00:47 Dose: 20 mg Results - Results Labs/Vitals: Laboratory Last Values POC Glucose 135 mg/dL (70-105) H 09/30/21 16:29 Hemoglobin A1c 9.9 % (4-6) H 09/25/21 05:02 Triglycerides 81 mg/dL (2-149) 09/25/21 05:02 Cholesterol 125 mg/dL (50-199) 09/25/21 05:02 LDL Cholesterol Direct 48 mg/dL (50-130) L 09/25/21 05:02 HDL Cholesterol 62 mg/dL (40-59) H 09/25/21 05:02 Cholesterol/HDL Ratio 2.01 % 09/25/21 05:02 TSH 1.240 mlU/mL (0.270-4.200) 09/25/21 05:02 Hepatitis A IgM Ab Non-reactive (NonReactive) 09/25/21 05:02 Hep Bs Antigen Non-reactive (Negative) 09/25/21 05:02 Hep B Core IgM Ab Non-reactive (NonReactive) 09/25/21 05:02 Hepatitis C Antibody Non-reactive (NonReactive) 09/25/21 05:02 Last Vital Signs Temp 98.2 F 09/30/21 07:28 Pulse 86 09/30/21 07:28 Resp 16 09/30/21 07:28 BP 151/61 09/30/21 07:28 Pulse Ox 95 09/30/21 07:28
[2021-09-30] MEDS: DIVALPROEX ER 500 MG TAB PO SCH (21:59)
[2021-09-30] MEDS: DONEPEZIL 5 MG TAB PO SCH (22:00)
[2021-09-30] MEDS: traZODone 50 MG TAB PO SCH (22:00)
[2021-10-01] MEDS: MELATONIN 5 MG TAB PO PRN (04:03)
[2021-10-01] MEDS: diphenhydrAMINE 25 MG CAP PO PRN ×2 (04:03→20:53)
[2021-10-01] MEDS: INSULIN LISPRO 100 UNIT/ML SUB-Q SCH ×4 (08:00→21:12)
[2021-10-01] MEDS: glipiZIDE 5 MG TAB PO SCH ×2 (08:01→16:09)
[2021-10-01] MEDS: metFORMIN 500 MG TAB PO SCH ×2 (08:01→16:08)
[2021-10-01] MEDS: guaiFENesin DM 200/20 MG ORAL LIQD 10 ML PO SCH ×2 (10:00→21:12)
[2021-10-01] MEDS: ARIPiprazole 10 MG TAB PO SCH (10:00)
--- NOTE | 2021-10-01 10:01 | Progress Note ---
Subjective Date of service: 10/01/21 Subjective Comment: The patient was seen today. She is calm and cooperative. She says she slept well and her appetite is good. She denies SI/HI or hallucinations of any kind. Staff says the patient has been hyperverbal, having flight of ideas, and delusional. Will adjust abilify. 09/30 The patient was seen today. She is calm, cooperative and pleasant. She seems a little delusional. She is talking about a "Mr. 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 She says "he's my boss." She denies SI/HI or hallucinations. 09/29: The patient was seen today. She is alert, pleasant and fully oriented. She, denies paranoia, hallucinations, SI or HI. She is compliant with medications and denies side effects. Nursing Staff reports that she was paranoid, psychotic, agitated and disruptive last night, required PRN medications and Security Staffs assistance Plan: Will give Clonazepam 1mg bid X 4 doses Will need to check Valproic Acid level on 10/03/2109/28: The patient was seen today. She continues to be manic, hyperactive, talkative and intrusive. She did not sleep well last night despite receiving Melatonin per Nursing Staff. Depakote was increased to 500mg bid on 09/26 which she has been to tolerate. Plan: Will add Trazodone 50mg qhs for sleep. Will need to check Valproic Acid level on 10/03/2109/27: The patient was seen today. She continues to be manic, but less disruptive and not aggressive. Depakote was increased to 500mg bid yesterday which she has been to tolerate. Plan: Will need to check Valproic Acid level on 10/03/2109/26: The patient was seen today. She continues to be manic, disruptive and aggressive. She requires PRN Geodon for agitation. Per nurse note the patient exhibited aggressive behavior the night before. Plan: Depakote increased to 500mg bid Review of Symptoms: Constitutional: Negative for weight loss ENT: Negative for stridor Respiratory: Negative for cough or hemoptysis All other systems reviewed and are negative MSE Appearance: Wearing appropriate clothing. Good hygiene Behavior: Pleasant and cooperative. Mood: "Good" Affect: Euthymic Thought Process: Goal directed Speech: Increased rate. Thought Content Harmfulness Denies SI/HI Hallucinations: patient denies Delusions: none elicited Consciousness: alert. Cognition/Memory: normal. Insight/Judgment: Limited. Assessment (1) Bipolar Current Visit: Yes Status: Acute Treatment Plan Due to the psychiatric conditions and treatment listed in the Assessment and Plan - the patient requires continued hospitalization. Will continue inpatient treatment to allow for medication adjustment and monitoring. Will continue q15 min safety checks. Will encourage the use of environmental modifications and non-pharmacologic approaches for the management of behavioral and psychological symptoms. Monitor for medication side effects. The patient will continue on medications for physical illnesses, and Hospitalist will closely monitor these Increase Abilify 15mg po daily Continue intensive physical and occupational therapies. Monitor patient's mood, sleep, appetite, and behavior closely. Encourage patient to participate in individual and group therapeutic sessions on the [place]. Will provide a safe and therapeutic environment for patient. Estimated days: 5 Post hospital care: primary care provider, psychiatric provider Medications and Allergies Allergies Allergy/AdvReac Type Severity Reaction Status Date / Time haloperidol [From Haldol] Allergy Unknown Verified 05/16/21 22:07 Latex, Natural Rubber Allergy Unknown Verified 05/16/21 22:07 Home Medications Medication Instructions Recorded Confirmed Last Taken Type ARIPiprazole [Abilify] 10 mg PO DAILY 05/16/21 09/25/21 Unknown History Ipratropium/Albuterol Sulfate 0.5 - 2.5 mg INHALATION Q4HR PRN 05/16/21 09/25/21 Unknown History [DUONEB *Not for PRN Use*] amLODIPine 5 mg PO DAILY 05/16/21 09/25/21 Unknown History diphenhydrAMINE [Benadryl CAP] 25 mg PO QHS PRN MDD For upto 10 05/16/21 09/25/21 Unknown History days donepeziL [Aricept] 5 mg PO QHS 05/16/21 09/25/21 Unknown History guaiFENesin/DEXTROMETHORPHAN 5 ml PO Q12HR 05/16/21 09/25/21 Unknown History [Guaifenesin-Dm 100-10 mg/5 ml] ALBUTEROL NEB's [Proventil 0.083% 2.5 mg IH Q4HRT PRN nebu 05/31/21 09/25/21 Unknown Rx NEBS] ARIPiprazole [Abilify TAB] 25 mg PO QDAY 30 Days #30 tablet 05/31/21 09/25/21 Unknown Rx Lispro Insulin [HumaLOG] 0 unit SUB-Q ACHS units 05/31/21 09/25/21 Unknown Rx clonazePAM [KlonoPIN] 1 mg PO BID 30 Days #30 tablet 05/31/21 09/25/21 Unknown Rx guaiFENesin DM [Guaifenesin Dm 5 ml PO Q12H oral.liqd 05/31/21 09/25/21 Unknown Rx Syrup] Divalproex ER [Depakote ER] 1,000 mg PO QHS 30 Days #30 tablet 07/08/21 09/25/21 Unknown Rx Divalproex ER [Depakote ER] 250 mg PO QAM 30 Days #30 tablet 07/08/21 09/25/21 Unknown Rx Fluconazole [Diflucan TAB] 150 mg PO ONCE #1 dose 07/08/21 09/25/21 Unknown Rx Metformin HCl [metFORMIN] 1,000 mg PO BID #60 07/08/21 09/25/21 Unknown Rx glipiZIDE [Glucotrol] 5 mg PO BID 09/27/21 09/27/21 Unknown History Active Meds: Active Medications Acetaminophen (Acetaminophen 325 Mg Tab) 650 mg PO Q6H PRN PRN Reason: Pain, Mild (1-3) Albuterol (Albuterol 2.5 Mg/3 Ml Nebu) 2.5 mg IH Q4HRT PRN PRN Reason: Shortness Of Breath Aripiprazole (Aripiprazole 10 Mg Tab) 10 mg PO DAILY [facility] Last Admin: 09/30/21 09:18 Dose: 10 mg Diphenhydramine HCl (Diphenhydramine 25 Mg Cap) 25 mg PO QHS PRN PRN Reason: Insomnia Last Admin: 10/01/21 04:03 Dose: 25 mg Divalproex Sodium (Divalproex Er 500 Mg Tab) 1,000 mg PO QHS [facility] Last Admin: 09/30/21 21:59 Dose: 1,000 mg Donepezil HCl (Donepezil 5 Mg Tab) 5 mg PO QHS [facility] Last Admin: 09/30/21 22:00 Dose: 5 mg Glipizide (Glipizide 5 Mg Tab) 5 mg PO BIDDIAB [facility] Last Admin: 10/01/21 08:01 Dose: 5 mg Guaifenesin (Guaifenesin Dm 200/20 Mg Oral Liqd 10 Ml) 5 ml PO Q12HR [facility] Last Admin: 09/30/21 22:07 Dose: Not Given Insulin Human Lispro (Insulin Lispro 100 Unit/Ml) 0 unit SUB-Q ACHS [facility]; Protocol Last Admin: 10/01/21 08:00 Dose: 1 unit Melatonin (Melatonin 5 Mg Tab) 5 mg PO QHS PRN PRN Reason: Sleep Last Admin: 10/01/21 04:03 Dose: 5 mg Metformin HCl (Metformin 500 Mg Tab) 1,000 mg PO BIDDIAB [facility] Last Admin: 10/01/21 08:01 Dose: 1,000 mg Trazodone HCl (Trazodone 50 Mg Tab) 50 mg PO QHS [facility] Last Admin: 09/30/21 22:00 Dose: 50 mg Ziprasidone (Ziprasidone Mesylate 20 Mg Vial) 20 mg IM Q4H PRN PRN Reason: Agitation Last Admin: 09/29/21 00:47 Dose: 20 mg Results - Results Labs/Vitals: Laboratory Last Values POC Glucose 157 mg/dL (70-105) H 10/01/21 06:53 Hemoglobin A1c 9.9 % (4-6) H 09/25/21 05:02 Triglycerides 81 mg/dL (2-149) 09/25/21 05:02 Cholesterol 125 mg/dL (50-199) 09/25/21 05:02 LDL Cholesterol Direct 48 mg/dL (50-130) L 09/25/21 05:02 HDL Cholesterol 62 mg/dL (40-59) H 09/25/21 05:02 Cholesterol/HDL Ratio 2.01 % 09/25/21 05:02 TSH 1.240 mlU/mL (0.270-4.200) 09/25/21 05:02 Hepatitis A IgM Ab Non-reactive (NonReactive) 09/25/21 05:02 Hep Bs Antigen Non-reactive (Negative) 09/25/21 05:02 Hep B Core IgM Ab Non-reactive (NonReactive) 09/25/21 05:02 Hepatitis C Antibody Non-reactive (NonReactive) 09/25/21 05:02 Last Vital Signs Temp 98.1 F 09/30/21 19:22 Pulse 91 H 09/30/21 19:22 Resp 17 09/30/21 19:22 BP 122/65 09/30/21 19:22 Pulse Ox 96 09/30/21 19:22
--- NOTE | 2021-10-01 13:39 | Progress Note ---
Assessment and Plan - Patient Problems (1) Vascular dementia with behavioral disturbance Current Visit: No Status: Acute Plan to address problem: Verbal prompting, verbal redirection, benzodiazepine therapy as clinically indicated. (2) Cerebral atherosclerosis Current Visit: No Status: Acute Plan to address problem: Risk factor reduction, antiplatelet therapy as clinically indicated. (3) Bipolar disorder Current Visit: Yes Status: Acute Plan to address problem: Continue medical management, behavior change counseling. (4) Obesity hypoventilation syndrome Current Visit: Yes Status: Acute Plan to address problem: Patient counseled regarding balanced diet, increase physical activity at discharge, outpatient pulmonary follow-up for sleep study. (5) Advance care planning Current Visit: No Status: Acute Plan to address problem: Disease education conducted, care plan discussed, diagnoses discussed, prognosis discussed, patient is full code, +30 minutes. (6) Preventative health care Current Visit: Yes Status: Acute Plan to address problem: Patient counseled regarding meal planning, weight reduction, balanced diet, outpatient pulmonary follow-up for sleep study. Patient counseled to follow-up with primary care physician as outpatient for all age and risk factor appropriate screening test. +30 minutes. History Interval history: 70 YO Female with Vascular Dementia with Behavioral Disturbance, Cerebral Atherosclerosis, Bipolar Disorder. Pt is admitted to [facility] for psychiatric stabilization. Consult placed by Dr. Higgins for medical management. Patient seen and evaluated in her room. Patient remains comfortable. Patient remains at baseline level of cognition and function. No reported nursing events. Hospitalist Physical - Constitutional Vitals: Temp Pulse Resp BP Pulse Ox 98.2 F 92 H 18 124/71 94 10/01/21 06:23 10/01/21 06:23 10/01/21 06:23 10/01/21 06:23 10/01/21 06:23 General appearance: Present: no acute distress - EENT Eyes: Present: PERRL ENT: hearing decreased - Neck Neck: Present: supple - Respiratory Respiratory effort: normal Respiratory: bilateral: diminished - Cardiovascular Rhythm: regular Heart Sounds: Present: S1 & S2 - Extremities Extremities: no ischemia Peripheral Pulses: within normal limits - Abdominal General gastrointestinal: soft, non-tender, non-distended - Integumentary Integumentary: Present: clear, dry - Psychiatric Psychiatric: cooperative - Neurologic Neurologic: CNII-XII intact Results - Labs Labs: Laboratory Last Values POC Glucose 131 mg/dL (70-105) H 10/01/21 11:28 Hemoglobin A1c 9.9 % (4-6) H 09/25/21 05:02 Triglycerides 81 mg/dL (2-149) 09/25/21 05:02 Cholesterol 125 mg/dL (50-199) 09/25/21 05:02 LDL Cholesterol Direct 48 mg/dL (50-130) L 09/25/21 05:02 HDL Cholesterol 62 mg/dL (40-59) H 09/25/21 05:02 Cholesterol/HDL Ratio 2.01 % 09/25/21 05:02 TSH 1.240 mlU/mL (0.270-4.200) 09/25/21 05:02 Hepatitis A IgM Ab Non-reactive (NonReactive) 09/25/21 05:02 Hep Bs Antigen Non-reactive (Negative) 09/25/21 05:02 Hep B Core IgM Ab Non-reactive (NonReactive) 09/25/21 05:02 Hepatitis C Antibody Non-reactive (NonReactive) 09/25/21 05:02 Du/IV: Voiding Method Toilet Active Medications - Current Medications Current Medications: Generic Name Dose Route Start Last Admin Trade Name Freq PRN Reason Stop Dose Admin Acetaminophen 650 mg 09/27/21 02:28 Acetaminophen 325 Mg Tab PO Q6H PRN Pain, Mild (1-3) Albuterol 2.5 mg 09/24/21 16:00 Albuterol 2.5 Mg/3 Ml Nebu IH Q4HRT PRN Shortness Of Breath Aripiprazole 15 mg 10/02/21 10:00 Aripiprazole 15 Mg Tab PO QDAY JULIO Diphenhydramine HCl 25 mg 09/28/21 10:12 10/01/21 04:03 Diphenhydramine 25 Mg Cap PO 25 mg QHS PRN Administration Insomnia Divalproex Sodium 1,000 mg 09/28/21 22:00 09/30/21 21:59 Divalproex Er 500 Mg Tab PO 1,000 mg QHS JULIO Administration Donepezil HCl 5 mg 09/24/21 22:00 09/30/21 22:00 Donepezil 5 Mg Tab PO 5 mg QHS JULIO Administration Glipizide 5 mg 09/27/21 08:00 10/01/21 08:01 Glipizide 5 Mg Tab PO 5 mg BIDDIAB JULIO Administration Guaifenesin 5 ml 09/28/21 11:00 10/01/21 10:00 Guaifenesin Dm 200/20 Mg Oral Liqd 10 Ml PO 5 ml Q12HR JULIO Administration Insulin Human Lispro 0 unit 09/24/21 16:30 10/01/21 11:31 Insulin Lispro 100 Unit/Ml SUB-Q Not Given ACHS JULIO Protocol Melatonin 5 mg 09/27/21 02:19 10/01/21 04:03 Melatonin 5 Mg Tab PO 5 mg QHS PRN Administration Sleep Metformin HCl 1,000 mg 09/28/21 17:00 10/01/21 08:01 Metformin 500 Mg Tab PO 1,000 mg BIDDIAB JULIO Administration Trazodone HCl 50 mg 09/28/21 22:00 09/30/21 22:00 Trazodone 50 Mg Tab PO 50 mg QHS JULIO Administration Ziprasidone 20 mg 09/26/21 12:00 09/29/21 00:47 Ziprasidone Mesylate 20 Mg Vial IM 20 mg Q4H PRN Administration Agitation Nutrition/Malnutrition Assess - Dietary Evaluation Nutrition/Malnutrition Findings: Nutrition Notes Start: 09/25/21 16:08 Freq: Status: Active Protocol: Document 09/25/21 16:08 NICHOLAS (Rec: 09/25/21 16:23 NICHOLAS [id number]) Nutrition Notes Need for Assessment generated from: MD Order,Education Initial or Follow up Brief Note Other Pertinent Diagnosis Bipolar Disorder, Anxiety, Dementia, Schizophrenia. Current Diet Cardiac/Consistent Carbohydrates Diet (since D ). Labs/Tests 09/25: HbA1c 9.9%. Pertinent Medications 09/25: Humalog 1U, others nutritionally unremarkable. Height 5 ft 5 in Weight 102.05 kg [place] Body Weight (kg) 56.81 BMI 37.4 Intake Prior to Admission Good Weight change and time frame Pt denies having loss body weight [employer]. Weight Status Morbidly Obese Subjective/Other Information RD consult for nutrition education assessment. Pt's PO intake of meals has been Good (100%), according to ADL notes. Pt is on Room Air, O2 saturation @ 94%, according to Vital Signs. Pt needs total assistance with ADL activities, not a candidate for Nutrition Education. Percent of energy/protein needs met: Prescribed Cardiac/Consistent Carbohydrates Diet provides for energy/protein needs (1, 977 Kcal/86 g) during LOS. Burn Absent Trauma Absent GI Symptoms None Food Allergy No Skin Integrity/Comment Assessment WNL. Current % PO Good (75-100%) Minimum of two criteria No #1 Nutrition Diagnosis No nutrition diagnosis at this time Is patient on ventilator? No Is Patient Ambulatory and/or Out of Bed Yes REE-([facility]-ambulatory/OOB) [ 2010.294 NUTR.MSJOOB] Kcal/Kg value to use for calculation 15 Approximate Energy Requirements Using 1531 kcal/Kg Calculation Used for Recommendations Kcal/kg Additional Notes Protein: 1-1.2 g/Kg AdjBW; 70- 84 g/day. Fluids: 1 ml/Kcal, or as per MD. Nutrition Intervention Change Diet Order: Continue Cardiac/Consistent Carbohydrates Diet. Revisit per MD consult or patient Sign Off request: Additional Comments Continue monitoring food tolerance, %PO intake of meals , and BM.
[2021-10-01] MEDS: DIVALPROEX ER 500 MG TAB PO SCH (21:11)
[2021-10-01] MEDS: traZODone 50 MG TAB PO SCH (21:12)
[2021-10-01] MEDS: DONEPEZIL 5 MG TAB PO SCH (21:12)
[2021-10-02] MEDS: metFORMIN 500 MG TAB PO SCH ×2 (08:40→16:00)
[2021-10-02] MEDS: glipiZIDE 5 MG TAB PO SCH ×2 (08:40→16:00)
[2021-10-02] MEDS: INSULIN LISPRO 100 UNIT/ML SUB-Q SCH ×4 (08:41→21:20)
--- NOTE | 2021-10-02 09:29 | Progress Note ---
Subjective Date of service: 10/02/21 Principal diagnosis: Bipolar Disorder Subjective Comment: The patient was seen today. She's calm, cooperative and pleasant. She denies SI/HI and hallucinations of any kind. 10/01 The patient was seen today. She is calm and cooperative. She says she slept well and her appetite is good. She denies SI/HI or hallucinations of any kind. Staff says the patient has been hyperverbal, having flight of ideas, and delusional. Will adjust abilify. 09/30 The patient was seen today. She is calm, cooperative and pleasant. She seems a little delusional. She is talking about a "Mr. 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 She says "he's my boss." She denies SI/HI or hallucinations. 09/29: The patient was seen today. She is alert, pleasant and fully oriented. She, denies paranoia, hallucinations, SI or HI. She is compliant with medications and denies side effects. Nursing Staff reports that she was paranoid, psychotic, agitated and disruptive last night, required PRN medications and Security Staffs assistance Plan: Will give Clonazepam 1mg bid X 4 doses Will need to check Valproic Acid level on 10/03/2109/28: The patient was seen today. She continues to be manic, hyperactive, talkative and intrusive. She did not sleep well last night despite receiving Melatonin per Nursing Staff. Depakote was increased to 500mg bid on 09/26 which she has been to tolerate. Plan: Will add Trazodone 50mg qhs for sleep. Will need to check Valproic Acid level on 10/03/2109/27: The patient was seen today. She continues to be manic, but less disruptive and not aggressive. Depakote was increased to 500mg bid yesterday which she has been to tolerate. Plan: Will need to check Valproic Acid level on 10/03/2109/26: The patient was seen today. She continues to be manic, disruptive and aggressive. She requires PRN Geodon for agitation. Per nurse note the patient exhibited aggressive behavior the night before. Plan: Depakote increased to 500mg bid Review of Symptoms: Constitutional: Negative for weight loss ENT: Negative for stridor Respiratory: Negative for cough or hemoptysis All other systems reviewed and are negative MSE Appearance: Wearing appropriate clothing. Good hygiene Behavior: Pleasant and cooperative. Mood: "Good" Affect: Euthymic Thought Process: Goal directed Speech: Increased rate. Thought Content Harmfulness Denies SI/HI Hallucinations: patient denies Delusions: none elicited Consciousness: alert. Cognition/Memory: normal. Insight/Judgment: Limited. Assessment (1) Bipolar Current Visit: Yes Status: Acute Treatment Plan Due to the psychiatric conditions and treatment listed in the Assessment and Plan - the patient requires continued hospitalization. Will continue inpatient treatment to allow for medication adjustment and monitoring. Will continue q15 min safety checks. Will encourage the use of environmental modifications and non-pharmacologic approaches for the management of behavioral and psychological symptoms. Monitor for medication side effects. The patient will continue on medications for physical illnesses, and Hospitalist will closely monitor these Increased Abilify 15mg po daily Continue intensive physical and occupational therapies. Monitor patient's mood, sleep, appetite, and behavior closely. Encourage patient to participate in individual and group therapeutic sessions on the [place]. Will provide a safe and therapeutic environment for patient. Estimated days: 5 Post hospital care: primary care provider, psychiatric provider Case staffed with Dr. White Medications and Allergies Allergies Allergy/AdvReac Type Severity Reaction Status Date / Time haloperidol [From Haldol] Allergy Unknown Verified 05/16/21 22:07 Latex, Natural Rubber Allergy Unknown Verified 05/16/21 22:07 Home Medications Medication Instructions Recorded Confirmed Last Taken Type ARIPiprazole [Abilify] 10 mg PO DAILY 05/16/21 09/25/21 Unknown History Ipratropium/Albuterol Sulfate 0.5 - 2.5 mg INHALATION Q4HR PRN 05/16/21 09/25/21 Unknown History [DUONEB *Not for PRN Use*] amLODIPine 5 mg PO DAILY 05/16/21 09/25/21 Unknown History diphenhydrAMINE [Benadryl CAP] 25 mg PO QHS PRN MDD For upto 10 05/16/21 09/25/21 Unknown History days donepeziL [Aricept] 5 mg PO QHS 05/16/21 09/25/21 Unknown History guaiFENesin/DEXTROMETHORPHAN 5 ml PO Q12HR 05/16/21 09/25/21 Unknown History [Guaifenesin-Dm 100-10 mg/5 ml] ALBUTEROL NEB's [Proventil 0.083% 2.5 mg IH Q4HRT PRN nebu 05/31/21 09/25/21 Unknown Rx NEBS] ARIPiprazole [Abilify TAB] 25 mg PO QDAY 30 Days #30 tablet 05/31/21 09/25/21 Unknown Rx Lispro Insulin [HumaLOG] 0 unit SUB-Q ACHS units 05/31/21 09/25/21 Unknown Rx clonazePAM [KlonoPIN] 1 mg PO BID 30 Days #30 tablet 05/31/21 09/25/21 Unknown Rx guaiFENesin DM [Guaifenesin Dm 5 ml PO Q12H oral.liqd 05/31/21 09/25/21 Unknown Rx Syrup] Divalproex ER [Depakote ER] 1,000 mg PO QHS 30 Days #30 tablet 07/08/21 09/25/21 Unknown Rx Divalproex ER [Depakote ER] 250 mg PO QAM 30 Days #30 tablet 07/08/21 09/25/21 Unknown Rx Fluconazole [Diflucan TAB] 150 mg PO ONCE #1 dose 07/08/21 09/25/21 Unknown Rx Metformin HCl [metFORMIN] 1,000 mg PO BID #60 07/08/21 09/25/21 Unknown Rx glipiZIDE [Glucotrol] 5 mg PO BID 09/27/21 09/27/21 Unknown History Active Meds: Active Medications Acetaminophen (Acetaminophen 325 Mg Tab) 650 mg PO Q6H PRN PRN Reason: Pain, Mild (1-3) Albuterol (Albuterol 2.5 Mg/3 Ml Nebu) 2.5 mg IH Q4HRT PRN PRN Reason: Shortness Of Breath Aripiprazole (Aripiprazole 15 Mg Tab) 15 mg PO QDAY JULIO Diphenhydramine HCl (Diphenhydramine 25 Mg Cap) 25 mg PO QHS PRN PRN Reason: Insomnia Last Admin: 10/01/21 20:53 Dose: 25 mg Divalproex Sodium (Divalproex Er 500 Mg Tab) 1,000 mg PO QHS JULIO Last Admin: 10/01/21 21:11 Dose: 1,000 mg Donepezil HCl (Donepezil 5 Mg Tab) 5 mg PO QHS JULIO Last Admin: 10/01/21 21:12 Dose: 5 mg Glipizide (Glipizide 5 Mg Tab) 5 mg PO BIDDIAB [facility] Last Admin: 10/02/21 08:40 Dose: 5 mg Guaifenesin (Guaifenesin Dm 200/20 Mg Oral Liqd 10 Ml) 5 ml PO Q12HR [facility] Last Admin: 10/01/21 21:12 Dose: 5 ml Insulin Human Lispro (Insulin Lispro 100 Unit/Ml) 0 unit SUB-Q ACHS [facility]; Protocol Last Admin: 10/02/21 08:41 Dose: Not Given Melatonin (Melatonin 5 Mg Tab) 5 mg PO QHS PRN PRN Reason: Sleep Last Admin: 10/01/21 04:03 Dose: 5 mg Metformin HCl (Metformin 500 Mg Tab) 1,000 mg PO BIDDIAB [facility] Last Admin: 10/02/21 08:40 Dose: 1,000 mg Trazodone HCl (Trazodone 50 Mg Tab) 50 mg PO QHS [facility] Last Admin: 10/01/21 21:12 Dose: 50 mg Ziprasidone (Ziprasidone Mesylate 20 Mg Vial) 20 mg IM Q4H PRN PRN Reason: Agitation Last Admin: 09/29/21 00:47 Dose: 20 mg Results - Results Labs/Vitals: Laboratory Last Values POC Glucose 98 mg/dL (70-105) 10/01/21 20:04 Hemoglobin A1c 9.9 % (4-6) H 09/25/21 05:02 Triglycerides 81 mg/dL (2-149) 09/25/21 05:02 Cholesterol 125 mg/dL (50-199) 09/25/21 05:02 LDL Cholesterol Direct 48 mg/dL (50-130) L 09/25/21 05:02 HDL Cholesterol 62 mg/dL (40-59) H 09/25/21 05:02 Cholesterol/HDL Ratio 2.01 % 09/25/21 05:02 TSH 1.240 mlU/mL (0.270-4.200) 09/25/21 05:02 Hepatitis A IgM Ab Non-reactive (NonReactive) 09/25/21 05:02 Hep Bs Antigen Non-reactive (Negative) 09/25/21 05:02 Hep B Core IgM Ab Non-reactive (NonReactive) 09/25/21 05:02 Hepatitis C Antibody Non-reactive (NonReactive) 09/25/21 05:02 Last Vital Signs Temp 97.4 F L 10/01/21 19:51 Pulse 82 10/01/21 19:51 Resp 16 10/01/21 19:51 BP 96/59 10/01/21 19:51 Pulse Ox 94 10/01/21 19:51
[2021-10-02] MEDS: ARIPiprazole 15 MG TAB PO SCH (09:33)
[2021-10-02] MEDS: guaiFENesin DM 200/20 MG ORAL LIQD 10 ML PO SCH ×2 (09:33→21:06)
[2021-10-02] MEDS: DONEPEZIL 5 MG TAB PO SCH (21:05)
[2021-10-02] MEDS: DIVALPROEX ER 500 MG TAB PO SCH (21:05)
[2021-10-02] MEDS: traZODone 50 MG TAB PO SCH (21:06)
--- NOTE | 2021-10-02 21:13 | Progress Note ---
Assessment and Plan - Patient Problems (1) Vascular dementia with behavioral disturbance Current Visit: No Status: Acute Plan to address problem: Verbal prompting, verbal redirection, benzodiazepine therapy as clinically indicated. (2) Cerebral atherosclerosis Current Visit: No Status: Acute Plan to address problem: Risk factor reduction, antiplatelet therapy as clinically indicated. (3) Bipolar disorder Current Visit: Yes Status: Acute Plan to address problem: Continue medical management, behavior change counseling. (4) Obesity hypoventilation syndrome Current Visit: Yes Status: Acute Plan to address problem: Patient counseled regarding balanced diet, increase physical activity at discharge, outpatient pulmonary follow-up for sleep study. (5) Advance care planning Current Visit: No Status: Acute Plan to address problem: Disease education conducted, care plan discussed, diagnoses discussed, prognosis discussed, patient is full code, +30 minutes. (6) Preventative health care Current Visit: Yes Status: Acute Plan to address problem: Patient counseled regarding meal planning, weight reduction, balanced diet, outpatient pulmonary follow-up for sleep study. Patient counseled to follow-up with primary care physician as outpatient for all age and risk factor appropriate screening test. +30 minutes. History Interval history: 70 YO Female with Vascular Dementia with Behavioral Disturbance, Cerebral Atherosclerosis, Bipolar Disorder. Pt is admitted to [facility] for psychiatric stabilization. Consult placed by Dr. Higgins for medical management. Patient seen and evaluated in her room. Patient remains comfortable. Patient remains at baseline level of cognition and function. No reported nursing events. Hospitalist Physical - Constitutional Vitals: Temp Pulse Resp BP Pulse Ox 97.4 F L 82 16 96/59 94 10/01/21 19:51 10/01/21 19:51 10/01/21 19:51 10/01/21 19:51 10/01/21 19:51 General appearance: Present: no acute distress - EENT Eyes: Present: PERRL ENT: hearing intact - Neck Neck: Present: supple - Respiratory Respiratory effort: normal Respiratory: bilateral: diminished - Cardiovascular Rhythm: regular Heart Sounds: Present: S1 & S2 - Extremities Extremities: no ischemia Peripheral Pulses: within normal limits - Abdominal General gastrointestinal: soft, non-tender, non-distended - Integumentary Integumentary: Present: clear, dry - Psychiatric Psychiatric: cooperative - Neurologic Neurologic: CNII-XII intact Results - Labs Labs: Laboratory Last Values POC Glucose 152 mg/dL (70-105) H 10/02/21 19:52 Hemoglobin A1c 9.9 % (4-6) H 09/25/21 05:02 Triglycerides 81 mg/dL (2-149) 09/25/21 05:02 Cholesterol 125 mg/dL (50-199) 09/25/21 05:02 LDL Cholesterol Direct 48 mg/dL (50-130) L 09/25/21 05:02 HDL Cholesterol 62 mg/dL (40-59) H 09/25/21 05:02 Cholesterol/HDL Ratio 2.01 % 09/25/21 05:02 TSH 1.240 mlU/mL (0.270-4.200) 09/25/21 05:02 Hepatitis A IgM Ab Non-reactive (NonReactive) 09/25/21 05:02 Hep Bs Antigen Non-reactive (Negative) 09/25/21 05:02 Hep B Core IgM Ab Non-reactive (NonReactive) 09/25/21 05:02 Hepatitis C Antibody Non-reactive (NonReactive) 09/25/21 05:02 Du/IV: Voiding Method Toilet Active Medications - Current Medications Current Medications: Generic Name Dose Route Start Last Admin Trade Name Freq PRN Reason Stop Dose Admin Acetaminophen 650 mg 09/27/21 02:28 Acetaminophen 325 Mg Tab PO Q6H PRN Pain, Mild (1-3) Albuterol 2.5 mg 09/24/21 16:00 Albuterol 2.5 Mg/3 Ml Nebu IH Q4HRT PRN Shortness Of Breath Aripiprazole 15 mg 10/02/21 10:00 10/02/21 09:33 Aripiprazole 15 Mg Tab PO 15 mg QDAY JULIO Administration Diphenhydramine HCl 25 mg 09/28/21 10:12 10/01/21 20:53 Diphenhydramine 25 Mg Cap PO 25 mg QHS PRN Administration Insomnia Divalproex Sodium 1,000 mg 09/28/21 22:00 10/02/21 21:05 Divalproex Er 500 Mg Tab PO 1,000 mg QHS JULIO Administration Donepezil HCl 5 mg 09/24/21 22:00 10/02/21 21:05 Donepezil 5 Mg Tab PO 5 mg QHS JULIO Administration Glipizide 5 mg 09/27/21 08:00 10/02/21 16:00 Glipizide 5 Mg Tab PO 5 mg BIDDIAB JULIO Administration Guaifenesin 5 ml 09/28/21 11:00 10/02/21 21:06 Guaifenesin Dm 200/20 Mg Oral Liqd 10 Ml PO 5 ml Q12HR JULIO Administration Insulin Human Lispro 0 unit 09/24/21 16:30 10/02/21 16:00 Insulin Lispro 100 Unit/Ml SUB-Q Not Given ACHS [facility] Protocol Melatonin 5 mg 09/27/21 02:19 10/01/21 04:03 Melatonin 5 Mg Tab PO 5 mg QHS PRN Administration Sleep Metformin HCl 1,000 mg 09/28/21 17:00 10/02/21 16:00 Metformin 500 Mg Tab PO 1,000 mg BIDDIAB JULIO Administration Trazodone HCl 50 mg 09/28/21 22:00 10/02/21 21:06 Trazodone 50 Mg Tab PO 50 mg QHS JULIO Administration Ziprasidone 20 mg 09/26/21 12:00 09/29/21 00:47 Ziprasidone Mesylate 20 Mg Vial IM 20 mg Q4H PRN Administration Agitation Nutrition/Malnutrition Assess - Dietary Evaluation Nutrition/Malnutrition Findings: Nutrition Notes Start: 09/25/21 16:08 Freq: Status: Active Protocol: Document 09/25/21 16:08 NICHOLAS (Rec: 09/25/21 16:23 NICHOLAS [id number]) Nutrition Notes Need for Assessment generated from: MD Order,Education Initial or Follow up Brief Note Other Pertinent Diagnosis Bipolar Disorder, Anxiety, Dementia, Schizophrenia. Current Diet Cardiac/Consistent Carbohydrates Diet (since D ). Labs/Tests 09/25: HbA1c 9.9%. Pertinent Medications 09/25: Humalog 1U, others nutritionally unremarkable. Height 5 ft 5 in Weight 102.05 kg [place] Body Weight (kg) 56.81 BMI 37.4 Intake Prior to Admission Good Weight change and time frame Pt denies having loss body weight [employer]. Weight Status Morbidly Obese Subjective/Other Information RD consult for nutrition education assessment. Pt's PO intake of meals has been Good (100%), according to ADL notes. Pt is on Room Air, O2 saturation @ 94%, according to Vital Signs. Pt needs total assistance with ADL activities, not a candidate for Nutrition Education. Percent of energy/protein needs met: Prescribed Cardiac/Consistent Carbohydrates Diet provides for energy/protein needs (1, 977 Kcal/86 g) during LOS. Burn Absent Trauma Absent GI Symptoms None Food Allergy No Skin Integrity/Comment Assessment WNL. Current % PO Good (75-100%) Minimum of two criteria No #1 Nutrition Diagnosis No nutrition diagnosis at this time Is patient on ventilator? No Is Patient Ambulatory and/or Out of Bed Yes [facility]-([facility]) [ 2010.294 NUTR.MSJOOB] Kcal/Kg value to use for calculation 15 Approximate Energy Requirements Using 1531 kcal/Kg Calculation Used for Recommendations Kcal/kg Additional Notes Protein: 1-1.2 g/Kg AdjBW; 70- 84 g/day. Fluids: 1 ml/Kcal, or as per MD. Nutrition Intervention Change Diet Order: Continue Cardiac/Consistent Carbohydrates Diet. Revisit per MD consult or patient Sign Off request: Additional Comments Continue monitoring food tolerance, %PO intake of meals , and BM.
[2021-10-03] MEDS: INSULIN LISPRO 100 UNIT/ML SUB-Q SCH (07:30)
[2021-10-03] MEDS: glipiZIDE 5 MG TAB PO SCH (08:27)
[2021-10-03] MEDS: metFORMIN 500 MG TAB PO SCH (08:27)
[2021-10-03] MEDS: ARIPiprazole 15 MG TAB PO SCH (09:42)
[2021-10-03] MEDS: guaiFENesin DM 200/20 MG ORAL LIQD 10 ML PO SCH (09:44)
--- NOTE | 2021-10-03 10:27 | Discharge Summary ---
Providers - Providers Date of Admission: 09/24/21 19:34 Date of discharge: 10/03/21 Attending physician: NEYMAR ARANGO MD 09/24/21 14:46 Consult to Physician [CONS] Routine Comment: Consulting Provider: DAVE SANCHEZ Physician Instructions: Reason For Exam: new admit Primary care physician: GLOVE OPERATOR Hospitalization Reason for admission: suicidal ideation Admitting Diagnosis: F31.32 - BIPOLAR DISORDER, CURRENT EPISODE DEPRESSED, MODERATE Condition: Stable Hospital course: The patient was provided inpatient psychiatric treatment with safe and supportive environment, group/individual therapy, psychiatric medication, medication adjustment, adverse effect monitor, medical evaluation, medical treatment, social service assessment, social support meeting, placement assessment and psycho-education. The patients mood, cognition, behavior, motivation, compliance to treatment and appreciation on family/social support are improved and stabilized. At the time of discharge, the patient had no suicidal ideas, no homicidal ideas, no aggressive thoughts, no endangering behav ior and no debilitating adverse effects. The patient agreed on the treatment plan, understood the risk, benefit, alternative treatment, potential consequence of no treatment, and gave informed consent. Progress Note: 10/02 The patient was seen today. She's calm, cooperative and pleasant. She denies SI/HI and hallucinations of any kind. 10/01 The patient was seen today. She is calm and cooperative. She says she slept well and her appetite is good. She denies SI/HI or hallucinations of any kind. Staff says the patient has been hyperverbal, having flight of ideas, and delusional. Will adjust abilify. 09/30 The patient was seen today. She is calm, cooperative and pleasant. She seems a little delusional. She is talking about a "Mr. 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 She says "he's my boss." She denies SI/HI or hallucinations. 09/29: The patient was seen today. She is alert, pleasant and fully oriented. She, denies paranoia, hallucinations, SI or HI. She is compliant with medications and denies side effects. Nursing Staff reports that she was paranoid, psychotic, agitated and disruptive last night, required PRN medications and Security Staffs assistance Plan: Will give Clonazepam 1mg bid X 4 doses Will need to check Valproic Acid level on 10/03/2109/28: The patient was seen today. She continues to be manic, hyperactive, talkative and intrusive. She did not sleep well last night despite receiving Melatonin per Nursing Staff. Depakote was increased to 500mg bid on 09/26 which she has been to tolerate. Plan: Will add Trazodone 50mg qhs for sleep. Will need to check Valproic Acid level on 10/03/2109/27: The patient was seen today. She continues to be manic, but less disruptive and not aggressive. Depakote was increased to 500mg bid yesterday which she has been to tolerate. Plan: Will need to check Valproic Acid level on 10/03/2109/26: The patient was seen today. She continues to be manic, disruptive and aggressive. She requires PRN Geodon for agitation. Per nurse note the patient exhibited aggressive behavior the night before. Plan: Depakote increased to 500mg bid Disposition: 30 STILL A PATIENT Allergies/Adverse Reactions: Allergies haloperidol [From Haldol] Allergy (Verified 05/16/21 22:07) Unknown Latex, Natural Rubber Allergy (Verified 05/16/21 22:07) Unknown Vital Signs: Last Vital Signs Temp 98.6 F 10/02/21 19:30 Pulse 83 10/02/21 19:30 Resp 17 10/02/21 19:30 BP 133/77 10/02/21 19:30 Pulse Ox 99 10/02/21 19:30 Last Lab: Laboratory Last Values POC Glucose 103 mg/dL (70-105) 10/03/21 06:40 Hemoglobin A1c 9.9 % (4-6) H 09/25/21 05:02 Triglycerides 81 mg/dL (2-149) 09/25/21 05:02 Cholesterol 125 mg/dL (50-199) 09/25/21 05:02 LDL Cholesterol Direct 48 mg/dL (50-130) L 09/25/21 05:02 HDL Cholesterol 62 mg/dL (40-59) H 09/25/21 05:02 Cholesterol/HDL Ratio 2.01 % 09/25/21 05:02 TSH 1.240 mlU/mL (0.270-4.200) 09/25/21 05:02 Hepatitis A IgM Ab Non-reactive (NonReactive) 09/25/21 05:02 Hep Bs Antigen Non-reactive (Negative) 09/25/21 05:02 Hep B Core IgM Ab Non-reactive (NonReactive) 09/25/21 05:02 Hepatitis C Antibody Non-reactive (NonReactive) 09/25/21 05:02 Core Measure Documentation - Palliative Care Palliative Care/ Comfort Measures: Not Applicable - Core Measures Any of the following diagnoses?: none - VTE Discharge Requirements Deep Vein Thrombosis/Pulmonary Embolism Present on Admission: No Exam - Constitutional Vitals: Temp Pulse Resp BP Pulse Ox 98.6 F 83 17 133/77 99 10/02/21 19:30 10/02/21 19:30 10/02/21 19:30 10/02/21 19:30 10/02/21 19:30 Plan Activity: advance as tolerated Weight Bearing Status: Weight Bear as Tolerated Care Plan Goals: Maintain good and stable mental health. Plan of Treatment: The patient should be compliant with medications, not to use drugs and not to drink alcohol.The patient understands that if suicidal ideas, homicidal ideas, or any endangering thoughts/behavior arise, they should immediately seek for emergent assistance including but not limited to crisis hot line and emergency room. Follow up with outpatient Psychiatrist and PCP within 7 - 14 days of discharge. Follow up with: PRIMARY CARE, [Primary Care Provider] - 7 Days Prescriptions: Divalproex ER [Depakote ER] 1,000 mg PO QHS 30 Days #30 tablet traZODone [Desyrel] 50 mg PO QHS 30 Days #30 tablet ARIPiprazole [Abilify TAB] 15 mg PO QDAY 30 Days #30 tablet
[2021-10-03 12:59] VITALS: BP 116/57
== END 2021-10-03 14:15 | disposition home or self-care (01) | DRG 885 ==
LOC: UNDOADMIN 13:40 → 3A 13:40 → 5A 19:34
PROVIDERS: ADMIT Psychiatry & Neurology Psychiatry; ATTEND Psychiatry & Neurology Psychiatry
DX: F31.9 Bipolar disorder, unspecified (principal); I10 Essential (primary) hypertension; E11.9 Type 2 diabetes mellitus without complications; E66.01 Morbid (severe) obesity due to excess calories; I67.2 Cerebral atherosclerosis; F01.50 Vascular dementia, unspecified severity, without behavioral disturbance, psychotic disturbance, mood disturbance, and anxiety; Z68.37 Body mass index [BMI] 37.0-37.9, adult; Z88.8 Allergy status to other drugs, medicaments and biological substances
CPT/HCPCS: 36415; 80048; 80061; 80074; 80164; 80307; 80320; 81001; 82962; 83036; 84443; 85025; G0378; Q9967; G0480; J1815; J3486; U0003

== ENCOUNTER 2021-10-18 06:28 | Emergency (ER) | payer MEDICARE ==
--- NOTE | 2021-10-18 07:19 | Emergency Department Report ---
ED Medical Clearance HPI - General Chief complaint: Altered Mental Status Stated complaint: BEHAVIORAL ISSUES Time Seen by Provider: 10/18/21 07:08 Source: patient Mode of arrival: Stretcher - History of Present Illness Initial comments: Patient is 70-year-old female with history of dementia brought in by PD for clearance. She reportedly escaped from her jail. She does not appear to be in any acute distress. She was seen here on 09/23/2021 after a previous escape from her jail. Home medications: Home Medications Medication Instructions Recorded Confirmed Last Taken Ipratropium/Albuterol Sulfate 0.5 - 2.5 mg INHALATION Q4HR PRN 05/16/21 09/25/21 Unknown [DUONEB *Not for PRN Use*] amLODIPine 5 mg PO DAILY 05/16/21 09/25/21 Unknown diphenhydrAMINE [Benadryl CAP] 25 mg PO QHS PRN MDD For upto 10 05/16/2106/17 Unknown days donepeziL [Aricept] 5 mg PO QHS 05/16/21 09/25/21 Unknown guaiFENesin/DEXTROMETHORPHAN 5 ml PO Q12HR 05/16/21 09/25/21 Unknown [Guaifenesin-Dm 100-10 mg/5 ml] glipiZIDE [Glucotrol] 5 mg PO BID 09/27/21 09/27/21 Unknown Previous Rx's Medication Instructions Recorded Last Taken Type ALBUTEROL NEB's [Proventil 0.083% 2.5 mg IH Q4HRT PRN nebu 05/31/21 Unknown Rx NEBS] ARIPiprazole [Abilify TAB] 25 mg PO QDAY 30 Days #30 tablet 05/31/21 Unknown Rx Lispro Insulin [HumaLOG] 0 unit SUB-Q ACHS units 05/31/21 Unknown Rx clonazePAM [KlonoPIN] 1 mg PO BID 30 Days #30 tablet 05/31/21 Unknown Rx guaiFENesin DM [Guaifenesin Dm 5 ml PO Q12H oral.liqd 05/31/21 Unknown Rx Syrup] Fluconazole [Diflucan TAB] 150 mg PO ONCE #1 dose 07/08/21 Unknown Rx Metformin HCl [metFORMIN] 1,000 mg PO BID #60 07/08/21 Unknown Rx ARIPiprazole [Abilify TAB] 15 mg PO QDAY 30 Days #30 tablet 10/03/21 Unknown Rx Divalproex ER [Depakote ER] 1,000 mg PO QHS 30 Days #30 tablet 10/03/21 Unknown Rx glipiZIDE [Glucotrol] 5 mg PO BIDDIAB tablet 10/03/21 Unknown Rx traZODone [Desyrel] 50 mg PO QHS 30 Days #30 tablet 10/03/21 Unknown Rx cephALEXin [Keflex] 500 mg PO Q12HR #14 cap 10/18/21 Unknown Rx Allergies/Adverse reactions: Allergies Allergy/AdvReac Type Severity Reaction Status Date / Time haloperidol [From Haldol] Allergy Unknown Verified 05/16/21 22:07 Latex, Natural Rubber Allergy Unknown Verified 05/16/21 22:07 ED Review of Systems ROS: Stated complaint: BEHAVIORAL ISSUES Other details as noted in HPI Constitutional: denies: chills, fever Respiratory: denies: cough, shortness of breath, wheezing Cardiovascular: denies: chest pain, palpitations Gastrointestinal: denies: abdominal pain, nausea, diarrhea Genitourinary: denies: urgency, dysuria, discharge Musculoskeletal: denies: back pain, joint swelling, arthralgia Skin: denies: rash, lesions Neurological: denies: headache, weakness, paresthesias Psychiatric: denies: anxiety, depression ED Past Medical Hx - Past Medical History Previous Medical History?: Yes Hx Diabetes: Yes Hx Psychiatric Treatment: Yes (Schizophrenia) Hx Dementia: Yes (Vascular) Additional medical history: vascular dementia - Surgical History Past Surgical History?: No - Social History Smoking Status: Never Smoker Substance Use Type: None - Medications Home Medications: Home Medications Medication Instructions Recorded Confirmed Last Taken Type Ipratropium/Albuterol Sulfate 0.5 - 2.5 mg INHALATION Q4HR PRN 05/16/21 09/25/21 Unknown History [DUONEB *Not for PRN Use*] amLODIPine 5 mg PO DAILY 05/16/21 09/25/21 Unknown History diphenhydrAMINE [Benadryl CAP] 25 mg PO QHS PRN MDD For upto 10 05/16/21 09/25/21 Unknown History days donepeziL [Aricept] 5 mg PO QHS 05/16/21 09/25/21 Unknown History guaiFENesin/DEXTROMETHORPHAN 5 ml PO Q12HR 05/16/21 09/25/21 Unknown History [Guaifenesin-Dm 100-10 mg/5 ml] ALBUTEROL NEB's [Proventil 0.083% 2.5 mg IH Q4HRT PRN nebu 05/31/21 09/25/21 Unknown Rx NEBS] ARIPiprazole [Abilify TAB] 25 mg PO QDAY 30 Days #30 tablet 05/31/21 09/25/21 Unknown Rx Lispro Insulin [HumaLOG] 0 unit SUB-Q ACHS units 05/31/21 09/25/21 Unknown Rx clonazePAM [KlonoPIN] 1 mg PO BID 30 Days #30 tablet 05/31/21 09/25/21 Unknown Rx guaiFENesin DM [Guaifenesin Dm 5 ml PO Q12H oral.liqd 05/31/21 09/25/21 Unknown Rx Syrup] Fluconazole [Diflucan TAB] 150 mg PO ONCE #1 dose 07/08/21 09/25/21 Unknown Rx Metformin HCl [metFORMIN] 1,000 mg PO BID #60 07/08/21 09/25/21 Unknown Rx glipiZIDE [Glucotrol] 5 mg PO BID 09/27/21 09/27/21 Unknown History ARIPiprazole [Abilify TAB] 15 mg PO QDAY 30 Days #30 tablet 10/03/21 Unknown Rx Divalproex ER [Depakote ER] 1,000 mg PO QHS 30 Days #30 tablet 10/03/21 Unknown Rx glipiZIDE [Glucotrol] 5 mg PO BIDDIAB tablet 10/03/21 Unknown Rx traZODone [Desyrel] 50 mg PO QHS 30 Days #30 tablet 10/03/21 Unknown Rx cephALEXin [Keflex] 500 mg PO Q12HR #14 cap 10/18/21 Unknown Rx ED Physical Exam - General Limitations: No Limitations General appearance: alert, in no apparent distress - Head Head exam: Present: atraumatic, normocephalic - Neck Neck exam: Present: normal inspection - Respiratory Respiratory exam: Present: normal lung sounds bilaterally. Absent: respiratory distress - Cardiovascular Cardiovascular Exam: Present: regular rate, normal rhythm, normal heart sounds - GI/Abdominal GI/Abdominal exam: Present: soft. Absent: distended, tenderness - Rectal Rectal exam: Present: deferred - Neurological Exam Neurological exam: Present: alert, other (Oriented to person only) - Psychiatric Psychiatric exam: Present: normal affect, normal mood - Skin Skin exam: Present: warm, dry, intact, normal color ED Course Vital Signs 10/18/21 10/18/21 06:29 07:30 Temperature 98 F Pulse Rate 82 85 Respiratory 18 17 Rate Blood Pressure 136/87 Blood Pressure 109/65 [Left] O2 Sat by Pulse 98 99 Oximetry ED Medical Decision Making - Lab Data Result diagrams: 10/18/21 07:29 10/18/21 07:29 - Medical Decision Making CBC and CMP grossly unremarkable. UTI is present. Patient exhibits behavior consistent with dementia and is otherwise stable. Will discharge to nursing facility on Keflex. ED Disposition Clinical Impression: Dementia, Urinary tract infection Disposition: 03 [facility] Is pt being admited?: No Condition: Stable Instructions: Urinary Tract Infection, Adult, [id number] Time of Disposition: 09:56
[2021-10-18 08:02] LABS: Basophils % (Auto) 0.9 % (0.0-1.8); Eosinophils # (Auto) 0.1 K/mm3 (0.0-0.4); Eosinophils % (Auto) 1.2 % (0.0-4.3); Hematocrit 32.3 % (30.3-42.9); Hemoglobin 10.6 gm/dl (10.1-14.3); Lymphocytes # (Auto) 1.4 K/mm3 (1.2-5.4); Lymphocytes % (Auto) 28.5 % (13.4-35.0); Mean Corpuscular HGB Conc 33 % (30-34); Mean Corpuscular Volume 90 fl (79-97); Monocytes # (Auto) 0.6 K/mm3 (0.0-0.8); Monocytes % (Auto) 13.6 % (0.0-7.3); Platelet Count 131 K/mm3 (140-440); Red Cell Distribution Width 15.5 % (13.2-15.2)
[2021-10-18 08:26] LABS: Alanine Aminotransferase 15 units/L (7-56); Albumin 3.6 g/dL (3.9-5); BUN/Creatinine Ratio 16; Blood Urea Nitrogen 14 mg/dL (7-17); Calcium 9.4 mg/dL (8.4-10.2); Hemolysis Index 3
[2021-10-18 08:30] LABS: Bilirubin,Direct < 0.2 mg/dL (0-0.2)
[2021-10-18 09:43] LABS: Bilirubin,Urine NEG (Negative); Blood,Urine NEG (Negative); Color,Urine Yellow (Yellow); Protein,Urine <15 mg/dL mg/dL (Negative); Urobilinogen,Urine < 2.0 mg/dL (<2.0)
[2021-10-18 09:48] LABS: Bacteria,Urine 1+ /HPF (Negative); Mucus,Urine 1+ /HPF
[2021-10-18] MEDS ORDERED: cephALEXin 500 MG CAP PO ONE (09:57)
[2021-10-19] MEDS ORDERED: ALBUTEROL 2.5 MG/3 ML NEBU IH PRN (11:11)
[2021-10-19] MEDS ORDERED: amLODIPine 5 MG TAB PO SCH (12:00)
[2021-10-19] MEDS ORDERED: ARIPiprazole 15 MG TAB PO SCH (12:00)
[2021-10-19] MEDS ORDERED: cephALEXin 500 MG CAP PO SCH (12:00)
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
[2021-10-19 16:02] VITALS: BP 147/77
[2021-10-19] MEDS ORDERED: glipiZIDE 5 MG TAB PO SCH (17:00)
[2021-10-19] MEDS ORDERED: DONEPEZIL 5 MG TAB PO SCH (22:00)
[2021-10-19] MEDS ORDERED: DIVALPROEX ER 500 MG TAB PO SCH (22:00)
== END 2021-10-19 18:38 ==
LOC: ED 06:28
DX: F03.90 Unspecified dementia, unspecified severity, without behavioral disturbance, psychotic disturbance, mood disturbance, and anxiety (principal); N39.0 Urinary tract infection, site not specified; E11.9 Type 2 diabetes mellitus without complications; F20.9 Schizophrenia, unspecified; Z91.040 Latex allergy status; Z91.09 Other allergy status, other than to drugs and biological substances; Z20.822 Contact with and (suspected) exposure to COVID-19
CPT/HCPCS: 36415; 80048; 80076; 81001; 82962; 85025; 87086; 99284; U0003

== ENCOUNTER 2021-11-22 12:15 | Emergency (ER) | payer MEDICARE ==
[2021-11-22 12:32] VITALS: BP 160/70
[2021-11-22] MEDS ORDERED: ACETAMINOPHEN 500 MG TAB PO ONE ×2 (13:38→16:00)
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
--- NOTE | 2021-11-22 14:28 | XRay Report ---
LEFT TIBIA-FIBULA 2 VIEW(S) INDICATION / CLINICAL INFORMATION: L tib fib pain swelling COMPARISON: None available. FINDINGS: BONES / JOINT(S): No acute fracture or subluxation. No significant arthritis. SOFT TISSUES: Mild focal pretibial soft tissue swelling in the mid lower leg. ADDITIONAL FINDINGS: None. IMPRESSION: 1. Pretibial soft tissue swelling. Signer Name: Bridger Whitfield MD Signed: 11/22/2021 2:23 PM Workstation Name: [id number]
== END 2021-11-22 19:00 | disposition home or self-care (01) ==
LOC: ED 12:15
DX: S80.12XA Contusion of left lower leg, initial encounter (principal); X58.XXXA Exposure to other specified factors, initial encounter; F20.9 Schizophrenia, unspecified; E11.9 Type 2 diabetes mellitus without complications; Y93.89 Activity, other specified; Y92.89 Other specified places as the place of occurrence of the external cause; Y99.8 Other external cause status
CPT/HCPCS: 99283

== ENCOUNTER 2021-11-23 00:19 | Emergency (ER) | payer MEDICARE ==
[2021-11-23] MEDS ORDERED: ZIPRASIDONE MESYLATE 20 MG VIAL IM ONE ×3 (01:05→01:11)
--- NOTE | 2021-11-23 02:15 | Emergency Department Report ---
ED Psych HPI - General Chief Complaint: Psych Stated Complaint: MENTAL HEALTH Time Seen by Provider: 11/23/21 01:30 Source: patient Mode of arrival: Stretcher - History of Present Illness Initial Comments: 70 yo F with h/o schizophrenia brought in with aggressive behaviour from jail. Pt was screaming and yelling while been examined. No other modifying or associated factors reported. - Related Data Home Medications Medication Instructions Recorded Confirmed Last Taken Ipratropium/Albuterol Sulfate 0.5 - 2.5 mg INHALATION Q4HR PRN 05/16/21 09/25/21 Unknown [DUONEB *Not for PRN Use*] amLODIPine 5 mg PO DAILY 05/16/21 09/25/21 Unknown diphenhydrAMINE [Benadryl CAP] 25 mg PO QHS PRN MDD For upto 10 05/16/21 09/25/21 Unknown days donepeziL [Aricept] 5 mg PO QHS 05/16/21 09/25/21 Unknown guaiFENesin/DEXTROMETHORPHAN 5 ml PO Q12HR 05/16/21 09/25/21 Unknown [Guaifenesin-Dm 100-10 mg/5 ml] glipiZIDE [Glucotrol] 5 mg PO BID 09/27/21 09/27/21 Unknown Previous Rx's Medication Instructions Recorded Last Taken Type ALBUTEROL NEB's [Proventil 0.083% 2.5 mg IH Q4HRT PRN nebu 05/31/21 Unknown Rx NEBS] ARIPiprazole [Abilify TAB] 25 mg PO QDAY 30 Days #30 tablet 05/31/21 Unknown Rx Lispro Insulin [HumaLOG] 0 unit SUB-Q ACHS units 05/31/21 Unknown Rx clonazePAM [KlonoPIN] 1 mg PO BID 30 Days #30 tablet 05/31/21 Unknown Rx guaiFENesin DM [Guaifenesin Dm 5 ml PO Q12H oral.liqd 05/31/21 Unknown Rx Syrup] Fluconazole [Diflucan TAB] 150 mg PO ONCE #1 dose 07/08/21 Unknown Rx Metformin HCl [metFORMIN] 1,000 mg PO BID #60 07/08/21 Unknown Rx ARIPiprazole [Abilify TAB] 15 mg PO QDAY 30 Days #30 tablet 10/03/21 Unknown Rx Divalproex ER [Depakote ER] 1,000 mg PO QHS 30 Days #30 tablet 10/03/21 Unknown Rx glipiZIDE [Glucotrol] 5 mg PO BIDDIAB tablet 10/03/21 Unknown Rx traZODone [Desyrel] 50 mg PO QHS 30 Days #30 tablet 10/03/21 Unknown Rx cephALEXin [Keflex] 500 mg PO Q12HR #14 cap 10/18/21 Unknown Rx Acetaminophen 650 mg PO Q6H PRN #30 cap 11/22/21 Unknown Rx Allergies Allergy/AdvReac Type Severity Reaction Status Date / Time haloperidol [From Haldol] Allergy Unknown Verified 05/16/21 22:07 Latex, Natural Rubber Allergy Unknown Verified 05/16/21 22:07 ED Review of Systems ROS: Stated complaint: MENTAL HEALTH Other details as noted in HPI Comment: All other systems reviewed and negative Psychiatric: anxiety, depression, other (aggressive behaviour) ED Past Medical Hx - Past Medical History Previous Medical History?: Yes Hx Diabetes: Yes Hx Psychiatric Treatment: Yes (Schizophrenia) Hx Dementia: Yes (Vascular) Additional medical history: vascular dementia - Surgical History Past Surgical History?: No - Social History Smoking Status: Never Smoker Substance Use Type: None - Medications Home Medications: Home Medications Medication Instructions Recorded Confirmed Last Taken Type Ipratropium/Albuterol Sulfate 0.5 - 2.5 mg INHALATION Q4HR PRN 05/16/21 09/25/21 Unknown History [DUONEB *Not for PRN Use*] amLODIPine 5 mg PO DAILY 05/16/21 09/25/21 Unknown History diphenhydrAMINE [Benadryl CAP] 25 mg PO QHS PRN MDD For upto 10 05/16/21 09/25/21 Unknown History days donepeziL [Aricept] 5 mg PO QHS 05/16/21 09/25/21 Unknown History guaiFENesin/DEXTROMETHORPHAN 5 ml PO Q12HR 05/16/21 09/25/21 Unknown History [Guaifenesin-Dm 100-10 mg/5 ml] ALBUTEROL NEB's [Proventil 0.083% 2.5 mg IH Q4HRT PRN nebu 05/31/21 09/25/21 Unknown Rx NEBS] ARIPiprazole [Abilify TAB] 25 mg PO QDAY 30 Days #30 tablet 05/31/21 09/25/21 Unknown Rx Lispro Insulin [HumaLOG] 0 unit SUB-Q ACHS units 05/31/21 09/25/21 Unknown Rx clonazePAM [KlonoPIN] 1 mg PO BID 30 Days #30 tablet 05/31/21 09/25/21 Unknown Rx guaiFENesin DM [Guaifenesin Dm 5 ml PO Q12H oral.liqd 05/31/21 09/25/21 Unknown Rx Syrup] Fluconazole [Diflucan TAB] 150 mg PO ONCE #1 dose 07/08/21 09/25/21 Unknown Rx Metformin HCl [metFORMIN] 1,000 mg PO BID #60 07/08/21 09/25/21 Unknown Rx glipiZIDE [Glucotrol] 5 mg PO BID 09/27/21 09/27/21 Unknown History ARIPiprazole [Abilify TAB] 15 mg PO QDAY 30 Days #30 tablet 10/03/21 Unknown Rx Divalproex ER [Depakote ER] 1,000 mg PO QHS 30 Days #30 tablet 10/03/21 Unknown Rx glipiZIDE [Glucotrol] 5 mg PO BIDDIAB tablet 10/03/21 Unknown Rx traZODone [Desyrel] 50 mg PO QHS 30 Days #30 tablet 10/03/21 Unknown Rx cephALEXin [Keflex] 500 mg PO Q12HR #14 cap 10/18/21 Unknown Rx Acetaminophen 650 mg PO Q6H PRN #30 cap 11/22/21 Unknown Rx ED Physical Exam - General Limitations: No Limitations General appearance: anxious, other (Agitated) - Head Head exam: Present: atraumatic, normal inspection - Eye Eye exam: Present: normal appearance Pupils: Present: normal accommodation - ENT ENT exam: Present: normal exam, normal orophraynx, mucous membranes dry - Neck Neck exam: Present: normal inspection, full ROM. Absent: tenderness - Respiratory Respiratory exam: Present: normal lung sounds bilaterally. Absent: respiratory distress, accessory muscle use - Cardiovascular Cardiovascular Exam: Present: regular rate, normal rhythm, normal heart sounds - GI/Abdominal GI/Abdominal exam: Present: soft, normal bowel sounds. Absent: distended, tenderness - Extremities Exam Extremities exam: Present: normal inspection - Back Exam Back exam: Present: normal inspection - Neurological Exam Neurological exam: Present: alert, oriented X3 - Psychiatric Psychiatric exam: Present: agitated, manic - Skin Skin exam: Present: warm, normal color ED Course Vital Signs 11/23/21 11/23/21 11/23/21 00:19 01:17 12:14 Temperature 98 F 97.4 F L Pulse Rate 107 H 90 Respiratory 18 18 Rate Blood Pressure 122/73 Blood Pressure 144/68 [Left] O2 Sat by Pulse 98 98 96 Oximetry 11/23/21 12:15 Temperature Pulse Rate Respiratory Rate Blood Pressure Blood Pressure [Left] O2 Sat by Pulse 96 Oximetry ED Medical Decision Making - Lab Data Result diagrams: 11/23/21 02:01 11/23/21 02:01 - Medical Decision Making here for psychiatry evaluation from jail-- will go ahead and check routine labs for any correctable cause -- Initially given Geodon 20 mg IM x 1 for symptomatic relief--while waiting for psychiatry evaluation and recommendation Critical care attestation.: If time is entered above; I have spent that time in minutes in the direct care of this critically ill patient, excluding procedure time. ED Disposition Clinical Impression: Aggressive behavior of adult Disposition: 30 STILL A PATIENT Is pt being admited?: No Does the pt Need Aspirin: No Condition: Stable Additional Instructions: OUTPATIENT MENTAL HEALTH RESOURCES [facility], [facility] Alissa Mendiola MD: [address] [place] [address] [place] [address] [facility]: [employer] [address] [place] [address] [place] [address] [phone] [facility]: [facility]: [address] [place] [address] [facility] [id number] [facility]: Riaz Payne MD: [id number] [facility] [place] [facility] [address] [facility] [id number] [facility]: [address] [place], [place] [id number] [phone] [place] CRISIS AND ACCESS LINE: Referrals: PRIMARY CARE, [Primary Care Provider] - 3-5 Days
[2021-11-23 02:32] LABS: Calcium 9.2 mg/dL (8.4-10.2)
[2021-11-23 02:41] LABS: Basophils # (Auto) 0.1 K/mm3 (0.0-0.1); Basophils % (Auto) 2.7 % (0.0-1.8); Eosinophils # (Auto) 0.1 K/mm3 (0.0-0.4); Eosinophils % (Auto) 2.5 % (0.0-4.3); Hematocrit 32.1 % (30.3-42.9); Hemoglobin 10.7 gm/dl (10.1-14.3); Lymphocytes # (Auto) 1.1 K/mm3 (1.2-5.4); Lymphocytes % (Auto) 30.7 % (13.4-35.0); Mean Corpuscular HGB Conc 33 % (30-34); Mean Corpuscular Volume 88 fl (79-97); Monocytes # (Auto) 0.4 K/mm3 (0.0-0.8); Monocytes % (Auto) 11.1 % (0.0-7.3); Platelet Count 106 K/mm3 (140-440); Red Blood Count 3.63 M/mm3 (3.65-5.03); Red Cell Distribution Width 13.8 % (13.2-15.2)
[2021-11-23 10:43] LABS: Amphetamine Screen,Urine Negative; Benzodiazepines Screen,Urine Negative; Cannabinoid Screen,Urine Negative; Cocaine Screen,Urine Negative; Methadone Screen,Urine Negative; Mucus,Urine FEW /HPF; Opiate Screen,Urine Negative
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
[2021-11-23] MEDS ORDERED: ARIPiprazole 10 MG TAB PO SCH (11:00)
[2021-11-23 11:04] LABS: Bilirubin,Urine Negative (Negative); Blood,Urine Trace (Negative); Color,Urine Straw (Yellow); Protein,Urine <15 mg/dL mg/dL (Negative); Urobilinogen,Urine < 2.0 mg/dL (<2.0)
[2021-11-23 12:16] VITALS: BP 144/68
[2021-11-23] MEDS ORDERED: DIVALPROEX ER 500 MG TAB PO SCH ×2 (14:00→22:00)
[2021-11-23] MEDS ORDERED: ACETAMINOPHEN 325 MG PO PRN (16:47)
[2021-11-23] MEDS ORDERED: ALBUTEROL 2.5 MG/3 ML NEBU IH PRN ×2 (16:47→17:32)
[2021-11-23] MEDS ORDERED: DEXTROSE 50% IN WATER (25GM) 50 ML SYRINGE IV PRN (16:49)
--- NOTE | 2021-11-23 16:51 | Event Note ---
Date: 11/23/21 The patient was evaluated in the emergency department for symptoms described in the history of present illness. He/she was evaluated in the context of the global COVID-19 pandemic, which necessitated consideration that the patient might be at risk for infection with the virus that causes COVID-19. Institutional protocols and algorithms that pertain to the evaluation of patients at risk for COVID-19 are in a state of rapid change based on information released by regulatory bodies including the CDC and federal and state organizations. These policies and algorithms were followed during the patient's care in the emergency department. Please note that these policies, procedures and recommendations changed on a rapid basis. Laboratory studies, vital signs, nursing documentation, ER documentation, and psychiatric documentation are reviewed and appreciated. Nursing team reports no acute events this morning or concerns. The patient is awake and ambulating and does not appear to be in any acute distress Psychiatric recommendations appreciated Sliding scale insulin ordered, request that nursing team reconcile home medications Vital Signs 11/23/21 11/23/21 11/23/21 00:19 01:17 12:14 Temperature 98 F 97.4 F L Pulse Rate 107 H 90 Respiratory 18 18 Rate Blood Pressure 122/73 Blood Pressure 144/68 [Left] O2 Sat by Pulse 98 98 96 Oximetry 11/23/21 12:15 Temperature Pulse Rate Respiratory Rate Blood Pressure Blood Pressure [Left] O2 Sat by Pulse 96 Oximetry
[2021-11-23] MEDS ORDERED: ACETAMINOPHEN 325 MG TAB PO PRN (17:35)
[2021-11-23] MEDS ORDERED: INSULIN LISPRO 100 UNIT/ML SUB-Q SCH (18:00)
[2021-11-24] MEDS ORDERED: amLODIPine 5 MG TAB PO SCH (10:00)
== END 2021-11-23 18:00 | disposition still patient (30) ==
LOC: ED 00:19
DX: R46.89 Other symptoms and signs involving appearance and behavior (principal); E11.9 Type 2 diabetes mellitus without complications; Z20.822 Contact with and (suspected) exposure to COVID-19; Z91.040 Latex allergy status; Z91.09 Other allergy status, other than to drugs and biological substances; Z79.899 Other long term (current) drug therapy
CPT/HCPCS: 36415; 80048; 80307; 81001; 85025; 96372; 99284; J3486; J3490; U0003; 80320; G0480

== ENCOUNTER 2021-11-23 15:26 | Inpatient (IN) | payer MEDICARE ==
[2021-11-23] MEDS ORDERED: INSULIN LISPRO 100 UNIT/ML SUB-Q SCH (22:00)
[2021-11-23] MEDS ORDERED: DIVALPROEX ER 500 MG TAB PO SCH (22:00)
[2021-11-23] MEDS ORDERED: traZODone 50 MG TAB PO SCH (22:00)
[2021-11-23] MEDS ORDERED: ZIPRASIDONE MESYLATE 20 MG VIAL IM PRN (22:24)
[2021-11-24 06:30] LABS: Basophils % (Auto) 0.8 % (0.0-1.8); Eosinophils # (Auto) 0.2 K/mm3 (0.0-0.4); Eosinophils % (Auto) 4.5 % (0.0-4.3); Hematocrit 33.1 % (30.3-42.9); Hemoglobin 10.9 gm/dl (10.1-14.3); Lymphocytes # (Auto) 1.4 K/mm3 (1.2-5.4); Lymphocytes % (Auto) 38.1 % (13.4-35.0); Mean Corpuscular HGB Conc 33 % (30-34); Mean Corpuscular Volume 89 fl (79-97); Monocytes # (Auto) 0.4 K/mm3 (0.0-0.8); Monocytes % (Auto) 11.4 % (0.0-7.3); Platelet Count 111 K/mm3 (140-440); Red Blood Count 3.71 M/mm3 (3.65-5.03); Red Cell Distribution Width 14.1 % (13.2-15.2)
[2021-11-24 06:43] LABS: Chol/HDL Ratio 1.76 %
[2021-11-24 06:55] LABS: Hepatitis B Surface Antigen Non-Reactive (Negative); Hepatitis C Virus Antibody Non-Reactive (NonReactive)
[2021-11-24] MEDS ORDERED: ACETAMINOPHEN 325 MG PO PRN (11:19)
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
[2021-11-24] MEDS ORDERED: NON-FORMULARY EACH (Metformin Hcl [Metformin] 1,000 MG Tablet) PO SCH (11:30)
[2021-11-24] MEDS ORDERED: ARIPiprazole 10 MG TAB PO SCH (12:00)
[2021-11-24] MEDS ORDERED: glipiZIDE 5 MG TAB PO SCH (12:00)
[2021-11-24] MEDS ORDERED: ALBUTEROL 2.5 MG/3 ML NEBU IH PRN (12:00)
[2021-11-24] MEDS: clonazePAM 0.5 MG TAB PO SCH ×2 (12:27→21:54)
[2021-11-24] MEDS: amLODIPine 5 MG TAB PO SCH (12:28)
[2021-11-24] MEDS: glipiZIDE 5 MG TAB PO SCH ×2 (12:29→17:31)
[2021-11-24] MEDS: INSULIN LISPRO 100 UNIT/ML SUB-Q SCH ×3 (12:31→22:34)
[2021-11-24] MEDS: metFORMIN 500 MG TAB PO SCH (17:31)
--- NOTE | 2021-11-24 18:38 | Consultation ---
History of Present Illness - Reason for Consult Consult date: 11/24/21 Medical management Requesting physician: NEYMAR ARANGO - History of Present Illness 70 YO Female with Vascular Dementia with behavioral disturbance, Cerebral Atherosclerosis, HTN, DM, COPD, Bipolar Disorder, Schizophrenia, MDD, THOMAS admitted to [facility] for psychiatric stabilization. Patient seen and evaluated in the recreation room. Patient denies fever, chills, chest pain, palpitation, adductive cough, skin rash and recent contact, no supportive COVID- 19. Patient appears to be at baseline level of cognition and function. No reported nursing events. Past History Past Medical History: diabetes, hypertension, other (See HPI) Past Surgical History: No surgical history, Other (Reviewed) Social history: single. denies: smoking, alcohol abuse, prescription drug abuse Family history: diabetes, hypertension Medications and Allergies Allergies Allergy/AdvReac Type Severity Reaction Status Date / Time haloperidol [From Haldol] Allergy Unknown Verified 05/16/21 22:07 Latex, Natural Rubber Allergy Unknown Verified 05/16/21 22:07 Home Medications Medication Instructions Recorded Confirmed Last Taken Type Ipratropium/Albuterol Sulfate 0.5 - 2.5 mg INHALATION Q4HR PRN 05/16/21 11/23/21 Unknown History [DUONEB *Not for PRN Use*] amLODIPine 5 mg PO DAILY 05/16/21 11/23/21 Unknown History diphenhydrAMINE [Benadryl CAP] 25 mg PO QHS PRN MDD For upto 10 05/16/21 07/05/17 Unknown History days donepeziL [Aricept] 5 mg PO QHS 05/16/21 11/23/21 Unknown History ALBUTEROL NEB's [Proventil 0.083% 2.5 mg IH Q4HRT PRN nebu 05/31/21 11/23/21 Unknown Rx NEBS] clonazePAM [KlonoPIN] 1 mg PO BID 30 Days #30 tablet 05/31/21 11/23/21 Unknown Rx Metformin HCl [metFORMIN] 1,000 mg PO BID #60 07/08/21 11/23/21 Unknown Rx glipiZIDE [Glucotrol] 5 mg PO BID 09/27/21 11/23/21 Unknown History ARIPiprazole [Abilify TAB] 15 mg PO QDAY 30 Days #30 tablet 10/03/21 11/23/21 Unknown Rx Divalproex ER [Depakote ER] 1,000 mg PO QHS 30 Days #30 tablet 10/03/21 11/23/21 Unknown Rx glipiZIDE [Glucotrol] 5 mg PO BIDDIAB tablet 10/03/21 11/23/21 Unknown Rx traZODone [Desyrel] 50 mg PO QHS 30 Days #30 tablet 10/03/21 11/23/21 Unknown Rx Acetaminophen 650 mg PO Q6H PRN #30 cap 11/22/21 11/23/21 Unknown Rx Lispro Insulin [HumaLOG] See Protocol SUB-Q [facility] 11/23/21 11/23/21 Unknown History Active Meds: Active Medications Acetaminophen (Acetaminophen 325 Mg Tab) 650 mg PO Q6H PRN PRN Reason: Pain, Mild (1-3) Albuterol (Albuterol 2.5 Mg/3 Ml Nebu) 2.5 mg IH Q4HRT PRN PRN Reason: Shortness Of Breath Amlodipine Besylate (Amlodipine 5 Mg Tab) 5 mg PO DAILY [facility] Last Admin: 11/24/21 12:28 Dose: 5 mg Aripiprazole (Aripiprazole 10 Mg Tab) 20 mg PO QDAY [facility] Last Admin: 11/24/21 12:28 Dose: 20 mg Clonazepam (Clonazepam 0.5 Mg Tab) 1 mg PO BID [facility] Last Admin: 11/24/21 12:27 Dose: 1 mg Diphenhydramine HCl (Diphenhydramine 25 Mg Cap) 25 mg PO QHS PRN PRN Reason: Insomnia Divalproex Sodium (Divalproex Er 500 Mg Tab) 1,000 mg PO QHS [facility] Divalproex Sodium (Divalproex Dr 500 Mg Tab) 500 mg PO QAM [facility] Donepezil HCl (Donepezil 5 Mg Tab) 5 mg PO QHS [facility] Glipizide (Glipizide 5 Mg Tab) 5 mg PO BIDDIAB [facility] Last Admin: 11/24/21 17:31 Dose: Not Given Insulin Human Lispro (Insulin Lispro 100 Unit/Ml) 0 unit SUB-Q [facility]; Protocol Last Admin: 11/24/21 17:30 Dose: Not Given Metformin HCl (Metformin 500 Mg Tab) 1,000 mg PO BIDDIAB [facility] Last Admin: 11/24/21 17:31 Dose: Not Given Trazodone HCl (Trazodone 50 Mg Tab) 50 mg PO QHS [facility] Ziprasidone (Ziprasidone Mesylate 20 Mg Vial) 20 mg IM Q6H PRN PRN Reason: Agitation Review of Systems Constitutional: no weight loss, no weight gain, no fever, no chills Ears, nose, mouth and throat: no ear pain, no nose pain, no nasal congestion Breasts: no change in shape, no mass Cardiovascular: no chest pain, no orthopnea, no palpitations, no rapid/irregular heart beat, no edema Respiratory: no cough, no excessive sputum, no shortness of breath Gastrointestinal: no abdominal pain, no nausea, no diarrhea, no change in bowel habits, no hematemesis Genitourinary Female: no pelvic pain, no flank pain, no dysuria, no urinary frequency, no urgency Rectal: no pain, no incontinence, no bleeding Musculoskeletal: no neck stiffness, no neck pain, no shooting arm pain, no arm numbness/tingling Integumentary: no rash, no pruritis, no redness, no wounds, no jaundice Neurological: no paralysis, no weakness, no parathesias, no tingling, no seizures, no tremors Psychiatric: anxiety, difficulties concentrating, irritability, sadness/tearfu llness Endocrine: no cold intolerance, no heat intolerance, no polyphagia, no polydipsia, no polyuria Hematologic/Lymphatic: no easy bruising, no easy bleeding Allergic/Immunologic: no wheezing Exam - Constitutional Vitals: Temp Pulse Resp BP Pulse Ox 97.2 F L 94 H 18 121/71 96 11/24/21 07:45 11/24/21 12:28 11/24/21 07:45 11/24/21 12:28 11/24/21 07:45 General appearance: Present: no acute distress, obese - EENT Eyes: Present: PERRL ENT: hearing intact, clear oral mucosa - Neck Neck: Present: supple, normal ROM - Respiratory Respiratory effort: normal Respiratory: bilateral: CTA - Cardiovascular Heart Sounds: Present: S1 & S2. Absent: rub, click - Extremities Extremities: pulses symmetrical, No edema Peripheral Pulses: within normal limits - Abdominal General gastrointestinal: Present: soft, non-tender, non-distended, normal bowel sounds Female genitourinary: Present: normal - Integumentary Integumentary: Present: clear, warm, dry - Musculoskeletal Musculoskeletal: gait normal, strength equal bilaterally - Psychiatric Psychiatric: cooperative - Neurologic Neurologic: CNII-XII intact, moves all extremities Results - Labs CBC & Chem 7: 11/24/21 05:18 Labs: Abnormal lab results 11/24/21 11/24/21 11/24/21 Range/Units 05:18 05:18 05:18 WBC 3.8 L (4.5-11.0) K/mm3 Plt Count 111 L (140-440) K/mm3 Lymph % (Auto) 38.1 H (13.4-35.0) % [place] % (Auto) 11.4 H (0.0-7.3) % Eos % (Auto) 4.5 H (0.0-4.3) % Seg Neutrophils # 1.7 L (1.8-7.7) K/mm3 POC Glucose (70-105) mg/dL Hemoglobin A1c 7.9 H (4-6) % HDL Cholesterol 76 H (40-59) mg/dL 11/24/21 11/24/21 Range/Units 06:33 11:10 WBC (4.5-11.0) K/mm3 Plt Count (140-440) K/mm3 Lymph % (Auto) (13.4-35.0) % [place] % (Auto) (0.0-7.3) % Eos % (Auto) (0.0-4.3) % Seg Neutrophils # (1.8-7.7) K/mm3 POC Glucose 162 H 303 H (70-105) mg/dL Hemoglobin A1c (4-6) % HDL Cholesterol (40-59) mg/dL Assessment and Plan - Patient Problems (1) Vascular dementia with behavioral disturbance Current Visit: Yes Status: Acute Plan to address problem: Verbal prompting, verbal redirection, benzodiazepine therapy as clinically indicated. (2) Bipolar disorder Current Visit: No Status: Acute Plan to address problem: Continue medical management, supportive care. (3) Cerebral atherosclerosis Current Visit: No Status: Acute Plan to address problem: Antiplatelet therapy as clinically indicated, risk factor reduction, (4) Generalized anxiety disorder Current Visit: No Status: Acute Plan to address problem: Benzodiazepine therapy as clinically indicated. (5) Obesity (BMI 30.0-34.9) Current Visit: No Status: Acute Plan to address problem: Balanced diet, increase physical activity at discharge. (6) Schizophrenia Current Visit: No Status: Acute Qualifiers: Schizophrenia type: unspecified Qualified Code(s): F20.9 - Schizophrenia, unspecified Plan to address problem: Continue medical management, supportive care. (7) Hypertension Current Visit: Yes Status: Acute Qualifiers: Hypertension type: primary hypertension Qualified Code(s): I10 - Essential (primary) hypertension Plan to address problem: Monitor blood pressure every shift, continue medical management. (8) Diabetes Current Visit: Yes Status: Acute Plan to address problem: Consistent carbohydrate diet, Accu-Chek, insulin protocol, hypoglycemia protocol. (9) Advance care planning Current Visit: Yes Status: Acute Plan to address problem: Disease education conducted, care plan discussed, diagnosis discussed, prognosis discussed, patient is full code, +30 minutes. (10) Preventative health care Current Visit: No Status: Acute Plan to address problem: Home safety precautions, patient to follow-up with primary care physician for all age and risk factor appropriate screening test. +30 minutes.
[2021-11-24] MEDS: DIVALPROEX ER 500 MG TAB PO SCH (21:53)
[2021-11-24] MEDS: DONEPEZIL 5 MG TAB PO SCH (21:53)
[2021-11-24] MEDS: traZODone 50 MG TAB PO SCH (21:54)
[2021-11-24] MEDS ORDERED: diphenhydrAMINE 25 MG CAP PO PRN (22:00)
[2021-11-25] MEDS: glipiZIDE 5 MG TAB PO SCH ×2 (08:00→17:52)
[2021-11-25] MEDS: INSULIN LISPRO 100 UNIT/ML SUB-Q SCH ×4 (08:35→22:41)
--- NOTE | 2021-11-25 08:55 | Progress Note ---
Subjective Date of service: 11/25/21 Principal diagnosis: Bipolar Subjective Comment: The patient was seen today. She is loud, but states she feels much better. She says she's been talking to herself and hearing voices. She denies SI/HI. REVIEW OF SYSTEMS Unable to obtain MENTAL STATUS EXAMINATION Assessment (1) Bipolar Current Visit: Yes Status: Acute Treatment Plan Patient will be admitted for inpatient psychiatric evaluation, medication adjustment and close monitoring The patient's behavior, mood, sleep and appetite will be closely monitored. Patient will be enrolled in individual and group therapeutic sessions and encouraged to attend. Patient will be provided with a safe and structured environment. Patient's physical health needs will be addressed by the Hospitalist. Hospitalist Consulted Labs including CBC, CMP, Lipid profile and Hemoglobin A1C ordered Valproic acid 11/27 Social Assessment will be completed and the Product Inspection Supervisor will work with patient and family to ensure a suitable and safe disposition Medication adjustment will be made as clinically indicated Abilify 30mg po daily Usual Wellness Pentecostal/Preservation: - Start Trazodone 50 mg po QHS PRN The patient agreed on the treatment plan, understood the risk, benefit, alternative treatment, potential consequence of no treatment, and gave informed consent. Medications and Allergies Allergies Allergy/AdvReac Type Severity Reaction Status Date / Time haloperidol [From Haldol] Allergy Unknown Verified 05/16/21 22:07 Latex, Natural Rubber Allergy Unknown Verified 05/16/21 22:07 Home Medications Medication Instructions Recorded Confirmed Last Taken Type Ipratropium/Albuterol Sulfate 0.5 - 2.5 mg INHALATION Q4HR PRN 05/16/21 11/23/21 Unknown History [DUONEB *Not for PRN Use*] amLODIPine 5 mg PO DAILY 05/16/21 11/23/21 Unknown History diphenhydrAMINE [Benadryl CAP] 25 mg PO QHS PRN MDD For upto 10 05/16/21 11/23/21 Unknown History days donepeziL [Aricept] 5 mg PO QHS 05/16/21 11/23/21 Unknown History ALBUTEROL NEB's [Proventil 0.083% 2.5 mg IH Q4HRT PRN nebu 05/31/21 11/23/21 Unknown Rx NEBS] clonazePAM [KlonoPIN] 1 mg PO BID 30 Days #30 tablet 05/31/21 11/23/21 Unknown Rx Metformin HCl [metFORMIN] 1,000 mg PO BID #60 07/08/21 11/23/21 Unknown Rx glipiZIDE [Glucotrol] 5 mg PO BID 09/27/21 11/23/21 Unknown History ARIPiprazole [Abilify TAB] 15 mg PO QDAY 30 Days #30 tablet 10/03/21 11/23/21 Unknown Rx Divalproex ER [Depakote ER] 1,000 mg PO QHS 30 Days #30 tablet 10/03/21 11/23/21 Unknown Rx glipiZIDE [Glucotrol] 5 mg PO BIDDIAB tablet 10/03/21 11/23/21 Unknown Rx traZODone [Desyrel] 50 mg PO QHS 30 Days #30 tablet 10/03/21 11/23/21 Unknown Rx Acetaminophen 650 mg PO Q6H PRN #30 cap 11/22/21 11/23/21 Unknown Rx Lispro Insulin [HumaLOG] See Protocol SUB-Q [facility] 11/23/21 11/23/21 Unknown History Active Meds: Active Medications Acetaminophen (Acetaminophen 325 Mg Tab) 650 mg PO Q6H PRN PRN Reason: Pain, Mild (1-3) Albuterol (Albuterol 2.5 Mg/3 Ml Nebu) 2.5 mg IH Q4HRT PRN PRN Reason: Shortness Of Breath Amlodipine Besylate (Amlodipine 5 Mg Tab) 5 mg PO DAILY [facility] Last Admin: 11/24/21 12:28 Dose: 5 mg Aripiprazole (Aripiprazole 10 Mg Tab) 20 mg PO QDAY [facility] Last Admin: 11/24/21 12:28 Dose: 20 mg Clonazepam (Clonazepam 0.5 Mg Tab) 1 mg PO BID [facility] Last Admin: 11/24/21 21:54 Dose: 1 mg Diphenhydramine HCl (Diphenhydramine 25 Mg Cap) 25 mg PO QHS PRN PRN Reason: Insomnia Divalproex Sodium (Divalproex Er 500 Mg Tab) 1,000 mg PO QHS [facility] Last Admin: 11/24/21 21:53 Dose: 1,000 mg Divalproex Sodium (Divalproex Dr 500 Mg Tab) [facility] [place]pezil HCl (Donepezil 5 Mg Tab) 5 mg PO QHS [facility] Last Admin: 11/24/21 21:53 Dose: 5 mg Glipizide (Glipizide 5 Mg Tab) 5 mg PO BIDDIAB [facility] Last Admin: 11/24/21 17:31 Dose: Not Given Insulin Human Lispro (Insulin Lispro 100 Unit/Ml) 0 unit SUB-Q [facility]; Protocol Last Admin: 11/25/21 08:35 Dose: Not Given Metformin HCl (Metformin 500 Mg Tab) 1,000 mg PO BIDDIAB [facility] Last Admin: 11/24/21 17:31 Dose: Not Given Trazodone HCl (Trazodone 50 Mg Tab) 50 mg PO QHS [facility] Last Admin: 11/24/21 21:54 Dose: 50 mg Ziprasidone (Ziprasidone Mesylate 20 Mg Vial) 20 mg IM Q6H PRN PRN Reason: Agitation Results - Results Labs/Vitals: Laboratory Last Values WBC 3.8 K/mm3 (4.5-11.0) L 11/24/21 05:18 RBC 3.71 M/mm3 (3.65-5.03) 11/24/21 05:18 Hgb 10.9 gm/dl (10.1-14.3) 11/24/21 05:18 Hct 33.1 % (30.3-42.9) 11/24/21 05:18 MCV 89 fl (79-97) 11/24/21 05:18 MCH 29 pg (28-32) 11/24/21 05:18 MCHC 33 % (30-34) 11/24/21 05:18 RDW 14.1 % (13.2-15.2) 11/24/21 05:18 Plt Count 111 K/mm3 (140-440) L 11/24/21 05:18 Lymph % (Auto) 38.1 % (13.4-35.0) H 11/24/21 05:18 [place] % (Auto) 11.4 % (0.0-7.3) H 11/24/21 05:18 Eos % (Auto) 4.5 % (0.0-4.3) H 11/24/21 05:18 Baso % (Auto) 0.8 % (0.0-1.8) 11/24/21 05:18 Lymph # (Auto) 1.4 K/mm3 (1.2-5.4) 11/24/21 05:18 [place] # (Auto) 0.4 K/mm3 (0.0-0.8) 11/24/21 05:18 Eos # (Auto) 0.2 K/mm3 (0.0-0.4) 11/24/21 05:18 Baso # (Auto) 0.0 K/mm3 (0.0-0.1) 11/24/21 05:18 Seg Neutrophils % 45.2 % (40.0-70.0) 11/24/21 05:18 Seg Neutrophils # 1.7 K/mm3 (1.8-7.7) L 11/24/21 05:18 POC Glucose 149 mg/dL (70-105) H 11/25/21 07:00 Hemoglobin A1c 7.9 % (4-6) H 11/24/21 05:18 Triglycerides 73 mg/dL (2-149) 11/24/21 05:18 Cholesterol 134 mg/dL (50-199) 11/24/21 05:18 LDL Cholesterol Direct 50 mg/dL (50-130) 11/24/21 05:18 HDL Cholesterol 76 mg/dL (40-59) H 11/24/21 05:18 Cholesterol/HDL Ratio 1.76 % 11/24/21 05:18 TSH 1.250 mlU/mL (0.270-4.200) 11/24/21 05:18 Hepatitis A IgM Ab Non-reactive (NonReactive) 11/24/21 05:18 Hep Bs Antigen Non-reactive (Negative) 11/24/21 05:18 Hep B Core IgM Ab Non-reactive (NonReactive) 11/24/21 05:18 Hepatitis C Antibody Non-reactive (NonReactive) 11/24/21 05:18 Last Vital Signs Temp 97.4 F L 11/24/21 19:20 Pulse 64 11/24/21 19:20 Resp 16 11/24/21 19:20 BP 124/75 11/24/21 19:20 Pulse Ox 97 11/24/21 19:20
[2021-11-25] MEDS: amLODIPine 5 MG TAB PO SCH (09:33)
[2021-11-25] MEDS: metFORMIN 500 MG TAB PO SCH ×2 (09:33→17:51)
[2021-11-25] MEDS: clonazePAM 0.5 MG TAB PO SCH ×2 (09:33→21:56)
[2021-11-25] MEDS: DIVALPROEX DR 500 MG TAB PO SCH (09:34)
[2021-11-25] MEDS ORDERED: ARIPiprazole 15 MG TAB PO SCH (10:00)
[2021-11-25] MEDS: DIVALPROEX ER 500 MG TAB PO SCH (21:57)
[2021-11-25] MEDS: traZODone 50 MG TAB PO SCH (21:58)
[2021-11-25] MEDS: DONEPEZIL 5 MG TAB PO SCH (21:58)
[2021-11-26] MEDS: metFORMIN 500 MG TAB PO SCH ×2 (09:48→17:08)
[2021-11-26] MEDS: ARIPiprazole 15 MG TAB PO SCH (09:48)
[2021-11-26] MEDS: DIVALPROEX DR 500 MG TAB PO SCH (09:49)
[2021-11-26] MEDS: amLODIPine 5 MG TAB PO SCH (09:49)
[2021-11-26] MEDS: glipiZIDE 5 MG TAB PO SCH ×2 (09:49→17:11)
[2021-11-26] MEDS: clonazePAM 0.5 MG TAB PO SCH ×2 (09:49→21:41)
[2021-11-26] MEDS: INSULIN LISPRO 100 UNIT/ML SUB-Q SCH ×4 (09:50→21:41)
[2021-11-26] MEDS ORDERED: ARIPiprazole 10 MG TAB PO SCH (10:00)
[2021-11-26] MEDS ORDERED: DIVALPROEX DR 250 MG TAB PO SCH (10:00)
--- NOTE | 2021-11-26 16:17 | Progress Note ---
Subjective Date of service: 11/26/21 Principal diagnosis: Bipolar Subjective Comment: The patient was seen today. She is more organized today. The patient verbalizes feeling a little better. She becomes upset when talking about the situation at the retirement. She denies SI/HI. REVIEW OF SYSTEMS Unable to obtain MENTAL STATUS EXAMINATION Assessment (1) Bipolar Current Visit: Yes Status: Acute Treatment Plan Patient will be admitted for inpatient psychiatric evaluation, medication adjustment and close monitoring The patient's behavior, mood, sleep and appetite will be closely monitored. Patient will be enrolled in individual and group therapeutic sessions and encouraged to attend. Patient will be provided with a safe and structured environment. Patient's physical health needs will be addressed by the Hospitalist. Hospitalist Consulted Labs including CBC, CMP, Lipid profile and Hemoglobin A1C ordered Valproic acid 11/27 Social Assessment will be completed and the Hardware Engineer will work with patient and family to ensure a suitable and safe disposition Medication adjustment will be made as clinically indicated Continue meds Usual Wellness Jain/Preservation: - Start Trazodone 50 mg po QHS PRN The patient agreed on the treatment plan, understood the risk, benefit, alternative treatment, potential consequence of no treatment, and gave informed consent. Medications and Allergies Allergies Allergy/AdvReac Type Severity Reaction Status Date / Time haloperidol [From Haldol] Allergy Unknown Verified 05/16/21 22:07 Latex, Natural Rubber Allergy Unknown Verified 05/16/21 22:07 Home Medications Medication Instructions Recorded Confirmed Last Taken Type Ipratropium/Albuterol Sulfate 0.5 - 2.5 mg INHALATION Q4HR PRN 05/16/21 11/23/21 Unknown History [DUONEB *Not for PRN Use*] amLODIPine 5 mg PO DAILY 05/16/21 11/23/21 Unknown History diphenhydrAMINE [Benadryl CAP] 25 mg PO QHS PRN MDD For upto 10 05/16/21 11/23/21 Unknown History days donepeziL [Aricept] 5 mg PO QHS 05/16/21 11/23/21 Unknown History ALBUTEROL NEB's [Proventil 0.083% 2.5 mg IH Q4HRT PRN nebu 05/31/21 11/23/21 Unknown Rx NEBS] clonazePAM [KlonoPIN] 1 mg PO BID 30 Days #30 tablet 05/31/21 11/23/21 Unknown Rx Metformin HCl [metFORMIN] 1,000 mg PO BID #60 07/08/21 11/23/21 Unknown Rx glipiZIDE [Glucotrol] 5 mg PO BID 09/27/21 11/23/21 Unknown History ARIPiprazole [Abilify TAB] 15 mg PO QDAY 30 Days #30 tablet 10/03/21 11/23/21 Unknown Rx Divalproex ER [Depakote ER] 1,000 mg PO QHS 30 Days #30 tablet 10/03/21 11/23/21 Unknown Rx glipiZIDE [Glucotrol] 5 mg PO BIDDIAB tablet 10/03/21 11/23/21 Unknown Rx traZODone [Desyrel] 50 mg PO QHS 30 Days #30 tablet 10/03/21 11/23/21 Unknown Rx Acetaminophen 650 mg PO Q6H PRN #30 cap 11/22/21 11/23/21 Unknown Rx Lispro Insulin [HumaLOG] See Protocol SUB-Q [facility] 11/23/21 11/23/21 Unknown History Active Meds: Active Medications Acetaminophen (Acetaminophen 325 Mg Tab) 650 mg PO Q6H PRN PRN Reason: Pain, Mild (1-3) Albuterol (Albuterol 2.5 Mg/3 Ml Nebu) 2.5 mg IH Q4HRT PRN PRN Reason: Shortness Of Breath Amlodipine Besylate (Amlodipine 5 Mg Tab) 5 mg PO DAILY [facility] Last Admin: 11/26/21 09:49 Dose: 5 mg Aripiprazole (Aripiprazole 15 Mg Tab) 30 mg PO QDAY [facility] Last Admin: 11/26/21 09:48 Dose: 30 mg Clonazepam (Clonazepam 0.5 Mg Tab) 0.5 mg PO BID [facility] Last Admin: 11/26/21 09:49 Dose: 0.5 mg Diphenhydramine HCl (Diphenhydramine 25 Mg Cap) 25 mg PO QHS PRN PRN Reason: Insomnia Divalproex Sodium (Divalproex Er 500 Mg Tab) 1,000 mg PO QHS [facility] Last Admin: 11/25/21 21:57 Dose: 1,000 mg Divalproex Sodium (Divalproex Dr 500 Mg Tab) [facility] [place] [place] Admin: 11/26/21 09:49 Dose: Not Given Divalproex Sodium (Divalproex Dr 250 Mg Tab) 250 mg PO QAM [facility] Last Admin: 11/26/21 09:50 Dose: 250 mg Donepezil HCl (Donepezil 5 Mg Tab) 5 mg PO QHS [facility] Last Admin: 11/25/21 21:58 Dose: 5 mg Glipizide (Glipizide 5 Mg Tab) 5 mg PO BIDDIAB [facility] Last Admin: 11/26/21 09:49 Dose: 5 mg Insulin Human Lispro (Insulin Lispro 100 Unit/Ml) 0 unit SUB-Q [facility]; Protocol Last Admin: 11/26/21 12:29 Dose: 1 unit Metformin HCl (Metformin 500 Mg Tab) 1,000 mg PO BIDDIAB [facility] Last Admin: 11/26/21 09:48 Dose: 1,000 mg Trazodone HCl (Trazodone 50 Mg Tab) 50 mg PO QHS [facility] Last Admin: 11/25/21 21:58 Dose: 50 mg Ziprasidone (Ziprasidone Mesylate 20 Mg Vial) 20 mg IM Q6H PRN PRN Reason: Agitation Results - Results Labs/Vitals: Laboratory Last Values WBC 3.8 K/mm3 (4.5-11.0) L 11/24/21 05:18 RBC 3.71 M/mm3 (3.65-5.03) 11/24/21 05:18 Hgb 10.9 gm/dl (10.1-14.3) 11/24/21 05:18 Hct 33.1 % (30.3-42.9) 11/24/21 05:18 MCV 89 fl (79-97) 11/24/21 05:18 MCH 29 pg (28-32) 11/24/21 05:18 MCHC 33 % (30-34) 11/24/21 05:18 RDW 14.1 % (13.2-15.2) 11/24/21 05:18 Plt Count 111 K/mm3 (140-440) L 11/24/21 05:18 Lymph % (Auto) 38.1 % (13.4-35.0) H 11/24/21 05:18 [place] % (Auto) 11.4 % (0.0-7.3) H 11/24/21 05:18 Eos % (Auto) 4.5 % (0.0-4.3) H 11/24/21 05:18 Baso % (Auto) 0.8 % (0.0-1.8) 11/24/21 05:18 Lymph # (Auto) 1.4 K/mm3 (1.2-5.4) 11/24/21 05:18 [place] # (Auto) 0.4 K/mm3 (0.0-0.8) 11/24/21 05:18 Eos # (Auto) 0.2 K/mm3 (0.0-0.4) 11/24/21 05:18 Baso # (Auto) 0.0 K/mm3 (0.0-0.1) 11/24/21 05:18 Seg Neutrophils % 45.2 % (40.0-70.0) 11/24/21 05:18 Seg Neutrophils # 1.7 K/mm3 (1.8-7.7) L 11/24/21 05:18 POC Glucose 124 mg/dL (70-105) H 11/26/21 16:12 Hemoglobin A1c 7.9 % (4-6) H 11/24/21 05:18 Triglycerides 73 mg/dL (2-149) 11/24/21 05:18 Cholesterol 134 mg/dL (50-199) 11/24/21 05:18 LDL Cholesterol Direct 50 mg/dL (50-130) 11/24/21 05:18 HDL Cholesterol 76 mg/dL (40-59) H 11/24/21 05:18 Cholesterol/HDL Ratio 1.76 % 11/24/21 05:18 TSH 1.250 mlU/mL (0.270-4.200) 11/24/21 05:18 Hepatitis A IgM Ab Non-reactive (NonReactive) 11/24/21 05:18 Hep Bs Antigen Non-reactive (Negative) 11/24/21 05:18 Hep B Core IgM Ab Non-reactive (NonReactive) 11/24/21 05:18 Hepatitis C Antibody Non-reactive (NonReactive) 11/24/21 05:18 Last Vital Signs Temp 98 F 11/26/21 10:04 Pulse 84 11/26/21 10:04 Resp 16 11/26/21 10:04 BP 123/64 11/26/21 10:04 Pulse Ox 98 11/26/21 10:04
[2021-11-26] MEDS: traZODone 50 MG TAB PO SCH (21:41)
[2021-11-26] MEDS: DIVALPROEX ER 500 MG TAB PO SCH (21:41)
[2021-11-26] MEDS: DONEPEZIL 5 MG TAB PO SCH (21:41)
[2021-11-27] MEDS: ACETAMINOPHEN 325 MG TAB PO PRN (03:16)
[2021-11-27] MEDS: glipiZIDE 5 MG TAB PO SCH ×3 (08:56→16:58)
[2021-11-27] MEDS: metFORMIN 500 MG TAB PO SCH ×3 (08:56→16:58)
[2021-11-27] MEDS: INSULIN LISPRO 100 UNIT/ML SUB-Q SCH ×4 (09:00→23:47)
--- NOTE | 2021-11-27 09:14 | Progress Note ---
Subjective Date of service: 11/27/21 Principal diagnosis: Bipolar Subjective Comment: The patient was seen today. She says the Depakote made him throw up. She says she wants to go back on the lithium. She says it worked better for her in the past. The patient denies SI/HI or hallucinations. REVIEW OF SYSTEMS Unable to obtain MENTAL STATUS EXAMINATION Assessment (1) Bipolar Current Visit: Yes Status: Acute Treatment Plan Patient will be admitted for inpatient psychiatric evaluation, medication adjustment and close monitoring The patient's behavior, mood, sleep and appetite will be closely monitored. Patient will be enrolled in individual and group therapeutic sessions and encouraged to attend. Patient will be provided with a safe and structured environment. Patient's physical health needs will be addressed by the Hospitalist. Hospitalist Consulted Labs including CBC, CMP, Lipid profile and Hemoglobin A1C ordered Valproic acid 11/27 Social Assessment will be completed and the Elementary School Teacher'S Aide will work with patient and family to ensure a suitable and safe disposition Medication adjustment will be made as clinically indicated d/c daytime depakote Start [place] 300mg po q8h Usual Wellness Sikhism/Preservation: - Start Trazodone 50 mg po QHS PRN The patient agreed on the treatment plan, understood the risk, benefit, alternative treatment, potential consequence of no treatment, and gave informed consent. The case was staffed with Dr. White Medications and Allergies Allergies Allergy/AdvReac Type Severity Reaction Status Date / Time haloperidol [From Haldol] Allergy Unknown Verified 05/16/21 22:07 Latex, Natural Rubber Allergy Unknown Verified 05/16/21 22:07 Home Medications Medication Instructions Recorded Confirmed Last Taken Type Ipratropium/Albuterol Sulfate 0.5 - 2.5 mg INHALATION Q4HR PRN 05/16/21 11/23/21 Unknown History [DUONEB *Not for PRN Use*] amLODIPine 5 mg PO DAILY 05/16/21 11/23/21 Unknown History diphenhydrAMINE [Benadryl CAP] 25 mg PO QHS PRN MDD For upto 10 05/16/21 11/23/21 Unknown History days donepeziL [Aricept] 5 mg PO QHS 05/16/21 11/23/21 Unknown History ALBUTEROL NEB's [Proventil 0.083% 2.5 mg IH Q4HRT PRN nebu 05/31/21 11/23/21 Unknown Rx NEBS] clonazePAM [KlonoPIN] 1 mg PO BID 30 Days #30 tablet 05/31/21 11/23/21 Unknown Rx Metformin HCl [metFORMIN] 1,000 mg PO BID #60 07/08/21 11/23/21 Unknown Rx glipiZIDE [Glucotrol] 5 mg PO BID 09/27/21 11/23/21 Unknown History ARIPiprazole [Abilify TAB] 15 mg PO QDAY 30 Days #30 tablet 10/03/21 11/23/21 Unknown Rx Divalproex ER [Depakote ER] 1,000 mg PO QHS 30 Days #30 tablet 10/03/21 11/23/21 Unknown Rx glipiZIDE [Glucotrol] 5 mg PO BIDDIAB tablet 10/03/21 11/23/21 Unknown Rx traZODone [Desyrel] 50 mg PO QHS 30 Days #30 tablet 10/03/21 11/23/21 Unknown Rx Acetaminophen 650 mg PO Q6H PRN #30 cap 11/22/21 11/23/21 Unknown Rx Lispro Insulin [HumaLOG] See Protocol SUB-Q ACHS 11/23/21 11/23/21 Unknown History Active Meds: Active Medications Acetaminophen (Acetaminophen 325 Mg Tab) 650 mg PO Q6H PRN PRN Reason: Pain, Mild (1-3) Last Admin: 11/27/21 03:16 Dose: 650 mg Albuterol (Albuterol 2.5 Mg/3 Ml Nebu) 2.5 mg IH Q4HRT PRN PRN Reason: Shortness Of Breath Amlodipine Besylate (Amlodipine 5 Mg Tab) 5 mg PO DAILY [facility] Last Admin: 11/26/21 09:49 Dose: 5 mg Aripiprazole (Aripiprazole 15 Mg Tab) 30 mg PO QDAY [facility] Last Admin: 11/26/21 09:48 Dose: 30 mg Clonazepam (Clonazepam 0.5 Mg Tab) 0.5 mg PO BID [facility] Last Admin: 11/26/21 21:41 Dose: 0.5 mg Diphenhydramine HCl (Diphenhydramine 25 Mg Cap) 25 mg PO QHS PRN PRN Reason: Insomnia Divalproex Sodium (Divalproex Er 500 Mg Tab) 1,000 mg PO QHS [facility] Last Admin: 11/26/21 21:41 Dose: 1,000 mg Divalproex Sodium (Divalproex Dr 500 Mg Tab) 500 mg PO QAM [facility] Last Admin: 11/26/21 09:49 Dose: Not Given Divalproex Sodium (Divalproex Dr 250 Mg Tab) 250 mg PO QAM [facility] Last Admin: 11/26/21 09:50 Dose: 250 mg Donepezil HCl (Donepezil 5 Mg Tab) 5 mg PO QHS [facility] Last Admin: 11/26/21 21:41 Dose: 5 mg Glipizide (Glipizide 5 Mg Tab) 5 mg PO BIDDIAB [facility] Last Admin: 11/26/21 17:11 Dose: 5 mg Insulin Human Lispro (Insulin Lispro 100 Unit/Ml) 0 unit SUB-Q [facility]; Protocol Last Admin: 11/26/21 21:41 Dose: Not Given Metformin HCl (Metformin 500 Mg Tab) 1,000 mg PO BIDDIAB [facility] Last Admin: 11/26/21 17:08 Dose: 1,000 mg Trazodone HCl (Trazodone 50 Mg Tab) 50 mg PO QHS [facility] Last Admin: 11/26/21 21:41 Dose: 50 mg Ziprasidone (Ziprasidone Mesylate 20 Mg Vial) 20 mg IM Q6H PRN PRN Reason: Agitation Results - Results Labs/Vitals: Laboratory Last Values WBC 3.8 K/mm3 (4.5-11.0) L 11/24/21 05:18 RBC 3.71 M/mm3 (3.65-5.03) 11/24/21 05:18 Hgb 10.9 gm/dl (10.1-14.3) 11/24/21 05:18 Hct 33.1 % (30.3-42.9) 11/24/21 05:18 MCV 89 fl (79-97) 11/24/21 05:18 MCH 29 pg (28-32) 11/24/21 05:18 MCHC 33 % (30-34) 11/24/21 05:18 RDW 14.1 % (13.2-15.2) 11/24/21 05:18 Plt Count 111 K/mm3 (140-440) L 11/24/21 05:18 Lymph % (Auto) 38.1 % (13.4-35.0) H 11/24/21 05:18 [place] % (Auto) 11.4 % (0.0-7.3) H 11/24/21 05:18 Eos % (Auto) 4.5 % (0.0-4.3) H 11/24/21 05:18 Baso % (Auto) 0.8 % (0.0-1.8) 11/24/21 05:18 Lymph # (Auto) 1.4 K/mm3 (1.2-5.4) 11/24/21 05:18 [place] # (Auto) 0.4 K/mm3 (0.0-0.8) 11/24/21 05:18 Eos # (Auto) 0.2 K/mm3 (0.0-0.4) 11/24/21 05:18 Baso # (Auto) 0.0 K/mm3 (0.0-0.1) 11/24/21 05:18 Seg Neutrophils % 45.2 % (40.0-70.0) 11/24/21 05:18 Seg Neutrophils # 1.7 K/mm3 (1.8-7.7) L 11/24/21 05:18 POC Glucose 144 mg/dL (70-105) H 11/27/21 06:32 Hemoglobin A1c 7.9 % (4-6) H 11/24/21 05:18 Triglycerides 73 mg/dL (2-149) 11/24/21 05:18 Cholesterol 134 mg/dL (50-199) 11/24/21 05:18 LDL Cholesterol Direct 50 mg/dL (50-130) 11/24/21 05:18 HDL Cholesterol 76 mg/dL (40-59) H 11/24/21 05:18 Cholesterol/HDL Ratio 1.76 % 11/24/21 05:18 TSH 1.250 mlU/mL (0.270-4.200) 11/24/21 05:18 Hepatitis A IgM Ab Non-reactive (NonReactive) 11/24/21 05:18 Hep Bs Antigen Non-reactive (Negative) 11/24/21 05:18 Hep B Core IgM Ab Non-reactive (NonReactive) 11/24/21 05:18 Hepatitis C Antibody Non-reactive (NonReactive) 11/24/21 05:18 Last Vital Signs Temp 97.9 F 11/26/21 19:06 Pulse 82 11/26/21 19:06 Resp 18 11/27/21 03:16 BP 115/61 11/26/21 19:06 Pulse Ox 92 11/26/21 19:06
[2021-11-27] MEDS ORDERED: WATER FOR INJ Sterile (PF) 10 ML ONE (09:15)
[2021-11-27] MEDS: amLODIPine 5 MG TAB PO SCH (09:41)
[2021-11-27] MEDS: ARIPiprazole 15 MG TAB PO SCH (09:41)
[2021-11-27] MEDS: clonazePAM 0.5 MG TAB PO SCH ×2 (09:41→21:17)
[2021-11-27] MEDS: LITHIUM CARBONATE 300 MG CAP PO SCH ×2 (14:01→21:17)
--- NOTE | 2021-11-27 19:54 | Progress Note ---
Assessment and Plan - Patient Problems (1) Vascular dementia with behavioral disturbance Current Visit: Yes Status: Acute Plan to address problem: Verbal prompting, verbal redirection, benzodiazepine therapy as clinically indicated. (2) Bipolar disorder Current Visit: No Status: Acute Plan to address problem: Continue medical management, supportive care. (3) Cerebral atherosclerosis Current Visit: No Status: Acute Plan to address problem: Antiplatelet therapy as clinically indicated, risk factor reduction, (4) Generalized anxiety disorder Current Visit: No Status: Acute Plan to address problem: Benzodiazepine therapy as clinically indicated. (5) Obesity (BMI 30.0-34.9) Current Visit: No Status: Acute Plan to address problem: Balanced diet, increase physical activity at discharge. (6) Schizophrenia Current Visit: No Status: Acute Qualifiers: Schizophrenia type: unspecified Qualified Code(s): F20.9 - Schizophrenia, unspecified Plan to address problem: Continue medical management, supportive care. (7) Hypertension Current Visit: Yes Status: Acute Qualifiers: Hypertension type: primary hypertension Qualified Code(s): I10 - Essential (primary) hypertension Plan to address problem: Monitor blood pressure every shift, continue medical management. (8) Diabetes Current Visit: Yes Status: Acute Plan to address problem: Consistent carbohydrate diet, Accu-Chek, insulin protocol, hypoglycemia protocol. (9) Advance care planning Current Visit: Yes Status: Acute Plan to address problem: Disease education conducted, care plan discussed, diagnosis discussed, prognosis discussed, patient is full code, +30 minutes. (10) Preventative health care Current Visit: No Status: Acute Plan to address problem: Home safety precautions, patient to follow-up with primary care physician for all age and risk factor appropriate screening test. +30 minutes. History Interval history: 70 YO Female with Vascular Dementia with behavioral disturbance, Cerebral Atherosclerosis, HTN, DM, COPD, Bipolar Disorder, Schizophrenia, MDD, THOMAS admitted to [facility] for psychiatric stabilization. Patient seen and evaluated in the recreation room. Patient appears to be at baseline level of cognition and function. No reported nursing events. Hospitalist Physical - Constitutional Vitals: Temp Pulse Resp BP Pulse Ox 97.5 F L 83 16 117/71 94 11/27/21 07:46 11/27/21 07:46 11/27/21 07:46 11/27/21 07:46 11/27/21 07:46 General appearance: Present: no acute distress, obese - EENT Eyes: Present: PERRL ENT: hearing decreased - Neck Neck: Present: supple - Respiratory Respiratory effort: normal Respiratory: bilateral: diminished - Cardiovascular Rhythm: regular Heart Sounds: Present: S1 & S2 - Extremities Extremities: no ischemia Peripheral Pulses: within normal limits - Abdominal General gastrointestinal: soft, non-tender, non-distended - Integumentary Integumentary: Present: clear, dry - Psychiatric Psychiatric: cooperative - Neurologic Neurologic: CNII-XII intact Results - Labs CBC & Chem 7: 11/24/21 05:18 Labs: Laboratory Last Values WBC 3.8 K/mm3 (4.5-11.0) L 11/24/21 05:18 RBC 3.71 M/mm3 (3.65-5.03) 11/24/21 05:18 Hgb 10.9 gm/dl (10.1-14.3) 11/24/21 05:18 Hct 33.1 % (30.3-42.9) 11/24/21 05:18 MCV 89 fl (79-97) 11/24/21 05:18 MCH 29 pg (28-32) 11/24/21 05:18 MCHC 33 % (30-34) 11/24/21 05:18 RDW 14.1 % (13.2-15.2) 11/24/21 05:18 Plt Count 111 K/mm3 (140-440) L 11/24/21 05:18 Lymph % (Auto) 38.1 % (13.4-35.0) H 11/24/21 05:18 [place] % (Auto) 11.4 % (0.0-7.3) H 11/24/21 05:18 Eos % (Auto) 4.5 % (0.0-4.3) H 11/24/21 05:18 Baso % (Auto) 0.8 % (0.0-1.8) 11/24/21 05:18 Lymph # (Auto) 1.4 K/mm3 (1.2-5.4) 11/24/21 05:18 [place] # (Auto) 0.4 K/mm3 (0.0-0.8) 11/24/21 05:18 Eos # (Auto) 0.2 K/mm3 (0.0-0.4) 11/24/21 05:18 Baso # (Auto) 0.0 K/mm3 (0.0-0.1) 11/24/21 05:18 Seg Neutrophils % 45.2 % (40.0-70.0) 11/24/21 05:18 Seg Neutrophils # 1.7 K/mm3 (1.8-7.7) L 11/24/21 05:18 POC Glucose 149 mg/dL (70-105) H 11/27/21 16:28 Hemoglobin A1c 7.9 % (4-6) H 11/24/21 05:18 Triglycerides 73 mg/dL (2-149) 11/24/21 05:18 Cholesterol 134 mg/dL (50-199) 11/24/21 05:18 LDL Cholesterol Direct 50 mg/dL (50-130) 11/24/21 05:18 HDL Cholesterol 76 mg/dL (40-59) H 11/24/21 05:18 Cholesterol/HDL Ratio 1.76 % 11/24/21 05:18 TSH 1.250 mlU/mL (0.270-4.200) 11/24/21 05:18 Valproic Acid 68.1 ug/mL (50-100) 11/27/21 10:44 Hepatitis A IgM Ab Non-reactive (NonReactive) 11/24/21 05:18 Hep Bs Antigen Non-reactive (Negative) 11/24/21 05:18 Hep B Core IgM Ab Non-reactive (NonReactive) 11/24/21 05:18 Hepatitis C Antibody Non-reactive (NonReactive) 11/24/21 05:18 Du/IV: Voiding Method Toilet Active Medications - Current Medications Current Medications: Generic Name Dose Route Start Last Admin Trade Name Freq PRN Reason Stop Dose Admin Acetaminophen 650 mg 11/24/21 12:00 11/27/21 03:16 Acetaminophen 325 Mg Tab PO 650 mg Q6H PRN Administration Pain, Mild (1-3) Albuterol 2.5 mg 11/24/21 12:00 Albuterol 2.5 Mg/3 Ml Nebu IH Q4HRT PRN Shortness Of Breath Amlodipine Besylate 5 mg 11/24/21 12:00 11/27/21 09:41 Amlodipine 5 Mg Tab PO Not Given DAILY [facility]IO Aripiprazole 30 mg 11/26/21 10:00 11/27/21 09:41 Aripiprazole 15 Mg Tab PO Not Given QDAY [facility] Clonazepam 0.5 mg 11/25/21 22:00 11/27/21 09:41 Clonazepam 0.5 Mg Tab PO Not Given BID JULIO Diphenhydramine HCl 25 mg 11/24/21 22:00 Diphenhydramine 25 Mg Cap PO QHS PRN Insomnia Divalproex Sodium 1,000 mg 11/24/21 22:00 11/26/21 21:41 Divalproex Er 500 Mg Tab PO 1,000 mg QHS JULIO Administration Donepezil HCl 5 mg 11/24/21 22:00 11/26/21 21:41 Donepezil 5 Mg Tab PO 5 mg QHS JULIO Administration Glipizide 5 mg 11/24/21 12:00 11/27/21 16:58 Glipizide 5 Mg Tab PO 5 mg BIDDIAB JULIO Administration Insulin Human Lispro 0 unit 11/24/21 12:00 11/27/21 16:53 Insulin Lispro 100 Unit/Ml SUB-Q Not Given ACHS JULIO Protocol [place] Carbonate 300 mg 11/27/21 14:00 11/27/21 14:01 [place] Carbon[place] 300 Mg Cap PO 300 mg Q8HR JULIO Administration Metformin HCl 1,000 mg 11/24/21 17:00 11/27/21 16:58 Metformin 500 Mg Tab PO 1,000 mg BIDDIAB JULIO Administration Trazodone HCl 50 mg 11/24/21 22:00 11/26/21 21:41 Trazodone 50 Mg Tab PO 50 mg QHS JULIO Administration Ziprasidone 20 mg 11/23/21 22:24 11/27/21 09:19 Ziprasidone Mesylate 20 Mg Vial IM 20 mg Q6H PRN Administration Agitation
[2021-11-27] MEDS: DONEPEZIL 5 MG TAB PO SCH (21:17)
[2021-11-27] MEDS: traZODone 50 MG TAB PO SCH (21:17)
[2021-11-27] MEDS: DIVALPROEX ER 500 MG TAB PO SCH (21:19)
[2021-11-28] MEDS: LITHIUM CARBONATE 300 MG CAP PO SCH ×3 (05:36→21:25)
[2021-11-28] MEDS: INSULIN LISPRO 100 UNIT/ML SUB-Q SCH ×4 (08:32→22:37)
[2021-11-28] MEDS: metFORMIN 500 MG TAB PO SCH ×2 (09:25→16:55)
[2021-11-28] MEDS: amLODIPine 5 MG TAB PO SCH (09:25)
[2021-11-28] MEDS: ARIPiprazole 15 MG TAB PO SCH (09:26)
[2021-11-28] MEDS: glipiZIDE 5 MG TAB PO SCH ×2 (09:26→16:55)
[2021-11-28] MEDS: clonazePAM 0.5 MG TAB PO SCH ×2 (09:26→21:25)
--- NOTE | 2021-11-28 12:14 | Progress Note ---
Subjective Date of service: 11/28/21 Principal diagnosis: Bipolar Subjective Comment: 11/28:The patient was seen today. She is talkative with flight of ideas. The patient states she is more angry than depressed. She denies any current suicidal/homicidal ideation and denies hallucinations. 11/27: The patient was seen today. She says the Depakote made him throw up. She says she wants to go back on the lithium. She says it worked better for her in the past. The patient denies SI/HI or hallucinations. REVIEW OF SYSTEMS Unable to obtain MENTAL STATUS EXAMINATION Assessment (1) Bipolar Current Visit: Yes Status: Acute Treatment Plan Patient will be admitted for inpatient psychiatric evaluation, medication adjustment and close monitoring The patient's behavior, mood, sleep and appetite will be closely monitored. Patient will be enrolled in individual and group therapeutic sessions and encouraged to attend. Patient will be provided with a safe and structured environment. Patient's physical health needs will be addressed by the Hospitalist. Hospitalist Consulted Labs including CBC, CMP, Lipid profile and Hemoglobin A1C ordered Social Assessment will be completed and the Valve Tester will work with patient and family to ensure a suitable and safe disposition Medication adjustment will be made as clinically indicated Continue [place] 300mg po q8h Usual Wellness Sabianist/Preservation: - Start Trazodone 50 mg po QHS PRN The patient agreed on the treatment plan, understood the risk, benefit, alternative treatment, potential consequence of no treatment, and gave informed consent. The case was staffed with Dr. White Medications and Allergies Allergies Allergy/AdvReac Type Severity Reaction Status Date / Time haloperidol [From Haldol] Allergy Unknown Verified 05/16/21 22:07 Latex, Natural Rubber Allergy Unknown Verified 05/16/21 22:07 Home Medications Medication Instructions Recorded Confirmed Last Taken Type Ipratropium/Albuterol Sulfate 0.5 - 2.5 mg INHALATION Q4HR PRN 05/16/21 11/23/21 Unknown History [DUONEB *Not for PRN Use*] amLODIPine 5 mg PO DAILY 05/16/21 11/23/21 Unknown History diphenhydrAMINE [Benadryl CAP] 25 mg PO QHS PRN MDD For upto 10 05/16/21 11/23/21 Unknown History days donepeziL [Aricept] 5 mg PO QHS 05/16/21 11/23/21 Unknown History ALBUTEROL NEB's [Proventil 0.083% 2.5 mg IH Q4HRT PRN nebu 05/31/21 11/23/21 Unknown Rx NEBS] clonazePAM [KlonoPIN] 1 mg PO BID 30 Days #30 tablet 05/31/21 11/23/21 Unknown Rx Metformin HCl [metFORMIN] 1,000 mg PO BID #60 07/08/21 11/23/21 Unknown Rx glipiZIDE [Glucotrol] 5 mg PO BID 09/27/21 11/23/21 Unknown History ARIPiprazole [Abilify TAB] 15 mg PO QDAY 30 Days #30 tablet 10/03/21 11/23/21 Unknown Rx Divalproex ER [Depakote ER] 1,000 mg PO QHS 30 Days #30 tablet 10/03/21 11/23/21 Unknown Rx glipiZIDE [Glucotrol] 5 mg PO BIDDIAB tablet 10/03/21 11/23/21 Unknown Rx traZODone [Desyrel] 50 mg PO QHS 30 Days #30 tablet 10/03/21 11/23/21 Unknown Rx Acetaminophen 650 mg PO Q6H PRN #30 cap 11/22/21 11/23/21 Unknown Rx Lispro Insulin [HumaLOG] See Protocol SUB-Q ACHS 11/23/21 11/23/21 Unknown History Active Meds: Active Medications Acetaminophen (Acetaminophen 325 Mg Tab) 650 mg PO Q6H PRN PRN Reason: Pain, Mild (1-3) Last Admin: 11/27/21 03:16 Dose: 650 mg Albuterol (Albuterol 2.5 Mg/3 Ml Nebu) 2.5 mg IH Q4HRT PRN PRN Reason: Shortness Of Breath Amlodipine Besylate (Amlodipine 5 Mg Tab) 5 mg PO DAILY [facility] Last Admin: 11/28/21 09:25 Dose: 5 mg Aripiprazole (Aripiprazole 15 Mg Tab) 30 mg PO QDAY [facility] Last Admin: 11/28/21 09:26 Dose: 30 mg Clonazepam (Clonazepam 0.5 Mg Tab) 0.5 mg PO BID [facility] Last Admin: 11/28/21 09:26 Dose: 0.5 mg Diphenhydramine HCl (Diphenhydramine 25 Mg Cap) 25 mg PO QHS PRN PRN Reason: Insomnia Divalproex Sodium (Divalproex Er 500 Mg Tab) 1,000 mg PO QHS [facility] Last Admin: 11/27/21 21:19 Dose: 1,000 mg Donepezil HCl (Donepezil 5 Mg Tab) 5 mg PO QHS [facility] Last Admin: 11/27/21 21:17 Dose: 5 mg Glipizide (Glipizide 5 Mg Tab) 5 mg PO BIDDIAB [facility] Last Admin: 11/28/21 09:26 Dose: 5 mg Insulin Human Lispro (Insulin Lispro 100 Unit/Ml) 0 unit SUB-Q [facility]; Protocol Last Admin: 11/28/21 08:32 Dose: Not Given [place] Carbonate ([place] Carbonate 300 Mg Cap) 300 mg PO Q8HR [facility] Last Admin: 11/28/21 05:36 Dose: 300 mg Metformin HCl (Metformin 500 Mg Tab) 1,000 mg PO BIDDIAB [facility] Last Admin: 11/28/21 09:25 Dose: 1,000 mg Trazodone HCl (Trazodone 50 Mg Tab) 50 mg PO QHS [facility] Last Admin: 11/27/21 21:17 Dose: 50 mg Ziprasidone (Ziprasidone Mesylate 20 Mg Vial) 20 mg IM Q6H PRN PRN Reason: Agitation Last Admin: 11/27/21 09:19 Dose: 20 mg Results - Results Labs/Vitals: Laboratory Last Values WBC 3.8 K/mm3 (4.5-11.0) L 11/24/21 05:18 RBC 3.71 M/mm3 (3.65-5.03) 11/24/21 05:18 Hgb 10.9 gm/dl (10.1-14.3) 11/24/21 05:18 Hct 33.1 % (30.3-42.9) 11/24/21 05:18 MCV 89 fl (79-97) 11/24/21 05:18 MCH 29 pg (28-32) 11/24/21 05:18 MCHC 33 % (30-34) 11/24/21 05:18 RDW 14.1 % (13.2-15.2) 11/24/21 05:18 Plt Count 111 K/mm3 (140-440) L 11/24/21 05:18 Lymph % (Auto) 38.1 % (13.4-35.0) H 11/24/21 05:18 [place] % (Auto) 11.4 % (0.0-7.3) H 11/24/21 05:18 Eos % (Auto) 4.5 % (0.0-4.3) H 11/24/21 05:18 Baso % (Auto) 0.8 % (0.0-1.8) 11/24/21 05:18 Lymph # (Auto) 1.4 K/mm3 (1.2-5.4) 11/24/21 05:18 [place] # (Auto) 0.4 K/mm3 (0.0-0.8) 11/24/21 05:18 Eos # (Auto) 0.2 K/mm3 (0.0-0.4) 11/24/21 05:18 Baso # (Auto) 0.0 K/mm3 (0.0-0.1) 11/24/21 05:18 Seg Neutrophils % 45.2 % (40.0-70.0) 11/24/21 05:18 Seg Neutrophils # 1.7 K/mm3 (1.8-7.7) L 11/24/21 05:18 POC Glucose 150 mg/dL (70-105) H 11/28/21 11:24 Hemoglobin A1c 7.9 % (4-6) H 11/24/21 05:18 Triglycerides 73 mg/dL (2-149) 11/24/21 05:18 Cholesterol 134 mg/dL (50-199) 11/24/21 05:18 LDL Cholesterol Direct 50 mg/dL (50-130) 11/24/21 05:18 HDL Cholesterol 76 mg/dL (40-59) H 11/24/21 05:18 Cholesterol/HDL Ratio 1.76 % 11/24/21 05:18 TSH 1.250 mlU/mL (0.270-4.200) 11/24/21 05:18 Valproic Acid 68.1 ug/mL (50-100) 11/27/21 10:44 Hepatitis A IgM Ab Non-reactive (NonReactive) 11/24/21 05:18 Hep Bs Antigen Non-reactive (Negative) 11/24/21 05:18 Hep B Core IgM Ab Non-reactive (NonReactive) 11/24/21 05:18 Hepatitis C Antibody Non-reactive (NonReactive) 11/24/21 05:18 Last Vital Signs Temp 97.7 F 11/28/21 09:23 Pulse 84 11/28/21 09:23 Resp 18 11/28/21 09:23 BP 127/62 11/28/21 09:23 Pulse Ox 95 11/28/21 09:23
[2021-11-28] MEDS: traZODone 50 MG TAB PO SCH (21:25)
[2021-11-28] MEDS: DONEPEZIL 5 MG TAB PO SCH (21:25)
[2021-11-29] MEDS: LITHIUM CARBONATE 300 MG CAP PO SCH ×3 (06:22→21:36)
[2021-11-29] MEDS: glipiZIDE 5 MG TAB PO SCH ×2 (08:39→17:16)
[2021-11-29] MEDS: metFORMIN 500 MG TAB PO SCH ×2 (08:39→17:16)
[2021-11-29] MEDS: INSULIN LISPRO 100 UNIT/ML SUB-Q SCH ×4 (08:40→22:00)
[2021-11-29] MEDS: ARIPiprazole 15 MG TAB PO SCH (09:15)
[2021-11-29] MEDS: clonazePAM 0.5 MG TAB PO SCH ×2 (09:16→21:35)
[2021-11-29] MEDS: amLODIPine 5 MG TAB PO SCH (09:16)
--- NOTE | 2021-11-29 09:40 | Progress Note ---
Subjective Date of service: 11/29/21 Principal diagnosis: Bipolar Subjective Comment: 11/29: The patient was seen today. She is calm and less talkative today; she states she feels better. She reports sleep and appetite as good. The patient denies SI/HI or hallucinations. 11/28:The patient was seen today. She is talkative with flight of ideas. The patient states she is more angry than depressed. She denies any current suicidal/homicidal ideation and denies hallucinations. 11/27: The patient was seen today. She says the Depakote made him throw up. She says she wants to go back on the lithium. She says it worked better for her in the past. The patient denies SI/HI or hallucinations. REVIEW OF SYSTEMS Constitutional: Negative for weight loss ENT: Negative for stridor Respiratory: Negative for cough or hemoptysis All other systems reviewed and are negative MENTAL STATUS EXAMINATION General Appearance and Behavior: Age appropriate, wearing appropriate clothes, cooperative, polite with questioning, good eye contact Cooperation: cooperative Psychomotor Behavior: Psychomotor normal Mood: good Affect and affective range: congruent with stated affect Thought Process: Goal directed Thought Content: reality oriented Speech: Normal volume, Regular rate and rhythm Suicidal Ideation: Denies Homicidal Ideation: Denies Hallucination: Denies Delusions: None elicited Impulse Control: Limited Insight and Judgment: Limited Memory: normal Attention: attentive Orientation: Alert and oriented Assessment (1) Bipolar Current Visit: Yes Status: Acute Treatment Plan Patient will be admitted for inpatient psychiatric evaluation, medication adjustment and close monitoring The patient's behavior, mood, sleep and appetite will be closely monitored. Patient will be enrolled in individual and group therapeutic sessions and encouraged to attend. Patient will be provided with a safe and structured environment. Patient's physical health needs will be addressed by the Hospitalist. Hospitalist Consulted Labs including CBC, CMP, Lipid profile and Hemoglobin A1C ordered Social Assessment will be completed and the Radiological Metallurgist will work with patient and family to ensure a suitable and safe disposition Medication adjustment will be made as clinically indicated Continue [place] 300mg po q8h Usual Wellness Yarsani/Preservation: - Start Trazodone 50 mg po QHS PRN The patient agreed on the treatment plan, understood the risk, benefit, alternative treatment, potential consequence of no treatment, and gave informed consent. The case was staffed with Dr. White Medications and Allergies Medications and Allergies Allergies Allergy/AdvReac Type Severity Reaction Status Date / Time haloperidol [From Haldol] Allergy Unknown Verified 05/16/21 22:07 Latex, Natural Rubber Allergy Unknown Verified 05/16/21 22:07 Home Medications Medication Instructions Recorded Confirmed Last Taken Type Ipratropium/Albuterol Sulfate 0.5 - 2.5 mg INHALATION Q4HR PRN 05/16/21 11/23/21 Unknown History [DUONEB *Not for PRN Use*] amLODIPine 5 mg PO DAILY 05/16/21 11/23/21 Unknown History diphenhydrAMINE [Benadryl CAP] 25 mg PO QHS PRN MDD For upto 10 05/16/21 11/23/21 Unknown History days donepeziL [Aricept] 5 mg PO QHS 05/16/21 11/23/21 Unknown History ALBUTEROL NEB's [Proventil 0.083% 2.5 mg IH Q4HRT PRN nebu 05/31/21 11/23/21 Unknown Rx NEBS] clonazePAM [KlonoPIN] 1 mg PO BID 30 Days #30 tablet 05/31/21 11/23/21 Unknown Rx Metformin HCl [metFORMIN] 1,000 mg PO BID #60 07/08/21 11/23/21 Unknown Rx glipiZIDE [Glucotrol] 5 mg PO BID 09/27/21 11/23/21 Unknown History ARIPiprazole [Abilify TAB] 15 mg PO QDAY 30 Days #30 tablet 10/03/21 11/23/21 Unknown Rx Divalproex ER [Depakote ER] 1,000 mg PO QHS 30 Days #30 tablet 10/03/21 11/23/21 Unknown Rx glipiZIDE [Glucotrol] 5 mg PO BIDDIAB tablet 10/03/21 11/23/21 Unknown Rx traZODone [Desyrel] 50 mg PO QHS 30 Days #30 tablet 10/03/21 11/23/21 Unknown Rx Acetaminophen 650 mg PO Q6H PRN #30 cap 11/22/21 11/23/21 Unknown Rx Lispro Insulin [HumaLOG] See Protocol SUB-Q ACHS 11/23/21 11/23/21 Unknown History Active Meds: Active Medications Acetaminophen (Acetaminophen 325 Mg Tab) 650 mg PO Q6H PRN PRN Reason: Pain, Mild (1-3) Last Admin: 11/27/21 03:16 Dose: 650 mg Albuterol (Albuterol 2.5 Mg/3 Ml Nebu) 2.5 mg IH Q4HRT PRN PRN Reason: Shortness Of Breath Amlodipine Besylate (Amlodipine 5 Mg Tab) 5 mg PO DAILY [facility] Last Admin: 11/29/21 09:16 Dose: 5 mg Aripiprazole (Aripiprazole 15 Mg Tab) 30 mg PO QDAY [facility] Last Admin: 11/29/21 09:15 Dose: 30 mg Clonazepam (Clonazepam 0.5 Mg Tab) 0.5 mg PO BID [facility] Last Admin: 11/29/21 09:16 Dose: 0.5 mg Diphenhydramine HCl (Diphenhydramine 25 Mg Cap) 25 mg PO QHS PRN PRN Reason: Insomnia Donepezil HCl (Donepezil 5 Mg Tab) 5 mg PO QHS [facility] Last Admin: 11/28/21 21:25 Dose: 5 mg Glipizide (Glipizide 5 Mg Tab) 5 mg PO BIDDIAB [facility] Last Admin: 11/29/21 08:39 Dose: 5 mg Insulin Human Lispro (Insulin Lispro 100 Unit/Ml) 0 unit SUB-Q ACHS [facility]; Protocol Last Admin: 11/29/21 08:40 Dose: Not Given [place] Carbonate ([place] Carbonate 300 Mg Cap) 300 mg PO Q8HR [facility] Last Admin: 11/29/21 06:22 Dose: 300 mg Metformin HCl (Metformin 500 Mg Tab) 1,000 mg PO BIDDIAB [facility] Last Admin: 11/29/21 08:39 Dose: 1,000 mg Trazodone HCl (Trazodone 50 Mg Tab) 50 mg PO QHS [facility] Last Admin: 11/28/21 21:25 Dose: 50 mg Ziprasidone (Ziprasidone Mesylate 20 Mg Vial) 20 mg IM Q6H PRN PRN Reason: Agitation Last Admin: 11/27/21 09:19 Dose: 20 mg Results - Results Labs/Vitals: Laboratory Last Values WBC 3.8 K/mm3 (4.5-11.0) L 11/24/21 05:18 RBC 3.71 M/mm3 (3.65-5.03) 11/24/21 05:18 Hgb 10.9 gm/dl (10.1-14.3) 11/24/21 05:18 Hct 33.1 % (30.3-42.9) 11/24/21 05:18 MCV 89 fl (79-97) 11/24/21 05:18 MCH 29 pg (28-32) 11/24/21 05:18 MCHC 33 % (30-34) 11/24/21 05:18 RDW 14.1 % (13.2-15.2) 11/24/21 05:18 Plt Count 111 K/mm3 (140-440) L 11/24/21 05:18 Lymph % (Auto) 38.1 % (13.4-35.0) H 11/24/21 05:18 [place] % (Auto) 11.4 % (0.0-7.3) H 11/24/21 05:18 Eos % (Auto) 4.5 % (0.0-4.3) H 11/24/21 05:18 Baso % (Auto) 0.8 % (0.0-1.8) 11/24/21 05:18 Lymph # (Auto) 1.4 K/mm3 (1.2-5.4) 11/24/21 05:18 [place] # (Auto) 0.4 K/mm3 (0.0-0.8) 11/24/21 05:18 Eos # (Auto) 0.2 K/mm3 (0.0-0.4) 11/24/21 05:18 Baso # (Auto) 0.0 K/mm3 (0.0-0.1) 11/24/21 05:18 Seg Neutrophils % 45.2 % (40.0-70.0) 11/24/21 05:18 Seg Neutrophils # 1.7 K/mm3 (1.8-7.7) L 11/24/21 05:18 POC Glucose 94 mg/dL (70-105) 11/29/21 06:20 Hemoglobin A1c 7.9 % (4-6) H 11/24/21 05:18 Triglycerides 73 mg/dL (2-149) 11/24/21 05:18 Cholesterol 134 mg/dL (50-199) 11/24/21 05:18 LDL Cholesterol Direct 50 mg/dL (50-130) 11/24/21 05:18 HDL Cholesterol 76 mg/dL (40-59) H 11/24/21 05:18 Cholesterol/HDL Ratio 1.76 % 11/24/21 05:18 TSH 1.250 mlU/mL (0.270-4.200) 11/24/21 05:18 Valproic Acid 68.1 ug/mL (50-100) 11/27/21 10:44 Hepatitis A IgM Ab Non-reactive (NonReactive) 11/24/21 05:18 Hep Bs Antigen Non-reactive (Negative) 11/24/21 05:18 Hep B Core IgM Ab Non-reactive (NonReactive) 11/24/21 05:18 Hepatitis C Antibody Non-reactive (NonReactive) 11/24/21 05:18 Last Vital Signs Temp 97.5 F L 11/29/21 08:09 Pulse 77 11/29/21 09:16 Resp 16 11/29/21 08:09 BP 120/65 11/29/21 09:16 Pulse Ox 95 11/29/21 08:09
[2021-11-29] MEDS: traZODone 50 MG TAB PO SCH (21:36)
[2021-11-29] MEDS: DONEPEZIL 5 MG TAB PO SCH (21:36)
[2021-11-29] MEDS: ACETAMINOPHEN 325 MG TAB PO PRN (23:18)
[2021-11-30] MEDS: LITHIUM CARBONATE 300 MG CAP PO SCH ×3 (06:24→21:45)
[2021-11-30] MEDS: INSULIN LISPRO 100 UNIT/ML SUB-Q SCH ×4 (07:45→21:46)
--- NOTE | 2021-11-30 09:08 | Progress Note ---
Subjective Date of service: 11/30/21 Principal diagnosis: Bipolar Subjective Comment: 11/30: The patient was seen today. She is calm and cooperative. She states she feels better and ready to go home. She reports sleep and appetite as good. The patient denies SI/HI or hallucinations. No changes made today. 11/29: The patient was seen today. She is calm and less talkative today; she states she feels better. She reports sleep and appetite as good. The patient denies SI/HI or hallucinations. 11/28:The patient was seen today. She is talkative with flight of ideas. The patient states she is more angry than depressed. She denies any current suicidal/homicidal ideation and denies hallucinations. 11/27: The patient was seen today. She says the Depakote made him throw up. She says she wants to go back on the lithium. She says it worked better for her in the past. The patient denies SI/HI or hallucinations. REVIEW OF SYSTEMS Constitutional: Negative for weight loss ENT: Negative for stridor Respiratory: Negative for cough or hemoptysis All other systems reviewed and are negative MENTAL STATUS EXAMINATION General Appearance and Behavior: Age appropriate, wearing appropriate clothes, cooperative, polite with questioning, good eye contact Cooperation: cooperative Psychomotor Behavior: Psychomotor normal Mood: fine Affect and affective range: congruent with stated affect Thought Process: Goal directed Thought Content: reality oriented Speech: Normal volume, Regular rate and rhythm Suicidal Ideation: Denies Homicidal Ideation: Denies Hallucination: Denies Delusions: None elicited Impulse Control: Limited Insight and Judgment: Limited Memory: normal Attention: attentive Orientation: Alert and oriented Assessment (1) Bipolar Current Visit: Yes Status: Acute Treatment Plan Patient will be admitted for inpatient psychiatric evaluation, medication adjustment and close monitoring The patient's behavior, mood, sleep and appetite will be closely monitored. Patient will be enrolled in individual and group therapeutic sessions and encouraged to attend. Patient will be provided with a safe and structured environment. Patient's physical health needs will be addressed by the Hospitalist. Hospitalist Consulted Labs including CBC, CMP, Lipid profile and Hemoglobin A1C ordered Social Assessment will be completed and the Tax Services Specialist will work with patient and family to ensure a suitable and safe disposition Medication adjustment will be made as clinically indicated Continue [place] 300mg po q8h Usual Wellness Yarsanism/Preservation: - Start Trazodone 50 mg po QHS PRN The patient agreed on the treatment plan, understood the risk, benefit, alternative treatment, potential consequence of no treatment, and gave informed consent. The case was staffed with Dr. White Medications and Allergies Medications and Allergies Allergies Allergy/AdvReac Type Severity Reaction Status Date / Time haloperidol [From Haldol] Allergy Unknown Verified 05/16/21 22:07 Latex, Natural Rubber Allergy Unknown Verified 05/16/21 22:07 Home Medications Medication Instructions Recorded Confirmed Last Taken Type Ipratropium/Albuterol Sulfate 0.5 - 2.5 mg INHALATION Q4HR PRN 05/16/21 11/23/21 Unknown History [DUONEB *Not for PRN Use*] amLODIPine 5 mg PO DAILY 05/16/21 11/23/21 Unknown History diphenhydrAMINE [Benadryl CAP] 25 mg PO QHS PRN MDD For upto 10 05/16/21 11/23/21 Unknown History days donepeziL [Aricept] 5 mg PO QHS 05/16/21 11/23/21 Unknown History ALBUTEROL NEB's [Proventil 0.083% 2.5 mg IH Q4HRT PRN nebu 05/31/21 11/23/21 Unknown Rx NEBS] clonazePAM [KlonoPIN] 1 mg PO BID 30 Days #30 tablet 05/31/21 11/23/21 Unknown Rx Metformin HCl [metFORMIN] 1,000 mg PO BID #60 07/08/21 11/23/21 Unknown Rx glipiZIDE [Glucotrol] 5 mg PO BID 09/27/21 11/23/21 Unknown History ARIPiprazole [Abilify TAB] 15 mg PO QDAY 30 Days #30 tablet 10/03/21 11/23/21 Unknown Rx Divalproex ER [Depakote ER] 1,000 mg PO QHS 30 Days #30 tablet 10/03/21 11/23/21 Unknown Rx glipiZIDE [Glucotrol] 5 mg PO BIDDIAB tablet 10/03/21 11/23/21 Unknown Rx traZODone [Desyrel] 50 mg PO QHS 30 Days #30 tablet 10/03/21 11/23/21 Unknown Rx Acetaminophen 650 mg PO Q6H PRN #30 cap 11/22/21 11/23/21 Unknown Rx Lispro Insulin [HumaLOG] See Protocol SUB-Q [facility] 11/23/21 11/23/21 Unknown History Active Meds: Active Medications Acetaminophen (Acetaminophen 325 Mg Tab) 650 mg PO Q6H PRN PRN Reason: Pain, Mild (1-3) Last Admin: 11/29/21 23:18 Dose: 650 mg Albuterol (Albuterol 2.5 Mg/3 Ml Nebu) 2.5 mg IH Q4HRT PRN PRN Reason: Shortness Of Breath Amlodipine Besylate (Amlodipine 5 Mg Tab) [address] [facility] Last Admin: 11/29/21 09:16 Dose: 5 mg Aripiprazole (Aripiprazole 15 Mg Tab) [address] [facility] Last Admin: 11/29/21 09:15 Dose: 30 mg Clonazepam (Clonazepam 0.5 Mg Tab) 0.[address] [facility] Last Admin: 11/29/21 21:35 Dose: 0.5 mg Diphenhydramine HCl (Diphenhydramine 25 Mg Cap) 25 mg PO QHS PRN PRN Reason: Insomnia Last Admin: 11/29/21 23:19 Dose: 25 mg Donepezil HCl (Donepezil 5 Mg Tab) [address] [facility] Last Admin: 11/29/21 21:36 Dose: 5 mg Glipizide (Glipizide 5 Mg Tab) [address] [facility] Last Admin: 11/29/21 17:16 Dose: 5 mg Insulin Human Lispro (Insulin Lispro 100 Unit/Ml) 0 unit SUB-Q [facility] JULIO; Pr otocol Last Admin: 11/30/21 07:45 Dose: Not Given [place] Carbonate ([place] Carbonate 300 Mg Cap) [address] [facility] Last Admin: 11/30/21 06:24 Dose: 300 mg Metformin HCl (Metformin 500 Mg Tab) 1,[address] [facility] Last Admin: 11/29/21 17:16 Dose: 1,000 mg Trazodone HCl (Trazodone 50 Mg Tab) [address] [facility] Last Admin: 11/29/21 21:36 Dose: 50 mg Ziprasidone (Ziprasidone Mesylate 20 Mg Vial) 20 mg IM Q6H PRN PRN Reason: Agitation Last Admin: 11/27/21 09:19 Dose: 20 mg Results - Results Labs/Vitals: Laboratory Last Values WBC 3.8 K/mm3 (4.5-11.0) L 11/24/21 05:18 RBC 3.71 M/mm3 (3.65-5.03) 11/24/21 05:18 Hgb 10.9 gm/dl (10.1-14.3) 11/24/21 05:18 Hct 33.1 % (30.3-42.9) 11/24/21 05:18 MCV 89 fl (79-97) 11/24/21 05:18 MCH 29 pg (28-32) 11/24/21 05:18 MCHC 33 % (30-34) 11/24/21 05:18 RDW 14.1 % (13.2-15.2) 11/24/21 05:18 Plt Count 111 K/mm3 (140-440) L 11/24/21 05:18 Lymph % (Auto) 38.1 % (13.4-35.0) H 11/24/21 05:18 [place] % (Auto) 11.4 % (0.0-7.3) H 11/24/21 05:18 Eos % (Auto) 4.5 % (0.0-4.3) H 11/24/21 05:18 Baso % (Auto) 0.8 % (0.0-1.8) 11/24/21 05:18 Lymph # (Auto) 1.4 K/mm3 (1.2-5.4) 11/24/21 05:18 [place] # (Auto) 0.4 K/mm3 (0.0-0.8) 11/24/21 05:18 Eos # (Auto) 0.2 K/mm3 (0.0-0.4) 11/24/21 05:18 Baso # (Auto) 0.0 K/mm3 (0.0-0.1) 11/24/21 05:18 Seg Neutrophils % 45.2 % (40.0-70.0) 11/24/21 05:18 Seg Neutrophils # 1.7 K/mm3 (1.8-7.7) L 11/24/21 05:18 POC Glucose 128 mg/dL (70-105) H 11/30/21 05:52 Hemoglobin A1c 7.9 % (4-6) H 11/24/21 05:18 Triglycerides 73 mg/dL (2-149) 11/24/21 05:18 Cholesterol 134 mg/dL (50-199) 11/24/21 05:18 LDL Cholesterol Direct 50 mg/dL (50-130) 11/24/21 05:18 HDL Cholesterol 76 mg/dL (40-59) H 11/24/21 05:18 Cholesterol/HDL Ratio 1.76 % 11/24/21 05:18 TSH 1.250 mlU/mL (0.270-4.200) 11/24/21 05:18 Valproic Acid 68.1 ug/mL (50-100) 11/27/21 10:44 Hepatitis A IgM Ab Non-reactive (NonReactive) 11/24/21 05:18 Hep Bs Antigen Non-reactive (Negative) 11/24/21 05:18 Hep B Core IgM Ab Non-reactive (NonReactive) 11/24/21 05:18 Hepatitis C Antibody Non-reactive (NonReactive) 11/24/21 05:18 Last Vital Signs Temp 97.5 F L 11/29/21 20:29 Pulse 79 11/30/21 08:48 Resp 16 11/30/21 08:48 BP 114/69 11/30/21 08:48 Pulse Ox 95 11/30/21 08:48
[2021-11-30] MEDS: metFORMIN 500 MG TAB PO SCH ×2 (09:13→16:56)
[2021-11-30] MEDS: glipiZIDE 5 MG TAB PO SCH ×2 (09:13→16:56)
[2021-11-30] MEDS: clonazePAM 0.5 MG TAB PO SCH ×2 (10:13→21:46)
[2021-11-30] MEDS: amLODIPine 5 MG TAB PO SCH (10:13)
[2021-11-30] MEDS: ARIPiprazole 15 MG TAB PO SCH (10:14)
--- NOTE | 2021-11-30 14:30 | Progress Note ---
Assessment and Plan - Patient Problems (1) Vascular dementia with behavioral disturbance Current Visit: Yes Status: Acute Plan to address problem: Verbal prompting, verbal redirection, benzodiazepine therapy as clinically indicated. (2) Bipolar disorder Current Visit: No Status: Acute Plan to address problem: Continue medical management, supportive care. (3) Cerebral atherosclerosis Current Visit: No Status: Acute Plan to address problem: Antiplatelet therapy as clinically indicated, risk factor reduction, (4) Generalized anxiety disorder Current Visit: No Status: Acute Plan to address problem: Benzodiazepine therapy as clinically indicated. (5) Obesity (BMI 30.0-34.9) Current Visit: No Status: Acute Plan to address problem: Balanced diet, increase physical activity at discharge. (6) Schizophrenia Current Visit: No Status: Acute Qualifiers: Schizophrenia type: unspecified Qualified Code(s): F20.9 - Schizophrenia, unspecified Plan to address problem: Continue medical management, supportive care. (7) Hypertension Current Visit: Yes Status: Acute Qualifiers: Hypertension type: primary hypertension Qualified Code(s): I10 - Essential (primary) hypertension Plan to address problem: Monitor blood pressure every shift, continue medical management. (8) Diabetes Current Visit: Yes Status: Acute Plan to address problem: Consistent carbohydrate diet, Accu-Chek, insulin protocol, hypoglycemia protocol. (9) Advance care planning Current Visit: Yes Status: Acute Plan to address problem: Disease education conducted, care plan discussed, diagnosis discussed, prognosis discussed, patient is full code, +30 minutes. (10) Preventative health care Current Visit: No Status: Acute Plan to address problem: Home safety precautions, patient to follow-up with primary care physician for all age and risk factor appropriate screening test. +30 minutes. History Interval history: 70 YO Female with Vascular Dementia with behavioral disturbance, Cerebral Atherosclerosis, HTN, DM, COPD, Bipolar Disorder, Schizophrenia, MDD, THOMAS admitted to [facility] for psychiatric stabilization. Patient seen and evaluated in the recreation room. Patient appears to be at baseline level of cognition and function. No reported nursing events. Hospitalist Physical - Constitutional Vitals: Temp Pulse Resp BP Pulse Ox 97.5 F L 79 16 114/69 95 11/29/21 20:29 11/30/21 08:48 11/30/21 08:48 11/30/21 08:48 11/30/21 08:48 General appearance: Present: no acute distress, obese - EENT Eyes: Present: PERRL ENT: hearing decreased - Neck Neck: Present: supple - Respiratory Respiratory effort: normal Respiratory: bilateral: diminished - Cardiovascular Rhythm: regular Heart Sounds: Present: S1 & S2 - Extremities Extremities: no ischemia Peripheral Pulses: within normal limits - Abdominal General gastrointestinal: soft, non-tender, non-distended - Integumentary Integumentary: Present: clear, dry - Psychiatric Psychiatric: cooperative - Neurologic Neurologic: CNII-XII intact Results - Labs CBC & Chem 7: 11/24/21 05:18 Labs: Laboratory Last Values WBC 3.8 K/mm3 (4.5-11.0) L 11/24/21 05:18 RBC 3.71 M/mm3 (3.65-5.03) 11/24/21 05:18 Hgb 10.9 gm/dl (10.1-14.3) 11/24/21 05:18 Hct 33.1 % (30.3-42.9) 11/24/21 05:18 MCV 89 fl (79-97) 11/24/21 05:18 MCH 29 pg (28-32) 11/24/21 05:18 MCHC 33 % (30-34) 11/24/21 05:18 RDW 14.1 % (13.2-15.2) 11/24/21 05:18 Plt Count 111 K/mm3 (140-440) L 11/24/21 05:18 Lymph % (Auto) 38.1 % (13.4-35.0) H 11/24/21 05:18 [place] % (Auto) 11.4 % (0.0-7.3) H 11/24/21 05:18 Eos % (Auto) 4.5 % (0.0-4.3) H 11/24/21 05:18 Baso % (Auto) 0.8 % (0.0-1.8) 11/24/21 05:18 Lymph # (Auto) 1.4 K/mm3 (1.2-5.4) 11/24/21 05:18 [place] # (Auto) 0.4 K/mm3 (0.0-0.8) 11/24/21 05:18 Eos # (Auto) 0.2 K/mm3 (0.0-0.4) 11/24/21 05:18 Baso # (Auto) 0.0 K/mm3 (0.0-0.1) 11/24/21 05:18 Seg Neutrophils % 45.2 % (40.0-70.0) 11/24/21 05:18 Seg Neutrophils # 1.7 K/mm3 (1.8-7.7) L 11/24/21 05:18 POC Glucose 128 mg/dL (70-105) H 11/30/21 11:23 Hemoglobin A1c 7.9 % (4-6) H 11/24/21 05:18 Triglycerides 73 mg/dL (2-149) 11/24/21 05:18 Cholesterol 134 mg/dL (50-199) 11/24/21 05:18 LDL Cholesterol Direct 50 mg/dL (50-130) 11/24/21 05:18 HDL Cholesterol 76 mg/dL (40-59) H 11/24/21 05:18 Cholesterol/HDL Ratio 1.76 % 11/24/21 05:18 TSH 1.250 mlU/mL (0.270-4.200) 11/24/21 05:18 Valproic Acid 68.1 ug/mL (50-100) 11/27/21 10:44 Hepatitis A IgM Ab Non-reactive (NonReactive) 11/24/21 05:18 Hep Bs Antigen Non-reactive (Negative) 11/24/21 05:18 Hep B Core IgM Ab Non-reactive (NonReactive) 11/24/21 05:18 Hepatitis C Antibody Non-reactive (NonReactive) 11/24/21 05:18 Du/IV: Voiding Method Toilet Active Medications - Current Medications Current Medications: Generic Name Dose Route Start Last Admin Trade Name Freq PRN Reason Stop Dose Admin Acetaminophen 650 mg 11/24/21 12:00 11/29/21 23:18 Acetaminophen 325 Mg Tab PO 650 mg Q6H PRN Administration Pain, Mild (1-3) Albuterol 2.5 mg 11/24/21 12:00 Albuterol 2.5 Mg/3 Ml Nebu IH Q4HRT PRN Shortness Of Breath Amlodipine Besylate 5 mg 11/24/21 12:00 11/30/21 10:13 Amlodipine 5 Mg Tab PO 5 mg DAILY JULIO Administration Aripiprazole 30 mg 11/26/21 10:00 11/30/21 10:14 Aripiprazole 15 Mg Tab PO 30 mg QDAY JULIO Administration Clonazepam 0.5 mg 11/25/21 22:00 11/30/21 10:13 Clonazepam 0.5 Mg Tab PO 0.5 mg BID JULIO Administration Diphenhydramine HCl 25 mg 11/24/21 22:00 11/29/21 23:19 Diphenhydramine 25 Mg Cap PO 25 mg QHS PRN Administration Insomnia Donepezil HCl 5 mg 11/24/21 22:00 11/29/21 21:36 Donepezil 5 Mg Tab PO 5 mg QHS JULIO Administration Glipizide 5 mg 11/24/21 12:00 11/30/21 09:13 Glipizide 5 Mg Tab PO 5 mg BIDDIAB JULIO Administration Insulin Human Lispro 0 unit 11/24/21 12:00 11/30/21 11:33 Insulin Lispro 100 Unit/Ml SUB-Q Not Given ACHS JULIO Protocol [place] Carbonate 300 mg 11/27/21 14:00 11/30/21 14:02 [place] Carbonate 300 Mg Cap PO 300 mg Q8HR JULIO Administration Metformin HCl 1,000 mg 11/24/21 17:00 11/30/21 09:13 Metformin 500 Mg Tab PO 1,000 mg BIDDIAB JULIO Administration Trazodone HCl 50 mg 11/24/21 22:00 11/29/21 21:36 Trazodone 50 Mg Tab PO 50 mg QHS JULIO Administration Ziprasidone 20 mg 11/23/21 22:24 11/27/21 09:19 Ziprasidone Mesylate 20 Mg Vial IM 20 mg Q6H PRN Administration Agitation Nutrition/Malnutrition Assess - Dietary Evaluation Nutrition/Malnutrition Findings: Nutrition Notes Start: 11/28/21 11:30 Freq: Status: Active Protocol: Document 11/28/21 11:30 PARISA (Rec: 11/28/21 11:34 PARISA [id number]) Nutrition Notes Need for Assessment generated from: LOS Initial or Follow up Brief Note Current Diet Regular Height 5 ft 6 in Weight 90.71 kg [place] Body Weight (kg) 59.09 BMI 32.3 Weight Status Obese Subjective/Other Information Pt screened for LOS. She has consumed 95% of meals since admission. Percent of energy/protein needs met: 100% energy and pro Burn Absent Trauma Absent Current % PO Good (75-100%) Minimum of two criteria No Is patient on ventilator? No Is Patient Ambulatory and/or Out of Bed Yes REE-([place]-ambulatory/OOB) [ [id number] [id number]] Calculation Used for Recommendations [facility] Additional Notes Pro needs 1-1.2g/kg adjBW: 75- 90g/day Fluid needs 1ml/kcal Nutrition Intervention Revisit per MD consult or patient Sign Off request:
[2021-11-30] MEDS: traZODone 50 MG TAB PO SCH (21:46)
[2021-11-30] MEDS: DONEPEZIL 5 MG TAB PO SCH (21:46)
[2021-12-01] MEDS: metFORMIN 500 MG TAB PO SCH ×2 (09:39→17:40)
[2021-12-01] MEDS: clonazePAM 0.5 MG TAB PO SCH ×2 (09:39→21:10)
[2021-12-01] MEDS: amLODIPine 5 MG TAB PO SCH (09:40)
[2021-12-01] MEDS: glipiZIDE 5 MG TAB PO SCH ×2 (09:40→17:40)
[2021-12-01] MEDS: LITHIUM CARBONATE 300 MG CAP PO SCH ×3 (09:44→21:10)
--- NOTE | 2021-12-01 09:49 | Progress Note ---
Subjective Date of service: 12/01/21 Principal diagnosis: Bipolar Subjective Comment: 12/01: 11/30: The patient was seen today. She is calm and cooperative. She states she feels better and ready to go home. She reports sleep and appetite as good. The patient denies SI/HI or hallucinations. No changes made today. 11/29: The patient was seen today. She is calm and less talkative today; she states she feels better. She reports sleep and appetite as good. The patient d enies SI/HI or hallucinations. 11/28:The patient was seen today. She is talkative with flight of ideas. The patient states she is more angry than depressed. She denies any current suicidal/homicidal ideation and denies hallucinations. 11/27: The patient was seen today. She says the Depakote made him throw up. She says she wants to go back on the lithium. She says it worked better for her in the past. The patient denies SI/HI or hallucinations. REVIEW OF SYSTEMS Constitutional: Negative for weight loss ENT: Negative for stridor Respiratory: Negative for cough or hemoptysis All other systems reviewed and are negative MENTAL STATUS EXAMINATION General Appearance and Behavior: Age appropriate, wearing appropriate clothes, cooperative, polite with questioning, good eye contact Cooperation: cooperative Psychomotor Behavior: Psychomotor normal Mood: fine Affect and affective range: congruent with stated affect Thought Process: Goal directed Thought Content: reality oriented Speech: Normal volume, Regular rate and rhythm Suicidal Ideation: Denies Homicidal Ideation: Denies Hallucination: Denies Delusions: None elicited Impulse Control: Limited Insight and Judgment: Limited Memory: normal Attention: attentive Orientation: Alert and oriented Assessment (1) Bipolar Current Visit: Yes Status: Acute Treatment Plan Patient will be admitted for inpatient psychiatric evaluation, medication adjustment and close monitoring The patient's behavior, mood, sleep and appetite will be closely monitored. Patient will be enrolled in individual and group therapeutic sessions and encou raged to attend. Patient will be provided with a safe and structured environment. Patient's physical health needs will be addressed by the Hospitalist. Hospitalist Consulted Labs including CBC, CMP, Lipid profile and Hemoglobin A1C ordered Social Assessment will be completed and the Grocery Store Associate will work with patient and family to ensure a suitable and safe disposition Medication adjustment will be made as clinically indicated Continue [place] 300mg po q8h Usual Wellness Mandaeism/Preservation: - Start Trazodone 50 mg po QHS PRN The patient agreed on the treatment plan, understood the risk, benefit, alternative treatment, potential consequence of no treatment, and gave informed consent. The case was staffed with Dr. White Medications and Allergies Medications and Allergies Allergies Allergy/AdvReac Type Severity Reaction Status Date / Time haloperidol [From Haldol] Allergy Unknown Verified 05/16/21 22:07 Latex, Natural Rubber Allergy Unknown Verified 05/16/21 22:07 Home Medications Medication Instructions Recorded Confirmed Last Taken Type Ipratropium/Albuterol Sulfate 0.5 - 2.5 mg INHALATION Q4HR PRN 05/16/21 11/23/21 Unknown History [DUONEB *Not for PRN Use*] amLODIPine 5 mg PO DAILY 05/16/21 11/23/21 Unknown History diphenhydrAMINE [Benadryl CAP] 25 mg PO QHS PRN MDD For upto 10 05/16/21 11/23/21 Unknown History days donepeziL [Aricept] 5 mg PO QHS 05/16/21 11/23/21 Unknown History ALBUTEROL NEB's [Proventil 0.083% 2.5 mg IH Q4HRT PRN nebu 05/31/21 11/23/21 Unknown Rx NEBS] clonazePAM [KlonoPIN] 1 mg PO BID 30 Days #30 tablet 05/31/21 11/23/21 Unknown Rx Metformin HCl [metFORMIN] 1,000 mg PO BID #60 07/08/21 11/23/21 Unknown Rx glipiZIDE [Glucotrol] 5 mg PO BID 09/27/21 11/23/21 Unknown History ARIPiprazole [Abilify TAB] 15 mg PO QDAY 30 Days #30 tablet 10/03/21 11/23/21 Unknown Rx Divalproex ER [Depakote ER] 1,000 mg PO QHS 30 Days #30 tablet 10/03/21 11/23/21 Unknown Rx glipiZIDE [Glucotrol] 5 mg PO BIDDIAB tablet 10/03/21 11/23/21 Unknown Rx traZODone [Desyrel] 50 mg PO QHS 30 Days #30 tablet 10/03/21 11/23/21 Unknown Rx Acetaminophen 650 mg PO Q6H PRN #30 cap 11/22/21 11/23/21 Unknown Rx Lispro Insulin [HumaLOG] See Protocol SUB-Q [facility] 11/23/21 11/23/21 Unknown History Active Meds: Active Medications Acetaminophen (Acetaminophen 325 Mg Tab) 650 mg PO Q6H PRN PRN Reason: Pain, Mild (1-3) Last Admin: 11/29/21 23:18 Dose: 650 mg Albuterol (Albuterol 2.5 Mg/3 Ml Nebu) 2.5 mg IH Q4HRT PRN PRN Reason: Shortness Of Breath Amlodipine Besylate (Amlodipine 5 Mg Tab) 5 mg PO DAILY [facility] Last Admin: 11/30/21 10:13 Dose: 5 mg Aripiprazole (Aripiprazole 15 Mg Tab) 30 mg PO QDAY [facility] Last Admin: 11/30/21 10:14 Dose: 30 mg Clonazepam (Clonazepam 0.5 Mg Tab) 0.5 mg PO BID [facility] Last Admin: 11/30/21 21:46 Dose: 0.5 mg Diphenhydramine HCl (Diphenhydramine 25 Mg Cap) 25 mg PO QHS PRN PRN Reason: Insomnia Last Admin: 11/29/21 23:19 Dose: 25 mg Donepezil HCl (Donepezil 5 Mg Tab) 5 mg PO QHS [facility] Last Admin: 11/30/21 21:46 Dose: 5 mg Glipizide (Glipizide 5 Mg Tab) 5 mg PO BIDDIAB [facility] Last Admin: 11/30/21 16:56 Dose: 5 mg Insulin Human Lispro (Insulin Lispro 100 Unit/Ml) 0 unit SUB-Q [facility]; Protocol Last Admin: 11/30/21 21:46 Dose: Not Given Cowden Carbonate (C[place]den Carbonate 300 Mg Cap) 300 mg PO Q8HR [facility] Last Admin: 11/30/21 21:45 Dose: 300 mg Metformin HCl (Metformin 500 Mg Tab) 1,000 mg PO BIDDIAB [facility] Last Admin: 11/30/21 16:56 Dose: 1,000 mg Trazodone HCl (Trazodone 50 Mg Tab) 50 mg PO QHS [facility] Last Admin: 11/30/21 21:46 Dose: 50 mg Ziprasidone (Ziprasidone Mesylate 20 Mg Vial) 20 mg IM Q6H PRN PRN Reason: Agitation Last Admin: 11/27/21 09:19 Dose: 20 mg Results - Results Labs/Vitals: Laboratory Last Values WBC 3.8 K/mm3 (4.5-11.0) L 11/24/21 05:18 RBC 3.71 M/mm3 (3.65-5.03) 11/24/21 05:18 Hgb 10.9 gm/dl (10.1-14.3) 11/24/21 05:18 Hct 33.1 % (30.3-42.9) 11/24/21 05:18 MCV 89 fl (79-97) 11/24/21 05:18 MCH 29 pg (28-32) 11/24/21 05:18 MCHC 33 % (30-34) 11/24/21 05:18 RDW 14.1 % (13.2-15.2) 11/24/21 05:18 Plt Count 111 K/mm3 (140-440) L 11/24/21 05:18 Lymph % (Auto) 38.1 % (13.4-35.0) H 11/24/21 05:18 [place] % (Auto) 11.4 % (0.0-7.3) H 11/24/21 05:18 Eos % (Auto) 4.5 % (0.0-4.3) H 11/24/21 05:18 Baso % (Auto) 0.8 % (0.0-1.8) 11/24/21 05:18 Lymph # (Auto) 1.4 K/mm3 (1.2-5.4) 11/24/21 05:18 [place] # (Auto) 0.4 K/mm3 (0.0-0.8) 11/24/21 05:18 Eos # (Auto) 0.2 K/mm3 (0.0-0.4) 11/24/21 05:18 Baso # (Auto) 0.0 K/mm3 (0.0-0.1) 11/24/21 05:18 Seg Neutrophils % 45.2 % (40.0-70.0) 11/24/21 05:18 Seg Neutrophils # 1.7 K/mm3 (1.8-7.7) L 11/24/21 05:18 POC Glucose 151 mg/dL (70-105) H 11/30/21 20:11 Hemoglobin A1c 7.9 % (4-6) H 11/24/21 05:18 Triglycerides 73 mg/dL (2-149) 11/24/21 05:18 Cholesterol 134 mg/dL (50-199) 11/24/21 05:18 LDL Cholesterol Direct 50 mg/dL (50-130) 11/24/21 05:18 HDL Cholesterol 76 mg/dL (40-59) H 11/24/21 05:18 Cholesterol/HDL Ratio 1.76 % 11/24/21 05:18 TSH 1.250 mlU/mL (0.270-4.200) 11/24/21 05:18 Valproic Acid 68.1 ug/mL (50-100) 11/27/21 10:44 Hepatitis A IgM Ab Non-reactive (NonReactive) 11/24/21 05:18 Hep Bs Antigen Non-reactive (Negative) 11/24/21 05:18 Hep B Core IgM Ab Non-reactive (NonReactive) 11/24/21 05:18 Hepatitis C Antibody Non-reactive (NonReactive) 11/24/21 05:18 Last Vital Signs Temp 97.6 F 12/01/21 09:07 Pulse 81 12/01/21 09:05 Resp 18 12/01/21 09:07 BP 128/63 12/01/21 09:05 Pulse Ox 95 12/01/21 09:05
[2021-12-01 09:50] VITALS: BP 126/63
[2021-12-01] MEDS: ARIPiprazole 15 MG TAB PO SCH (09:51)
[2021-12-01] MEDS: INSULIN LISPRO 100 UNIT/ML SUB-Q SCH ×4 (09:53→21:11)
--- NOTE | 2021-12-01 12:13 | Discharge Summary ---
Providers - Providers Date of Admission: 11/23/21 21:49 Date of discharge: 12/01/21 Attending physician: NEYMAR ARANGO MD 11/23/21 17:03 Consult to Physician [CONS] Routine Comment: Consulting Provider: ABHISHEK GALLAGHER Physician Instructions: Reason For Exam: manage medical conditons Primary care physician: IN STORE MARKETER Hospitalization Admitting Diagnosis: F31.2 - BIPOLAR DISORD, CRNT EPISODE MANIC SEVERE W PSYCH FEATURES Condition: Stable Hospital course: The patient was provided inpatient psychiatric treatment with safe and supportive environment, group/individual therapy, psychiatric medication, medication adjustment, adverse effect monitor, medical evaluation, medical treatment, social service assessment, social support meeting, placement assessment and psycho-education. The patients mood, cognition, behavior, motivation, compliance to treatment and appreciation on family/social support ar e improved and stabilized. At the time of discharge, the patient had no suicidal ideas, no homicidal ideas, no aggressive thoughts, no endangering behavior and no debilitating adverse effects. The patient agreed on the treatment plan, understood the risk, benefit, alternative treatment, potential consequence of no treatment, and gave informed consent. Progress Note: 11/30: The patient was seen today. She is calm and cooperative. She states she feels better and ready to go home. She reports sleep and appetite as good. The patient denies SI/HI or hallucinations. No changes made today. 11/29: The patient was seen today. She is calm and less talkative today; she states she feels better. She reports sleep and appetite as good. The patient den ies SI/HI or hallucinations. 11/28:The patient was seen today. She is talkative with flight of ideas. The patient states she is more angry than depressed. She denies any current suicidal/homicidal ideation and denies hallucinations. 11/27: The patient was seen today. She says the Depakote made him throw up. She says she wants to go back on the lithium. She says it worked better for her in the past. The patient denies SI/HI or hallucinations. Disposition: 30 STILL A PATIENT Allergies/Adverse Reactions: Allergies haloperidol [From Haldol] Allergy (Verified 05/16/21 22:07) Unknown Latex, Natural Rubber Allergy (Verified 05/16/21 22:07) Unknown Vital Signs: Last Vital Signs Temp 97.6 F 12/01/21 09:07 Pulse 81 12/01/21 09:40 Resp 18 12/01/21 09:07 BP 126/63 12/01/21 09:40 Pulse Ox 95 12/01/21 09:05 Last Lab: Laboratory Last Values WBC 3.8 K/mm3 (4.5-11.0) L 11/24/21 05:18 RBC 3.71 M/mm3 (3.65-5.03) 11/24/21 05:18 Hgb 10.9 gm/dl (10.1-14.3) 11/24/21 05:18 Hct 33.1 % (30.3-42.9) 11/24/21 05:18 MCV 89 fl (79-97) 11/24/21 05:18 MCH 29 pg (28-32) 11/24/21 05:18 MCHC 33 % (30-34) 11/24/21 05:18 RDW 14.1 % (13.2-15.2) 11/24/21 05:18 Plt Count 111 K/mm3 (140-440) L 11/24/21 05:18 Lymph % (Auto) 38.1 % (13.4-35.0) H 11/24/21 05:18 [place] % (Auto) 11.4 % (0.0-7.3) H 11/24/21 05:18 Eos % (Auto) 4.5 % (0.0-4.3) H 11/24/21 05:18 Baso % (Auto) 0.8 % (0.0-1.8) 11/24/21 05:18 Lymph # (Auto) 1.4 K/mm3 (1.2-5.4) 11/24/21 05:18 [place] # (Auto) 0.4 K/mm3 (0.0-0.8) 11/24/21 05:18 Eos # (Auto) 0.2 K/mm3 (0.0-0.4) 11/24/21 05:18 Baso # (Auto) 0.0 K/mm3 (0.0-0.1) 11/24/21 05:18 Seg Neutrophils % 45.2 % (40.0-70.0) 11/24/21 05:18 Seg Neutrophils # 1.7 K/mm3 (1.8-7.7) L 11/24/21 05:18 POC Glucose 103 mg/dL (70-105) 12/01/21 11:20 Hemoglobin A1c 7.9 % (4-6) H 11/24/21 05:18 Triglycerides 73 mg/dL (2-149) 11/24/21 05:18 Cholesterol 134 mg/dL (50-199) 11/24/21 05:18 LDL Cholesterol Direct 50 mg/dL (50-130) 11/24/21 05:18 HDL Cholesterol 76 mg/dL (40-59) H 11/24/21 05:18 Cholesterol/HDL Ratio 1.76 % 11/24/21 05:18 TSH 1.250 mlU/mL (0.270-4.200) 11/24/21 05:18 Valproic Acid 68.1 ug/mL (50-100) 11/27/21 10:44 Hepatitis A IgM Ab Non-reactive (NonReactive) 11/24/21 05:18 Hep Bs Antigen Non-reactive (Negative) 11/24/21 05:18 Hep B Core IgM Ab Non-reactive (NonReactive) 11/24/21 05:18 Hepatitis C Antibody Non-reactive (NonReactive) 11/24/21 05:18 Core Measure Documentation - Palliative Care Palliative Care/ Comfort Measures: Not Applicable - Core Measures Any of the following diagnoses?: none - VTE Discharge Requirements Deep Vein Thrombosis/Pulmonary Embolism Present on Admission: No Exam - Constitutional Vitals: Temp Pulse Resp BP Pulse Ox 97.6 F 81 18 126/63 95 12/01/21 09:07 12/01/21 09:40 12/01/21 09:07 12/01/21 09:40 12/01/21 09:05 Plan Care Plan Goals: Maintain good and stable mental health. Plan of Treatment: The patient should be compliant with medications, not to use drugs and not to drink alcohol.The patient understands that if suicidal ideas, homicidal ideas, or any endangering thoughts/behavior arise, they should immediately seek for emergent assistance including but not limited to crisis hot line and emergency room. Follow up with outpatient Psychiatrist and PCP within 7 - 14 days of discharge. Follow up with: PRIMARY CARE,MD [Primary Care Provider] - 7 Days Prescriptions: traZODone [Desyrel] 50 mg PO QHS 30 Days #30 tablet ARIPiprazole [Abilify TAB] 30 mg PO QDAY 30 Days #30 tablet [place] Carbonate [Eskalith] 300 mg PO Q8HR 30 Days #60 capsule
--- NOTE | 2021-12-01 19:51 | Progress Note ---
Assessment and Plan Assessment and Plan - Patient Problems (1) Vascular dementia with behavioral disturbance Current Visit: Yes Status: Acute Plan to address problem: Verbal prompting, verbal redirection, benzodiazepine therapy as clinically indicated. (2) Bipolar disorder Current Visit: No Status: Acute Plan to address problem: Continue medical management, supportive care. (3) Cerebral atherosclerosis Current Visit: No Status: Acute Plan to address problem: Antiplatelet therapy as clinically indicated, risk factor reduction, (4) Generalized anxiety disorder Current Visit: No Status: Acute Plan to address problem: Benzodiazepine therapy as clinically indicated. (5) Obesity (BMI 30.0-34.9) Current Visit: No Status: Acute Plan to address problem: Balanced diet, increase physical activity at discharge. (6) Schizophrenia Current Visit: No Status: Acute Qualifiers: Schizophrenia type: unspecified Qualified Code(s): F20.9 - Schizophrenia, unspecified Plan to address problem: Continue medical management, supportive care. (7) Hypertension Current Visit: Yes Status: Acute Qualifiers: Hypertension type: primary hypertension Qualified Code(s): I10 - Essential (primary) hypertension Plan to address problem: Monitor blood pressure every shift, continue medical management. (8) Diabetes Current Visit: Yes Status: Acute Plan to address problem: Consistent carbohydrate diet, Accu-Chek, insulin protocol, hypoglycemia protocol. (9) Advance care planning Current Visit: Yes Status: Acute Plan to address problem: Disease education conducted, care plan discussed, diagnosis discussed, prognosis discussed, patient is full code, +30 minutes. (10) Preventative health care Current Visit: No Status: Acute Plan to address problem: Home safety precautions, patient to follow-up with primary care physician for all age and risk factor appropriate screening test. +30 minutes. Subjective Date of service: 12/01/21 Principal diagnosis: Bipolar Interval history: History Interval history: 70 YO Female with Vascular Dementia with behavioral disturbance, Cerebral Atherosclerosis, HTN, DM, COPD, Bipolar Disorder, Schizophrenia, MDD, THOMAS admitted to [facility] for psychiatric stabilization. Patient seen and evaluated in the recreation room. Patient appears to be at baseline level of cognition and function. No reported nursing events. Objective - Constitutional Vitals: Vital Signs - 12hr 12/01/21 12/01/21 12/01/21 09:05 09:07 09:40 Temperature 97.6 F 97.6 F Pulse Rate 81 81 Respiratory 18 18 Rate Blood Pressure 128/63 126/63 O2 Sat by Pulse 95 Oximetry General appearance: Present: no acute distress, well-nourished - EENT Eyes: PERRL, EOM intact ENT: hearing intact, clear oral mucosa Ears: bilateral: normal - Neck Neck: supple, normal ROM - Respiratory Respiratory effort: normal Respiratory: bilateral: CTA - Breasts Breasts: normal - Cardiovascular Heart rate: 78 Rhythm: regular Heart Sounds: Present: S1 & S2. Absent: gallop, rub Extremities: pulses intact, No edema, normal color, Full ROM - Gastrointestinal General gastrointestinal: Present: soft, non-tender, non-distended, normal bowel sounds - Genitourinary Female genitourinary: normal - Integumentary Integumentary: clear, warm, dry - Musculoskeletal Musculoskeletal: 1, strength equal bilaterally - Neurologic Neurologic: moves all extremities - Psychiatric Psychiatric: memory intact, appropriate mood/affect, intact judgment & insight - Labs CBC & Chem 7: 11/24/21 05:18 Labs: Abnormal lab results 11/30/21 Range/Units 20:11 POC Glucose 151 H (70-105) mg/dL
[2021-12-01] MEDS: traZODone 50 MG TAB PO SCH (21:10)
[2021-12-01] MEDS: DONEPEZIL 5 MG TAB PO SCH (21:11)
== END 2021-12-01 21:32 | disposition home or self-care (01) | DRG 885 ==
LOC: 3A 15:26 → UNDOADMIN 15:26 → 5A 21:49
PROVIDERS: ADMIT Psychiatry & Neurology Psychiatry; ATTEND Psychiatry & Neurology Psychiatry
DX: F31.9 Bipolar disorder, unspecified (principal); F01.51 Vascular dementia, unspecified severity, with behavioral disturbance; I67.2 Cerebral atherosclerosis; I10 Essential (primary) hypertension; E11.9 Type 2 diabetes mellitus without complications; J44.9 Chronic obstructive pulmonary disease, unspecified; F20.9 Schizophrenia, unspecified; F41.1 Generalized anxiety disorder; E66.9 Obesity, unspecified; Z68.32 Body mass index [BMI] 32.0-32.9, adult; Z88.8 Allergy status to other drugs, medicaments and biological substances; Z91.040 Latex allergy status; Z79.4 Long term (current) use of insulin; Z83.3 Family history of diabetes mellitus; Z82.49 Family history of ischemic heart disease and other diseases of the circulatory system
CPT/HCPCS: 36415; 80048; 80061; 80074; 80164; 80307; 80320; 81001; 82962; 83036; 84443; 85025; 96372; 99283; 99284; G0378; J3490; Q9967; G0480; J1815; J3486; U0003

== ENCOUNTER 2021-12-10 17:24 | Emergency (ER) | payer MEDICARE ==
[2021-12-10 18:58] VITALS: BP 162/75
== END 2021-12-11 03:50 | disposition left against medical advice (07) ==
LOC: ED 17:24
DX: R53.1 Weakness (principal); Z53.21 Procedure and treatment not carried out due to patient leaving prior to being seen by health care provider